=== PATIENT | male | born 1945 | race Two or more races ===

== ENCOUNTER 2020-03-01 16:57 | Emergency (ER) | payer OTHER, SELFPAY ==
[2020-03-01] VITALS (7 sets, daily range): BP systolic 173–204; BP diastolic 81–92; PULSE 62–79; RESP 14–20; TEMP 36.7–36.9; O2SAT 95–98; BMI 27.4
--- NOTE | 2020-03-01 17:25 | ED_ITS ---
HPI - Dizziness General Chief Complaint: Dizziness Stated Complaint: dizzyness Time Seen by Provider: 03/01/20 17:11 Source: patient Mode of arrival: ambulatory Limitations: no limitations History of Present Illness HPI Narrative: This is a pleasant 74-year-old male presents ambulatory via triage with history of hypertension, BPH, hepatitis s/p tx from ivd use 40 + years ago presents ambulatory via triage states he has been cooking for his family all day and ran up a flight of stairs to his room to do something and soon to get the top of the stairs he became slightly dizzy and felt warm like he was going to pass out. States this caused him to get very anxious and concerned. States this has happened to him once before about 40 years ago and not sure will cause at that time. States he did not eat much today as he was focused on his family. He otherwise denies any recent illness. No recent travel or sick contacts. He did not have any headache or chest pain during the episode did feel lightheaded /dizzy but did not pass out. States he sat down and prayed and became scared as he has not been the doctors in a years due to the COVID 19. Related Data Previous Rx's Medication Instructions Recorded cholecalciferol (vitamin D3) 25 25 mcg PO DAILY 90 Days #90 cap 02/06/20 mcg (1,000 unit) capsule Allergies Allergy/AdvReac Type Severity Reaction Status Date / Time No Known Allergies Allergy Verified 03/01/20 17:19 [No Known Allergies*] NKDA Allergy Unknown Unknown Uncoded 03/01/20 17:19 Review of Systems Review of Systems: Constitutional: No Weight loss, No Fever, No Chills, No Night Sweats, No Fatigue, No Malaise ENT/Mouth: No Hearing loss, No Ear Pain, No Nasal Congestion, No Sinus Pain, No Hoarseness, No sore throat, No Rhinorrhea, No Swallowing Difficulty Eyes: No Eye Pain, No Swelling, No Redness, No Foreign Body, No Discharge, No Vision Changes Cardiovascular: No Chest Pain, No SOB, No Dyspnea on Exertion, No Orthopnea, No Edema, No Palpitations Respiratory: No Cough, No Sputum, No Wheezing, No Smoke Exposure, No Dyspnea Gastrointestinal: No Nausea, No Vomiting, No Diarrhea, No Constipation, No abdominal Pain, No Hematochezia, No Melena Genitourinary: no irregular bleeding, No Dysuria, No Urinary Frequency, No Hematuria, No Urinary Incontinence, No Urgency, No Flank Pain, No Urinary Flow Changes, No Hesitancy Musculoskeletal: No joint pain, No Myalgias, No Joint Swelling Skin: No Skin Lesions, No rash Neuro: No Weakness, No Numbness, No Paresthesias, No Loss of Consciousness, No Dizziness, No Headache Psych: No Anxiety/Panic, No Depression, No SI/HI/AH/VH, No Social Issues Heme/Lymph: No Bruising, No Bleeding,No Lymphadenopathy Endocrine: No Polyuria, No Polydipsia, No Temperature Intolerance Yes all other systems are reviewed and are negative [facility] Past Medical History Attestation statement: The following information was validated with the patient. Medical History (Updated 03/01/20 @ 21:44 by Kin Boateng NP) HTN (hypertension) Surgical History (Updated 03/01/20 @ 17:26 by Lucy Oviedo RN) History of prostate surgery Social History Social History Alcohol intake: former Smoking Status: Former smoker Smoked in Last 30 Days: No Use of substances other than those prescribed or required for medical reasons: No Advance Directives: No Advance Directives Information Provided: Yes Physical Exam Vital Signs: Vital Signs: Vital Signs Temp Pulse Resp BP Pulse Ox 03/01/20 21:49 62 18 173/88 H 98 03/01/20 20:00 98.3 F 68 14 180/82 H 97 03/01/20 19:32 79 204/92 H 03/01/20 19:31 73 184/82 H 03/01/20 19:29 69 177/81 H 03/01/20 18:00 98.1 F 67 20 180/85 H 95 03/01/20 17:20 98.4 F 71 15 179/90 H 97 Body Mass Index 27.4 Reviewed Const: General: cooperative and healthy appearing; No acute distress or intoxicated appearing Nutritional Appearance: average body habitus Orientation/consciousness: patient oriented x3 HENMT: Head: Yes normal to inspection Ears: hearing grossly normal bilaterally Eyes: General: appearance normal, both eyes and all related structures Visual Gerard: normal visual gerard by confrontation Neck: Neck: Yes normal visual inspection and No tender Thyroid: Thyroid normal Chest: Chest palpation & inspection: normal inspection of the chest Resp: Effort & Inspection: normal respiratory effort Cardio: Jugular venous distension: no JVD GI: Inspection: Yes normal to inspection Percussion: Yes normal to percussion Auscultation: normal bowel sounds : General: Yes no CVA tenderness Back/Spine/Pelvis: Back: no CVA tenderness Skin: General skin exam: no rashes or lesions noted Neuro: Other: NIH scale 0 No focal neurological findings General: patient oriented x3 Cranial nerves: Yes CN's II-XII intact bilaterally Motor exam (neuro): 5/5 motor strength present throughout Coordination: [id number] test normal Comatose Patient: corneal reflex present Extrem: General: Yes normal to inspection MDM - Dizziness MDM Narrative Medical decision making narrative: Negative orthostatics. Blood pressure on higher side with history of hypertension did take his own little pain does with slight improvements blood pressure. Does report blood pressure tends to be higher when he is in hospital setting or he is nervous. Otherwise workup unremarkable with no delta on repeat troponin. Will follow up with his primary care doctor. Encouraged to increase p.o. intake/ fluids, clear return follow-up instructions. Patient is stable for discharge. Differential Diagnosis Differential diagnosis: Likely benign paroxysmal positional vertigo and orthostatic hypotension; Unlikely adverse reaction to drug, vertebral basilar insufficiency, cerebrovascular accident, acute vestibular neuronitis and transient cerebral ischemia Medical Records Attestation: I reviewed the patient's medical records. Lab Data Attestation: I reviewed the patient's lab results. Result diagrams: 03/01/20 17:57 03/01/20 17:57 Labs: Lab Results 03/01/20 03/01/20 03/01/20 Range/Units 17:57 17:57 17:57 WBC 6.3 (4.8-10.8) X10*3/uL RBC 4.98 (4.60-5.80) X10*6/uL Hgb 15.1 (14.0-18.0) g/dl Hct 44.8 (42-52) % MCV 90.0 (80-98) fL MCH 30.3 (27.0-33.0) pg MCHC 33.7 (31.0-36.0) g/dl RDW 12.8 (11.0-16.0) % Plt Count 167 (160-400) X10*3/uL MPV 12.3 (9.4-12.4) fL Immature Gran % (Auto) 0.3 (0.0-0.4) % Neut % (Auto) 61.8 (45-73) % Lymph % (Auto) 25.8 (20-40) % [place] % (Auto) 10.2 (2-11) % Eos % (Auto) 1.1 (0-4) % Baso % (Auto) 0.8 (0-2) % Lymph # (Auto) 1.6 (1.2-4.9) X10*3/uL [place] # (Auto) 0.6 (0.1-1.2) X10*3/uL Eos # (Auto) 0.1 (0.0-0.4) X10*3/uL Baso # (Auto) 0.1 (0.0-0.2) X10*3/uL Abs Immat Gran (auto) 0.02 (0.00-0.03) X10*3/uL Absolute Neuts (auto) 3.9 (2.0-8.3) X10*3/uL Absolute Nucleated RBC 0.000 (0.0-0.012) X10*3/uL Nucleated RBC % (auto) 0.0 (0.0-0.2) /100WBC PT (10.8-13.0) SEC INR (0.9-1.1) APTT (24.1-38.0) SEC Sodium 138 (135-145) mmol/L Potassium 4.2 (3.3-5.1) mmol/l Chloride 102 (96-108) mmol/L Carbon Dioxide 26 (22-29) mmol/L Anion Gap 14 (12-20) BUN 15 (9-16) mg/dL Creatinine 1.05 (0.5-1.4) mg/dL Estim Creat Clear Calc 60.1 Estimated GFR > 60 Random Glucose 168 H (60-115) mg/dL Calcium 8.4 (8.4-10.2) mg/dL Magnesium 2.0 (1.6-2.6) mg/dL Total Bilirubin 0.8 (0.0-1.0) mg/dL AST 27 (5-37) U/L ALT 18 (0-40) U/L Alkaline Phosphatase 53 (39-117) U/L Troponin I High Sens < 3.5 (<3.5-35.0) ng/L Total Protein 7.6 (6.5-8.0) g/dL Albumin 4.4 (3.5-5.0) g/dL Lipase 92 H (8-78) U/L TSH 2.15 (0.32-4.0) mIU/mL Urine Color Urine Appearance Urine pH (5.0-8.0) Ur Specific [place] (1.005-1.025) Urine Protein (NEG-TRACE) MG/DL Urine Glucose (UA) (NEG) MG/DL Urine Ketones (NEG) MG/DL Urine Blood (NEG) Urine Nitrite (NEG) Ur Leukocyte Esterase (NEG) Urine RBC (0) /HPF Urine WBC (0-4) /HPF Ur Squamous Epith Cells /LPF Urine Bacteria /LPF Urine Opiates Screen (Not Detect) Ur Barbiturates Screen (Not Detect) Ur Phencyclidine Scrn (Not Detect) Ur Amphetamines Screen (Not Detect) U Benzodiazepines Scrn (Not Detect) Urine Cocaine Screen (Not Detect) U Marijuana (THC) Screen (Not Detect) Coronavirus (PCR) (Negative) 03/01/20 03/01/20 03/01/20 Range/Units 17:57 17:57 17:57 WBC (4.8-10.8) X10*3/uL RBC (4.60-5.80) X10*6/uL Hgb (14.0-18.0) g/dl Hct (42-52) % MCV (80-98) fL MCH (27.0-33.0) pg MCHC (31.0-36.0) g/dl RDW (11.0-16.0) % Plt Count (160-400) X10*3/uL MPV (9.4-12.4) fL Immature Gran % (Auto) (0.0-0.4) % Neut % (Auto) (45-73) % Lymph % (Auto) (20-40) % [place] % (Auto) (2-11) % Eos % (Auto) (0-4) % Baso % (Auto) (0-2) % Lymph # (Auto) (1.2-4.9) X10*3/uL [place] # (Auto) (0.1-1.2) X10*3/uL Eos # (Auto) (0.0-0.4) X10*3/uL Baso # (Auto) (0.0-0.2) X10*3/uL Abs Immat Gran (auto) (0.00-0.03) X10*3/uL Absolute Neuts (auto) (2.0-8.3) X10*3/uL Absolute Nucleated RBC (0.0-0.012) X10*3/uL Nucleated RBC % (auto) (0.0-0.2) /100WBC PT 11.9 (10.8-13.0) SEC INR 1.0 (0.9-1.1) APTT 34.1 (24.1-38.0) SEC Sodium (135-145) mmol/L Potassium (3.3-5.1) mmol/l Chloride (96-108) mmol/L Carbon Dioxide (22-29) mmol/L Anion Gap (12-20) BUN (9-16) mg/dL Creatinine (0.5-1.4) mg/dL Estim Creat Clear Calc Estimated GFR Random Glucose (60-115) mg/dL Calcium (8.4-10.2) mg/dL Magnesium (1.6-2.6) mg/dL Total Bilirubin (0.0-1.0) mg/dL AST (5-37) U/L ALT (0-40) U/L Alkaline Phosphatase (39-117) U/L Troponin I High Sens (<3.5-35.0) ng/L Total Protein (6.5-8.0) g/dL Albumin (3.5-5.0) g/dL Lipase (8-78) U/L TSH (0.32-4.0) mIU/mL Urine Color YELLOW Urine Appearance CLEAR Urine pH 5.5 (5.0-8.0) Ur Specific [place] 1.025 (1.005-1.025) Urine Protein TRACE (NEG-TRACE) MG/DL Urine Glucose (UA) NEG (NEG) MG/DL Urine Ketones NEG (NEG) MG/DL Urine Blood 1+ H (NEG) Urine Nitrite NEG (NEG) Ur Leukocyte Esterase NEG (NEG) Urine RBC 0-2 (0) /HPF Urine WBC 0 (0-4) /HPF Ur Squamous Epith Cells NONE /LPF Urine Bacteria NONE /LPF Urine Opiates Screen (Not Detect) Ur Barbiturates Screen (Not Detect) Ur Phencyclidine Scrn (Not Detect) Ur Amphetamines Screen (Not Detect) U Benzodiazepines Scrn (Not Detect) Urine Cocaine Screen (Not Detect) U Marijuana (THC) Screen (Not Detect) Coronavirus (PCR) NEGATIVE (Negative) 03/01/20 03/01/20 Range/Units 17:57 20:27 WBC (4.8-10.8) X10*3/uL RBC (4.60-5.80) X10*6/uL Hgb (14.0-18.0) g/dl Hct (42-52) % MCV (80-98) fL MCH (27.0-33.0) pg MCHC (31.0-36.0) g/dl RDW (11.0-16.0) % Plt Count (160-400) X10*3/uL MPV (9.4-12.4) fL Immature Gran % (Auto) (0.0-0.4) % Neut % (Auto) (45-73) % Lymph % (Auto) (20-40) % [place] % (Auto) (2-11) % Eos % (Auto) (0-4) % Baso % (Auto) (0-2) % Lymph # (Auto) (1.2-4.9) X10*3/uL [place] # (Auto) (0.1-1.2) X10*3/uL Eos # (Auto) (0.0-0.4) X10*3/uL Baso # (Auto) (0.0-0.2) X10*3/uL Abs Immat Gran (auto) (0.00-0.03) X10*3/uL Absolute Neuts (auto) (2.0-8.3) X10*3/uL Absolute Nucleated RBC (0.0-0.012) X10*3/uL Nucleated RBC % (auto) (0.0-0.2) /100WBC PT (10.8-13.0) SEC INR (0.9-1.1) APTT (24.1-38.0) SEC Sodium (135-145) mmol/L Potassium (3.3-5.1) mmol/l Chloride (96-108) mmol/L Carbon Dioxide (22-29) mmol/L Anion Gap (12-20) BUN (9-16) mg/dL Creatinine (0.5-1.4) mg/dL Estim Creat Clear Calc Estimated GFR Random Glucose (60-115) mg/dL Calcium (8.4-10.2) mg/dL Magnesium (1.6-2.6) mg/dL Total Bilirubin (0.0-1.0) mg/dL AST (5-37) U/L ALT (0-40) U/L Alkaline Phosphatase (39-117) U/L Troponin I High Sens 3.9 (<3.5-35.0) ng/L Total Protein (6.5-8.0) g/dL Albumin (3.5-5.0) g/dL Lipase (8-78) U/L TSH (0.32-4.0) mIU/mL Urine Color Urine Appearance Urine pH (5.0-8.0) Ur Specific [place] (1.005-1.025) Urine Protein (NEG-TRACE) MG/DL Urine Glucose (UA) (NEG) MG/DL Urine Ketones (NEG) MG/DL Urine Blood (NEG) Urine Nitrite (NEG) Ur Leukocyte Esterase (NEG) Urine RBC (0) /HPF Urine WBC (0-4) /HPF Ur Squamous Epith Cells /LPF Urine Bacteria /LPF Urine Opiates Screen Not Detected (Not Detect) Ur Barbiturates Screen Not Detected (Not Detect) Ur Phencyclidine Scrn Not Detected (Not Detect) Ur Amphetamines Screen Not Detected (Not Detect) U Benzodiazepines Scrn Not Detected (Not Detect) Urine Cocaine Screen Not Detected (Not Detect) U Marijuana (THC) Screen Not Detected (Not Detect) Coronavirus (PCR) (Negative) Imaging Data Chest x-ray: Radiologist's impression: [address] [address] XRay Report Signed Patient: Chacho Barnard [facility]#: [id number] : 8Acct:[id number] Age/Sex: 74 / MADM Date: 03/01/20 Loc: HO.ED Attending Dr: Ordering Physician: Kin Boateng CHILDREN'S LIBRARIAN Date of Service: 03/01/20 Procedure(s): XR chest 1V Accession Number(s): [id number] cc: Kin Boateng CHILDREN'S LIBRARIAN~ EXAMINATION: XR CHEST CLINICAL INFORMATION: Weakness. COMPARISON: Chest x-ray 06/11/2018 TECHNIQUE: Frontal portable view of the chest was obtained. 5:41 PM FINDINGS: No significant abnormality is noted involving the heart, lungs, mediastinum, bony thorax or soft tissues. XR/XR chest 1V IMPRESSION: Unremarkable examination. Dictated By:ISAI GONZALEZ MD Signed By:<Electronically signed by ISAI GONZALEZ MD in OV>03/01/201756 DD/ 29 TD/TT: Workers Compensation Claims Analyst: PRATIK ECG Data Interpretation: Normal sinus rhythm Rate [address] segment changes No previous to compare to Discharge Plan Discharge Clinical Impression: Postural dizziness with near syncope Patient Disposition: Home, Self-Care Instructions: Near Syncope (ED), Dizziness (ED) Additional Instructions: Drink plenty of fluids Take medication prescribed Prescriptions: No Action cholecalciferol (vitamin D3) 25 mcg (1,000 unit) capsule 25 mcg PO DAILY 90 Days Qty: 90 RF: 0 Referrals: Chris Pearson MD [Primary Care Provider] - 1 week Interventions: ED Discharge Assessment Last Done: 03/01/20 22:24 Discharge Date/Time: 03/01/20 22:00
--- NOTE | 2020-03-01 17:27 | ECG_ITS ---
Test Reason : DIZZINESS Blood Pressure : / mmHG Vent. Rate : 070 BPM Atrial Rate : 070 BPM P-R Int : 178 ms QRS Dur : 100 ms QT Int : 398 ms P-R-T Axes : 020 004 016 degrees QTc Int : 429 ms Normal sinus rhythm Incomplete right bundle branch block Borderline ECG No previous ECGs available Referred By: Kin Boateng Electronically Signed By:JERRY ALVARADO MD
--- NOTE | 2020-03-01 17:30 | XR_ITS ---
EXAMINATION: XR CHEST CLINICAL INFORMATION: Weakness. COMPARISON: Chest x-ray 06/11/2018 TECHNIQUE: Frontal portable view of the chest was obtained. 5:41 PM FINDINGS: No significant abnormality is noted involving the heart, lungs, mediastinum, bony thorax or soft tissues. XR/XR chest 1V IMPRESSION: Unremarkable examination.
[2020-03-01 18:08] LABS: MANUAL DIFF FLAG NO
[2020-03-01 18:12] LABS: Glucose Urine UA NEG (NEG); Leukocyte Esterase Urine NEG (NEG); Nitrite Urine NEG (NEG); PH 5.5 (5.0-8.0); Specific Gravity - Urine 1.025 (1.005-1.025); Urine Blood 1+ (NEG); Urine Ketones NEG (NEG); Urine Protein TRACE MG/DL (NEG-TRACE)
[2020-03-01 18:14] LABS: Color Urine YELLOW
[2020-03-01 18:15] LABS: Appearance Urine CLEAR
[2020-03-01 18:17] LABS: Prothrombin Time 11.9 SEC (10.8-13.0)
[2020-03-01 18:20] LABS: Partial Thromboplastin Time 34.1 SEC (24.1-38.0)
[2020-03-01 18:25] LABS: Basophils Absolute Auto 0.1 X10*3/uL (0.0-0.2); Basophils Percent Auto 0.8 % (0-2); Eosinophils Absolute Auto 0.1 X10*3/uL (0.0-0.4); Eosinophils Percent Auto 1.1 % (0-4); Hematocrit 44.8 % (42-52); Hemoglobin 15.1 g/dl (14.0-18.0); Imm Gran Abs Auto 0.02 X10*3/uL (0.00-0.03); Imm Gran Pct Auto 0.3 % (0.0-0.4); Lymphocytes Absolute Auto 1.6 X10*3/uL (1.2-4.9); Lymphocytes Percent Auto 25.8 % (20-40); Mean Corpuscular HGB Conc 33.7 g/dl (31.0-36.0); Mean Corpuscular Hemoglobin 30.3 pg (27.0-33.0); Mean Platelet Volume 12.3 fL (9.4-12.4); Monocytes Absolute Auto 0.6 X10*3/uL (0.1-1.2); Monocytes Percent Auto 10.2 % (2-11); Neutrophils Absolute Auto 3.9 X10*3/uL (2.0-8.3); Neutrophils Percent Auto 61.8 % (45-73); Platelet Count 167 X10*3/uL (160-400); Red Blood Count 4.98 X10*6/uL (4.60-5.80); Red Cell Distribution Width 12.8 % (11.0-16.0); White Blood Count 6.3 X10*3/uL (4.8-10.8)
[2020-03-01 18:29] LABS: Amphetamine Screen Urine Not Detected (Not Detect); Barbiturates, Urine Not Detected (Not Detect); Benzodiazepines Screen Urine Not Detected (Not Detect); Cannabinoid Screen Urine Not Detected (Not Detect); Cocaine Screen Urine Not Detected (Not Detect); Opiate Screen Urine Not Detected (Not Detect); Phencyclidine Screen Urine Not Detected (Not Detect)
[2020-03-01 18:34] LABS: Troponin-I High Sensitivity < 3.5 ng/L (<3.5-35.0)
[2020-03-01 18:38] LABS: Alanine Aminotransferase 18 U/L (0-40); Albumin Level 4.4 g/dL (3.5-5.0); Alkaline Phosphatase 53 U/L (39-117); Anion Gap 14 (12-20); Aspartate Amino Transferase 27 U/L (5-37); Bilirubin Total 0.8 mg/dL (0.0-1.0); Blood Urea Nitrogen 15 mg/dL (9-16); Calcium 8.4 mg/dL (8.4-10.2); Carbon Dioxide 26 mmol/L (22-29); Chloride 102 mmol/L (96-108); Creatinine Clr Calc Pharmacy 60.1; Estimated Glomerular Filt Rate > 60; Glucose Random 168 mg/dL (60-115); Potassium 4.2 mmol/l (3.3-5.1); Sodium 138 mmol/L (135-145); Total Protein 7.6 g/dL (6.5-8.0)
[2020-03-01 18:45] LABS: RBC Urine 0-2 /HPF (0); WBC Urine 0 /HPF (0-4)
[2020-03-01 18:50] LABS: Thyroid Stimulating Hormone 2.15 mIU/mL (0.32-4.0)
[2020-03-01 18:53] LABS: Lipase 92 U/L (8-78)
[2020-03-01 19:21] LABS: SARS COV2 PCR INHOUSE NEGATIVE (Negative)
--- NOTE | 2020-03-01 20:20 | PC.NURSE ---
BP evelated Increaswes with activity. 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 Pt states that he took his own po Atenolol 50mg at 1920. This was also reported to the SAND SCREENER OPERATOR.
[2020-03-01 21:11] LABS: Troponin-I High Sensitivity 3.9 ng/L (<3.5-35.0)
== END 2020-03-01 22:00 | disposition home or self-care (01) ==
PROVIDERS: Nurse Practitioner Primary Care; Emergency Provider Student in an Organized Health Care Education/Training Program; PCP Internal Medicine
DX: R42 Dizziness and giddiness (principal); R55 Syncope and collapse; Z79.899 Other long term (current) drug therapy; Z20.828 Contact with and (suspected) exposure to other viral communicable diseases
CPT/HCPCS: 36415; 71045; 80053; 80307; 81001; 83690; 83735; 84443; 84484; 85025; 85610; 85730; 93005; 99283; 99284; U0003

== ENCOUNTER 2020-12-07 07:00 | Outpatient (REF) | payer OTHER, SELFPAY ==
[2020-12-07 08:17] LABS: Basophils Absolute Auto 0.1 X10*3/uL (0.0-0.2); Basophils Percent Auto 0.8 % (0-2); Eosinophils Absolute Auto 0.2 X10*3/uL (0.0-0.4); Eosinophils Percent Auto 2.8 % (0-4); Imm Gran Abs Auto 0.01 X10*3/uL (0.00-0.03); Imm Gran Pct Auto 0.2 % (0.0-0.4); Lymphocytes Absolute Auto 2.1 X10*3/uL (1.2-4.9); Neutrophils Percent Auto 47.7 % (45-73)
[2020-12-07 08:19] LABS: Hematocrit 43.7 % (42-52); Hemoglobin 14.7 g/dl (14.0-18.0); Lymphocytes Percent Auto 35.6 % (20-40); Mean Corpuscular HGB Conc 33.6 g/dl (31.0-36.0); Mean Corpuscular Hemoglobin 30.5 pg (27.0-33.0); Mean Corpuscular Volume 90.7 fL (80-98); Monocytes Absolute Auto 0.8 X10*3/uL (0.1-1.2); Monocytes Percent Auto 12.9 % (2-11); Neutrophils Absolute Auto 2.9 X10*3/uL (2.0-8.3); Platelet Count 142 X10*3/uL (160-400); Red Blood Count 4.82 X10*6/uL (4.60-5.80); Red Cell Distribution Width 13.2 % (11.0-16.0)
[2020-12-07 08:20] LABS: MANUAL DIFF FLAG NO
[2020-12-07 08:29] LABS: Estimated Average Glucose 103 mg/dL; Hemoglobin A1c % 5.2 %
[2020-12-07 08:38] LABS: Alanine Aminotransferase 29 U/L (0-40); Albumin Level 4.4 g/dL (3.5-5.0); Alkaline Phosphatase 54 U/L (39-117); Anion Gap 12 (12-20); Aspartate Amino Transferase 29 U/L (5-37); Bilirubin Total 0.6 mg/dL (0.0-1.0); Blood Urea Nitrogen 17 mg/dL (9-16); Calcium 9.4 mg/dL (8.4-10.2); Carbon Dioxide 25 mmol/L (22-29); Chloride 108 mmol/L (96-108); Cholesterol 187 mg/dL; Estimated Glomerular Filt Rate > 60; Glucose Fasting 104 mg/dL (60-99); HDL Cholesterol 40 mg/dL; LDL Cholesterol Calculated 125 mg/dl; Sodium 141 mmol/L (135-145); Total Protein 7.5 g/dL (6.5-8.0); Triglycerides 112 mg/dL
[2020-12-07 08:47] LABS: Glucose Urine UA NEG (NEG); Leukocyte Esterase Urine NEG (NEG); Nitrite Urine NEG (NEG); Specific Gravity - Urine <= 1.005 (1.005-1.025); UACC Culture Trigger NO; Urine Blood TRACE (NEG); Urine Ketones NEG (NEG); Urine Protein NEG (NEG-TRACE)
[2020-12-07 08:52] LABS: Appearance Urine CLEAR; Color Urine YELLOW
[2020-12-07 09:03] LABS: Mucus Urine TRACE /LPF; Squamous Epithelial Cell Urine TRACE /LPF; WBC Urine 0-2 /HPF (0-4)
[2020-12-07 09:05] LABS: TSH reflex Free T4 3.41 uIU/mL (0.32-4.0); Vitamin D 25-OH Total 37.9 ng/mL (>30)
[2020-12-07 09:35] LABS: Prostate Specific Antigen 1.93 ng/mL (<0.05-4.0)
== END 2020-12-07 07:01 | disposition home or self-care (01) ==
LOC: HO.LAB 07:00
PROVIDERS: PCP Internal Medicine; Visit Provider Internal Medicine
DX: Z12.5 Encounter for screening for malignant neoplasm of prostate (principal); I10 Essential (primary) hypertension; E66.3 Overweight; E78.00 Pure hypercholesterolemia, unspecified; R73.01 Impaired fasting glucose; E55.9 Vitamin D deficiency, unspecified; R35.0 Frequency of micturition
CPT/HCPCS: 36415; 80053; 80061; 81001; 82306; 83036; 84153; 84443; 85025

== ENCOUNTER 2021-12-13 06:54 | Outpatient (REF) | payer OTHER, SELFPAY ==
[2021-12-13 07:05] LABS: MANUAL DIFF FLAG NO
[2021-12-13 07:10] LABS: Basophils Absolute Auto 0.1 X10*3/uL (0.0-0.2); Basophils Percent Auto 0.9 % (0-2); Eosinophils Absolute Auto 0.1 X10*3/uL (0.0-0.4); Eosinophils Percent Auto 2.2 % (0-4); Hematocrit 44.5 % (42.0-52.0); Hemoglobin 14.9 g/dl (14.0-18.0); Imm Gran Abs Auto 0.01 X10*3/uL (0.00-0.03); Imm Gran Pct Auto 0.2 % (0.0-0.4); Lymphocytes Percent Auto 34.4 % (20-40); Mean Corpuscular HGB Conc 33.5 g/dl (31.0-36.0); Mean Corpuscular Hemoglobin 30.3 pg (27.0-33.0); Mean Corpuscular Volume 90.4 fL (80.0-98.0); Mean Platelet Volume 12.8 fL (9.4-12.4); Monocytes Absolute Auto 0.8 X10*3/uL (0.1-1.2); Monocytes Percent Auto 13.4 % (2-11); Neutrophils Absolute Auto 2.9 x10*3/uL (2.0-8.3); Neutrophils Percent Auto 48.9 % (45-73); Platelet Count 137 X10*3/uL (160-400); Red Blood Count 4.92 X10*6/uL (4.60-5.80); Red Cell Distribution Width 13.2 % (11.0-16.0); White Blood Count 5.9 X10*3/uL (4.8-10.8)
[2021-12-13 07:35] LABS: Alanine Aminotransferase 25 U/L (0-40); Albumin Level 4.3 g/dL (3.5-5.0); Alkaline Phosphatase 53 U/L (39-117); Anion Gap 14 (12-20); Aspartate Amino Transferase 29 U/L (5-37); Bilirubin Total 0.8 mg/dL (0.0-1.0); Blood Urea Nitrogen 16 mg/dL (9-16); Calcium 8.9 mg/dL (8.4-10.2); Carbon Dioxide 25 mmol/L (22-29); Chloride 106 mmol/L (96-108); Cholesterol 201 mg/dL; Estimated Glomerular Filt Rate > 60; Glucose Fasting 116 mg/dL (60-99); HDL Cholesterol 51 mg/dL; LDL Cholesterol Calculated 132 mg/dl; Potassium 4.1 mmol/L (3.3-5.1); Sodium 141 mmol/L (135-145); Total Protein 7.4 g/dL (6.5-8.0); Triglycerides 92 mg/dL
[2021-12-13 07:59] LABS: Prostate Specific Antigen Scr 2.25 ng/mL (<0.05-4.0); TSH reflex Free T4 2.79 uIU/mL (0.32-4.0); Vitamin D 25-OH Total 36.2 ng/mL (>30)
[2021-12-13 08:23] LABS: Appearance Urine Clear; Color Urine Yellow; Glucose Urine UA Negative (NEG); Leukocyte Esterase Urine Negative (Negative); Nitrite Urine Negative (Negative); Specific Gravity - Urine <= 1.005 (1.005-1.025); Urine Blood Negative (Negative); Urine Ketones Negative (Negative); Urine Protein Negative (Neg-Trace)
== END 2021-12-13 06:55 | disposition home or self-care (01) ==
LOC: HO.LAB 06:54
PROVIDERS: PCP Internal Medicine; Visit Provider Internal Medicine
DX: Z00.00 Encounter for general adult medical examination without abnormal findings (principal); Z12.5 Encounter for screening for malignant neoplasm of prostate; I10 Essential (primary) hypertension; E55.9 Vitamin D deficiency, unspecified
CPT/HCPCS: 36415; 80053; 80061; 81003; 82306; 84153; 84443; 85025

== ENCOUNTER 2022-02-06 09:07 | Emergency (ER) | payer OTHER, SELFPAY ==
[2022-02-06 09:13] VITALS: BP 179/82; PULSE 16; RESP 16; TEMP 36.9; O2SAT 98; BMI 26.6
--- NOTE | 2022-02-06 12:42 | ED_ITS ---
HPI - Anxiety General Chief Complaint: Anxiety Stated Complaint: anxiety Time Seen by Provider: 02/06/22 12:05 Source: patient and family Mode of arrival: ambulatory Limitations: no limitations History of Present Illness HPI narrative: This is a 76-year-old male with a history of hypertension, BPH, anxiety, panic attacks who presents with 2 weeks of feeling anxious. Patient tells me that many years ago he had quite severe anxiety with panic attacks and at that time had been on lorazepam and seeing a therapist. 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 Patient tells me that for the last 2 weeks he has had multiple life stressors including his mom who is currently hospitalized and a daughter who was quite sick as well. He tells me increasing stress, feeling anxious and nervous, poor appetite. Brother tells me patient has been very anxious stating frequently I am going to . Patient denies homicidal ideations, suicidal ideations, depression, hallucinations. He denies current substance use. Patient denies associated chest pain, shortness of breath, palpitations. Patient tells me that his blood pressure is chronically elevated whenever he goes to the doctor's due to white coat syndrome. He is on atenolol. Related Data Previous Rx's Medication Instructions Recorded cholecalciferol (vitamin D3) 25 25 mcg PO DAILY 90 days #90 caps 04/05/21 mcg (1,000 unit) capsule (Vitamin D3) sennosides 8.6 mg tablet (senna) 8.6 mg PO BEDTIME PRN constipation 08/04/21 90 days #90 tabs atenolol 50 mg tablet 50 mg PO DAILY #90 tabs 12/28/21 hydroxyzine HCl 25 mg tablet 25 mg PO QID PRN anxiety #14 tabs 02/06/22 Allergies Allergy/AdvReac Type Severity Reaction Status Date / Time No Known Allergies Allergy Verified 12/23/21 10:44 [No Known Allergies*] Review of Systems Review of Systems: Yes all other systems are reviewed and are negative Constitutional: Constitutional: Reports no additional constitutional complaints, Denies body ache(s), Denies chills, Denies fever(s), Denies headache(s) and Denies weakness Eyes: Eyes: Reports no additional eye complaints and Denies change in vision ENT: Reports system reviewed and no additional complaints, except as docume nted, Denies dizziness, Denies headache(s), Denies nasal congestion, Denies nasal discharge and Denies neck pain Cardiovascular: Cardiovascular: Reports no additional cardiovascular complaints, Denies chest pain, Denies leg edema and Denies dyspnea Respiratory: Respiratory: Reports no additional respiratory complaints, Denies cough and Denies dyspnea Gastrointestinal: Gastrointestinal: Reports no additional gastrointestinal complaints, Denies abdominal pain, Denies diarrhea, Denies nausea and Denies vomiting Genitourinary: Genitourinary: Denies urinary incontinence Musculoskeletal: Musculoskeletal: Reports no additional musculoskeletal complaints, Denies back pain, Denies arthralgias, Denies joint swelling, Denies neck pain, Denies numbness and Denies tingling Integumentary/Breasts: Skin/Breast: Reports system reviewed and no additional complaints, except as docu and Denies rash Neurologic: Reports system reviewed and no additional complaints, except as documented, Denies Abnormal speech present, Denies dizziness, Denies headache( s), Denies numbness, Denies tingling and Denies weakness Psychiatric: Psychiatric: Reports anxiety, Denies depression, Denies homicidal ideation and Denies suicidal ideation ON LICENSE OF [facility] Past Medical History Attestation statement: The following information was validated with the patient. Source: old records reviewed and nursing notes reviewed Medical History Allergic rhinitis Anxiety HTN (hypertension) Impaired fasting glucose Osteoarthritis of left knee Overweight (BMI 25.0-29.9) Pure hypercholesterolemia Urinary frequency Vitamin D deficiency White coat syndrome with hypertension Surgical History History of prostate surgery Family History Family History Father Hypertension Stroke Mother Medical history unknown Social History Social History Housing: House Alcohol intake: former Patient Tobacco Use Status: Former Tobacco user Years Smoked: 25 years Second Hand Smoke Exposure: Yes Advance Directives: No Advance Directives Information Provided: Yes service: No Current occupational status: retired and disabled Cognitive needs: No Hearing needs: No Vision needs: Yes Physical Exam Vital Signs: Vital Signs: Last Vital Signs Temp 98.5 F 02/06/22 09:13 Pulse 16 L 02/06/22 09:13 Resp 16 02/06/22 09:13 BP 179/82 H 02/06/22 09:13 Pulse Ox 98 02/06/22 09:13 O2 Del Method 02/06/22 09:13 BMI result Body Mass Index 26.6 Const: General: cooperative, healthy appearing, comfortable and no acute distress Orientation/consciousness: patient oriented x3 Limitations: no limitations HEENT: Head: Yes normal to inspection Ears: hearing grossly normal bilaterally General nose exam: Normal external nose present Face and sinus: Yes normal facial exam Mouth: Normal oral and palatal mucosa present Throat: Yes posterior oropharynx normal Eyes: General: appearance normal, both eyes and all related structures Pupils: Equal, round and reactive pupils present Neck: Neck: Yes normal visual inspection Chest: Chest palpation & inspection: normal inspection of the chest Resp: Effort & Inspection: normal respiratory effort Auscultation: clear to auscultation bilaterally Cardio: Rate: regular rate Rhythm: regular rhythm Peripheral pulses: Peripheral pulses 2+ throughout GI: Inspection: Yes normal to inspection Palpation (GI): Soft to palpation and nontender Auscultation: normal bowel sounds Back/Spine/Pelvis: Thoracic/Lumbar Spine: thoracic and lumbar spine normal to inspection Skin: General skin exam: no rashes or lesions noted Neuro: General: patient oriented x3, no focal motor deficits and normal sensation to monofilament Cranial nerves: Yes Equal, round and reactive pupils present Cognition (Neuro): normal cognition Speech: No Abnormal speech present Gait exam (Neuro): Normal gait present Motor exam (neuro): 5/5 motor strength present throughout Extrem: General: Yes normal to inspection, Yes no pedal edema and Yes no calf tenderness Course Course Course Narrative: Patient met with care team. Plan for outpatient resources. Will give hydroxyzine p.r.n.. No SI or HI. Patient here with family who agree. Patient my concern over his blood pressure. Blood pressure is mildly elevated here today. He does have white coat hypertension. I reviewed his previous visits as well as visits available deep you had your and is well pressure does seem to run high whenever he comes in to be seen. Patient tells me that he has blood pressure machine and he checks it home. Normally at home is a pressure runs around 150 systolic. He is asking if I would increase his dose of atenolol. However I do not feel this time that is necessary. He did see his primary care doctor in November of this year. Patient tells me he discussed this with his primary care and the decision they made was not to adjust his dose. I recommend patient follow-up outpatient with his primary care to discuss this further. Reviewed worrisome signs and symptoms when to return to the emergency room. Comfortable discharge home. -of note, initial heart rate 16 but this was an error by nursing. Repeat hr normal. MDM - Anxiety MDM Narrative Medical decision making narrative: 76-year-old male here with anxiety increasing over the last few weeks with multiple life stressors and no reports of SI, HI, hallucinations or depression. Patient will speak to care team Medical Records Attestation: I reviewed the patient's medical records. Lab Data Attestation: I reviewed the patient's lab results. Discharge Plan Discharge Clinical Impression: Anxiety, White coat syndrome with hypertension Patient Disposition: Home, Self-Care Instructions: Hypertension (ED), Anxiety (ED) Additional Instructions: You should monitor your blood pressure at home and follow-up with her primary care doctor in regards to this. Continue your blood pressure medications. You did meet with the social work specialist provided with outpatient resources for your anxiety. Please return for any thoughts of hurting herself or thoughts of hurting others. Prescriptions: New hydroxyzine HCl 25 mg tablet 25 mg PO QID PRN (Reason: anxiety) Qty: 14 0RF No Action atenolol 50 mg tablet 50 mg PO DAILY Qty: 90 1RF cholecalciferol (vitamin D3) [Vitamin D3] 25 mcg (1,000 unit) capsule 25 mcg PO DAILY 90 Days Qty: 90 3RF sennosides [senna] 8.6 mg tablet 8.6 mg PO BEDTIME PRN (Reason: constipation) 90 Days Qty: 90 3RF Referrals: Chris Pearson MD [Primary Care Provider] - 1 week
--- NOTE | 2022-02-06 12:59 | MHC.CARE ---
Care Team met with pt and he reported having increased anxiety for the past 2 weeks due to his mother being in a hospital. He reported being worried as his mother lives in [place] with his sister and does not have enough support. Pt's brother Tabatha Barnard stated pt has been struggling with anxiety all his life. This designer writer offered to refer pt to outpatient services, However, pt declined. This designer writer provided pt with outpatient service pamphlet for pt to contact when he is able to. Disposition was discussed with Joana Liz NP and she agreed.
[2022-02-06 13:34] VITALS: PULSE 63
== END 2022-02-06 13:42 | disposition home or self-care (01) ==
PROVIDERS: Emergency Provider Student in an Organized Health Care Education/Training Program; PCP Internal Medicine
DX: F41.9 Anxiety disorder, unspecified (principal); I10 Essential (primary) hypertension; E78.00 Pure hypercholesterolemia, unspecified; Z79.899 Other long term (current) drug therapy; Z87.891 Personal history of nicotine dependence
CPT/HCPCS: 99283; 99284

== ENCOUNTER 2022-05-25 12:48 | Observation (INO) | payer OTHER, SELFPAY ==
[2022-05-25] VITALS (7 sets, daily range): BP systolic 152–210; BP diastolic 71–98; PULSE 57–69; RESP 14–18; TEMP 36.2–36.7; O2SAT 96–98; BMI 26.4
--- NOTE | ~2022-05-25 | CT_ITS ---
EXAMINATION: CT cervical spine wo IV con, CT head/brain wo IV con CLINICAL INFORMATION: Reason for Exam fall head strike neck pain COMPARISON: Age indeterminate right nasal bone fracture. TECHNIQUE: Separate noncontrast CT examinations of the head and cervical spine were performed. Coronal and sagittal images were created for each examination at the technologist workstation. This CT examination was performed using dose optimization techniques as appropriate, variously including the following: *Automated exposure control *Adjustment of mA and/or kV according to patient size (this includes techniques or standardized protocols for targeted exams where dose is matched to indication/reason for exam; i.e. extremities or head) *Use of iterative reconstruction technique DLP: 1225 mGy-cm FINDINGS: Head: Age-indeterminate displaced right nasal bone fracture. No appreciable overlying soft tissue swelling. The mastoid air cells and visualized portions of the paranasal sinuses are well aerated. There is no evidence of acute intracranial hemorrhage or territorial infarction. No abnormal mass effect or midline shift is seen. Ortega to white matter differentiation is well preserved. No extra-axial fluid collections are identified. No hydrocephalus. Cervical spine: There is no evidence of acute cervical spine fracture. Vertebral bodies remain normal in height. Alignment is maintained. Multilevel loss of disc space height. No pre- or paravertebral soft tissue abnormality is identified. Visualized portions of the lung apices are unremarkable. The thyroid gland is unremarkable. CT/CT cervical spine wo IV con IMPRESSION: 1. Age indeterminate displaced right nasal bone fracture. No appreciable overlying soft tissue swelling. 2. No acute intracranial abnormality. 3. No cervical spine fracture or traumatic malalignment.
--- NOTE | ~2022-05-25 | CT_ITS ---
EXAMINATION: CT cervical spine wo IV con, CT head/brain wo IV con CLINICAL INFORMATION: Reason for Exam fall head strike neck pain COMPARISON: Age indeterminate right nasal bone fracture. TECHNIQUE: Separate noncontrast CT examinations of the head and cervical spine were performed. Coronal and sagittal images were created for each examination at the technologist workstation. This CT examination was performed using dose optimization techniques as appropriate, variously including the following: *Automated exposure control *Adjustment of mA and/or kV according to patient size (this includes techniques or standardized protocols for targeted exams where dose is matched to indication/reason for exam; i.e. extremities or head) *Use of iterative reconstruction technique DLP: 1225 mGy-cm FINDINGS: Head: Age-indeterminate displaced right nasal bone fracture. No appreciable overlying soft tissue swelling. The mastoid air cells and visualized portions of the paranasal sinuses are well aerated. There is no evidence of acute intracranial hemorrhage or territorial infarction. No abnormal mass effect or midline shift is seen. Ortega to white matter differentiation is well preserved. No extra-axial fluid collections are identified. No hydrocephalus. Cervical spine: There is no evidence of acute cervical spine fracture. Vertebral bodies remain normal in height. Alignment is maintained. Multilevel loss of disc space height. No pre- or paravertebral soft tissue abnormality is identified. Visualized portions of the lung apices are unremarkable. The thyroid gland is unremarkable. CT/CT head/brain wo IV con IMPRESSION: 1. Age indeterminate displaced right nasal bone fracture. No appreciable overlying soft tissue swelling. 2. No acute intracranial abnormality. 3. No cervical spine fracture or traumatic malalignment.
--- NOTE | ~2022-05-25 | XR_ITS ---
EXAMINATION: XR chest 1V CLINICAL INFORMATION: Reason for Exam fall chest trauma COMPARISON: Chest radiograph 03/01/2020 TECHNIQUE: One view of the chest FINDINGS: Patchy left lateral basilar airspace opacity may reflect a focus of infection, aspiration or atelectasis. No pneumothorax or pleural effusion. Unchanged cardiomediastinal silhouette. No displaced rib fracture, however radiographs have limited sensitivity. XR/XR chest 1V IMPRESSION: Patchy left lateral basilar airspace opacity may reflect a focus of infection, aspiration or atelectasis.
--- NOTE | ~2022-05-25 | US_ITS ---
EXAMINATION: US EXTRACRANIAL CAROTID DUPLEX, BILATERAL CLINICAL INFORMATION: Hypertension, syncope COMPARISON: None TECHNIQUE: Real-time ultrasound and Doppler techniques (integrating B-mode 2-D vascular images, Doppler spectral analysis and color-flow Doppler imaging) were utilized to interrogate the extracranial carotid arteries, the vertebral arteries and proximal subclavian arteries bilaterally. The degree of stenosis is determined by criteria similar to NASCET. FINDINGS: Right Side: 1. There is mild atherosclerotic plaque seen in the bifurcation/proximal ICA region. 2. The common carotid artery PSV proximally is 92 cm/s and distally 75 cm/s. 3. The proximal internal carotid artery velocities are 68 cm/s systolic and 13 cm/s diastolic. 4. The proximal external carotid artery PSV is 102 cm/s. 5. The vertebral artery shows antegrade flow. 6. The subclavian artery waveforms are normal. Left Side: 1. There is mild atherosclerotic plaque seen in the bifurcation/proximal ICA region. 2. The common carotid artery PSV proximally is 97 cm/s and distally 30 cm/s. 3. The proximal internal carotid artery velocities are 70 cm/s systolic and 13 cm/s diastolic. 4. The proximal external carotid artery PSV is 111 cm/s. 5. The vertebral artery shows antegrade flow. 6. The subclavian artery waveforms are normal. US/US carotid duplex BI IMPRESSION: 1. RIGHT: Minimal, non-hemodynamically significant stenosis of the proximal right internal carotid artery corresponding to a 0-49% stenosis by velocity criteria. 2. LEFT: Minimal, non-hemodynamically significant stenosis of the proximal left internal carotid artery corresponding to a 0-49% stenosis by velocity criteria.
--- NOTE | 2022-05-25 12:58 | ECG_ITS ---
Test Reason : dizziness Blood Pressure : / mmHG Vent. Rate : 057 BPM Atrial Rate : 057 BPM P-R Int : 186 ms QRS Dur : 094 ms QT Int : 422 ms P-R-T Axes : 027 -03 036 degrees QTc Int : 410 ms Sinus bradycardia Otherwise normal ECG When compared with ECG of 31-MAR-2020 17:33, No significant change was found Referred By: Joana Garnica Electronically Signed By:JOHN SANTSO
--- NOTE | 2022-05-25 12:59 | ED.SYNCOPE ---
HPI - Syncope General Chief Complaint: Dizziness <Joana Garnica NP - Last Filed: 05/25/22 13:01> Stated Complaint: dizzy high bp <Joana Garnica NP - Last Filed: 05/25/22 13:01> Time Seen by Provider: 05/25/22 16:50 <Joana Garnica NP - Last Filed: 05/25/22 13:01> Source: patient <EUSEBIO Anders - Last Filed: 05/25/22 20:35> Mode of arrival: ambulatory <EUSEBIO Anders - Last Filed: 05/25/22 20:35> Limitations: no limitations <EUSEBIO Anders - Last Filed: 05/25/22 20:35> History of Present Illness HPI narrative: This is a 76-year-old male history of hypertension presenting to the emergency department status post syncopal episode earlier today, according to patient he was home after taking a walk and started feeling dizzy like the room is spinning and passed out, fell to the ground hitting his head. He tells me that this is never happened to him before. Reports he thinks he was on the ground for short period of time. Patient is not on blood thinners. Also concern for high blood pressure, he has a history of this, him and his primary care provider have been making some medication changes to better control his blood pressure. Patient denies chest pain, shortness of breath preceding fall, only reports dizziness/lightheadedness. Patient denies chest pain, shortness of breath, nausea, vomiting, fevers, chills, headache, vision changes, abdominal pain. Denies drugs, alcohol. <EUSEBIO Anders - Last Filed: 05/25/22 20:35> Related Data Home Medications: Home Medications Medication Instructions Recorded Confirmed atenolol 50 mg tablet 50 mg PO BEDTIME 05/25/22 05/25/22 cholecalciferol (vitamin D3) 25 25 mcg PO MOWEFR@0900 05/25/22 05/25/22 mcg (1,000 unit) capsule (Vitamin D3) <ALESSANDRA Schaffer Last Filed: 05/25/22 13:01> Allergies/Adverse Reactions: Allergies Allergy/AdvReac Type Severity Reaction Status Date / Time No Known Allergies Allergy Verified 05/02/22 02:46 [No Known Allergies*] <Joana Garnica NP - Last Filed: 05/25/22 13:01> Review of Systems Review of Systems: Constitutional : No Weight loss, No Fever, No Chills, No Fatigue, No Malaise ENT/Mouth : No sore throat, No Rhinorrhea Eyes: No Eye Pain, No Swelling, No Redness Cardiovascular : No Chest Pain, No SOB, No Dyspnea on Exertion, No Orthopnea, No Edema, No Palpitations Respiratory : No Cough, No Sputum, No Wheezing Gastrointestinal : No Nausea, No Vomiting, No Diarrhea, No Constipation, No abdominal Pain, No Hematochezia, No Melena Genitourinary : No Dysuria, No Urinary Frequency, No Hematuria, Musculoskeletal : No joint pain, No Myalgias, No Joint Swelling Skin : No Skin Lesions, No rash Neuro : No Weakness, No Numbness, No Dizziness, No Headache Psych : No Anxiety/Panic, No Depression All other systems reviewed and are negative <EUSEBIO Anders - Last Filed: 05/25/22 20:35> Yes all other systems are reviewed and are negative <EUSEBIO Anders - Last Filed: 05/25/22 20:35> [facility] Past Medical History Attestation statement: The following information was validated with the patient. <EUSEBIO Anders - Last Filed: 05/25/22 20:35> Source: old records reviewed and nursing notes reviewed <EUSEBIO Anders - Last Filed: 05/25/22 20:35> Medical History: Medical History Allergic rhinitis Anxiety HTN (hypertension) Impaired fasting glucose Osteoarthritis of left knee Overweight (BMI 25.0-29.9) Pure hypercholesterolemia Urinary frequency Vitamin D deficiency White coat syndrome with hypertension <Joana Garnica NP - Last Filed: 05/25/22 13:01> Surgical History: Surgical History History of prostate surgery <Joana Garnica NP - Last Filed: 05/25/22 13:01> Family History Family History: Family History Father Hypertension Stroke Mother Medical history unknown <Joana Garnica NP - Last Filed: 05/25/22 13:01> Social History Social History: Social History Housing: House Alcohol intake: former Patient Tobacco Use Status: Former Tobacco user Years Smoked: 25 years e-Cigarette/Vaping Use: Never Used Second Hand Smoke Exposure: Yes Advance Directives: No service: No Current occupational status: retired and disabled Cognitive needs: No Hearing needs: No Vision needs: Yes <Joana Garnica NP - Last Filed: 05/25/22 13:01> Physical Exam Vital Signs: Vital Signs: Last Vital Signs Temp 97.2 F 05/25/22 12:59 Pulse 69 05/25/22 18:19 Resp 18 05/25/22 18:19 BP 183/95 H 05/25/22 18:19 Pulse Ox 97 05/25/22 18:19 O2 Del Method 05/25/22 18:19 BMI result Body Mass Index 26.4 <Joana Garnica NP - Last Filed: 05/25/22 13:01> Vital Signs: Last Vital Signs Temp 97.2 F 05/25/22 12:59 Pulse 69 05/25/22 18:19 Resp 18 05/25/22 18:19 BP 183/95 H 05/25/22 18:19 Pulse Ox 97 05/25/22 18:19 O2 Del Method 05/25/22 18:19 BMI result Body Mass Index 26.4 VSS <EUSEBIO Anders - Last Filed: 05/25/22 20:35> Appearance: Alert.? Oriented X3.? No acute distress.? Head: Normocephalic, atraumatic, no step-offs or deformities Eyes: Pupils equal, round and reactive to light.? Extraocular movements intact, pain-free and without nystagmus Neck: Normal inspection.? Neck supple.? CVS: Normal heart rate and rhythm.? Pulses normal.? Respiratory: No respiratory distress.? Breath sounds normal.? Abdomen: Soft and nontender.? Skin: Skin warm and dry.? Normal skin color.? Normal skin turgor.? Extremities: No lower extremity edema.? No calf ttp. 5/5 strength to bilateral upper and lower extremities Neuro: Oriented X 3.? No motor deficit.? No sensory deficit. CN 2-12 intact . Ambulating with steady gait normal coordination, normal [id number], [id number], negative Romberg and pronator drift. NIH stroke scale 0 <EUSEBIO Anders - Last Filed: 05/25/22 20:35> Course Course Course Narrative: This is a rapid medical exam. Deferred additional HPI, ROS, PE to primary provider. 76 yo male with history of HTN, HLD here with reports of syncopal episode today at home with preceding symptoms of dizziness. Also elevated blood pressure-working with PCP to control BP at home. On arrival A&Ox4. Hypertensive in triage. Will obtain labs, EKG, orthostatics. <Joana Garnica NP - Last Filed: 05/25/22 13:01> Reevaluation(s) Reevaluation #1: CBC with no acute findings. Chemistry with no acute electrolyte abnormalities requiring intervention. Troponin negative, EKG nonischemic unlikely that this is ACS or dysrhythmia. COVID negative. <EUSEBIO Anders - Last Filed: 05/25/22 20:35> Time: 13:15 <EUSEBIO Anders - Last Filed: 05/25/22 20:35> Reevaluation #2: D-dimer is negative. Urine negative. Urine toxicology negative. Orthostatic vital signs negative. COVID negative. Chest x-ray showing patchy left basilar airspace opacity which could reflect infection versus aspiration or atelectasis. I do not suspect an infection or aspiration, likely atelectasis. His breath sounds are clear on exam and he has no respiratory complaints. Patient's head CT showing an age-indeterminate displaced right nasal bone fracture. No overlying soft tissue swelling, unlikely acute patient without pain with palpation to nose. No acute intracranial abnormality. No acute findings in the cervical spine. Patient's blood pressure remains elevated despite his home dose of atenolol, will give him 10 mg of IV labetalol to control blood pressure. Patient is still complaining of some dizziness. Will hydrate. Plan is to admit patient for hypertension, syncope. <EUSEBIO Anders - Last Filed: 05/25/22 20:35> Time: 19:54 <EUSEBIO Anders - Last Filed: 05/25/22 20:35> Medications Administered Discontinued Medications Generic Name Dose Route Start Last Admin Trade Name Freq PRN Reason Stop Dose Admin Atenolol 50 mg 05/25/22 17:27 05/25/22 17:47 Atenolol 50 Mg Tablet PO 05/25/22 17:28 50 mg ONCE ONE Administration Protocol Sodium Chloride 1,000 mls @ 999 mls/hr 05/25/22 17:30 05/25/22 17:47 Ns IV 05/25/22 18:30 999 mls/hr .Q1H1M SUE Administration <Joana Garnica NP - Last Filed: 05/25/22 13:01> Medications Administered Discontinued Medications Generic Name Dose Route Start Last Admin Trade Name Freq PRN Reason Stop Dose Admin Atenolol 50 mg 05/25/22 17:27 05/25/22 17:47 Atenolol 50 Mg Tablet PO 05/25/22 17:28 50 mg ONCE ONE Administration Protocol Sodium Chloride 1,000 mls @ 999 mls/hr 05/25/22 17:30 05/25/22 17:47 Ns IV 05/25/22 18:30 999 mls/hr .Q1H1M SUE Administration <EUSEBIO Anders - Last Filed: 05/25/22 20:35> Medical Decision Making Medical Decision Making [facility] Narrative: 1700 76-year-old male presenting with syncopal episode with preceding dizziness, tells me feeling a little bit better however still dizzy. Also concern for high blood pressure. Physical examination benign. Neuro nonfocal, cerebellar intact. Vital signs stable however slightly elevated blood pressure. Concerns for possible vasovagal syncope, caroid stenosis, orthostatic hypotension or electrolyte abnormalities. Unlikely dysrhythmia, ACS, PE, intracranial hemorrhage, stroke, posterior stroke, seizure. Plan at this time obtain basic labs, CT of head, cervical spine, orthostatic vital signs, urine <EUSEBIO Anders - Last Filed: 05/25/22 20:35> Differential Diagnosis Differential Diagnoses: The differential diagnosis associated with the presentation includes <EUSEBIO Anders - Last Filed: 05/25/22 20:35> Concerns for possible vasovagal syncope, carotid stenosis, orthostatic hypotension or electrolyte abnormalities. Unlikely dysrhythmia, ACS, PE, intracranial hemorrhage, stroke, posterior stroke, seizure. <EUSEBIO Anders - Last Filed: 05/25/22 20:35> Admission/Observation Consideration of admission/observation: Escalation of care including admission/observation considered <EUSEBIO Anders - Last Filed: 05/25/22 20:35> Patient may require hospital admission <EUSEBIO Anders - Last Filed: 05/25/22 20:35> Lab Data Result Diagrams: 05/25/22 13:11 05/25/22 13:11 <Joana Garnica NP - Last Filed: 05/25/22 13:01> Labs: Lab Results 05/25/22 05/25/22 05/25/22 Range/Units 13:11 13:11 13:11 WBC 5.3 (4.8-10.8) X10*3/uL RBC 4.87 (4.60-5.80) X10*6/uL Hgb 15.1 (14.0-18.0) g/dl Hct 44.0 (42.0-52.0) % MCV 90.3 (80.0-98.0) fL MCH 31.0 (27.0-33.0) pg MCHC 34.3 (31.0-36.0) g/dl RDW 13.1 (11.0-16.0) % Plt Count 135 L (160-400) X10*3/uL MPV 12.1 (9.4-12.4) fL Immature Gran % (Auto) 0.0 (0.0-0.4) % Neut % (Auto) 49.1 (45-73) % Lymph % (Auto) 35.8 (20-40) % Stewart % (Auto) 11.9 H (2-11) % Eos % (Auto) 2.1 (0-4) % Baso % (Auto) 1.1 (0-2) % Lymph # (Auto) 1.9 (1.2-4.9) X10*3/uL Stewart # (Auto) 0.6 (0.1-1.2) X10*3/uL Eos # (Auto) 0.1 (0.0-0.4) X10*3/uL Baso # (Auto) 0.1 (0.0-0.2) X10*3/uL Abs Immat Gran (auto) 0.00 (0.00-0.03) X10*3/uL Absolute Neuts (auto) 2.6 (2.0-8.3) x10*3/uL Absolute Nucleated RBC 0.000 (0.0-0.012) X10*3/uL Nucleated RBC % (auto) 0.0 (0.0-0.2) /100WBC D-Dimer High Sensitivty NG/ML Sodium 140 (135-145) mmol/L Potassium 4.0 (3.3-5.1) mmol/L Chloride 106 (96-108) mmol/L Carbon Dioxide 25 (22-29) mmol/L Anion Gap 13 (12-20) BUN 12 (9-16) mg/dL Creatinine 0.87 (0.5-1.4) mg/dL Estim Creat Clear Calc 64.7 Estimated GFR > 60 Random Glucose 101 (60-115) mg/dL Calcium 9.3 (8.4-10.2) mg/dL Magnesium 2.0 (1.6-2.6) mg/dL Total Bilirubin 0.7 (0.0-1.0) mg/dL Direct Bilirubin 0.2 (0.0-0.5) mg/dL AST 30 (5-37) U/L ALT 28 (0-40) U/L Alkaline Phosphatase 54 (39-117) U/L Total Creatine Kinase 127 (38-174) U/L Troponin I High Sens < 3.5 (<3.5-35.0) ng/L Total Protein 7.1 (6.5-8.0) g/dL Albumin 4.2 (3.5-5.0) g/dL Urine Color Urine Appearance Urine pH (5.0-9.0) Ur Specific [place] (1.005-1.025) Urine Protein (Neg-Trace) mg/dL Urine Glucose (UA) (Negative) mg/dL Urine Ketones (Negative) mg/dL Urine Blood (Negative) Urine Nitrite (Negative) Ur Leukocyte Esterase (Negative) Urine RBC (0-2) /HPF Urine WBC (0-5) /HPF Ur Squamous Epith Cells (0-2) /HPF Urine Bacteria (None Seen) Hyaline Casts (0-2) /LPF Urine Opiates Screen (Not Detect) Urine Fentanyl Screen (Not Detect) Ur Barbiturates Screen (Not Detect) Ur Phencyclidine Scrn (Not Detect) Ur Amphetamines Screen (Not Detect) U Benzodiazepines Scrn (Not Detect) Urine Cocaine Screen (Not Detect) U Marijuana (THC) Screen (Not Detect) COVID-19 (KIESHA) (Negative) COVID-19 Clin Com 05/25/22 05/25/22 05/25/22 Range/Units 13:11 17:30 17:30 WBC (4.8-10.8) X10*3/uL RBC (4.60-5.80) X10*6/uL Hgb (14.0-18.0) g/dl Hct (42.0-52.0) % MCV (80.0-98.0) fL MCH (27.0-33.0) pg MCHC (31.0-36.0) g/dl RDW (11.0-16.0) % Plt Count (160-400) X10*3/uL MPV (9.4-12.4) fL Immature Gran % (Auto) (0.0-0.4) % Neut % (Auto) (45-73) % Lymph % (Auto) (20-40) % Stewart % (Auto) (2-11) % Eos % (Auto) (0-4) % Baso % (Auto) (0-2) % Lymph # (Auto) (1.2-4.9) X10*3/uL Stewart # (Auto) (0.1-1.2) X10*3/uL Eos # (Auto) (0.0-0.4) X10*3/uL Baso # (Auto) (0.0-0.2) X10*3/uL Abs Immat Gran (auto) (0.00-0.03) X10*3/uL Absolute Neuts (auto) (2.0-8.3) x10*3/uL Absolute Nucleated RBC (0.0-0.012) X10*3/uL Nucleated RBC % (auto) (0.0-0.2) /100WBC D-Dimer High Sensitivty NG/ML Sodium (135-145) mmol/L Potassium (3.3-5.1) mmol/L Chloride (96-108) mmol/L Carbon Dioxide (22-29) mmol/L Anion Gap (12-20) BUN (9-16) mg/dL Creatinine (0.5-1.4) mg/dL Estim Creat Clear Calc Estimated GFR Random Glucose (60-115) mg/dL Calcium (8.4-10.2) mg/dL Magnesium (1.6-2.6) mg/dL Total Bilirubin (0.0-1.0) mg/dL Direct Bilirubin (0.0-0.5) mg/dL AST (5-37) U/L ALT (0-40) U/L Alkaline Phosphatase (39-117) U/L Total Creatine Kinase (38-174) U/L Troponin I High Sens (<3.5-35.0) ng/L Total Protein (6.5-8.0) g/dL Albumin (3.5-5.0) g/dL Urine Color Yellow Urine Appearance Clear Urine pH 6.0 (5.0-9.0) Ur Specific [place] 1.010 (1.005-1.025) Urine Protein Trace (Neg-Trace) mg/dL Urine Glucose (UA) Negative (Negative) mg/dL Urine Ketones 15 (Negative) mg/dL Urine Blood Trace H (Negative) Urine Nitrite Negative (Negative) Ur Leukocyte Esterase Negative (Negative) Urine RBC 0-2 (0-2) /HPF Urine WBC 0-5 (0-5) /HPF Ur Squamous Epith Cells 0-2 (0-2) /HPF Urine Bacteria None Seen (None Seen) Hyaline Casts 0-2 (0-2) /LPF Urine Opiates Screen Not Detected (Not Detect) Urine Fentanyl Screen Not Detected (Not Detect) Ur Barbiturates Screen Not Detected (Not Detect) Ur Phencyclidine Scrn Not Detected (Not Detect) Ur Amphetamines Screen Not Detected (Not Detect) U Benzodiazepines Scrn Not Detected (Not Detect) Urine Cocaine Screen Not Detected (Not Detect) U Marijuana (THC) Screen Not Detected (Not Detect) COVID-19 (KIESHA) Negative (Negative) COVID-19 Clin Com See Note 05/25/22 Range/Units 17:41 WBC (4.8-10.8) X10*3/uL RBC (4.60-5.80) X10*6/uL Hgb (14.0-18.0) g/dl Hct (42.0-52.0) % MCV (80.0-98.0) fL MCH (27.0-33.0) pg MCHC (31.0-36.0) g/dl RDW (11.0-16.0) % Plt Count (160-400) X10*3/uL MPV (9.4-12.4) fL Immature Gran % (Auto) (0.0-0.4) % Neut % (Auto) (45-73) % Lymph % (Auto) (20-40) % Stewart % (Auto) (2-11) % Eos % (Auto) (0-4) % Baso % (Auto) (0-2) % Lymph # (Auto) (1.2-4.9) X10*3/uL Stewart # (Auto) (0.1-1.2) X10*3/uL Eos # (Auto) (0.0-0.4) X10*3/uL Baso # (Auto) (0.0-0.2) X10*3/uL Abs Immat Gran (auto) (0.00-0.03) X10*3/uL Absolute Neuts (auto) (2.0-8.3) x10*3/uL Absolute Nucleated RBC (0.0-0.012) X10*3/uL Nucleated RBC % (auto) (0.0-0.2) /100WBC D-Dimer High Sensitivty < 150 NG/ML Sodium (135-145) mmol/L Potassium (3.3-5.1) mmol/L Chloride (96-108) mmol/L Carbon Dioxide (22-29) mmol/L Anion Gap (12-20) BUN (9-16) mg/dL Creatinine (0.5-1.4) mg/dL Estim Creat Clear Calc Estimated GFR Random Glucose (60-115) mg/dL Calcium (8.4-10.2) mg/dL Magnesium (1.6-2.6) mg/dL Total Bilirubin (0.0-1.0) mg/dL Direct Bilirubin (0.0-0.5) mg/dL AST (5-37) U/L ALT (0-40) U/L Alkaline Phosphatase (39-117) U/L Total Creatine Kinase (38-174) U/L Troponin I High Sens (<3.5-35.0) ng/L Total Protein (6.5-8.0) g/dL Albumin (3.5-5.0) g/dL Urine Color Urine Appearance Urine pH (5.0-9.0) Ur Specific [place] (1.005-1.025) Urine Protein (Neg-Trace) mg/dL Urine Glucose (UA) (Negative) mg/dL Urine Ketones (Negative) mg/dL Urine Blood (Negative) Urine Nitrite (Negative) Ur Leukocyte Esterase (Negative) Urine RBC (0-2) /HPF Urine WBC (0-5) /HPF Ur Squamous Epith Cells (0-2) /HPF Urine Bacteria (None Seen) Hyaline Casts (0-2) /LPF Urine Opiates Screen (Not Detect) Urine Fentanyl Screen (Not Detect) Ur Barbiturates Screen (Not Detect) Ur Phencyclidine Scrn (Not Detect) Ur Amphetamines Screen (Not Detect) U Benzodiazepines Scrn (Not Detect) Urine Cocaine Screen (Not Detect) U Marijuana (THC) Screen (Not Detect) COVID-19 (KIESHA) (Negative) COVID-19 Clin Com <Joana Garnica, [facility] SPECIALIST - Last Filed: 05/25/22 13:01> Lab Results 05/25/22 05/25/22 05/25/22 Range/Units 13:11 13:11 13:11 WBC 5.3 (4.8-10.8) X10*3/uL RBC 4.87 (4.60-5.80) X10*6/uL Hgb 15.1 (14.0-18.0) g/dl Hct 44.0 (42.0-52.0) % MCV 90.3 (80.0-98.0) fL MCH 31.0 (27.0-33.0) pg MCHC 34.3 (31.0-36.0) g/dl RDW 13.1 (11.0-16.0) % Plt Count 135 L (160-400) X10*3/uL MPV 12.1 (9.4-12.4) fL Immature Gran % (Auto) 0.0 (0.0-0.4) % Neut % (Auto) 49.1 (45-73) % Lymph % (Auto) 35.8 (20-40) % Stewart % (Auto) 11.9 H (2-11) % Eos % (Auto) 2.1 (0-4) % Baso % (Auto) 1.1 (0-2) % Lymph # (Auto) 1.9 (1.2-4.9) X10*3/uL Stewart # (Auto) 0.6 (0.1-1.2) X10*3/uL Eos # (Auto) 0.1 (0.0-0.4) X10*3/uL Baso # (Auto) 0.1 (0.0-0.2) X10*3/uL Abs Immat Gran (auto) 0.00 (0.00-0.03) X10*3/uL Absolute Neuts (auto) 2.6 (2.0-8.3) x10*3/uL Absolute Nucleated RBC 0.000 (0.0-0.012) X10*3/uL Nucleated RBC % (auto) 0.0 (0.0-0.2) /100WBC D-Dimer High Sensitivty NG/ML Sodium 140 (135-145) mmol/L Potassium 4.0 (3.3-5.1) mmol/L Chloride 106 (96-108) mmol/L Carbon Dioxide 25 (22-29) mmol/L Anion Gap 13 (12-20) BUN 12 (9-16) mg/dL Creatinine 0.87 (0.5-1.4) mg/dL Estim Creat Clear Calc 64.7 Estimated GFR > 60 Random Glucose 101 (60-115) mg/dL Calcium 9.3 (8.4-10.2) mg/dL Magnesium 2.0 (1.6-2.6) mg/dL Total Bilirubin 0.7 (0.0-1.0) mg/dL Direct Bilirubin 0.2 (0.0-0.5) mg/dL AST 30 (5-37) U/L ALT 28 (0-40) U/L Alkaline Phosphatase 54 (39-117) U/L Total Creatine Kinase 127 (38-174) U/L Troponin I High Sens < 3.5 (<3.5-35.0) ng/L Total Protein 7.1 (6.5-8.0) g/dL Albumin 4.2 (3.5-5.0) g/dL Urine Color Urine Appearance Urine pH (5.0-9.0) Ur Specific [place] (1.005-1.025) Urine Protein (Neg-Trace) mg/dL Urine Glucose (UA) (Negative) mg/dL Urine Ketones (Negative) mg/dL Urine Blood (Negative) Urine Nitrite (Negative) Ur Leukocyte Esterase (Negative) Urine RBC (0-2) /HPF Urine WBC (0-5) /HPF Ur Squamous Epith Cells (0-2) /HPF Urine Bacteria (None Seen) Hyaline Casts (0-2) /LPF Urine Opiates Screen (Not Detect) Urine Fentanyl Screen (Not Detect) Ur Barbiturates Screen (Not Detect) Ur Phencyclidine Scrn (Not Detect) Ur Amphetamines Screen (Not Detect) U Benzodiazepines Scrn (Not Detect) Urine Cocaine Screen (Not Detect) U Marijuana (THC) Screen (Not Detect) COVID-19 (KIESHA) (Negative) COVID-19 Clin Com 05/25/22 05/25/22 05/25/22 Range/Units 13:11 17:30 17:30 WBC (4.8-10.8) X10*3/uL RBC (4.60-5.80) X10*6/uL Hgb (14.0-18.0) g/dl Hct (42.0-52.0) % MCV (80.0-98.0) fL MCH (27.0-33.0) pg MCHC (31.0-36.0) g/dl RDW (11.0-16.0) % Plt Count (160-400) X10*3/uL MPV (9.4-12.4) fL Immature Gran % (Auto) (0.0-0.4) % Neut % (Auto) (45-73) % Lymph % (Auto) (20-40) % Stewart % (Auto) (2-11) % Eos % (Auto) (0-4) % Baso % (Auto) (0-2) % Lymph # (Auto) (1.2-4.9) X10*3/uL Stewart # (Auto) (0.1-1.2) X10*3/uL Eos # (Auto) (0.0-0.4) X10*3/uL Baso # (Auto) (0.0-0.2) X10*3/uL Abs Immat Gran (auto) (0.00-0.03) X10*3/uL Absolute Neuts (auto) (2.0-8.3) x10*3/uL Absolute Nucleated RBC (0.0-0.012) X10*3/uL Nucleated RBC % (auto) (0.0-0.2) /100WBC D-Dimer High Sensitivty NG/ML Sodium (135-145) mmol/L Potassium (3.3-5.1) mmol/L Chloride (96-108) mmol/L Carbon Dioxide (22-29) mmol/L Anion Gap (12-20) BUN (9-16) mg/dL Creatinine (0.5-1.4) mg/dL Estim Creat Clear Calc Estimated GFR Random Glucose (60-115) mg/dL Calcium (8.4-10.2) mg/dL Magnesium (1.6-2.6) mg/dL Total Bilirubin (0.0-1.0) mg/dL Direct Bilirubin (0.0-0.5) mg/dL AST (5-37) U/L ALT (0-40) U/L Alkaline Phosphatase (39-117) U/L Total Creatine Kinase (38-174) U/L Troponin I High Sens (<3.5-35.0) ng/L Total Protein (6.5-8.0) g/dL Albumin (3.5-5.0) g/dL Urine Color Yellow Urine Appearance Clear Urine pH 6.0 (5.0-9.0) Ur Specific [place] 1.010 (1.005-1.025) Urine Protein Trace (Neg-Trace) mg/dL Urine Glucose (UA) Negative (Negative) mg/dL Urine Ketones 15 (Negative) mg/dL Urine Blood Trace H (Negative) Urine Nitrite Negative (Negative) Ur Leukocyte Esterase Negative (Negative) Urine RBC 0-2 (0-2) /HPF Urine WBC 0-5 (0-5) /HPF Ur Squamous Epith Cells 0-2 (0-2) /HPF Urine Bacteria None Seen (None Seen) Hyaline Casts 0-2 (0-2) /LPF Urine Opiates Screen Not Detected (Not Detect) Urine Fentanyl Screen Not Detected (Not Detect) Ur Barbiturates Screen Not Detected (Not Detect) Ur Phencyclidine Scrn Not Detected (Not Detect) Ur Amphetamines Screen Not Detected (Not Detect) U Benzodiazepines Scrn Not Detected (Not Detect) Urine Cocaine Screen Not Detected (Not Detect) U Marijuana (THC) Screen Not Detected (Not Detect) COVID-19 (KIESHA) Negative (Negative) COVID-19 Clin Com See Note 05/25/22 Range/Units 17:41 WBC (4.8-10.8) X10*3/uL RBC (4.60-5.80) X10*6/uL Hgb (14.0-18.0) g/dl Hct (42.0-52.0) % MCV (80.0-98.0) fL MCH (27.0-33.0) pg MCHC (31.0-36.0) g/dl RDW (11.0-16.0) % Plt Count (160-400) X10*3/uL MPV (9.4-12.4) fL Immature Gran % (Auto) (0.0-0.4) % Neut % (Auto) (45-73) % Lymph % (Auto) (20-40) % [place] % (Auto) (2-11) % Eos % (Auto) (0-4) % Baso % (Auto) (0-2) % Lymph # (Auto) (1.2-4.9) X10*3/uL [place] # (Auto) (0.1-1.2) X10*3/uL Eos # (Auto) (0.0-0.4) X10*3/uL Baso # (Auto) (0.0-0.2) X10*3/uL Abs Immat Gran (auto) (0.00-0.03) X10*3/uL Absolute Neuts (auto) (2.0-8.3) x10*3/uL Absolute Nucleated RBC (0.0-0.012) X10*3/uL Nucleated RBC % (auto) (0.0-0.2) /100WBC D-Dimer High Sensitivty < 150 NG/ML Sodium (135-145) mmol/L Potassium (3.3-5.1) mmol/L Chloride (96-108) mmol/L Carbon Dioxide (22-29) mmol/L Anion Gap (12-20) BUN (9-16) mg/dL Creatinine (0.5-1.4) mg/dL Estim Creat Clear Calc Estimated GFR Random Glucose (60-115) mg/dL Calcium (8.4-10.2) mg/dL Magnesium (1.6-2.6) mg/dL Total Bilirubin (0.0-1.0) mg/dL Direct Bilirubin (0.0-0.5) mg/dL AST (5-37) U/L ALT (0-40) U/L Alkaline Phosphatase (39-117) U/L Total Creatine Kinase (38-174) U/L Troponin I High Sens (<3.5-35.0) ng/L Total Protein (6.5-8.0) g/dL Albumin (3.5-5.0) g/dL Urine Color Urine Appearance Urine pH (5.0-9.0) Ur Specific [place] (1.005-1.025) Urine Protein (Neg-Trace) mg/dL Urine Glucose (UA) (Negative) mg/dL Urine Ketones (Negative) mg/dL Urine Blood (Negative) Urine Nitrite (Negative) Ur Leukocyte Esterase (Negative) Urine RBC (0-2) /HPF Urine WBC (0-5) /HPF Ur Squamous Epith Cells (0-2) /HPF Urine Bacteria (None Seen) Hyaline Casts (0-2) /LPF Urine Opiates Screen (Not Detect) Urine Fentanyl Screen (Not Detect) Ur Barbiturates Screen (Not Detect) Ur Phencyclidine Scrn (Not Detect) Ur Amphetamines Screen (Not Detect) U Benzodiazepines Scrn (Not Detect) Urine Cocaine Screen (Not Detect) U Marijuana (THC) Screen (Not Detect) COVID-19 ([facility]HA) (Negative) COVID-19 Clin Com <EUSEBIO Anders - Last Filed: 05/25/22 20:35> Radiology Impression Discussion of test interpretation with radiology: I have reviewed the radiologist's reading. <EUSEBIO Anders - Last Filed: 05/25/22 20:35> Core Measures AMI core measures followed: Yes <EUSEBIO Anders - Last Filed: 05/25/22 20:35> Measure exclusions: not indicated <EUSEBIO Anders - Last Filed: 05/25/22 20:35> Critical Care Time Critical Care Time Critical Care Time: No <EUSEBIO Anders - Last Filed: 05/25/22 20:35> Discharge Plan Discharge Clinical Impression: Syncope, Hypertension, Dizziness <Joana Garnica NP - Last Filed: 05/25/22 13:01> Patient Disposition: Still a Patient <Joana Garnica NP - Last Filed: 05/25/22 13:01> Prescriptions: No Action atenolol 50 mg tablet 50 mg PO BEDTIME cholecalciferol (vitamin D3) [Vitamin D3] 25 mcg (1,000 unit) capsule 25 mcg PO MOWEFR@0900 <Joana Garnica NP - Last Filed: 05/25/22 13:01>
[2022-05-25 13:16] LABS: MANUAL DIFF FLAG NO
[2022-05-25 13:18] LABS: Basophils Absolute Auto 0.1 X10*3/uL (0.0-0.2); Basophils Percent Auto 1.1 % (0-2); Eosinophils Absolute Auto 0.1 X10*3/uL (0.0-0.4); Eosinophils Percent Auto 2.1 % (0-4); Hemoglobin 15.1 g/dl (14.0-18.0); Lymphocytes Absolute Auto 1.9 X10*3/uL (1.2-4.9); Lymphocytes Percent Auto 35.8 % (20-40); Mean Corpuscular HGB Conc 34.3 g/dl (31.0-36.0); Mean Corpuscular Volume 90.3 fL (80.0-98.0); Mean Platelet Volume 12.1 fL (9.4-12.4); Monocytes Absolute Auto 0.6 X10*3/uL (0.1-1.2); Monocytes Percent Auto 11.9 % (2-11); Neutrophils Absolute Auto 2.6 x10*3/uL (2.0-8.3); Neutrophils Percent Auto 49.1 % (45-73); Platelet Count 135 X10*3/uL (160-400); Red Blood Count 4.87 X10*6/uL (4.60-5.80); Red Cell Distribution Width 13.1 % (11.0-16.0); White Blood Count 5.3 X10*3/uL (4.8-10.8)
[2022-05-25 13:32] LABS: COVID-19 Test Negative (Negative); IDNOW Serial# 16C4AD1C
[2022-05-25 13:43] LABS: Alanine Aminotransferase 28 U/L (0-40); Albumin Level 4.2 g/dL (3.5-5.0); Alkaline Phosphatase 54 U/L (39-117); Anion Gap 13 (12-20); Aspartate Amino Transferase 30 U/L (5-37); Bilirubin Direct 0.2 mg/dL (0.0-0.5); Bilirubin Total 0.7 mg/dL (0.0-1.0); Blood Urea Nitrogen 12 mg/dL (9-16); Calcium 9.3 mg/dL (8.4-10.2); Carbon Dioxide 25 mmol/L (22-29); Chloride 106 mmol/L (96-108); Creatinine Clr Calc Pharmacy 64.7; Estimated Glomerular Filt Rate > 60; Glucose Random 101 mg/dL (60-115); Sodium 140 mmol/L (135-145); Total Protein 7.1 g/dL (6.5-8.0)
[2022-05-25 13:50] LABS: Troponin-I High Sensitivity < 3.5 ng/L (<3.5-35.0)
[2022-05-25] MEDS: atenoloL 50 MG TABLET PO (17:47)
[2022-05-25] MEDS: 0.9 % Sodium Chloride 1,000 ML 999 ML IV (17:47)
[2022-05-25 17:56] LABS: Appearance Urine Clear; Color Urine Yellow; Glucose Urine UA Negative (Negative); Leukocyte Esterase Urine Negative (Negative); Nitrite Urine Negative (Negative); UMIC TRIGGER UACC YES; Urine Blood Trace (Negative); Urine Ketones 15 mg/dL (Negative); Urine Protein Trace mg/dL (Neg-Trace)
[2022-05-25 18:01] LABS: Amphetamine Screen Urine Not Detected (Not Detect); Barbiturates, Urine Not Detected (Not Detect); Benzodiazepines Screen Urine Not Detected (Not Detect); Cannabinoid Screen Urine Not Detected (Not Detect); Cocaine Screen Urine Not Detected (Not Detect); Fentanyl, urine Not Detected (Not Detect); Opiate Screen Urine Not Detected (Not Detect); Phencyclidine Screen Urine Not Detected (Not Detect)
[2022-05-25 18:02] LABS: Bacteria Urine None Seen (None Seen); Hyaline Casts Urine 0-2 /LPF (0-2); RBC Urine 0-2 /HPF (0-2); Squamous Epithelial Cell Urine 0-2 /HPF (0-2); WBC Urine 0-5 /HPF (0-5)
[2022-05-25 18:09] LABS: D Dimer High Sensitivity < 150 NG/ML
--- NOTE | 2022-05-25 20:29 | PHA.MEDREC ---
Pharmacy Consult ? Medication Reconciliation Pharmacy has completed the medication reconciliation. Spoke to patient.
--- NOTE | 2022-05-25 20:42 | P.HPHOSP_ITS ---
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 Patient states that he went for a 35 minute walk and felt fine, but when he got home?and sat down he began feeling lightheaded and dizzy, his vision suddenly went black, and passed out, falling to the floor. The patient's memory of the events are a little cloudy, but he claims that he was not on the floor for long, only a few seconds. When he woke patient crawled to the living room and phoned his brother. 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 Patient's brother at bedside states that the patient gets worked up and anxious quite easily. Patient also notes that he has had a lot of family stressors in his life recently, which is also caused him anxiety and to get into arguments with his family. Patient notes that he has been occasionally feeling lightheaded and dizzy for the past 2 months with strenuous activity, though denies any other syncopal or presyncopal episodes. The patient has long history of hypertension that dates back over 20 years and has been on and off of various different meds during that time. Patient also states that he does not like hospitals or being on medication, and is trying to manage any chronic conditions without medication patient apparently had a prior PCP who had him on multiple medications for his HTN which the patient did not like. He switched PCPs, stopped his medications, and was restarted on only atenolol for HTN. Patient has also been on medications for anxiety, but has since stopped taking them and does not wish to resume any anti-anxiety medication. Patient denies fever, chills, nausea, vomited. No headache. Patient denies abdominal pain. No chest pain/pressure, palpitations. Denies shortness of breath. Of note patient presents to the ED on 03/01/2020 for similar complaints of dizziness and near syncope. In the ED patient was found to be hypertensive initially at 189/95 and with a high reading of 210/98. Labs were largely unremarkable: Stable H&H of 15.1/44, WBC WNL, electrolytes WNL, D-dimer negative. UA negative. Tox screen negative. Orthostatics negative. CXR showed patchy left lateral basilar airspace opacities possibly suggestive of infection, aspiration, or atelectasis. CT?of head and cer vical spine phone no acute intracranial abnormality, no cervical spine fracture or traumatic malalignment, but did show an age-indeterminate displaced right nasal bone fracture without appreciable overlying soft tissue swelling. Carotid Doppler study found minimal non hemodynamically significant stenosis of the proximal right and left internal carotid arteries corresponding to 0-49% stenosis. EKG demonstrates normal sinus rhythm without evidence of acute ischemia. Pt was treated with his home dose of atenolol and IVF. Pt will be admitted to telemetry for observation and treatment of HTN and syncopal episode. Review of Systems Review of Systems: Lightheadedness/dizziness Syncopal episode No chest pain/pressure, palpitations Denies fever, chills, nausea, vomiting Or shortness of breath Denies headache Yes all other systems are reviewed and are negative ON LICENSE OF [facility] Medical History Allergic rhinitis Anxiety HTN (hypertension) Impaired fasting glucose Osteoarthritis of left knee Overweight (BMI 25.0-29.9) Pure hypercholesterolemia Urinary frequency Vitamin D deficiency White coat syndrome with hypertension Family History Father Hypertension Stroke Mother Medical history unknown Surgical History History of prostate surgery Social History Housing: House Alcohol intake: never Patient Tobacco Use Status: Former Tobacco user Years Smoked: 25 years Smoked in Last 30 Days: No e-Cigarette/Vaping Use: Never Used Second Hand Smoke Exposure: Yes Use of substances other than those prescribed or required for medical reasons: No Advance Directives: No service: No Current occupational status: retired and disabled Cognitive needs: No Hearing needs: No Vision needs: Yes Meds Allergies Allergy/AdvReac Type Severity Reaction Status Date / Time No Known Allergies Allergy Verified 05/02/22 02:46 [No Known Allergies*] Active Medications: Current Medications Pharmacy Consult (Consult Rx Perform Med Rec) 1 each MISCELLANE ONCE PRN PRN Reason: Consult order Home Medications Medication Instructions Recorded Confirmed Last Taken Type atenolol 50 mg tablet 50 mg PO BEDTIME 05/25/22 05/25/22 05/24/22 History cholecalciferol (vitamin D3) 25 25 mcg PO MOWEFR@0900 05/25/22 05/25/22 05/24/22 History mcg (1,000 unit) capsule (Vitamin D3) Physical Exam Vital Signs and Narrative: Vital Signs: Last Vital Signs Temp 98.0 F 05/25/22 20:00 Pulse 61 05/25/22 20:00 Resp 14 05/25/22 20:00 BP 155/78 H 05/25/22 20:00 Pulse Ox 96 05/25/22 20:00 O2 Del Method 05/25/22 20:00 BMI result Body Mass Index 26.4 Constitutional: Alert, in no acute distress. Mental Status: Oriented to person, place and time. Eyes: Pupils are equal, round, and reactive to light. Ear, Nose, and Throat: Oropharynx clear, mucous membranes moist. Ears and nose without deformities. Trachea midline. Respiratory: Clear to auscultation bilaterally. No wheezing, rales, or rhonchi. Cardiovascular: S1, S2 regular. No murmurs, rubs, or gallops. Gastrointestinal: Abdomen soft, non-tender, non-distended. Normal bowel sounds. Neurologic: Cranial nerves II-XII are grossly intact. No focal neurological deficits. Moves all extremities spontaneously. Skin: No rashes or lesions noted. Musculoskeletal: No cyanosis or clubbing. Extremities: No edema. Psychiatric: Normal mood and affect. Results Labs 05/25/22 13:11 05/25/22 13:11 Labs: Laboratory Results - last 24 hr 05/25/22 05/25/22 05/25/22 13:11 13:11 13:11 MCV 90.3 MCH 31.0 MCHC 34.3 RDW 13.1 Plt Count 135 L MPV 12.1 Immature Gran % (Auto) 0.0 Neut % (Auto) 49.1 Lymph % (Auto) 35.8 Rogers % (Auto) 11.9 H Eos % (Auto) 2.1 Baso % (Auto) 1.1 Lymph # (Auto) 1.9 Rogers # (Auto) 0.6 Eos # (Auto) 0.1 Baso # (Auto) 0.1 Abs Immat Gran (auto) 0.00 Absolute Neuts (auto) 2.6 Absolute Nucleated RBC 0.000 Nucleated RBC % (auto) 0.0 D-Dimer High Sensitivty Anion Gap 13 Estim Creat Clear Calc 64.7 Estimated GFR > 60 Random Glucose 101 Calcium 9.3 Magnesium 2.0 Total Bilirubin 0.7 Direct Bilirubin 0.2 AST 30 ALT 28 Alkaline Phosphatase 54 Total Creatine Kinase 127 Troponin I High Sens < 3.5 Total Protein 7.1 Albumin 4.2 Urine Color Urine Appearance Urine pH Ur Specific [place] Urine Protein Urine Glucose (UA) Urine Ketones Urine Blood Urine Nitrite Ur Leukocyte Esterase Urine RBC Urine WBC Ur Squamous Epith Cells Urine Bacteria Hyaline Casts Urine Opiates Screen Urine Fentanyl Screen Ur Barbiturates Screen Ur Phencyclidine Scrn Ur Amphetamines Screen U Benzodiazepines Scrn Urine Cocaine Screen U Marijuana (THC) Screen COVID-19 (KIESHA) COVID-[employer] 05/25/22 05/25/22 05/25/22 13:11 17:30 17:30 MCV MCH MCHC RDW Plt Count MPV Immature Gran % (Auto) Neut % (Auto) Lymph % (Auto) [place] % (Auto) Eos % (Auto) Baso % (Auto) Lymph # (Auto) Rogers # (Auto) Eos # (Auto) Baso # (Auto) Abs Immat Gran (auto) Absolute Neuts (auto) Absolute Nucleated RBC Nucleated RBC % (auto) D-Dimer High Sensitivty Anion Gap Estim Creat Clear Calc Estimated GFR Random Glucose Calcium Magnesium Total Bilirubin Direct Bilirubin AST ALT Alkaline Phosphatase Total Creatine Kinase Troponin I High Sens Total Protein Albumin Urine Color Yellow Urine Appearance Clear Urine pH 6.0 Ur Specific [place] 1.010 Urine Protein Trace Urine Glucose (UA) Negative Urine Ketones 15 Urine Blood Trace H Urine Nitrite Negative Ur Leukocyte Esterase Negative Urine RBC 0-2 Urine WBC 0-5 Ur Squamous Epith Cells 0-2 Urine Bacteria None Seen Hyaline Casts 0-2 Urine Opiates Screen Not Detected Urine Fentanyl Screen Not Detected Ur Barbiturates Screen Not Detected Ur Phencyclidine Scrn Not Detected Ur Amphetamines Screen Not Detected U Benzodiazepines Scrn Not Detected Urine Cocaine Screen Not Detected U Marijuana (THC) Screen Not Detected COVID-19 (KIESHA) Negative COVID-19 Clin Com See Note 05/25/22 17:41 MCV MCH MCHC RDW Plt Count MPV Immature Gran % (Auto) Neut % (Auto) Lymph % (Auto) [place] % (Auto) Eos % (Auto) Baso % (Auto) Lymph # (Auto) [place] # (Auto) Eos # (Auto) Baso # (Auto) Abs Immat Gran (auto) Absolute Neuts (auto) Absolute Nucleated RBC Nucleated RBC % (auto) D-Dimer High Sensitivty < 150 Anion Gap Estim Creat Clear Calc Estimated GFR Random Glucose Calcium Magnesium Total Bilirubin Direct Bilirubin AST ALT Alkaline Phosphatase Total Creatine Kinase Troponin I High Sens Total Protein Albumin Urine Color Urine Appearance Urine pH Ur Specific [place] Urine Protein Urine Glucose (UA) Urine Ketones Urine Blood Urine Nitrite Ur Leukocyte Esterase Urine RBC Urine WBC Ur Squamous Epith Cells Urine Bacteria Hyaline Casts Urine Opiates Screen Urine Fentanyl Screen Ur Barbiturates Screen Ur Phencyclidine Scrn Ur Amphetamines Screen U Benzodiazepines Scrn Urine Cocaine Screen U Marijuana (THC) Screen COVID-19 (KIESHA) COVID-19 Clin Com Imaging Radiologist's Impressions: Impressions Cervical Spine CT 05/25/22 17:30 IMPRESSION: 1. Age indeterminate displaced right nasal bone fracture. No appreciable overlying soft tissue swelling. 2. No acute intracranial abnormality. 3. No cervical spine fracture or traumatic malalignment. Head CT 05/25/22 17:30 IMPRESSION: 1. Age indeterminate displaced right nasal bone fracture. No appreciable overlying soft tissue swelling. 2. No acute intracranial abnormality. 3. No cervical spine fracture or traumatic malalignment. Chest X-Ray 05/25/22 18:11 IMPRESSION: Patchy left lateral basilar airspace opacity may reflect a focus of infection, aspiration or atelectasis. 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 In ED pt was found to be hypertensive up to 210/98. Pt will be admitted to telemetry for observation and treatment of hypertensive urgency. Hypertensive urgency Pt with BP as high as 210/98 Stop atenolol Start amlopidine 5mg po daily, change to 10mg po daily on discharge Consider adding a second agent if BP remains elevated Encourage po fluid intake, hold off on additional IVF Monitor on verifying specialist BP closely F/U with PCP outpatient to monitor BP Syncopal episode Likely secondary to hypertensive urgency: Orthostatics negative, carotid doppler negative, EKG negative, electrolytes WNL Treat as above Question of pneumonia Chest x-ray showed patchy left lateral basilar airspace opacities possibly sugge stive of infection, aspiration, or atelectasis Clinical presentation, labs, and physical exam do not corroborate diagnosis of pneumonia: Patient afebrile, no leukocytosis, patient not complaining of respiratory symptoms, lungs CTA Hold off on ABX for now Anxiety Pt does not want to take anti-anxiety medications F/U with PCP on managing anxiety without medication Full Code Attending:?Dr. Oconnor DVT Prophylaxis: Pt ambulatory Pt will be admitted to telemetry for observation and treatment of hypertensive urgency. Time Spent With Patient Time: Total time managing care of this patient today ____ minutes. Quality Stroke Does the patient have a stroke diagnosis?: No VTE Prior VTE?: No VTE Risk Level:: Medical - moderate - high VTE Device Contraindication: Treatment Not Indicated VTE Drug Contraindication: Treatment Not Indicated
--- NOTE | 2022-05-25 20:45 | PC.NURSE ---
BP checked prior to administering labetalol. BP was decreased. Informed Provider who then held the medication. BP will be checked q15m.
[2022-05-25] MEDS: amLODIPine Besylate 5 MG TABLET PO (22:45)
[2022-05-25] MEDS: 0.9 % Sodium Chloride Flush 3 ML SYRINGE IVFLUSH (23:44)
[2022-05-26] VITALS: BP 163/79; PULSE 64; RESP 18; TEMP 36.6; O2SAT 97
[2022-05-26 03:21] VITALS: BP 149/73; PULSE 56; RESP 14; TEMP 36.4; O2SAT 96
[2022-05-26 07:21] VITALS: BP 145/78; PULSE 71; RESP 20; TEMP 36.9; O2SAT 98
[2022-05-26] MEDS: 0.9 % Sodium Chloride Flush 3 ML SYRINGE IVFLUSH (08:21)
[2022-05-26] MEDS: Cholecalciferol (Vitamin D3) 25 MCG TABLET PO (08:21)
[2022-05-26] MEDS: amLODIPine Besylate 10 MG TABLET PO (08:21)
--- NOTE | 2022-05-26 10:22 | MHC.CM.PN ---
met with pt who lives alone is jeanie vax x 5 has own ride home dc plan home no servceis
[2022-05-26 10:54] VITALS: BP 157/72; PULSE 72; RESP 16; TEMP 37.2; O2SAT 98
--- NOTE | 2022-05-26 11:15 | PM.DS ---
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 Patient states that he went for a 35 minute walk and felt fine, but when he got home?and sat down he began feeling lightheaded and dizzy, his vision suddenly went black, and passed out, falling to the floor. The patient's memory of the events are a little cloudy, but he claims that he was not on the floor for long, only a few seconds.? When he woke patient crawled to the living room and phoned his brother.? 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 Patient's brother at bedside states that the patient gets worked up and anxious quite easily.? Patient also notes that he has had a lot of family stressors in his life recently, which is also caused him anxiety and to get into arguments with his family.? Patient notes that he has been occasionally feeling lightheaded and dizzy for the past 2 months with strenuous activity, though denies any other syncopal or presyncopal episodes.? The patient has long history of hypertension that dates back over 20 years and has been on and off of various different meds during that time.? Patient also states that he does not like hospitals or being on medication, and is trying to manage any chronic conditions without medication patient apparently had a prior PCP who had him on multiple medications for his HTN which the patient did not like.? He switched PCPs, stopped his medications, and was restarted on only atenolol for HTN.? Patient has also been on medications for anxiety, but has since stopped taking them and does not wish to resume any anti-anxiety medication. Patient denies fever, chills, nausea, vomited.? No headache.? Patient denies abdominal pain.? No chest pain/pressure, palpitations.? Denies shortness of breath. Of note patient presents to the ED on 03/01/2020 for similar complaints of dizziness and near syncope. In the ED patient was found to be hypertensive initially at 189/95 and with a high reading of 210/98. Labs were largely unremarkable:? Stable H&H of 15.1/44, WBC WNL, electrolytes WNL, D-dimer negative. UA negative.? Tox screen negative.? Orthostatics negative. CXR showed patchy left lateral basilar airspace opacities possibly suggestive of infection, aspiration, or atelectasis. CT?of head and cervical spine phone no acute intracranial abnormality, no cervical spine fracture or traumatic malalignment, but did show an age-indeterminate displaced right nasal bone fracture without appreciable overlying soft tissue swelling.? Carotid Doppler study found minimal non hemodynamically significant stenosis of the proximal right and left internal carotid arteries corresponding to 0-49% stenosis. EKG demonstrates normal sinus rhythm without evidence of acute ischemia. Pt was treated with his home dose of atenolol and IVF. Pt will be admitted to telemetry for observation and treatment of HTN and syncopal episode. Hospital course The patient was admitted to the hospital for evaluation of syncope. Head CT scan was negative for any acute findings. EKG did not show any abnormal her rhythm with digestion of his CS. Monitored on telemetry with no abnormal rhythm noted. Was able to ambulate with no reported dizziness. Blood pressure was noted to be significantly elevated at time of presentation at the to be the reason behind his complaints. Improved after dose of labetalol and starting amlodipine. Patient reports he has white coat hypertension and did not need more than 1 medication to keep blood pressure under control. Agreed to start taking amlodipine 10 mg daily and to follow-up with PCP as outpatient for further adjustments. Start amlodipine 10 mg daily Monitor your blood pressure and record your readings for 1 week, to review with PCP for further adjustments of medications Time Spent with Patient Time attestation: Total time managing care of this patient today ____ minutes. Discharge coordination time: Less than 30 minutes Quality: Safe Use of Opioids Does Pt have an Active Cancer Diagnosis on the Problem List?: No Quality: Stroke Does the patient have a stroke diagnosis?: No Physical Exam Vital Signs: Vital Signs: Last Vital Signs Temp 99.0 F 05/26/22 10:54 Pulse 72 05/26/22 10:54 Resp 16 05/26/22 10:54 BP 157/72 H 05/26/22 10:54 Pulse Ox 98 05/26/22 10:54 O2 Del Method 05/26/22 10:54 BMI result Body Mass Index 26.4 Const: Other: Constitutional : Awake, interactive, not in distress Neck : Normal inspection, Supple Cardiovascular : RRR, no JVP, no lower extremity edema Respiratory : good bilateral air entry, no crackles, wheezes or rhonchi Gastrointestinal: soft, lax, Normal bowel sounds, Non tender Skin : Warm, Dry Neurological : Alert & oriented x3, No focal deficit , CN 2-12 within normal DS: Data Data Completed and Pending Labs on day of discharge: Laboratory Results - last 24 hr 05/25/22 05/25/22 05/25/22 13:11 13:11 13:11 WBC 5.3 RBC 4.87 Hgb 15.1 Hct 44.0 MCV 90.3 MCH 31.0 MCHC 34.3 RDW 13.1 Plt Count 135 L MPV 12.1 Immature Gran % (Auto) 0.0 Neut % (Auto) 49.1 Lymph % (Auto) 35.8 [place] % (Auto) 11.9 H Eos % (Auto) 2.1 Baso % (Auto) 1.1 Lymph # (Auto) 1.9 [place] # (Auto) 0.6 Eos # (Auto) 0.1 Baso # (Auto) 0.1 Abs Immat Gran (auto) 0.00 Absolute Neuts (auto) 2.6 Absolute Nucleated RBC 0.000 Nucleated RBC % (auto) 0.0 D-Dimer High Sensitivty Sodium 140 Potassium 4.0 Chloride 106 Carbon Dioxide 25 Anion Gap 13 BUN 12 Creatinine 0.87 Estim Creat Clear Calc 64.7 Estimated GFR > 60 Random Glucose 101 Calcium 9.3 Magnesium 2.0 Total Bilirubin 0.7 Direct Bilirubin 0.2 AST 30 ALT 28 Alkaline Phosphatase 54 Total Creatine Kinase 127 Troponin I High Sens < 3.5 Total Protein 7.1 Albumin 4.2 Urine Color Urine Appearance Urine pH Ur Specific [place] Urine Protein Urine Glucose (UA) Urine Ketones Urine Blood Urine Nitrite Ur Leukocyte Esterase Urine RBC Urine WBC Ur Squamous Epith Cells Urine Bacteria Hyaline Casts Urine Opiates Screen Urine Fentanyl Screen Ur Barbiturates Screen Ur Phencyclidine Scrn Ur Amphetamines Screen U Benzodiazepines Scrn Urine Cocaine Screen U Marijuana (THC) Screen COVID-19 (KIESHA) COVID-19 [employer] 05/25/22 05/25/22 05/25/22 13:11 17:30 17:30 WBC RBC Hgb Hct MCV MCH MCHC RDW Plt Count MPV Immature Gran % (Auto) Neut % (Auto) Lymph % (Auto) [place] % (Auto) Eos % (Auto) Baso % (Auto) Lymph # (Auto) [place] # (Auto) Eos # (Auto) Baso # (Auto) Abs Immat Gran (auto) Absolute Neuts (auto) Absolute Nucleated RBC Nucleated RBC % (auto) D-Dimer High Sensitivty Sodium Potassium Chloride Carbon Dioxide Anion Gap BUN Creatinine Estim Creat Clear Calc Estimated GFR Random Glucose Calcium Magnesium Total Bilirubin Direct Bilirubin AST ALT Alkaline Phosphatase Total Creatine Kinase Troponin I High Sens Total Protein Albumin Urine Color Yellow Urine Appearance Clear Urine pH 6.0 Ur Specific [place] 1.010 Urine Protein Trace Urine Glucose (UA) Negative Urine Ketones 15 Urine Blood Trace H Urine Nitrite Negative Ur Leukocyte Esterase Negative Urine RBC 0-2 Urine WBC 0-5 Ur Squamous Epith Cells 0-2 Urine Bacteria None Seen Hyaline Casts 0-2 Urine Opiates Screen Not Detected Urine Fentanyl Screen Not Detected Ur Barbiturates Screen Not Detected Ur Phencyclidine Scrn Not Detected Ur Amphetamines Screen Not Detected U Benzodiazepines Scrn Not Detected Urine Cocaine Screen Not Detected U Marijuana (THC) Screen Not Detected COVID-19 (KIESHA) Negative COVID-19 [employer] See Note 05/25/22 17:41 WBC RBC Hgb Hct MCV MCH MCHC RDW Plt Count MPV Immature Gran % (Auto) Neut % (Auto) Lymph % (Auto) [place] % (Auto) Eos % (Auto) Baso % (Auto) Lymph # (Auto) [place] # (Auto) Eos # (Auto) Baso # (Auto) Abs Immat Gran (auto) Absolute Neuts (auto) Absolute Nucleated RBC Nucleated RBC % (auto) D-Dimer High Sensitivty < 150 Sodium Potassium Chloride Carbon Dioxide Anion Gap BUN Creatinine Estim Creat Clear Calc Estimated GFR Random Glucose Calcium Magnesium Total Bilirubin Direct Bilirubin AST ALT Alkaline Phosphatase Total Creatine Kinase Troponin I High Sens Total Protein Albumin Urine Color Urine Appearance Urine pH Ur Specific [place] Urine Protein Urine Glucose (UA) Urine Ketones Urine Blood Urine Nitrite Ur Leukocyte Esterase Urine RBC Urine WBC Ur Squamous Epith Cells Urine Bacteria Hyaline Casts Urine Opiates Screen Urine Fentanyl Screen Ur Barbiturates Screen Ur Phencyclidine Scrn Ur Amphetamines Screen U Benzodiazepines Scrn Urine Cocaine Screen U Marijuana (THC) Screen COVID-19 ([facility]IESHA) COVID-[address] scan - head: Radiologist's impression: ITS Impressions Cervical Spine CT 05/25/22 17:30 IMPRESSION: 1. Age indeterminate displaced right nasal bone fracture. No appreciable overlying soft tissue swelling. 2. No acute intracranial abnormality. 3. No cervical spine fracture or traumatic malalignment. Head CT 05/25/22 17:30 IMPRESSION: 1. Age indeterminate displaced right nasal bone fracture. No appreciable overlying soft tissue swelling. 2. No acute intracranial abnormality. 3. No cervical spine fracture or traumatic malalignment. Chest X-Ray 05/25/22 18:11 IMPRESSION: Patchy left lateral basilar airspace opacity may reflect a focus of infection, aspiration or atelectasis. Carotid Doppler Study 05/25/22 20:17 IMPRESSION: 1. RIGHT: Minimal, non-hemodynamically significant stenosis of the proximal right internal carotid artery corresponding to a 0-49% stenosis by velocity criteria. 2. LEFT: Minimal, non-hemodynamically significant stenosis of the proximal left internal carotid artery corresponding to a 0-49% stenosis by velocity criteria. Discharge Plan Discharge Patient Disposition: Home, Self-Care Discharge Diagnosis: Hypertensive urgency Syncope Referrals: Chris Pearson MD [Primary Care Provider] - 1 Week Discharge Medications: New amlodipine 10 mg Tablet 10 mg PO DAILY Qty: 30 0RF Protocol: Hold for SBP< HOLD for SBP < : 90 Continued cholecalciferol (vitamin D3) [Vitamin D3] 25 mcg (1,000 unit) capsule 25 mcg PO MOWEFR@0900 Discontinued atenolol 50 mg tablet 50 mg PO BEDTIME Discharge Orders: Discharge Order (Routine); Ordered 05/26/22 Ordered By: Lourdes Mcbride Diet: Advance to usual diet Activity on Discharge: As tolerated Stand Alone Forms: Patient Portal Discharge page Care Plan Goals: Read below Health Concerns: Read below Plan of Treatment: Read below Assessment: You were admitted to the hospital for evaluation of syncopal episode. Found to have significantly elevated blood pressure readings. Brain CT, EKG and heart monitoring were negative for any acute findings. We believe your symptoms are from hypertensive urgency. You will need better control of blood pressure at home. Start amlodipine 10 mg daily Monitor your blood pressure and record your readings for 1 week, to review with PCP for further adjustments of medications
--- NOTE | 2022-05-26 11:34 | MHC.CM.PN ---
jerman alvarez no skilled servceis ordered by
== END 2022-05-26 12:55 | disposition home or self-care (01) ==
LOC: HO.ED 19:56 → HO.EDOVER 22:18 → HO.IMC 22:40
PROVIDERS: Nurse Practitioner Family; Physician Assistant; Admitting Provider Student in an Organized Health Care Education/Training Program; Emergency Provider Emergency Medicine; PCP Internal Medicine; Visit Provider Student in an Organized Health Care Education/Training Program
DX: R55 Syncope and collapse (principal); I16.0 Hypertensive urgency; S06.9X9A Unspecified intracranial injury with loss of consciousness of unspecified duration, initial encounter; Y92.009 Unspecified place in unspecified non-institutional (private) residence as the place of occurrence of the external cause; W18.39XA Other fall on same level, initial encounter; Z91.14 Patient's other noncompliance with medication regimen; N40.0 Benign prostatic hyperplasia without lower urinary tract symptoms; M54.2 Cervicalgia; Y93.89 Activity, other specified
CPT/HCPCS: 36415; 70450; 71045; 72125; 80048; 80076; 80307; 81001; 82550; 83735; 84484; 85025; 85379; 87635; 93005; 93880; 99222; 99285

== ENCOUNTER 2022-07-15 07:21 | Outpatient (REF) | payer OTHER, SELFPAY ==
[2022-07-15 07:52] LABS: MANUAL DIFF FLAG NO
[2022-07-15 08:03] LABS: Basophils Absolute Auto 0.1 X10*3/uL (0.0-0.2); Basophils Percent Auto 1.2 % (0-2); Eosinophils Absolute Auto 0.1 X10*3/uL (0.0-0.4); Eosinophils Percent Auto 2.6 % (0-4); Hemoglobin 15.4 g/dl (14.0-18.0); Imm Gran Abs Auto 0.02 X10*3/uL (0.00-0.03); Imm Gran Pct Auto 0.4 % (0.0-0.4); Lymphocytes Absolute Auto 1.8 X10*3/uL (1.2-4.9); Lymphocytes Percent Auto 35.2 % (20-40); Mean Corpuscular HGB Conc 34.2 g/dl (31.0-36.0); Mean Corpuscular Hemoglobin 30.6 pg (27.0-33.0); Mean Corpuscular Volume 89.3 fL (80.0-98.0); Mean Platelet Volume 11.6 fL (9.4-12.4); Monocytes Absolute Auto 0.6 X10*3/uL (0.1-1.2); Monocytes Percent Auto 12.6 % (2-11); Neutrophils Absolute Auto 2.4 x10*3/uL (2.0-8.3); Platelet Count 181 X10*3/uL (160-400); Red Blood Count 5.04 X10*6/uL (4.60-5.80); Red Cell Distribution Width 13.2 % (11.0-16.0); White Blood Count 5.1 X10*3/uL (4.8-10.8)
[2022-07-15 08:20] LABS: Estimated Average Glucose 105 mg/dL; Hemoglobin A1c % 5.3 %
[2022-07-15 08:26] LABS: Appearance Urine Clear; Color Urine Yellow; Glucose Urine UA Negative (Negative); Leukocyte Esterase Urine Negative (Negative); Nitrite Urine Negative (Negative); UMIC TRIGGER UACC YES; Urine Blood Negative (Negative); Urine Ketones Negative (Negative); Urine Protein 30 (1+) mg/dL (Neg-Trace)
[2022-07-15 08:28] LABS: Bacteria Urine None Seen (None Seen); Hyaline Casts Urine 0-2 /LPF (0-2); RBC Urine 0-2 /HPF (0-2); Squamous Epithelial Cell Urine 0-2 /HPF (0-2); WBC Urine 0-5 /HPF (0-5)
[2022-07-15 09:04] LABS: Alanine Aminotransferase 26 U/L (0-40); Albumin Level 4.5 g/dL (3.5-5.0); Alkaline Phosphatase 59 U/L (39-117); Anion Gap 13 (12-20); Aspartate Amino Transferase 30 U/L (5-37); Blood Urea Nitrogen 12 mg/dL (9-16); Calcium 9.4 mg/dL (8.4-10.2); Carbon Dioxide 26 mmol/L (22-29); Chloride 106 mmol/L (96-108); Cholesterol 217 mg/dL; Estimated Glomerular Filt Rate > 60; Glucose Fasting 104 mg/dL (60-99); HDL Cholesterol 58 mg/dL; LDL Cholesterol Calculated 142 mg/dl; Potassium 4.3 mmol/L (3.3-5.1); Sodium 141 mmol/L (135-145); Total Protein 7.5 g/dL (6.5-8.0); Triglycerides 89 mg/dL
[2022-07-15 09:18] LABS: TSH reflex Free T4 2.82 uIU/mL (0.32-4.0); Vitamin D 25-OH Total 32.8 ng/mL (>30)
== END 2022-07-15 07:22 | disposition home or self-care (01) ==
LOC: HO.LAB 07:21
PROVIDERS: PCP Internal Medicine; Visit Provider Internal Medicine
DX: E55.9 Vitamin D deficiency, unspecified (principal); R73.01 Impaired fasting glucose; I10 Essential (primary) hypertension; E78.00 Pure hypercholesterolemia, unspecified
CPT/HCPCS: 36415; 80053; 80061; 81001; 82306; 83036; 84443; 85025

== ENCOUNTER → 2022-07-26 09:09 | Outpatient (REF) | payer OTHER, SELFPAY ==
--- NOTE | ~2022-07-26 | XR_ITS ---
EXAMINATION: XR KNEE LEFT XR KNEE RIGHT CLINICAL INFORMATION: Knee pain COMPARISON: Radiographs of left knee from 07/25/2014 TECHNIQUE: Left knee, 4 views Right knee, 4 views FINDINGS: Left knee: Tricompartmental osteophyte formation of the degenerated knee. There is moderate loss of the medial tibiofemoral joint space with subarticular sclerosis and genu varus deformity. No joint effusion. The joint degeneration has worsened compared to 07/25/2014. Right knee: Tricompartmental osteophyte formation. Chondrocalcinosis of menisci. No joint effusion. Moderate loss of medial tibiofemoral joint space and associated genu varus deformity. 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
--- NOTE | ~2022-07-26 | XR_ITS ---
EXAMINATION: XR KNEE LEFT XR KNEE RIGHT CLINICAL INFORMATION: Knee pain COMPARISON: Radiographs of left knee from 07/25/2014 TECHNIQUE: Left knee, 4 views Right knee, 4 views FINDINGS: Left knee: Tricompartmental osteophyte formation of the degenerated knee. There is moderate loss of the medial tibiofemoral joint space with subarticular sclerosis and genu varus deformity. No joint effusion. The joint degeneration has worsened compared to 07/25/2014. Right knee: Tricompartmental osteophyte formation. Chondrocalcinosis of menisci. No joint effusion. Moderate loss of medial tibiofemoral joint space and associated genu varus deformity. 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
--- NOTE | 2022-07-26 09:11 | CA_ITS ---
Transthoracic Echocardiogram Patient (Last, First, Middle): Chacho Barnard M Gender: Male Date of : 1945 Age: 76 Procedure Date: 07/26/2022 Procedure Type: Transthoracic Echocardiogram Location: OP Height: 165.1 cm Weight: 68.95 kg BSA: 1.76 m2 Heart Rate: 88 bpm BP: 188 / 80 mmHg Resource Management Planner: SB Referring MD: Chris Pearson MD Symptoms: I10 - Essential (primary) hypertension Study Quality: Adequate ECG Rhythm: Sinus Conclusions: - The left ventricular systolic function is normal. The calculated ejection fraction is 62% by biplane method. - There is mild calcification of the aortic valve. - There is mild posterior mitral leaflet thickening. There is mild posterior mitral leaflet prolapse. There is trace mitral valve regurgitation. Findings Left Ventricle Normal left ventricular cavity size. There is normal left ventricular wall thickness. The left ventricular systolic function is normal. The calculated ejection fraction is 62% by biplane method. There is no evidence of regional wall motion abnormalities. Diastolic function is normal for age. LV peak GLS -20.1%. Right Ventricle Normal right ventricular cavity size and systolic function. Atria The left atrium is mildly dilated. The right atrium is normal in size. Aortic Valve There is a normal trileaflet aortic valve. There is mild calcification of the aortic valve. There is no aortic valve stenosis. There is trace (trivial) aortic valve regurgitation. Mitral Valve There is mild posterior mitral leaflet thickening. There is mild posterior mitral leaflet prolapse. There is trace mitral valve regurgitation. There is no mitral valve stenosis. Pulmonic Valve The pulmonic valve is likely normal. Tricuspid Valve There is mild tricuspid valve regurgitation. There is no evidence of pulmonary hypertension. Great Vessels The asc aorta is normal in size. Venous The inferior vena cava is normal in size and collapses greater than 50% with inspiration. Pericardium/Pleural There is no evidence of pericardial effusion. Prior Study Comparison No prior study available for comparison. Measurements 2D Linear Measurements IVSd: 0.73 0.6-0.9/0.6-1.0 cm LVIDd: 5.48 3.9-5.3/4.2-5.9 cm LVIDd Index: 3.11 2.4-3.2/2.2-3.1 cm/m2 LVIDs: 2.85 2.0-3.6 cm LVPWd: 0.75 0.7-1.1 cm LA Diam: 3.90 2.7-3.8/3.0-4.0 cm LAIDs Index: 2.22 1.5-2.3 cm/m2 LV Mass: 178.58 67-162/88-224 g LV Mass Index: 101.47 43-95/49-115 g/m2 LVOT Diam: 2.40 3.0+(-)1.3 cm 2D Systolic Function EF 4C: 65.60 >55% EF 2C: 61.10 >55% EF BiP: 62.30 >55% Mitral Valve MV Pk E: 0.86 MV PK A: 0.77 MV Decel Time: 124.00 E/A: 1.10 E'Lateral: 10.90 E'Medial: 7.62 E/E' Med: 11.30 E/E' Lat: 7.90 PHT: 36.00 MVA PHT: 6.11 Decel Finney: 6.92 MR VTI: 1.60 Aortic Valve AoV Pk Vernon: 1.69 AoV Mn Vernon: 1.09 AoV VTI: 0.30 AoV Pk Grad: 11.00 Aov Mn Grad: 6.00 HERRERA Cont.VTI: 3.42 LVOT LVOT Pk Vernon: 1.46 LVOT Mn [place]: 0.91 LVOT VTI: 0.23 LVOT Pk Grad: 9.00 LVOT Mn Grad: 4.00 LVOT Diam: 2.40 LVOT Area: 4.52 Diastolic Function MV Pk E: 0.86 MV Pk A: 0.77 E/A: 1.10 E'Medial: 7.62 E/E' Med: 11.30 E' Laterial: 10.90 E/E' Lat: 7.90 Right Ventricle TAPSE (mm): 31.10 TVS' Vernon: 17.00 Tricuspid Valve TR Pk Vernon: 2.65 TR Pk Grad: 28.00 RA Press: 3.00 RVSP: 31.00 Great Vessels Aorta Sinus of Valsalva: 3.50 2.0-3.5 cm Ao Asc: 3.60 2.1-3.4 cm Pulmonary Valve PV Pk Vernon: 1.37 Peak PV Grad: 8.00 Updated in Other Vendor System with Status of Final Javier Cummings MD electronically signed on 07/27/2022 10:53:30 AM with status of Final
== END ==
LOC: HO.CARD 09:09
PROVIDERS: PCP Internal Medicine; Visit Provider Internal Medicine
DX: M25.561 Pain in right knee (principal); M25.562 Pain in left knee; I10 Essential (primary) hypertension
CPT/HCPCS: 73564; 93306; 93356

== ENCOUNTER 2022-09-06 07:06 | Outpatient (REF) | payer OTHER, SELFPAY ==
[2022-09-06 08:18] LABS: Anion Gap 11 (12-20); Blood Urea Nitrogen 19 mg/dL (9-16); Calcium 9.5 mg/dL (8.4-10.2); Carbon Dioxide 26 mmol/L (22-29); Chloride 108 mmol/L (96-108); Estimated Glomerular Filt Rate > 60; Glucose Random 112 mg/dL (60-115); Potassium 4.2 mmol/L (3.3-5.1); Sodium 141 mmol/L (135-145)
[2022-09-15 14:53] LABS: Renin 0.53 ng/mL/h (0.25-5.82)
[2022-09-15 16:48] LABS: Metanephrine, Free 68 pg/mL (<=57); Normetanephrines, Free 74 pg/mL (<=148); Total Metanephrine, Free 142 pg/mL (<=205)
== END 2022-09-06 07:07 | disposition home or self-care (01) ==
LOC: HO.LAB 07:06
PROVIDERS: PCP Internal Medicine; Visit Provider Internal Medicine Hypertension Specialist
DX: I10 Essential (primary) hypertension (principal)
CPT/HCPCS: 36415; 80048; 82088; 83835; 84244

== ENCOUNTER 2022-11-24 07:02 | Outpatient (REF) | payer OTHER, SELFPAY ==
[2022-11-24 07:21] LABS: MANUAL DIFF FLAG NO
[2022-11-24 07:33] LABS: Basophils Absolute Auto 0.1 X10*3/uL (0.0-0.2); Basophils Percent Auto 0.9 % (0-2); Eosinophils Absolute Auto 0.2 X10*3/uL (0.0-0.4); Hematocrit 42.5 % (42.0-52.0); Hemoglobin 14.3 g/dl (14.0-18.0); Imm Gran Abs Auto 0.02 X10*3/uL (0.00-0.03); Imm Gran Pct Auto 0.4 % (0.0-0.4); Lymphocytes Absolute Auto 2.2 X10*3/uL (1.2-4.9); Mean Corpuscular HGB Conc 33.6 g/dl (31.0-36.0); Mean Corpuscular Hemoglobin 30.8 pg (27.0-33.0); Mean Corpuscular Volume 91.6 fL (80.0-98.0); Mean Platelet Volume 11.5 fL (9.4-12.4); Monocytes Absolute Auto 0.7 X10*3/uL (0.1-1.2); Monocytes Percent Auto 12.7 % (2-11); Neutrophils Absolute Auto 2.3 x10*3/uL (2.0-8.3); Platelet Count 166 X10*3/uL (160-400); Red Blood Count 4.64 X10*6/uL (4.60-5.80); Red Cell Distribution Width 13.2 % (11.0-16.0); White Blood Count 5.4 X10*3/uL (4.8-10.8)
[2022-11-24 08:24] LABS: Alanine Aminotransferase 30 U/L (0-40); Albumin Level 4.4 g/dL (3.5-5.0); Alkaline Phosphatase 58 U/L (39-117); Anion Gap 15 (12-20); Aspartate Amino Transferase 32 U/L (5-37); Bilirubin Total 0.7 mg/dL (0.0-1.0); Blood Urea Nitrogen 13 mg/dL (9-16); Calcium 9.3 mg/dL (8.4-10.2); Carbon Dioxide 22 mmol/L (22-29); Chloride 107 mmol/L (96-108); Cholesterol 200 mg/dL; Estimated Glomerular Filt Rate > 60; Glucose Fasting 109 mg/dL (60-99); HDL Cholesterol 61 mg/dL; LDL Cholesterol Calculated 127 mg/dl; Potassium 3.7 mmol/L (3.3-5.1); Sodium 140 mmol/L (135-145); Total Protein 7.7 g/dL (6.5-8.0); Triglycerides 61 mg/dL
[2022-11-24 08:25] LABS: Appearance Urine Clear; Color Urine Yellow; Glucose Urine UA Negative (Negative); Leukocyte Esterase Urine Negative (Negative); Nitrite Urine Negative (Negative); PH 6.5 (5.0-9.0); Urine Blood Negative (Negative); Urine Ketones Negative (Negative); Urine Protein Trace mg/dL (Neg-Trace)
[2022-11-24 08:41] LABS: TSH reflex Free T4 2.97 uIU/mL (0.32-4.0)
== END 2022-11-24 07:03 | disposition home or self-care (01) ==
LOC: HO.LAB 07:02
PROVIDERS: PCP Internal Medicine; Visit Provider Internal Medicine
DX: I10 Essential (primary) hypertension (principal); R80.9 Proteinuria, unspecified; E78.00 Pure hypercholesterolemia, unspecified
CPT/HCPCS: 36415; 80053; 80061; 81003; 84443; 85025

== ENCOUNTER 2022-11-27 09:16 | Outpatient (AMB) | payer OTHER, SELFPAY ==
[2022-11-27 09:18] VITALS: BP 140/88; PULSE 80; O2SAT 96; BMI 23.2
--- NOTE | 2022-11-27 09:18 | MHC.PC.OV ---
Vital Signs 11/27/22 09:18 Height 5 ft 6 in Weight 144 lb BMI 23.2 BP 140/88 H Blood Pressure Location Lt brachial Position Sitting Pulse 80 Pulse Source Pulse Oximeter Pulse Oximetry (%) 96 Oxygen Delivery Method Room Air Intake Visit Reasons: HTN, hyperlipidemia, anxiety Register In Chancery Required: No Accompanied by: Self / Same As Patient Allergies No Known Allergies [No Known Allergies*] Allergy (Verified 11/27/22 10:06) Medication List - Last Reconciled 11/27/22 by Chris Pearson MD amlodipine 10 mg See Protocol PO DAILY cholecalciferol (vitamin D3) (Vitamin D3) 25 mcg PO MOWEFR@0900 Tobacco use date assessed: 11/27/22 Fall risk assessment: No Falls in past year Last assessed Fall Risk: 11/27/22 Dental Screening Dental Screen Date: 11/27/22 Did you have a dental visit in the last 12 months?: No Did you have a dental problem in the last 6 months where you did not have access to dental care?: No Was dental information given to patient?: No HPI HTN, hyperlipidemia, anxiety HPI Details Patient comes in today for his follow up visit States that he feels okay He denies any headaches or dizziness Denies any chest pains, no SOB No nausea/vomiting, no abdominal pain No change in bowel habits noted Still has on and off knee pains but states that they have been mostly manageable Has also noticed some on and off numbness in his feet at times lately, mostly at night but states that they are mild and tolerable and do not keep him up at night Has been taking some Vitamin B12 tablets lately and is wondering if these will help with his symptoms Needs his Amlodipine Rx refilled Had his follow up labs done a few days ago - to discuss his results [facility] Medical History Allergic rhinitis Anxiety Benign essential hypertension Hypertension Impaired fasting glucose Osteoarthritis of left knee Overweight (BMI 25.0-29.9) Pure hypercholesterolemia Urinary frequency Vitamin D deficiency White coat syndrome with hypertension Surgical History History of prostate surgery Family History Father Hypertension Stroke Mother Medical history unknown Social History Housing: House Alcohol intake: never Patient Tobacco Use Status: Former Tobacco user Years Smoked: 25 years e-Cigarette/Vaping Use: Never Used Second Hand Smoke Exposure: Yes service: No Current occupational status: retired and disabled Cognitive needs: No Hearing needs: No Vision needs: Yes Questionnaire PHQ-9 Over the last 2 weeks, how often have you been bothered by any of the following problems? 1. Little interest or pleasure in doing things: not at all 2. Feeling down, depressed, or hopeless: not at all 3. Trouble falling or staying asleep, or sleeping too much: not at all 4. Feeling tired or having little energy: not at all 5. Poor appetite or overeating: not at all 6. Feeling bad about yourself - or that you are a failure or have let yourself or your family down: not at all 7. Trouble concentrating on things, such as reading the newspaper or watching television: not at all 8. Moving or speaking so slowly that other people could have noticed. Or the opposite - being so fidgety or restless that you have been moving around a lot more than usual: not at all 9. Thoughts that you would be better off or of hurting yourself in some way: not at all Total score: 0 Depression Screening Interpretation: Negative [id number] - PHQ-9 Billing: Yes Source: Developed by Drs. Joshua Wren, Marga Juarez, Wilbert Diaz and colleagues, with an educational nathalie from [employer]. Thrive Questionnaire Date Thrive assessed: 11/27/22 I am a: Patient What is your living situation today?: I have a steady place to live Within the past 12 months, did the food you bought not last and you didn't have the money to get more?: Never true Within the past 12 months, did you worry whether your food would run out before you got money to buy more?: Never true Do you have trouble paying for medicines?: No Do you have trouble getting transportation to medical appointments?: No Do you have trouble paying your heating and electricity bill?: No Do you have trouble taking care of your child, family member or friend?: No Do you have trouble with day-to-day activities such as bathing, preparing meals, shopping, managing finances, etc.?: No Are you currently unemployed and looking for a job?: No Are you interested in more education?: No Please select the resources that you would like help with: None Currently or been in a relationship where the following occur: no concerns reported AUDIT C Alcohol Use Questionnaire (AUDIT-C) 1. How often do you have a drink containing alcohol?: Never 3. How often do you have six or more drinks on one occasion?: Never Total Score: 0 Score Reviewed/Action Taken: Yes OBEY-7 AMB Questionnaire OBEY-7 Date OBEY - 7 assessed: 11/27/22 Feeling nervous, anxious, or on edge: 2 = More than half the days Not being able to stop or control worryin = Not at all Worrying too much about different things: 1 = Several days Trouble relaxin = Several days Being so restless that it is hard to sit still: 0 = Not at all Becoming easily annoyed or irritable: 2 = More than half the days Feeling afraid as if something awful might happen: 0 = Not at all Total OBEY-7 score (0-4 normal; 5-9 mild; 10-14 moderate; 15-21 severe): 6 Source: Developed by Drs. Joshua Wren, Marga Juarez, Wilbert Diaz and colleagues, with an educational nathalie from [employer]. Review of Systems Const Denies fatigue, Denies fever(s) and Denies headache(s) ENT Denies dysphagia, Denies dizziness, Denies otalgia, Denies headache(s), Denies odynophagia and Denies sore throat Card Denies chest pain, Denies palpitations and Denies dyspnea Resp Denies cough, Denies dyspnea and Denies wheezing GI Denies abdominal pain, Denies constipation, Denies dysphagia, Denies heartburn, Denies diarrhea, Denies nausea, Denies odynophagia and Denies vomiting Denies dysuria, Denies nocturia and Denies urinary frequency Musc Reports arthralgias (both knees, worse in the left knee), Denies joint swelling and Reports numbness (on and off in his feet, mostly at night) Neuro Denies dizziness, Denies headache(s) and Reports numbness (on and off in his feet, mostly at night) Psych Reports anxiety Endo Denies fatigue and Denies palpitations Aller/Immun Denies wheezing Physical exam (Primary Care) Vital Signs: Last Vital Signs Pulse 80 11/27/22 09:18 BP 140/88 H 11/27/22 09:18 Pulse Ox 96 11/27/22 09:18 Oxygen Delivery Method Room Air 11/27/22 09:18 BMI result Body Mass Index 23.2 Tobacco/Smoking Status: Tobacco use Status Tobacco use date assessed 11/27/22 11/27/22 09:22 Patient Tobacco Use Status Former Tobacco user 11/27/22 09:22 e-Cigarette/Vaping Use Never Used 11/27/22 09:22 PHQ-9: PHQ-9 Score PHQ-9: Total score 0 11/27/22 09:22 Depression Screening Interpretation: Negative Thrive Assessment: Date of Thrive Assessment Date Thrive assessed 11/27/22 11/27/22 09:22 Currently or been in a relationship where the following occur: no concerns reported Const General: no acute distress and alert HENMT Ears: TM's normal bilaterally and EAC's normal Throat: Yes posterior oropharynx normal and Yes tonsils normal (no TP congestion) Neck Neck: Yes no lymphadenopathy and Yes supple Resp Auscultation: clear to auscultation bilaterally, no rales and no wheezes Cardio Rate: regular rate Rhythm: regular rhythm Heart sounds: no murmurs GI Palpation (GI): Soft to palpation, nontender and No hepatosplenomegaly present Skin Rashes: no rashes Extrem General: Yes no clubbing, cyanosis or edema Right lower extremity: knee Details: tenderness and normal ROM; no swelling Left lower extremity: knee Details: tenderness and normal ROM; no swelling Results Reviewed Results Reviewed: Laboratory Tests 11/24/22 11/24/22 11/24/22 07:20 07:21 07:21 WBC 5.4 Hgb 14.3 Hct 42.5 Plt Count 166 Sodium 140 Potassium 3.7 Creatinine 0.83 Estimated GFR > 60 Fasting Glucose 109 H Calcium 9.3 AST 32 ALT 30 Triglycerides 61 Cholesterol 200 LDL Cholesterol, Calc 127 HDL Cholesterol 61 TSH 2.97 Ur Specific [place] 1.010 Urine Protein Trace Urine Glucose (UA) Negative Urine Blood Negative Assessment and Plan Assessment & Plan (1) White coat syndrome with hypertension: Code(s): I10 - Essential (primary) hypertension Plan: Reinforced low sodium diet Continue Amlodipine 10 mg QD - appears to be tolerating Rx so far with no problems at this time (Rx refilled) BP have been reasonably controlled in the past except for when he comes in to the office for his appointments; has noticed that his BP would start running higher on the days leading up to his appointments, consistent with white coat syndrome He is now also seeing nephrology for BP follow up and management; 24-hr ambulatory BP monitoring done a few months ago reportedly showed well-controlled HTN with white-coat effect He has no cardiomegaly seen on his chest x-rays done a few months ago and his recent EKG has been normal Echocardiogram done in June 2022 revealed normal LV cavity size and normal LV systolic function, with calculated EF at 62% and diastolic function is normal for his age. There is mild calcification of the aortic valve and mild posterior mitral valve leaflet thickening and mild posterior mitral valve leaflet prolapse and trace mitral valve regurgitation - will just need periodic follow up unless symptoms occur (2) Proteinuria: Code(s): R80.9 - Proteinuria, unspecified Qualifiers: Proteinuria type: unspecified Qualified Code(s): R80.9 - Proteinuria, unspecified Plan: Stable - is mostly related to his hypertension and emphasized BP control to slow down progression Will continue to monitor this closely (3) Pure hypercholesterolemia: Code(s): E78.00 - Pure hypercholesterolemia, unspecified Plan: Results of his labs done a few days ago reviewed and discussed with patient - his cholesterol levels have improved slightly from previous Reinforced low cholesterol diet Will recheck his labs and fasting lipids in 4 months for follow up (4) Impaired fasting glucose: Code(s): R73.01 - Impaired fasting glucose Plan: HgbA1c was normal at 5.4% when checked back in 2019 and remains normal at 5.3% on his previous labs even though his FBS remains borderline elevated at 109 mg/dl Reinforced low calorie diet/exercise as tolerated Will recheck labs and HgbA1c in 4 months for follow up/further evaluation (5) Vitamin D deficiency: Code(s): E55.9 - Vitamin D deficiency, unspecified Plan: Corrected - continue Vitamin D3 1000 units daily (6) Bilateral knee pain: Code(s): M25.561 - Pain in right knee; M25.562 - Pain in left knee Qualifiers: Chronicity: unspecified Qualified Code(s): M25.561 - Pain in right knee; M25.562 - Pain in left knee Plan: Mostly due to OA of the knees - patient does have mild OA of the left knee based on previous imaging studies Repeat x-rays of the knees done a few months ago revealed (+) moderate tricompartmental OA and genu varus deformity of both knees Advised again that he can continue taking OTC Tylenol PRN for his knee pain and will consider referring to orthopedics for further management if his symptoms progress (7) Constipation: Code(s): K59.00 - Constipation, unspecified Qualifiers: Constipation type: unspecified constipation type Qualified Code(s): K59.00 - Constipation, unspecified Plan: Improved Reinforced increased oral fluids and dietary fiber intake Continue Senna 8.6 mg 1 tablet QD PRN (8) Urinary frequency: Code(s): R35.0 - Frequency of micturition Plan: Most likely due to BPH - serum PSA was normal when checked last year; will recheck in 4 months for follow up Will consider prostate US if symptoms progress or get worse (9) Anxiety: Code(s): F41.9 - Anxiety disorder, unspecified Plan: Used to take Lorazepam for anxiety but states that he has not needed to take any Rx in a while now and prefers not to take anything if possible Plan To return in 4 months for his next annual physical examination Orders: Orders Comprehensive [place]. Panel Fast 4 Months E78.00 - Pure hypercholesterolemia, unspecified Hemoglobin A1c 4 Months R73.01 - Impaired fasting glucose Lipid Panel 4 Months E78.00 - Pure hypercholesterolemia, unspecified Complete Blood Count Auto Diff 4 Months I10 - Essential (primary) hypertension Prostate Specific Antigen 4 Months R35.0 - Frequency of micturition TSH reflex Free T4 4 Months E78.00 - Pure hypercholesterolemia, unspecified Vitamin D 25-OH Total 3 Months E55.9 - Vitamin D deficiency, unspecified UA CC w/rflx Micro + Cult 4 Months R30.0 - Dysuria Medications: Changed From amlodipine 10 mg See Protocol PO DAILY 90 tabs 2RF To amlodipine 10 mg See Protocol PO DAILY 90 days 90 tabs 3RF Coding Level of Care Code Est Pt Level 4 (91694) Diagnoses White coat syndrome with hypertension I10 Proteinuria R80.9 Proteinuria type: unspecified Pure hypercholesterolemia E78.00 Impaired fasting glucose R73.01 Vitamin D deficiency E55.9 Bilateral knee pain M25.561; M25.562 Chronicity: unspecified Constipation K59.00 Constipation type: unspecified constipation type Urinary frequency R35.0 Anxiety F41.9
== END 2022-11-27 10:19 | disposition home or self-care (01) ==
PROVIDERS: Visit Provider Internal Medicine
DX: I10 Essential (primary) hypertension (principal); E55.9 Vitamin D deficiency, unspecified; F41.9 Anxiety disorder, unspecified; E78.00 Pure hypercholesterolemia, unspecified; R80.9 Proteinuria, unspecified; R73.01 Impaired fasting glucose; M25.561 Pain in right knee; M25.562 Pain in left knee; K59.00 Constipation, unspecified; R35.0 Frequency of micturition
CPT/HCPCS: 99214

== ENCOUNTER 2023-03-16 07:13 | Outpatient (REF) | payer OTHER, SELFPAY ==
[2023-03-16 07:30] LABS: MANUAL DIFF FLAG NO
[2023-03-16 07:55] LABS: Basophils Absolute Auto 0.1 X10*3/uL (0.0-0.2); Eosinophils Absolute Auto 0.1 X10*3/uL (0.0-0.4); Eosinophils Percent Auto 1.9 % (0-4); Hematocrit 41.6 % (42.0-52.0); Hemoglobin 14.1 g/dl (14.0-18.0); Imm Gran Abs Auto 0.01 X10*3/uL (0.00-0.03); Imm Gran Pct Auto 0.2 % (0.0-0.4); Lymphocytes Absolute Auto 1.7 X10*3/uL (1.2-4.9); Lymphocytes Percent Auto 36.1 % (20-40); Mean Corpuscular HGB Conc 33.9 g/dl (31.0-36.0); Mean Corpuscular Hemoglobin 30.7 pg (27.0-33.0); Mean Corpuscular Volume 90.4 fL (80.0-98.0); Mean Platelet Volume 12.9 fL (9.4-12.4); Monocytes Absolute Auto 0.6 X10*3/uL (0.1-1.2); Monocytes Percent Auto 12.9 % (2-11); Neutrophils Absolute Auto 2.3 x10*3/uL (2.0-8.3); Neutrophils Percent Auto 47.9 % (45-73); Platelet Count 134 X10*3/uL (160-400); Red Cell Distribution Width 13.2 % (11.0-16.0); White Blood Count 4.8 X10*3/uL (4.8-10.8)
[2023-03-16 08:15] LABS: Alanine Aminotransferase 21 U/L (0-40); Albumin Level 4.5 g/dL (3.5-5.0); Alkaline Phosphatase 57 U/L (39-117); Anion Gap 12 (12-20); Aspartate Amino Transferase 27 U/L (5-37); Blood Urea Nitrogen 16 mg/dL (9-16); Calcium 9.5 mg/dL (8.4-10.2); Carbon Dioxide 26 mmol/L (22-29); Chloride 107 mmol/L (96-108); Cholesterol 195 mg/dL (<200); Estimated Glomerular Filt Rate > 60; Glucose Fasting 106 mg/dL (60-99); HDL Cholesterol 61 mg/dL (>40); LDL Cholesterol Calculated 121 mg/dL (<100); Potassium 3.9 mmol/L (3.3-5.1); Sodium 141 mmol/L (135-145); Total Protein 7.9 g/dL (6.5-8.0); Triglycerides 67 mg/dL (<150)
[2023-03-16 08:23] LABS: Estimated Average Glucose 97 mg/dL
[2023-03-16 08:30] LABS: Prostate Specific Antigen 2.69 ng/mL (<0.05-4.0); TSH reflex Free T4 2.51 uIU/mL (0.32-4.0); Vitamin D 25-OH Total 38.7 ng/mL (>30)
[2023-03-16 08:41] LABS: Appearance Urine Clear; Color Urine Yellow; Glucose Urine UA Negative (Negative); Leukocyte Esterase Urine Negative (Negative); Nitrite Urine Negative (Negative); PH 5.5 (5.0-9.0); Urine Blood Negative (Negative); Urine Ketones Negative (Negative); Urine Protein Trace mg/dL (Neg-Trace)
== END 2023-03-16 07:14 | disposition home or self-care (01) ==
LOC: HO.LAB 07:13
PROVIDERS: PCP Internal Medicine; Visit Provider Internal Medicine
DX: Z12.5 Encounter for screening for malignant neoplasm of prostate (principal); I10 Essential (primary) hypertension; R30.0 Dysuria; E55.9 Vitamin D deficiency, unspecified; R73.01 Impaired fasting glucose; E78.00 Pure hypercholesterolemia, unspecified; R35.0 Frequency of micturition
CPT/HCPCS: 36415; 80053; 80061; 81003; 82306; 83036; 84153; 84443; 85025

== ENCOUNTER 2023-03-29 10:36 | Outpatient (AMB) | payer OTHER, SELFPAY ==
--- NOTE | 2023-03-29 10:51 | A.OFFPC_ITS ---
Vital Signs 03/29/23 10:52 03/29/23 11:44 Height 5 ft 6 in Weight 146 lb BMI 23.6 BP 170/80 H 140/60 H Blood Pressure Location Lt brachial Lt brachial Position Sitting Sitting Pulse 88 Pulse Source Auscultation Pulse Oximetry (%) 99 Oxygen Delivery Method Room Air Comment BP when checked at home yetserday Intake Visit Reasons: pe Psychology Physician Required: No Registered Public Surveyor: Not Required per policy Accompanied by: Self / Same As Patient Allergies No Known Allergies [No Known Allergies*] Allergy (Verified 03/29/23 11:46) Medication List - Last Reconciled 03/29/23 by Chris Pearson MD amlodipine 10 mg See Protocol PO DAILY 90 days cholecalciferol (vitamin D3) (Vitamin D3) 25 mcg PO MOWEFR@0900 Tobacco use date assessed: 11/27/22 Fall risk assessment: No Falls in past year Last assessed Fall Risk: 03/29/23 Dental Screening Dental Screen Date: 03/29/23 Did you have a dental visit in the last 12 months?: No Did you have a dental problem in the last 6 months where you did not have access to dental care?: No Was dental information given to patient?: Patient has dentist HPI pe HPI Details Patient comes in today for his annual physical examination States that he presently feels okay He denies any headaches or dizziness Denies any chest pains, no SOB No nausea/vomiting, no abdominal pain No change in bowel habits noted He denies any acute urinary symptoms Needs his Amlodipine Rx refilled today Had his follow up labs done a couple of weeks ago - to discuss his results His screening colonoscopy was last done on 02/24/2019 - per Dr. Shearer, no further screening colonoscopies are needed for him [facility] Medical History (Updated 03/29/23 @ 11:57 by Chris Pearson MD) History of hepatitis C Benign essential hypertension Hypertension Overweight (BMI 25.0-29.9) Anxiety Urinary frequency Allergic rhinitis Osteoarthritis of left knee Vitamin D deficiency Pure hypercholesterolemia Impaired fasting glucose White coat syndrome with hypertension Surgical History History of prostate surgery Family History Father Hypertension Stroke Mother Medical history unknown Social History (Reviewed 03/29/23 @ 10:53 by Cherise Sanchez [facility]) Housing: House Alcohol intake: never Patient Tobacco Use Status: Former Tobacco user Years Smoked: 25 years e-Cigarette/Vaping Use: Never Used Second Hand Smoke Exposure: Yes service: No Current occupational status: retired and disabled Cognitive needs: No Hearing needs: No Vision needs: Yes Questionnaire Thrive Questionnaire Date Thrive assessed: 11/27/22 OBEY-7 AMB Questionnaire OBEY-7 Date OBEY - 7 assessed: 11/27/22 Source: Developed by Drs. Joshua Wren, Marga Juarez, Wilbert Diaz and colleagues, with an educational nathalie from [employer]. Review of Systems Const Denies chills, Denies fatigue, Denies fever(s), Denies headache(s), Denies malaise and Denies weakness Eyes Denies blurry vision, Denies change in vision, Denies irritation and Denies itchy eyes ENT Denies dysphagia, Denies dizziness, Denies otalgia, Denies headache(s), Denies nasal congestion, Denies neck pain, Denies odynophagia and Denies sore throat Card Denies chest pain, Denies rapid heart rate, Denies irregular heart rhythm, Denies palpitations and Denies dyspnea Resp Denies chest congestion, Denies cough, Denies dyspnea and Denies wheezing GI Denies abdominal pain, Denies bloating, Denies constipation, Denies dysphagia, Denies heartburn, Denies diarrhea, Denies nausea, Denies odynophagia and Denies vomiting Denies hematuria, Denies difficulty urinating, Denies dysuria, Denies urinary frequency and Denies urinary urgency Musc Denies back pain, Denies arthralgias, Denies joint swelling, Denies muscle weakness and Denies neck pain Skin/Breast Denies change in pigmentation, Denies lesions, Denies rash and Denies unusual bruising Neuro Denies dizziness, Denies headache(s), Denies paresthesias and Denies weakness Psych Reports anxiety Endo Denies fatigue and Denies palpitations Aller/Immun Denies itchy eyes and Denies wheezing Physical exam (Primary Care) Vital Signs: Last Vital Signs Pulse 88 03/29/23 10:52 BP 140/60 H 03/29/23 11:44 Pulse Ox 99 03/29/23 10:52 Oxygen Delivery Method Room Air 03/29/23 10:52 BMI result Body Mass Index 23.6 Tobacco/Smoking Status: Tobacco use Status Tobacco use date assessed 11/27/22 03/29/23 10:53 Patient Tobacco Use Status Former Tobacco user 03/29/23 10:53 e-Cigarette/Vaping Use Never Used 03/29/23 10:53 Thrive Assessment: Date of Thrive Assessment Date Thrive assessed 11/27/22 03/29/23 10:53 Const General: no acute distress and alert Orientation/consciousness: patient oriented x3 HENMT Head: Yes normocephalic and Yes atraumatic Ears: TM's normal bilaterally and EAC's normal General nose exam: No nasal discharge present Face and sinus: Yes normal facial exam and Yes sinuses nontender Teeth and gingiva: dentition normal Throat: Yes posterior oropharynx normal and Yes tonsils normal (no TP congestion noted) Eyes Eyelids: Yes eyelids normal Conjunctivae: conjunctivae normal Pupils: Equal, round and reactive pupils present EOM: EOMs intact bilaterally Neck Neck: Yes no lymphadenopathy and Yes supple Thyroid: Thyroid normal Resp Auscultation: clear to auscultation bilaterally, no rales and no wheezes Cardio Rate: regular rate Rhythm: regular rhythm Heart sounds: Clicking heart sound present (mid-systolic) and Murmur heart sound present systolic late, III/ and at the apex GI Palpation (GI): Soft to palpation, nontender and No hepatosplenomegaly present Auscultation: normal bowel sounds General: Yes no CVA tenderness Back/Spine/Pelvis Back: no CVA tenderness Thoracic/Lumbar Spine: thoracic and lumbar spine normal to inspection Skin Lesions: no lesions Rashes: no rashes Neuro General: patient oriented x3, moves all extremities, no focal motor deficits and CN's II-XI intact bilaterally Cranial nerves: Yes CN's II-XII intact bilaterally and Yes Equal, round and reactive pupils present Cognition (Neuro): normal cognition Gait exam (Neuro): Normal gait present Extrem General: Yes no clubbing, cyanosis or edema Right lower extremity: knee Details: tenderness (mild) and normal ROM; no swelling and no crepitus Left lower extremity: knee Details: tenderness (mild) and normal ROM; no swelling Results Reviewed Results Reviewed: Laboratory Tests 03/16/23 03/16/23 07:15 07:29 WBC 4.8 Hgb 14.1 Hct 41.6 L Plt Count 134 L Sodium 141 Potassium 3.9 Creatinine 0.83 Estimated GFR > 60 Fasting Glucose 106 H Hemoglobin A1c % 5.0 Calcium 9.5 AST 27 ALT 21 Total Protein 7.9 Triglycerides 67 Cholesterol 195 LDL Cholesterol, Calc 121 H HDL Cholesterol 61 Prostate Specific Ag 2.69 25-OH Vitamin D Total 38.7 TSH 2.51 Ur Specific [place] 1.010 Urine Protein Trace Urine Glucose (UA) Negative Urine Blood Negative Assessment and Plan Assessment & Plan (1) Annual physical exam: Code(s): Z00.00 - Encounter for general adult medical examination without abnormal findings Plan: Results of his labs done a couple of weeks ago reviewed and discussed with patient He is up-to-date with his screening colonoscopy and per GI, he no longer needs any repeat screening colonoscopy in the future (2) White coat syndrome with hypertension: Code(s): I10 - Essential (primary) hypertension Plan: Reinforced low sodium diet Continue Amlodipine 10 mg QD - appears to be tolerating Rx so far with no problems BP have been reasonably controlled in the past except for when he comes in to the office for his appointments; has noticed that his BP would start running higher on the days leading up to his appointments, consistent with white coat syndrome He is now also seeing nephrology for BP follow up and management; 24-hr ambulatory BP monitoring done a few months ago reportedly showed well-controlled HTN with white-coat effect He has no cardiomegaly seen on his chest x-rays done a few months ago and his recent EKG has been normal Echocardiogram done in June 2022 revealed normal LV cavity size and normal LV systolic function, with calculated EF at 62% and diastolic function is normal for his age. There is mild calcification of the aortic valve and mild posterior mitral valve leaflet thickening and mild posterior mitral valve leaflet prolapse and trace mitral valve regurgitation - will just need periodic follow up unless symptoms occur (3) Proteinuria: Code(s): R80.9 - Proteinuria, unspecified Qualifiers: Proteinuria type: unspecified Qualified Code(s): R80.9 - Proteinuria, unspecified Plan: Stable - is mostly related to his hypertension and have again emphasized BP control to slow down progression Will continue to monitor this closely (4) Pure hypercholesterolemia: Code(s): E78.00 - Pure hypercholesterolemia, unspecified Plan: He is advised that his cholesterol levels have again improved slightly from previous and are now within normal range Reinforced low cholesterol diet Will recheck his labs and fasting lipids in 4 months for follow up (5) Impaired fasting glucose: Code(s): R73.01 - Impaired fasting glucose Plan: HgbA1c was normal at 5.4% and 5.3% when previously checked and remains normal at 5.0% on his recent labs Reinforced low calorie diet/exercise as tolerated Will recheck his labs and HgbA1c in 4 months for follow up (6) Mitral valve prolapse: Code(s): I34.1 - Nonrheumatic mitral (valve) prolapse Plan: Echocardiogram done in June 2022 revealed normal LV cavity size and normal LV systolic function, with calculated EF at 62% and diastolic function is normal for his age. There is mild calcification of the aortic valve and mild posterior mitral valve leaflet thickening and mild posterior mitral valve leaflet prolapse and trace mitral valve regurgitation, which help explain his cardiac murmur Only periodic follow up is needed unless symptoms occur Will refer him to cardiology for further evaluation and management of his cardiac murmur as well as his blood pressure (7) Vitamin D deficiency: Code(s): E55.9 - Vitamin D deficiency, unspecified Plan: Continue Vitamin D3 1000 units daily (8) Bilateral knee pain: Code(s): M25.561 - Pain in right knee; M25.562 - Pain in left knee Qualifiers: Chronicity: unspecified Qualified Code(s): M25.561 - Pain in right knee; M25.562 - Pain in left knee Plan: Mostly due to OA of the knees - patient does have mild OA of the left knee based on previous imaging studies Repeat x-rays of the knees done a few months ago revealed (+) moderate tricompartmental OA and genu varus deformity of both knees Advised again that he can continue taking OTC Tylenol PRN for his knee pain and will consider referring to orthopedics for further management if his symptoms progress (9) Constipation: Code(s): K59.00 - Constipation, unspecified Qualifiers: Constipation type: unspecified constipation type Qualified Code(s): K59.00 - Constipation, unspecified Plan: Improved Reinforced increased oral fluids and dietary fiber intake Continue Senna 8.6 mg 1 tablet QD PRN (10) Urinary frequency: Code(s): R35.0 - Frequency of micturition Plan: Most likely due to BPH - serum PSA was normal when checked last year and was at 2.69 on his labs done a couple of weeks ago Will consider prostate US and also referral to urology if his symptoms progress or get worse (11) Anxiety: Code(s): F41.9 - Anxiety disorder, unspecified Plan: Used to take Lorazepam for anxiety but states that he has not needed to take any Rx in a while now and prefers not to take anything if possible Plan Follow up in 4 months Orders: Orders Complete Blood Count Auto Diff 4 Months I10 - Essential (primary) hypertension Comprehensive [place]. Panel Fast 4 Months E78.00 - Pure hypercholesterolemia, unspecified Lipid Panel 4 Months E78.00 - Pure hypercholesterolemia, unspecified TSH reflex Free T4 4 Months E78.00 - Pure hypercholesterolemia, unspecified Vitamin D 25-OH Total 4 Months E55.9 - Vitamin D deficiency, unspecified Hepatitis C Viral Load 4 Months Z86.19 - Personal history of other infectious and parasitic diseases UA CC w/rflx Micro + Cult 4 Months R30.0 - Dysuria Referrals Cardiology Referral I10 - Essential (primary) hypertension, I34.1 - Nonrheumatic mitral (valve) prolapse Medications: Refilled amlodipine 10 mg See Protocol PO DAILY 90 days 90 tabs 3RF Coding Level of Care Code Est Pt Prev Care >65y(79059) Diagnoses Annual physical exam Z00.00 White coat syndrome with hypertension I10 Proteinuria, unspecified type R80.9 Proteinuria type: unspecified Pure hypercholesterolemia E78.00 Impaired fasting glucose R73.01 Mitral valve prolapse I34.1 Vitamin D deficiency E55.9 Pain in both knees, unspecified chronicity M25.561; M25.562 Chronicity: unspecified Constipation, unspecified constipation type K59.00 Constipation type: unspecified constipation type Urinary frequency R35.0 Anxiety F41.9
[2023-03-29 10:52] VITALS: BP 170/80; PULSE 88; O2SAT 99; BMI 23.6
[2023-03-29 11:44] VITALS: BP 140/60
== END 2023-03-29 11:59 | disposition home or self-care (01) ==
PROVIDERS: PCP Internal Medicine; Visit Provider Internal Medicine
DX: Z00.00 Encounter for general adult medical examination without abnormal findings (principal); I10 Essential (primary) hypertension; R80.9 Proteinuria, unspecified; E78.00 Pure hypercholesterolemia, unspecified; R73.01 Impaired fasting glucose; I34.1 Nonrheumatic mitral (valve) prolapse; E55.9 Vitamin D deficiency, unspecified; M25.561 Pain in right knee; M25.562 Pain in left knee; K59.00 Constipation, unspecified; R35.0 Frequency of micturition; F41.9 Anxiety disorder, unspecified
CPT/HCPCS: 99397

== ENCOUNTER 2023-07-03 09:14 | Outpatient (AMB) | payer OTHER, SELFPAY ==
--- NOTE | 2023-07-03 09:19 | A.OFFVIS_ITS ---
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 He denies any history of coronary disease myocardial infarction or cardiomyopathy or in fact any other cardiac issues. He has history of hypertension as well as superimposed white coat hypertension and has seen Nephrology before and also had 24 hour monitors. He states that whenever he comes to the doctors, his blood pressure goes up high. Home blood pressures are somewhat lower in the 130s and 140 systolic. Otherwise, he denies any history of coronary disease myocardial infarction or cardiomyopathy. No cardiac symptoms like chest pains or shortness of breath. He states he feels fine. [facility] Medical History (Updated 07/03/23 @ 09:33 by Javier Cummings MD) History of hepatitis C Benign essential hypertension Hypertension Overweight (BMI 25.0-29.9) Anxiety Urinary frequency Allergic rhinitis Osteoarthritis of left knee Vitamin D deficiency Pure hypercholesterolemia Impaired fasting glucose White coat syndrome with hypertension Surgical History History of prostate surgery Family History Father Hypertension Stroke Mother Medical history unknown Social History Housing: House Alcohol intake: never Patient Tobacco Use Status: Former Tobacco user Years Smoked: 25 years e-Cigarette/Vaping Use: Never Used Second Hand Smoke Exposure: Yes service: No Current occupational status: retired and disabled Cognitive needs: No Hearing needs: No Vision needs: Yes Review of Systems Const Denies chills, Denies daytime sleepiness, Denies fatigue, Denies fever(s), Denies frequent falls, Denies night sweats, Denies snoring, Denies weakness, Denies weight gain and Denies weight loss Eyes Denies loss of vision ENT Denies dizziness and Denies hearing loss Card Denies chest pain, Denies chest pain with activity, Denies syncope, Denies rapid heart rate, Denies edema, Denies claudication, Denies leg edema, Denies lightheadedness, Denies palpitations, Denies dyspnea, Denies dyspnea on exertion and Denies orthopnea Resp Denies cough, Denies excessive phlegm production, Denies dyspnea, Denies dyspnea on exertion, Denies snoring and Denies wheezing GI Denies abdominal pain, Denies hematochezia, Denies change in bowel habits, Denies change in stool character, Denies heartburn, Denies nausea and Denies vomiting Denies hematuria, Denies dysuria and Denies urinary frequency Musc Denies arthralgias, Denies muscle weakness, Denies numbness and Denies tingling Skin/Breast Denies nail changes and Denies rash Neuro Denies Abnormal speech present, Denies dizziness, Denies syncope, Denies frequent falls, Denies loss of vision, Denies memory loss, Denies numbness, Denies tingling and Denies weakness Psych Denies depression and Denies memory loss Endo Denies fatigue and Denies palpitations Aller/Immun Denies wheezing Physical Exam Vital Signs: Last Vital Signs Pulse 84 07/03/23 09:20 BP 180/74 H 07/03/23 09:20 BMI result Body Mass Index 24.2 Const General: comfortable and no acute distress Orientation/consciousness: patient oriented x3 HEENT Other: Unremarkable Head: Yes normal to inspection Neck Neck: Yes normal visual inspection Chest Chest palpation & inspection: normal inspection of the chest Resp Auscultation: clear to auscultation bilaterally Cardio Palpation: normal PMI Heart sounds: S1 normal heart sound present, S2 normal heart sound present, no gallops, Murmur heart sound present systolic III/ and at the apex and no rubs GI Palpation (GI): Soft to palpation Back/Spine/Pelvis Other: unremarkable Skin General skin exam: no rashes or lesions noted Neuro General: patient oriented x3 Speech: No Abnormal speech present Extrem General: Yes normal to inspection Psych Mental Status: mental status grossly normal Office Procedures EKG Details: EKG with sinus rhythm at 84/Min; no significant ST-T changes and otherwise [place]remarkable[place] [id number], Complete Assessment & Plan Assessment & Plan (1) Non-rheumatic mitral regurgitation: Code(s): I34.0 - Nonrheumatic mitral (valve) insufficiency Plan: In the echocardiogram 1 year ago, there is only trace mitral regurgitation. Mild posterior mitral leaflet prolapse. Preserved LVEF at 60%. On auscultation, however, the murmur sounds much more prominent and likely more pronounced mitral regurgitation. Hence we will repeat echocardiogram. Patient is very reluctant and not clear if would proceed. (2) Benign essential hypertension: Code(s): I10 - Essential (primary) hypertension Plan: Some combination of baseline hypertension as well as white coat effect per prior documentation. Home readings reflect the same. He absolutely does not want any changes. He states he just does not 'trust' doctors and hence he does not want anything done. Coding Level of Care Code New Pt Level 3 (86424) Diagnoses Non-rheumatic mitral regurgitation I34.0 Benign essential hypertension I10 CPT Codes EKG - CPT: [id number], Complete ([id number])
[2023-07-03 09:20] VITALS: BP 180/74; PULSE 84; BMI 24.2
== END 2023-07-03 09:43 | disposition home or self-care (01) ==
PROVIDERS: PCP Internal Medicine; Visit Provider Internal Medicine
DX: I34.0 Nonrheumatic mitral (valve) insufficiency (principal); I10 Essential (primary) hypertension
CPT/HCPCS: 93010; 99213

== ENCOUNTER → 2023-07-03 09:14 | Outpatient (BNVA) | payer OTHER, SELFPAY | PROVIDERS: PCP Internal Medicine; Visit Provider Internal Medicine | DX: I34.0 Nonrheumatic mitral (valve) insufficiency (principal); I10 Essential (primary) hypertension | CPT/HCPCS: 93005; 99212 ==

== ENCOUNTER 2023-07-23 07:17 | Outpatient (REF) | payer OTHER, SELFPAY ==
[2023-07-23 07:54] LABS: Basophils Percent Auto 0.8 % (0-2); Eosinophils Absolute Auto 0.1 X10*3/uL (0.0-0.4); Eosinophils Percent Auto 1.7 % (0-4); Hematocrit 42.9 % (42.0-52.0); Hemoglobin 14.5 g/dl (14.0-18.0); Imm Gran Abs Auto 0.01 X10*3/uL (0.00-0.03); Imm Gran Pct Auto 0.2 % (0.0-0.4); Lymphocytes Absolute Auto 1.9 X10*3/uL (1.2-4.9); Lymphocytes Percent Auto 35.3 % (20-40); MANUAL DIFF FLAG SCAN; Mean Corpuscular HGB Conc 33.8 g/dl (31.0-36.0); Mean Corpuscular Hemoglobin 30.9 pg (27.0-33.0); Mean Corpuscular Volume 91.5 fL (80.0-98.0); Monocytes Absolute Auto 0.6 X10*3/uL (0.1-1.2); Monocytes Percent Auto 11.8 % (2-11); Neutrophils Absolute Auto 2.6 x10*3/uL (2.0-8.3); Neutrophils Percent Auto 50.2 % (45-73); PLT CLUMP 1; Red Blood Count 4.69 X10*6/uL (4.60-5.80); Red Cell Distribution Width 13.5 % (11.0-16.0); SCAN SMEAR FLAG 1
[2023-07-23 08:19] LABS: White Blood Count 5.2 X10*3/uL (4.8-10.8)
[2023-07-23 08:20] LABS: Platelet Count 133 X10*3/uL (160-400); SLIDE REVIEW VERIFIED
[2023-07-23 08:24] LABS: Appearance Urine Clear; Color Urine Yellow; Glucose Urine UA Negative (Negative); Leukocyte Esterase Urine Negative (Negative); Nitrite Urine Negative (Negative); PH 5.5 (5.0-9.0); Specific Gravity - Urine 1.015 (1.005-1.025); UMIC TRIGGER UACC YES; Urine Blood Trace (Negative); Urine Ketones Negative (Negative); Urine Protein 30 (1+) mg/dL (Neg-Trace)
[2023-07-23 08:26] LABS: Bacteria Urine None Seen (None Seen); Hyaline Casts Urine 0-2 /LPF (0-2); RBC Urine 0-2 /HPF (0-2); Squamous Epithelial Cell Urine 0-2 /HPF (0-2); WBC Urine 0-5 /HPF (0-5)
[2023-07-23 08:43] LABS: Alanine Aminotransferase 14 U/L (0-40); Albumin Level 4.3 g/dL (3.5-5.0); Alkaline Phosphatase 56 U/L (39-117); Anion Gap 13 (12-20); Aspartate Amino Transferase 22 U/L (5-37); Bilirubin Total 0.7 mg/dL (0.0-1.0); Blood Urea Nitrogen 14 mg/dL (9-16); Calcium 9.2 mg/dL (8.4-10.2); Carbon Dioxide 24 mmol/L (22-29); Chloride 107 mmol/L (96-108); Cholesterol 202 mg/dL (<200); Estimated Glomerular Filt Rate > 60; Glucose Fasting 110 mg/dL (60-99); HDL Cholesterol 63 mg/dL (>40); LDL Cholesterol Calculated 120 mg/dL (<100); Potassium 3.6 mmol/L (3.3-5.1); Sodium 140 mmol/L (135-145); Total Protein 7.8 g/dL (6.5-8.0); Triglycerides 96 mg/dL (<150)
[2023-07-23 08:53] LABS: TSH reflex Free T4 3.26 uIU/mL (0.32-4.0); Vitamin D 25-OH Total 31.7 ng/mL (>30)
[2023-07-25 06:58] LABS: HCV Log PCR <1.18 NOT DETECTED Log IU/mL (NOT DETECTED); HepC Viral Load <15 NOT DETECTED IU/mL (NOT DETECTED)
== END 2023-07-23 07:18 | disposition home or self-care (01) ==
LOC: HO.LAB 07:17
PROVIDERS: PCP Internal Medicine; Visit Provider Internal Medicine
DX: E78.00 Pure hypercholesterolemia, unspecified (principal); I10 Essential (primary) hypertension; E55.9 Vitamin D deficiency, unspecified; Z86.19 Personal history of other infectious and parasitic diseases; R30.0 Dysuria
CPT/HCPCS: 36415; 80053; 80061; 81001; 82306; 84443; 85025; 87522

== ENCOUNTER 2023-07-27 10:25 | Outpatient (AMB) | payer OTHER, SELFPAY ==
--- NOTE | 2023-07-27 10:34 | A.OFFPC_ITS ---
Vital Signs 07/27/23 10:36 07/27/23 10:43 Height 5 ft 6 in Weight 145 lb 8 oz BMI 23.5 BP 170/64 H 150/66 H Blood Pressure Location Lt brachial Lt brachial Position Sitting Sitting Pulse 103 H Pulse Source Pulse Oximeter Pulse Oximetry (%) 98 Oxygen Delivery Method Room Air Intake Visit Reasons: HTN, dyslipidemia, anxiety Intake Note: Patient is here to follow up on HTN, IFG, Anxiety, Dyslipidemia.. Sales Office Administrator Required: No Car Designer: Not Required per policy Accompanied by: Self / Same As Patient Allergies No Known Allergies [No Known Allergies*] Allergy (Verified 12/07/23 06:07) Medication List - Last Reconciled 07/27/23 by Chris Pearson MD amlodipine 10 mg See Protocol PO DAILY 90 days cholecalciferol (vitamin D3) (Vitamin D3) 25 mcg PO MOWEFR@0900 Tobacco use date assessed: 07/27/23 Fall risk assessment: No Falls in past year Last assessed Fall Risk: 07/27/23 Dental Screening Dental Screen Date: 07/27/23 Did you have a dental visit in the last 12 months?: No Did you have a dental problem in the last 6 months where you did not have access to dental care?: No Was dental information given to patient?: No HPI HTN, dyslipidemia, anxiety HPI Details Patient comes in today for his follow up visit States that he feels okay He denies any headaches or dizziness Denies any chest pains, no shortness of breath No nausea/ vomiting, no abdominal pain No change in bowel habits noted States that his BP was around 129/59 this morning - much better than his reading here in the office now His BP log from home showed BP readings of 134/61, 133/65, 140/62, 128/62, 130/65 He had his follow-up labs done a few days ago - to discuss his results [facility] Medical History History of hepatitis C Benign essential hypertension Hypertension Overweight (BMI 25.0-29.9) Anxiety Urinary frequency Allergic rhinitis Osteoarthritis of left knee Vitamin D deficiency Pure hypercholesterolemia Impaired fasting glucose White coat syndrome with hypertension Surgical History History of prostate surgery Family History Father Hypertension Stroke Mother Medical history unknown Social History Housing: House Alcohol intake: never Patient Tobacco Use Status: Former Tobacco user (2013) Tobacco use type: Cigarette Years Smoked: 25 years e-Cigarette/Vaping Use: Never Used Second Hand Smoke Exposure: Yes service: No Current occupational status: retired and disabled Cognitive needs: No Hearing needs: No Vision needs: Yes (Reading Glasses) Questionnaire PHQ-9 Over the last 2 weeks, how often have you been bothered by any of the following problems? 1. Little interest or pleasure in doing things: not at all 2. Feeling down, depressed, or hopeless: not at all 3. Trouble falling or staying asleep, or sleeping too much: not at all 4. Feeling tired or having little energy: not at all 5. Poor appetite or overeating: not at all 6. Feeling bad about yourself - or that you are a failure or have let yourself or your family down: not at all 7. Trouble concentrating on things, such as reading the newspaper or watching television: not at all 8. Moving or speaking so slowly that other people could have noticed. Or the opposite - being so fidgety or restless that you have been moving around a lot more than usual: not at all 9. Thoughts that you would be better off or of hurting yourself in some way: not at all Total score: 0 Depression Screening Interpretation: Negative Depression Screening Done: Yes 93063 - PHQ-9 Billing: Yes Source: Developed by Drs. Joshua Wren, Marga Juarez, Wilbert Diaz and colleagues, with an educational nathalie from [employer]. Thrive Questionnaire Date Thrive assessed: 07/27/23 I am a: Patient What is your living situation today?: I have a steady place to live Within the past 12 months, did the food you bought not last and you didn't have the money to get more?: Never true Within the past 12 months, did you worry whether your food would run out before you got money to buy more?: Never true Do you have trouble paying for medicines?: No Do you have trouble getting transportation to medical appointments?: No Do you have trouble paying your heating and electricity bill?: No Do you have trouble taking care of your child, family member or friend?: No Do you have trouble with day-to-day activities such as bathing, preparing meals, shopping, managing finances, etc.?: No Are you currently unemployed and looking for a job?: No Are you interested in more education?: No Currently or been in a relationship where the following occur: no concerns reported THRIVE Score: 0 AUDIT C Alcohol Use Questionnaire (AUDIT-C) 1. How often do you have a drink containing alcohol?: Never 3. How often do you have six or more drinks on one occasion?: Never Total Score: 0 Score Reviewed/Action Taken: Yes OBEY-7 AMB Questionnaire OBYE-7 Date OBEY - 7 assessed: 07/27/23 Feeling nervous, anxious, or on edge: 0 = Not at all Not being able to stop or control worryin = Not at all Worrying too much about different things: 0 = Not at all Trouble relaxin = Not at all Being so restless that it is hard to sit still: 0 = Not at all Becoming easily annoyed or irritable: 0 = Not at all Feeling afraid as if something awful might happen: 0 = Not at all Total OBEY-7 score (0-4 normal; 5-9 mild; 10-14 moderate; 15-21 severe): 0 Source: Developed by Drs. Joshua Wren, Marga Juarez, Wilbert Diaz and colleagues, with an educational nathalie from [employer]. Review of Systems Const Denies chills, Denies fatigue, Denies fever(s) and Denies headache(s) ENT Denies dysphagia, Denies dizziness, Denies otalgia, Denies headache(s), Denies neck pain, Denies odynophagia and Denies sore throat Card Denies chest pain, Denies irregular heart rhythm, Denies palpitations and Denies dyspnea Resp Denies chest congestion, Denies cough, Denies dyspnea and Denies wheezing GI Denies abdominal pain, Denies constipation, Denies dysphagia, Denies heartburn, Denies diarrhea, Denies nausea, Denies odynophagia and Denies vomiting Denies difficulty urinating, Denies dysuria, Denies urinary frequency and Denies urinary urgency Musc Denies back pain, Denies arthralgias and Denies neck pain Skin/Breast Denies rash Neuro Denies dizziness, Denies headache(s) and Denies paresthesias Psych Reports anxiety Endo Denies fatigue and Denies palpitations Aller/Immun Denies wheezing Physical exam (Primary Care) Vital Signs: Last Vital Signs Pulse 103 H 07/27/23 10:36 BP 150/66 H 07/27/23 10:43 Pulse Ox 98 07/27/23 10:36 Oxygen Delivery Method Room Air 07/27/23 10:36 BMI result Body Mass Index 23.5 Tobacco/Smoking Status: Tobacco use Status Tobacco use date assessed 07/27/23 07/27/23 10:45 Patient Tobacco Use Status Former Tobacco user (2012) 07/27/23 10:45 e-Cigarette/Vaping Use Never Used 07/27/23 10:45 PHQ-9: PHQ-9 Score PHQ-9: Total score 0 07/27/23 11:28 Depression Screening Interpretation: Negative Thrive Assessment: Date of Thrive Assessment Date Thrive assessed 07/27/23 07/27/23 10:45 Currently or been in a relationship where the following occur: no concerns reported Const General: no acute distress and alert HENMT Ears: TM's normal bilaterally and EAC's normal Throat: Yes posterior oropharynx normal and Yes tonsils normal (no TP congestion noted) Neck Neck: Yes no lymphadenopathy and Yes supple Thyroid: Thyroid normal Resp Auscultation: clear to auscultation bilaterally, no rales and no wheezes Cardio Rate: regular rate Rhythm: regular rhythm Heart sounds: Clicking heart sound present (mid-systolic) and Murmur heart sound present systolic late, III/ and at the apex GI Palpation (GI): Soft to palpation and nontender Auscultation: normal bowel sounds General: Yes no CVA tenderness Back/Spine/Pelvis Back: no CVA tenderness Skin Rashes: no rashes Extrem General: Yes no clubbing, cyanosis or edema Right lower extremity: knee Details: tenderness (mild) and normal ROM; no swelling and no crepitus Left lower extremity: knee Details: tenderness (mild) and normal ROM; no swelling Results AMB Hemoglobin A1c AMB Hemoglobin A1c 4.9 % Last Edit by BERNICE Jordan on 07/27/23 10:50 Results Reviewed Results Reviewed: Laboratory Last Values Hgb A1c (Clinic) 4.9 % (4.0-6.0) 07/27/23 10:34 Laboratory Tests 07/23/23 07/23/23 07/27/23 07:23 07:25 10:34 WBC 5.2 Hgb 14.5 Hct 42.9 Plt Count 133 L Sodium 140 Potassium 3.6 Creatinine 0.80 Estimated GFR > 60 Fasting Glucose 110 H Hgb A1c (Clinic) 4.9 Calcium 9.2 AST 22 ALT 14 Triglycerides 96 Cholesterol 202 H LDL Cholesterol, Calc 120 H HDL Cholesterol 63 25-OH Vitamin D Total 31.7 TSH 3.26 Ur Specific Blanchard 1.015 Urine Protein 30 (1+) H Urine Glucose (UA) Negative Urine Blood Trace H Urine Nitrite Negative Ur Leukocyte Esterase Negative Assessment and Plan Assessment & Plan (1) White coat syndrome with hypertension: Code(s): I10 - Essential (primary) hypertension Plan: Reinforced low sodium diet Continue Amlodipine 10 mg QD - he happears to be tolerating Rx so far with no problems His BP has been reasonably controlled in the past except for when he comes in to the office for his appointments; has noticed that his BP would start running higher on the days leading up to his appointments, consistent with white coat syndrome He is now also seeing nephrology for BP follow up and management; 24-hr ambulatory BP monitoring done a few months ago reportedly showed well-controlled HTN with white-coat effect He has no cardiomegaly seen on his chest x-rays done last year and his recent EKG has been normal (2) Proteinuria: Code(s): R80.9 - Proteinuria, unspecified Qualifiers: Proteinuria type: unspecified Qualified Code(s): R80.9 - Proteinuria, unspecified Plan: Stable - is mostly related to his hypertension and have again emphasized BP control to slow down progression Will continue to monitor this closely (3) Pure hypercholesterolemia: Code(s): E78.00 - Pure hypercholesterolemia, unspecified Plan: Results of his labs done a few days ago reviewed and discussed with patient - advised that his cholesterol levels are mostly unchanged from previous and are still within the normal range Reinforced low cholesterol diet (4) Impaired fasting glucose: Code(s): R73.01 - Impaired fasting glucose Plan: HgbA1c was normal at 5.4%, 5.3% and 5.0% when previously checked; in-office HgbA1c done today is at 4.9% Reinforced low calorie diet/exercise as tolerated (5) Mitral valve prolapse: Code(s): I34.1 - Nonrheumatic mitral (valve) prolapse Plan: Echocardiogram done in June 2022 revealed normal LV cavity size and normal LV systolic function, with calculated EF at 62% and diastolic function is normal for his age. There is mild calcification of the aortic valve and mild posterior mitral valve leaflet thickening and mild posterior mitral valve leaflet prolapse and trace mitral valve regurgitation, which help explain his cardiac murmur Only periodic follow up is needed unless symptoms occur - will send him now for a repeat echocardiogram for follow up He was referred to and seen by cardiology a few weeks ago Follow up with cardiology as scheduled (6) Vitamin D deficiency: Code(s): E55.9 - Vitamin D deficiency, unspecified Plan: Continue Vitamin D3 1000 units daily (7) Bilateral knee pain: Code(s): M25.561 - Pain in right knee; M25.562 - Pain in left knee Qualifiers: Chronicity: unspecified Qualified Code(s): M25.561 - Pain in right knee; M25.562 - Pain in left knee Plan: Mostly due to OA of the knees - patient does have mild OA of the left knee based on previous imaging studies Repeat x-rays of the knees done last year revealed (+) moderate tricompartmental OA and genu varus deformity of both knees Have advised him again that he can continue taking OTC Tylenol PRN for his knee pain and will consider referring to orthopedics for further management if his s ymptoms progress (8) Constipation: Code(s): K59.00 - Constipation, unspecified Qualifiers: Constipation type: unspecified constipation type Qualified Code(s): K59.00 - Constipation, unspecified Plan: Improved Reinforced increased oral fluids and dietary fiber intake Continue Senna 8.6 mg 1 tablet QD PRN (9) Urinary frequency: Code(s): R35.0 - Frequency of micturition Plan: Most likely due to BPH - serum PSA was normal when checked last year and was at 2.69 on his labs done a couple of weeks ago Will consider prostate US and also referral to urology if his symptoms progress or get worse (10) Anxiety: Code(s): F41.9 - Anxiety disorder, unspecified Plan: He used to take Lorazepam for anxiety but states that he has not needed to take any Rx in a while now and prefers not to take anything if possible Plan Follow up in 4 months Orders: Orders CA echo transthoracic complete 07/27/23 I34.0 - Nonrheumatic mitral (valve) insufficiency, I34.1 - Nonrheumatic mitral (valve) prolapse AMB Hemoglobin A1c 07/27/23 R73.01 - Impaired fasting glucose Coding Level of Care Code Est Pt Level 4 (98841) Diagnoses White coat syndrome with hypertension I10 Proteinuria, unspecified type R80.9 Proteinuria type: unspecified Pure hypercholesterolemia E78.00 Impaired fasting glucose R73.01 Mitral valve prolapse I34.1 Vitamin D deficiency E55.9 Pain in both knees, unspecified chronicity M25.561; M25.562 Chronicity: unspecified Constipation, unspecified constipation type K59.00 Constipation type: unspecified constipation type Urinary frequency R35.0 Anxiety F41.9
[2023-07-27 10:36] VITALS: BP 170/64; PULSE 103; O2SAT 98; BMI 23.5
[2023-07-27 10:43] VITALS: BP 150/66
== END 2023-07-27 11:36 | disposition home or self-care (01) ==
PROVIDERS: PCP Internal Medicine; Visit Provider Internal Medicine
DX: I10 Essential (primary) hypertension (principal); R80.9 Proteinuria, unspecified; E78.00 Pure hypercholesterolemia, unspecified; R73.01 Impaired fasting glucose; I34.1 Nonrheumatic mitral (valve) prolapse; E55.9 Vitamin D deficiency, unspecified; M25.561 Pain in right knee; M25.562 Pain in left knee; K59.00 Constipation, unspecified; R35.0 Frequency of micturition; F41.9 Anxiety disorder, unspecified
CPT/HCPCS: 83036; 99499

== ENCOUNTER → 2023-08-24 09:31 | Outpatient (REF) | payer OTHER, SELFPAY ==
--- NOTE | 2023-08-24 09:35 | CA_ITS ---
Transthoracic Echocardiogram Patient (Last, First, Middle): Chacho Barnard M Gender: Male Date of : 1945 Age: 77 Procedure Date: 08/24/2023 Procedure Type: Transthoracic Echocardiogram Location: OP Height: 165.1 cm Weight: 66.23 kg BSA: 1.73 m2 Heart Rate: 75 bpm BP: 162 / 68 mmHg Farm Helper: PHOENIX Referring MD: Chris Pearson MD Painting Supervisor: Guy Dobson MD Symptoms: I34.0 - Nonrheumatic mitral (valve) insufficiency Study Quality: Adequate ECG Rhythm: Sinus Conclusions: - 1. Normal LV systolic function with LVEF of 65-70% 2. Severe left atrial enlargement 3. Severe prolapse of the posterior leaflet with at least moderately severe eccentric mitral regurgitation which could be underestimated 4. Mild aortic regurgitation 5. Upper limits of normal RV systolic pressure 6. No gross pericardial effusion Findings Left Ventricle Normal left ventricular size, thickness, and systolic function. The visually estimated ejection fraction is between 65-70%. Spectral Doppler is indicative of a normal filling pattern. Right Ventricle Normal right ventricular cavity size and systolic function. Atria The left atrium is severely dilated. There is no evidence of interatrial shunt. The right atrium is likely dilated. Aortic Valve There is mild calcification of the aortic valve. There is no aortic valve stenosis. There is mild aortic valve regurgitation. Mitral Valve The mitral valve appears myxomatous. There is mild anterior and moderate posterior mitral leaflet thickening. There is severe posterior mitral leaflet prolapse. There is moderate to severe mitral valve regurgitation. The mitral regurgitation jet is directed anteriorly. There is no mitral valve stenosis. Pulmonic Valve The pulmonic valve is likely normal. Tricuspid Valve Normal tricuspid valve structure. There is mild tricuspid valve regurgitation. Normal right atrial pressure. There is no evidence of pulmonary hypertension. Great Vessels All visible segments of the aorta are normal in size. The pulmonary artery was not well visualized. There is no dilatation of the ascending aorta measuring 3.40 cm. Venous The inferior vena cava is normal in size and collapses greater than 50% with inspiration. Pericardium/Pleural There is no evidence of pericardial effusion. Prior Study Comparison Significant changes compared to prior study dated: 07/26/2022. significant mitral regurgitation is now present Recommendations, Care & Conclusions Consider a JEROD if clinically appropriate. Measurements 2D Linear Measurements IVSd: 0.87 0.6-0.9/0.6-1.0 cm LVIDd: 5.58 3.9-5.3/4.2-5.9 cm LVIDd Index: 3.23 2.4-3.2/2.2-3.1 cm/m2 LVIDs: 3.01 2.0-3.6 cm LVPWd: 0.79 0.7-1.1 cm LA Diam: 4.40 2.7-3.8/3.0-4.0 cm LAIDs Index: 2.54 1.5-2.3 cm/m2 LV Mass: 213.50 67-162/88-224 g LV Mass Index: 123.41 43-95/49-115 g/m2 LVOT Diam: 2.20 3.0+(-)1.3 cm 2D Systolic Function EF 4C: 71.30 >55% EF 2C: 73.90 >55% EF BiP: 71.60 >55% Mitral Valve MV Pk E: 1.44 MV PK A: 0.59 MV Decel Time: 146.00 E/A: 2.40 E'Lateral: 3.59 E'Medial: 8.27 E/E' Med: 17.40 E/E' Lat: 40.10 PHT: 43.00 MVA PHT: 5.12 Decel Hockley: 9.92 MR Alias Vernon: 0.38 MR RAD: 1.70 Aortic Valve AoV Pk Vernon: 1.69 AoV Mn Vernon: 1.15 AoV VTI: 0.27 AoV Pk Grad: 11.00 Aov Mn Grad: 6.00 HERRERA Cont.VTI: 2.95 AI Pk Vernon: 3.91 AI Hockley: 2.55 LVOT LVOT Pk Vernon: 1.39 LVOT Mn Vernon: 0.93 LVOT VTI: 0.21 LVOT Pk Grad: 8.00 LVOT Mn Grad: 4.00 LVOT Diam: 2.20 LVOT Area: 3.80 Diastolic Function MV Pk E: 1.44 MV Pk A: 0.59 E/A: 2.40 E'Medial: 8.27 E/E' Med: 17.40 E' Laterial: 3.59 E/E' Lat: 40.10 Right Ventricle TAPSE (mm): 31.10 TVS' Vernon: 17.30 Tricuspid Valve TR Pk Vernon: 2.97 TR Pk Grad: 35.00 RA Press: 3.00 RVSP: 38.00 Great Vessels Aorta Sinus of Valsalva: 3.40 2.0-3.5 cm Ao Asc: 3.40 2.1-3.4 cm Pulmonary Veins Pulm Vein S/D 1.60 Pulmonary Valve PV Pk Vernon: 1.03 Peak PV Grad: 4.00 Updated in Other Vendor System with Status of Final Guy Dobson MD electronically signed on 08/24/2023 4:51:29 PM with status of Final
== END ==
LOC: HO.CARD 09:31
PROVIDERS: PCP Internal Medicine; Visit Provider Internal Medicine
DX: I34.0 Nonrheumatic mitral (valve) insufficiency (principal); I34.1 Nonrheumatic mitral (valve) prolapse
CPT/HCPCS: 93306

== ENCOUNTER → 2023-08-24 09:35 | Outpatient (BNV) | payer OTHER, SELFPAY | PROVIDERS: PCP Internal Medicine; Visit Provider Internal Medicine Cardiovascular Disease | DX: I34.0 Nonrheumatic mitral (valve) insufficiency (principal) | CPT/HCPCS: 93306 ==

== ENCOUNTER 2023-12-06 10:04 | Outpatient (AMB) | payer OTHER, SELFPAY ==
[2023-12-06 10:06] VITALS: BP 158/68; PULSE 93; O2SAT 96; BMI 25.3
--- NOTE | 2023-12-06 10:06 | MHC.PC.OV ---
Vital Signs 12/06/23 10:06 Height 5 ft 3 in Weight 143 lb BMI 25.3 BP 158/68 H Blood Pressure Location Lt brachial Position Sitting Pulse 93 Pulse Source Pulse Oximeter Pulse Oximetry (%) 96 Oxygen Delivery Method Room Air Intake Visit Reasons: HTN, anxiety, MVP Allergies No Known Allergies [No Known Allergies*] Allergy (Verified 12/07/23 06:07) Medication List - Last Reconciled 12/07/23 by Chris Pearson MD amlodipine 10 mg See Protocol PO DAILY 90 days cholecalciferol (vitamin D3) (Vitamin D3) 25 mcg PO MOWEFR@0900 Tobacco use date assessed: 07/27/23 Fall risk assessment: No Falls in past year Last assessed Fall Risk: 12/06/23 Dental Screening Dental Screen Date: 07/27/23 HPI HTN, anxiety, MVP HPI Details Patient comes in today for his follow-up visit States that he feels okay He denies any headaches or dizziness Denies any chest pains, no increased shortness of breath No nausea/ vomiting, no abdominal pain No change in bowel habits noted He again brought in a copy of his recent BP log, which showed his systolic BP ranging from 126-145 mm No follow-up labs were ordered for this appointment [facility] Medical History History of hepatitis C Benign essential hypertension Hypertension Overweight (BMI 25.0-29.9) Anxiety Urinary frequency Allergic rhinitis Osteoarthritis of left knee Vitamin D deficiency Pure hypercholesterolemia Impaired fasting glucose White coat syndrome with hypertension Surgical History History of prostate surgery Family History Father Hypertension Stroke Mother Medical history unknown Social History Housing: House Alcohol intake: never Patient Tobacco Use Status: Former Tobacco user (2012) Tobacco use type: Cigarette Years Smoked: 25 years e-Cigarette/Vaping Use: Never Used Second Hand Smoke Exposure: Yes service: No Current occupational status: retired and disabled Cognitive needs: No Hearing needs: No Vision needs: Yes (Reading Glasses) Questionnaire PHQ-9 Over the last 2 weeks, how often have you been bothered by any of the following problems? 1. Little interest or pleasure in doing things: not at all 2. Feeling down, depressed, or hopeless: not at all 3. Trouble falling or staying asleep, or sleeping too much: not at all 4. Feeling tired or having little energy: not at all 5. Poor appetite or overeating: not at all 6. Feeling bad about yourself - or that you are a failure or have let yourself or your family down: not at all 7. Trouble concentrating on things, such as reading the newspaper or watching television: not at all 8. Moving or speaking so slowly that other people could have noticed. Or the opposite - being so fidgety or restless that you have been moving around a lot more than usual: not at all 9. Thoughts that you would be better off or of hurting yourself in some way: not at all Total score: 0 Depression Screening Interpretation: Negative Depression Screening Done: Yes Source: Developed by Drs. Joshua Wren, Marga Juarez, Wilbert Diaz and colleagues, with an educational nathalie from [email or web address]. Thrive Questionnaire Date Thrive assessed: 07/27/23 AUDIT C Alcohol Use Questionnaire (AUDIT-C) 1. How often do you have a drink containing alcohol?: Never Total Score: 0 OBEY-7 AMB Questionnaire OBEY-7 Date OBEY - 7 assessed: 12/06/23 Feeling nervous, anxious, or on edge: 0 = Not at all Not being able to stop or control worryin = Not at all Worrying too much about different things: 0 = Not at all Trouble relaxin = Not at all Being so restless that it is hard to sit still: 0 = Not at all Becoming easily annoyed or irritable: 0 = Not at all Feeling afraid as if something awful might happen: 0 = Not at all Total OBEY-7 score (0-4 normal; 5-9 mild; 10-14 moderate; 15-21 severe): 0 Source: Developed by Drs. Joshua Wren, Marga Juarez, Wilbert Diaz and colleagues, with an educational nathalie from [email or web address]. Review of Systems Const Denies chills, Denies fatigue, Denies fever(s) and Denies headache(s) ENT Denies dysphagia, Denies dizziness, Denies otalgia, Denies headache(s), Denies neck pain, Denies odynophagia and Denies sore throat Card Denies chest pain, Denies irregular heart rhythm, Denies palpitations and Denies dyspnea Resp Denies chest congestion, Denies cough, Denies dyspnea and Denies wheezing GI Denies abdominal pain, Denies constipation, Denies dysphagia, Denies heartburn, Denies diarrhea, Denies nausea, Denies odynophagia and Denies vomiting Denies difficulty urinating, Denies dysuria, Denies urinary frequency and Denies urinary urgency Musc Denies back pain, Denies arthralgias and Denies neck pain Skin/Breast Denies rash Neuro Denies dizziness, Denies headache(s) and Denies paresthesias Psych Reports anxiety Endo Denies fatigue and Denies palpitations Aller/Immun Denies wheezing Physical exam (Primary Care) Vital Signs: Last Vital Signs Pulse 93 12/06/23 10:06 BP 158/68 H 12/06/23 10:06 Pulse Ox 96 12/06/23 10:06 Oxygen Delivery Method Room Air 12/06/23 10:06 BMI result Body Mass Index 25.3 Tobacco/Smoking Status: Tobacco use Status Tobacco use date assessed 07/27/23 12/06/23 10:11 Patient Tobacco Use Status Former Tobacco user (2012) 12/06/23 10:11 Tobacco use type Cigarette 12/06/23 10:11 e-Cigarette/Vaping Use Never Used 12/06/23 10:11 PHQ-9: PHQ-9 Score PHQ-9: Total score 0 12/06/23 10:59 Depression Screening Interpretation: Negative Thrive Assessment: Date of Thrive Assessment Date Thrive assessed 07/27/23 12/06/23 10:11 Const General: no acute distress and alert HENMT Ears: TM's normal bilaterally and EAC's normal Throat: Yes posterior oropharynx normal and Yes tonsils normal (no TP congestion noted) Neck Neck: Yes no lymphadenopathy and Yes supple Thyroid: Thyroid normal Resp Auscultation: clear to auscultation bilaterally, no rales and no wheezes Cardio Rate: regular rate Rhythm: regular rhythm Heart sounds: Clicking heart sound present (mid-systolic) and Murmur heart sound present systolic late, III/ and at the apex GI Palpation (GI): Soft to palpation and nontender Auscultation: normal bowel sounds General: Yes no CVA tenderness Back/Spine/Pelvis Back: no CVA tenderness Skin Rashes: no rashes Extrem General: Yes no clubbing, cyanosis or edema Right lower extremity: knee Details: tenderness (mild) and normal ROM; no swelling and no crepitus Left lower extremity: knee Details: tenderness (mild) and normal ROM; no swelling Assessment and Plan Assessment & Plan (1) White coat syndrome with hypertension: Code(s): I10 - Essential (primary) hypertension Plan: Reinforced low sodium diet Continue Amlodipine 10 mg QD - he happears to be tolerating Rx so far with no problems His BP has been reasonably controlled in the past except for when he comes in to the office for his appointments; has noticed that his BP would start running higher on the days leading up to his appointments, consistent with white coat syndrome He is now also seeing nephrology for BP follow up and management; 24-hr ambulatory BP monitoring done a few months ago reportedly showed well-controlled HTN with white-coat effect He has no cardiomegaly seen on his chest x-rays done last year and his recent EKG has been normal (2) Proteinuria: Code(s): R80.9 - Proteinuria, unspecified Qualifiers: Proteinuria type: unspecified Qualified Code(s): R80.9 - Proteinuria, unspecified Plan: Stable - is mostly related to his hypertension and have again emphasized BP control to slow down progression Will continue to monitor this closely (3) Pure hypercholesterolemia: Code(s): E78.00 - Pure hypercholesterolemia, unspecified Plan: His cholesterol levels have again improved slightly from previous on his labs done earlier this year and are within normal range Reinforced low cholesterol diet Will recheck his labs and fasting lipids in 4 months for follow up (4) Impaired fasting glucose: Code(s): R73.01 - Impaired fasting glucose Plan: HgbA1c was normal at 5.4% and 5.3% when previously checked and remained normal at 5.0% on his recent labs Reinforced low calorie diet/exercise as tolerated Will recheck his labs and HgbA1c in 4 months for follow up (5) Mitral valve prolapse: Code(s): I34.1 - Nonrheumatic mitral (valve) prolapse Plan: Echocardiogram done in June 2022 revealed normal LV cavity size and normal LV systolic function, with calculated EF at 62% and diastolic function is normal for his age. There is mild calcification of the aortic valve and mild posterior mitral valve leaflet thickening and mild posterior mitral valve leaflet prolapse and trace mitral valve regurgitation, which help explain his cardiac murmur Only periodic follow up is needed unless symptoms occur He was seen by cardiology a few months ago and was sent for a repeat echocardiogram, which he had done in July 2023 Repeat echocardiogram on 08/24/2023 revealed again normal LV systolic function with LVEF of 65-70%, with severe left atrial enlargement and severe prolapse of the posterior leaflet with at least moderately severe eccentric mitral regurgitation, mild aortic regurgitation and upper limits of normal RV systolic pressure Have advised patient of this - that his mitral valve prolapse appears to have gotten a lot worse over the past year - and that he will likely require replacement or repair of his mitral valve soon although as before, he continues to be very wary about this and is not know if he wants to proceed or not Have advised him that if he does not get this addressed when it is time, it will eventually lead him to develop issues with congestive heart failure continue future He is advised to discuss this further with Cardiology at his upcoming follow-up appointment next month (6) Vitamin D deficiency: Code(s): E55.9 - Vitamin D deficiency, unspecified Plan: Continue Vitamin D3 1000 units daily (7) Bilateral knee pain: Code(s): M25.561 - Pain in right knee; M25.562 - Pain in left knee Qualifiers: Chronicity: unspecified Qualified Code(s): M25.561 - Pain in right knee; M25.562 - Pain in left knee Plan: Mostly due to OA of the knees - patient does have mild OA of the left knee based on previous imaging studies Repeat x-rays of the knees done last year revealed (+) moderate tricompartmental OA and genu varus deformity of both knees Have advised him again that he can continue taking OTC Tylenol PRN for his knee pain and will consider referring to orthopedics for further management if his symptoms progress (8) Constipation: Code(s): K59.00 - Constipation, unspecified Qualifiers: Constipation type: unspecified constipation type Qualified Code(s): K59.00 - Constipation, unspecified Plan: Improved Reinforced increased oral fluids and dietary fiber intake Continue Senna 8.6 mg 1 tablet QD PRN (9) Urinary frequency: Code(s): R35.0 - Frequency of micturition Plan: Most likely due to BPH - serum PSA was normal when checked last year and was at 2.69 on his labs done a couple of weeks ago Will consider prostate US and also referral to urology if his symptoms progress or get worse (10) Anxiety: Code(s): F41.9 - Anxiety disorder, unspecified Plan: He used to take Lorazepam for anxiety but states that he has not needed to take any Rx in a while now and prefers not to take anything if possible Plan To return in 4 months for his next annual physical examination Orders: Orders Comprehensive [place]. Panel Fast 4 Months E78.00 - Pure hypercholesterolemia, unspecified, Z00.00 - Encounter for general adult medical examination without abnormal findings Lipid Panel 4 Months E78.00 - Pure hypercholesterolemia, unspecified, Z00.00 - Encounter for general adult medical examination without abnormal findings Prostate Specific Antigen 4 Months N40.0 - Benign prostatic hyperplasia without lower urinary tract symptoms, Z00.00 - Encounter for general adult medical examination without abnormal findings Complete Blood Count Auto Diff 4 Months D64.9 - Anemia, unspecified, Z00.00 - Encounter for general adult medical examination without abnormal findings TSH reflex Free T4 4 Months E78.00 - Pure hypercholesterolemia, unspecified, Z00.00 - Encounter for general adult medical examination without abnormal findings UA CC w/rflx Micro + Cult 4 Months R30.0 - Dysuria, Z00.00 - Encounter for general adult medical examination without abnormal findings Vitamin D 25-OH Total 4 Months E55.9 - Vitamin D deficiency, unspecified, Z00.00 - Encounter for general adult medical examination without abnormal findings Medications: Refilled amlodipine 10 mg See Protocol PO DAILY 90 days 90 tabs 3RF Coding Level of Care Code Est Pt Level 4 (03559) Diagnoses White coat syndrome with hypertension I10 Proteinuria, unspecified type R80.9 Proteinuria type: unspecified Pure hypercholesterolemia E78.00 Impaired fasting glucose R73.01 Mitral valve prolapse I34.1 Vitamin D deficiency E55.9 Pain in both knees, unspecified chronicity M25.561; M25.562 Chronicity: unspecified Constipation, unspecified constipation type K59.00 Constipation type: unspecified constipation type Urinary frequency R35.0 Anxiety F41.9
== END 2023-12-06 11:03 | disposition home or self-care (01) ==
PROVIDERS: PCP Internal Medicine; Visit Provider Internal Medicine
DX: I10 Essential (primary) hypertension (principal); R80.9 Proteinuria, unspecified; E78.00 Pure hypercholesterolemia, unspecified; R73.01 Impaired fasting glucose; I34.1 Nonrheumatic mitral (valve) prolapse; E55.9 Vitamin D deficiency, unspecified; M25.561 Pain in right knee; M25.562 Pain in left knee; K59.00 Constipation, unspecified; R35.0 Frequency of micturition; F41.9 Anxiety disorder, unspecified
CPT/HCPCS: 99214

== ENCOUNTER 2024-01-08 09:36 | Outpatient (AMB) | payer OTHER, SELFPAY ==
[2024-01-08 09:38] VITALS: BP 160/80; PULSE 83; BMI 25.1
--- NOTE | 2024-01-08 09:38 | A.OFFVIS_ITS ---
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 In the past, he was seen regarding mitral regurgitation. In 2022, he only had trace mitral regurgitation. In follow-up echocardiogram from 2023, he had severe posterior mitral leaflet prolapse and moderately severe mitral regurgitation. He also has hypertension. Office blood pressures seem to be generally high but he states home blood pressures are generally lower but still a probably borderline high. Otherwise, he has got no cardiac symptoms. Last time, he was not very comfortable during the appointment and essentially said he does not trust doctors. Today, he states that he is apologetic for that. Otherwise, he states he feels fine. [facility] Medical History History of hepatitis C Benign essential hypertension Hypertension Overweight (BMI 25.0-29.9) Anxiety Urinary frequency Allergic rhinitis Osteoarthritis of left knee Vitamin D deficiency Pure hypercholesterolemia Impaired fasting glucose White coat syndrome with hypertension Surgical History History of prostate surgery Family History Father Hypertension Stroke Mother Medical history unknown Social History Housing: House Alcohol intake: never Patient Tobacco Use Status: Former Tobacco user (2012) Tobacco use type: Cigarette Years Smoked: 25 years e-Cigarette/Vaping Use: Never Used Second Hand Smoke Exposure: Yes service: No Current occupational status: retired and disabled Cognitive needs: No Hearing needs: No Vision needs: Yes (Reading Glasses) Review of Systems Const Denies chills, Denies fatigue, Denies fever(s), Denies frequent falls, Denies weakness, Denies weight gain and Denies weight loss ENT Denies dizziness Card Denies chest pain, Denies leg edema, Denies lightheadedness, Denies palpitations, Denies dyspnea and Denies dyspnea on exertion Resp Denies cough, Denies dyspnea and Denies dyspnea on exertion GI Denies hematochezia Musc Denies abnormal gait, Denies muscle weakness, Denies numbness, Denies radiating pain into limb and Denies tingling Neuro Denies Abnormal speech present, Denies abnormal gait, Denies dizziness, Denies frequent falls, Denies numbness, Denies tingling and Denies weakness Endo Denies fatigue and Denies palpitations Physical Exam Vital Signs: Last Vital Signs Pulse 83 01/08/24 09:38 BP 160/80 H 01/08/24 09:38 BMI result Body Mass Index 25.1 Const General: comfortable and no acute distress Orientation/consciousness: patient oriented x3 HEENT Other: Unremarkable Head: Yes normal to inspection Neck Neck: Yes normal visual inspection Chest Chest palpation & inspection: normal inspection of the chest Resp Auscultation: clear to auscultation bilaterally Cardio Other: Soft 2nd heart sound Palpation: normal PMI Heart sounds: S1 normal heart sound present, no gallops, Murmur heart sound present systolic III/ and at the apex and no rubs GI Palpation (GI): Soft to palpation Back/Spine/Pelvis Other: unremarkable Skin General skin exam: no rashes or lesions noted Neuro General: patient oriented x3 Speech: No Abnormal speech present Extrem General: Yes normal to inspection Psych Mental Status: mental status grossly normal Assessment & Plan Assessment & Plan (1) Non-rheumatic mitral regurgitation: Code(s): I34.0 - Nonrheumatic mitral (valve) insufficiency Category: Medical Plan: In the last echocardiogram from July, preserved LVEF, 65-70%; severe posterior mitral leaflet prolapse and at least moderately severe eccentric mitral regurgitation. We will repeat the study. Following this, likely needs a transesophageal echocardiogram. We discussed about that as well. He is a bit less anxious today than in the last time, but not entirely clear if he is still understands it or not. Keeps repeating that he was told that it was fine. Hopefully he will be able to proceed with workup. (2) Benign essential hypertension: Code(s): I10 - Essential (primary) hypertension Category: Medical Plan: Underlying hypertension but also has some white coat component. Home blood pressures are slightly lower than here but even at home, it seems he gets 130s and 140s and sometimes higher than that. Hence we can try losartan 50 mg daily. Check labs 1-2 weeks after that. He is willing to try. He states he has had some dizziness in the past with blood pressure medications. He is taking the amlodipine during the known time. He can take the losartan at nighttime to space it out. Orders: Orders CA echo transthoracic complete Today I34.0 - Nonrheumatic mitral (valve) insufficiency Basic Metabolic Panel 2 Weeks I10 - Essential (primary) hypertension Medications: New losartan 50 mg PO DAILY 30 tabs 3RF Coding Level of Care Code Est Pt Level 4 (05769) Diagnoses Non-rheumatic mitral regurgitation I34.0 Benign essential hypertension I10
== END 2024-01-08 09:55 | disposition home or self-care (01) ==
PROVIDERS: PCP Internal Medicine; Visit Provider Internal Medicine
DX: I34.0 Nonrheumatic mitral (valve) insufficiency (principal); I10 Essential (primary) hypertension
CPT/HCPCS: 99214

== ENCOUNTER → 2024-01-08 09:36 | Outpatient (BNVA) | payer OTHER, SELFPAY | PROVIDERS: PCP Internal Medicine; Visit Provider Internal Medicine | DX: I34.0 Nonrheumatic mitral (valve) insufficiency (principal); I10 Essential (primary) hypertension | CPT/HCPCS: 99212 ==

== ENCOUNTER 2024-01-11 13:39 | Outpatient (REF) | payer OTHER, SELFPAY ==
[2024-01-11 14:47] LABS: Influenza A PCR NEGATIVE (Negative); Influenza B PCR NEGATIVE (Negative); Resp Syncy Virus RNA Qual PCR NEGATIVE (Negative); SARS COV2 PCR INHOUSE POSITIVE (Negative)
== END 2024-01-11 13:40 | disposition home or self-care (01) ==
LOC: HO.LAB 13:39
PROVIDERS: PCP Internal Medicine; Visit Provider Internal Medicine
DX: J98.8 Other specified respiratory disorders (principal)
CPT/HCPCS: 0241U

== ENCOUNTER → 2024-02-14 09:40 | Outpatient (REF) | payer OTHER, SELFPAY ==
--- NOTE | 2024-02-14 09:43 | CA_ITS ---
Transthoracic Echocardiogram Patient (Last, First, Middle): Chacho Barnard M Gender: Male Date of : 1945 Age: 78 Procedure Date: 02/14/2024 Procedure Type: Transthoracic Echocardiogram Location: OP Height: 167.64 cm Weight: 64.41 kg BSA: 1.73 m2 Heart Rate: bpm BP: 160 / 78 mmHg Verification Engineer: TO Referring MD: Javier Cummings MD Symptoms: I34.0 - Nonrheumatic mitral (valve) insufficiency Study Quality: Adequate ECG Rhythm: Sinus Conclusions: - The left ventricular systolic function is normal. The visually estimated ejection fraction is between 65-70%. - The left atrium is severely dilated. - The mitral valve appears myxomatous. There is a flail posterior mitral leaflet. There is severe mitral valve regurgitation. The mitral regurgitation jet is directed anteriorly. - There is mild dilatation of the aortic arch measuring 4.20 cm. Findings Left Ventricle Normal left ventricular cavity size. The left ventricular systolic function is normal. The visually estimated ejection fraction is between 65-70%. There is no evidence of regional wall motion abnormalities. Diastolic function is indeterminate on the basis of available data. There is mild septal asymmetric hypertrophy. LV peak GLS -27.6%. Right Ventricle Normal right ventricular cavity size and systolic function. Atria The left atrium is severely dilated. The right atrium is normal in size. Aortic Valve There is a normal trileaflet aortic valve. There is no aortic valve stenosis. There is trace (trivial) aortic valve regurgitation. Mitral Valve The mitral valve appears myxomatous. There is a flail posterior mitral leaflet. There is severe mitral valve regurgitation. The mitral regurgitation jet is directed anteriorly. There is no mitral valve stenosis. Pulmonic Valve There is trace pulmonic valve regurgitation. Tricuspid Valve There is mild tricuspid valve regurgitation. There is no evidence of pulmonary hypertension. Great Vessels The asc aorta is normal in size. There is mild dilatation of the aortic arch measuring 4.20 cm. Venous The inferior vena cava is normal in size and collapses greater than 50% with inspiration. Pericardium/Pleural There is no evidence of pericardial effusion. Prior Study Comparison No significant change compared to prior study dated: 08/24/2023. Measurements 2D Linear Measurements IVSd: 1.03 0.6-0.9/0.6-1.0 cm LVIDd: 5.27 3.9-5.3/4.2-5.9 cm LVIDd Index: 3.05 2.4-3.2/2.2-3.1 cm/m2 LVIDs: 3.57 2.0-3.6 cm LVPWd: 0.89 0.7-1.1 cm LA Diam: 4.80 2.7-3.8/3.0-4.0 cm LAIDs Index: 2.77 1.5-2.3 cm/m2 LV Mass: 234.18 67-162/88-224 g LV Mass Index: 135.37 43-95/49-115 g/m2 LVOT Diam: 2.10 3.0+(-)1.3 cm 2D Systolic Function EF 4C: 73.20 >55% EF 2C: 68.00 >55% EF BiP: 71.10 >55% Mitral Valve MV VTI: 0.41 MV Pk Vernon: 1.55 MV Mn Vernon: 0.80 MV Pk Grad: 10.00 MV Mn Grad: 3.00 MV Pk E: 1.26 MV PK A: 0.49 MV Decel Time: 213.00 E/A: 2.60 E'Lateral: 10.00 E'Medial: 7.94 E/E' Med: 15.90 E/E' Lat: 12.60 PHT: 62.00 MVA PHT: 3.55 MVA Continuity: 1.62 Decel Calloway: 5.92 MR Vol - PW Dopp: 209.44 MR VTI: 1.19 MR ERO: 176.00 MR Alias Vernon: 0.39 MR RAD: 1.90 Aortic Valve AoV Pk Vernon: 1.48 AoV Mn Vernon: 1.07 AoV VTI: 0.29 AoV Pk Grad: 9.00 Aov Mn Grad: 5.00 HERRERA Cont.VTI: 2.29 LVOT LVOT Pk Vernon: 1.24 LVOT Mn Vernon: 0.68 LVOT VTI: 0.19 LVOT Pk Grad: 6.00 LVOT Mn Grad: 2.00 LVOT Diam: 2.10 LVOT Area: 3.46 Diastolic Function MV Pk E: 1.26 MV Pk A: 0.49 E/A: 2.60 E'Medial: 7.94 E/E' Med: 15.90 E' Laterial: 10.00 E/E' Lat: 12.60 Right Ventricle TAPSE (mm): 32.10 TVS' Vernon: 16.40 Tricuspid Valve TR Pk Vernon: 2.61 TR Pk Grad: 27.00 RA Press: 3.00 RVSP: 30.00 Great Vessels Aorta Sinus of Valsalva: 3.40 2.0-3.5 cm Ao Asc: 3.70 2.1-3.4 cm Ao Arch: 4.20 Updated in Other Vendor System with Status of Final Javier Cummings MD electronically signed on 02/16/2024 10:12:43 AM with status of Final
== END ==
LOC: HO.CARD 09:40
PROVIDERS: PCP Internal Medicine; Visit Provider Internal Medicine
DX: I34.0 Nonrheumatic mitral (valve) insufficiency (principal)
CPT/HCPCS: 93306; 93356

== ENCOUNTER → 2024-02-14 09:43 | Outpatient (BNV) | payer OTHER, SELFPAY | PROVIDERS: PCP Internal Medicine; Visit Provider Internal Medicine | DX: I34.1 Nonrheumatic mitral (valve) prolapse (principal); I34.0 Nonrheumatic mitral (valve) insufficiency; I36.1 Nonrheumatic tricuspid (valve) insufficiency; I42.2 Other hypertrophic cardiomyopathy | CPT/HCPCS: 93306; 93356 ==

== ENCOUNTER 2024-02-29 11:03 | Day surgery (SDC) | payer OTHER, SELFPAY ==
[2024-02-29 11:42] VITALS: BMI 23.3
[2024-02-29 11:53] VITALS: BP 163/77; PULSE 80; RESP 16; TEMP 36.9; O2SAT 97
[2024-02-29] MEDS: Lactated Ringers 1,000 ML 50 ML IVCONT (12:07)
--- NOTE | 2024-02-29 12:08 | CA_ITS ---
Transesophageal Echocardiogram Patient (Last, First, Middle): Chacho Barnard M Gender: Male Date of : 1945 Age: 78 Procedure Date: 02/29/2024 Procedure Type: Transesophageal Echocardiogram Location: OP Height: 170.18 cm Weight: kg Branch Operations Manager: Referring MD: Javier Cummings MD Symptoms: NONRHUMATIC MITRAL VALVE INSUFFICIENCY Conclusion: ??? The left ventricular systolic function is normal. The visually estimated ejection fraction is between 65-70%. ??? There is a flail posterior mitral leaflet. P2 scallop primarily involved. Etiology likely a ruptured chord. There is severe mitral valve regurgitation. The mitral regurgitation jet is directed anteriorly. Findings Left Ventricle Normal left ventricular cavity size. The left ventricular systolic function is normal. The visually estimated ejection fraction is between 65-70%. There is no evidence of regional wall motion abnormalities. Right Ventricle Normal right ventricular cavity size and systolic function. Atria There is no evidence of a thrombus in the left atrial appendage. The right atrium is normal in size. Aortic Valve There is a normal trileaflet aortic valve. There is no aortic valve stenosis. Trace to mild aortic regurgitation. Mitral Valve There is a flail posterior mitral leaflet. There is severe mitral valve regurgitation. The mitral regurgitation jet is directed anteriorly. Quantitative assessment supportive of severe mitral regurgitation. Possible systolic flow reversal in right sided pulmonic veins. Etiology likely ruptured chord. 3D images obtained. Pulmonic Valve There is trace pulmonic valve regurgitation. Tricuspid Valve Normal tricuspid valve structure. There is mild tricuspid valve regurgitation. Great Vessels The asc aorta is normal in size. Venous The inferior vena cava was not well visualized. Pericardium/Pleural There is no evidence of pericardial effusion. Prior Study Comparison No significant change compared to prior study dated: 02/14/2024. Measurements Mitral Valve MR Vol - PW Dopp: 100.58 MR VTI: 1.07 MR ERO: 94.00 MR Alias Vernon: 0.34 MR RAD: 1.30 Updated by Javier Cummings on 11:44 AM with Status of Final Javier Cummings MD electronically signed on 03/02/2024 11:44:41 AM with status of Final
--- NOTE | 2024-02-29 12:22 | P.CONAN_ITS ---
HPI - Anesthesia Eval Consult details Narrative: for Josh [facility] Active Problems Active Problems: All Active Problems Non-rheumatic mitral regurgitation (Acute) Mitral valve prolapse (Acute) Proteinuria (Acute) Left otitis externa (Acute) Vertigo (Acute) Constipation (Acute) Bilateral knee pain (Acute) Annual physical exam (Acute) Benign essential hypertension (Acute) Overweight (BMI 25.0-29.9) (Acute) Anxiety (Acute) Urinary frequency (Acute) Allergic rhinitis (Acute) Osteoarthritis of left knee (Acute) Vitamin D deficiency (Acute) Pure hypercholesterolemia (Acute) Impaired fasting glucose (Acute) White coat syndrome with hypertension (Acute) Past Medical History Medical History Mitral valve prolapse Non-rheumatic mitral regurgitation History of hepatitis C Benign essential hypertension Hypertension Overweight (BMI 25.0-29.9) Anxiety Urinary frequency Allergic rhinitis Osteoarthritis of left knee Vitamin D deficiency Pure hypercholesterolemia Impaired fasting glucose White coat syndrome with hypertension Family History Family History Father Hypertension Stroke Mother Medical history unknown Family history of problems with anesthesia: No Surgical History Surgical History History of prostate surgery History of Problems with Anesthesia: No Social History Social History Housing: House Alcohol intake: never Patient Tobacco Use Status: Former Tobacco user Tobacco use type: Cigarette Years Smoked: 25 years e-Cigarette/Vaping Use: Never Used Second Hand Smoke Exposure: Yes Use of substances other than those prescribed or required for medical reasons: No Are you DNR?: No Advance Directives: No Advance Directives Information Provided: Yes Advance Directives on File: No Recently lost weight without trying: Yes How much weight loss: 14-23 pounds Nutrition Risks: No Nutritional Risk Poor oral hygiene: No service: No Current occupational status: retired and disabled Cognitive needs: No Hearing needs: No Vision needs: Yes (Reading Glasses) Meds Allergies Allergy/AdvReac Type Severity Reaction Status Date / Time No Known Allergies Allergy Verified 12/07/23 06:07 [No Known Allergies*] Active Medications: Current Medications Lactated Ringer's (Lr) 1,000 mls @ 50 mls/hr IVCONT .Q20H SUE Last Admin: 02/29/24 12:07 Dose: 50 mls/hr Exam Height,Weight and Vital Signs: Height 5 ft 5 in Weight 63.56 kg Last Vital Signs Temp 98.4 F 02/29/24 11:53 Pulse 80 02/29/24 11:53 Resp 16 02/29/24 11:53 BP 163/77 H 02/29/24 11:53 Pulse Ox 97 02/29/24 11:53 O2 Del Method Room Air 02/29/24 11:53 Airway Mallampati Class: II TM Dist: >3cm Neck ROM: Full Heart: rrr Lungs: cta Assessment and Plan Assessment Anesthesia Assessment: Anesthesia Plan Discussed Final Anesthetic Review Family History of Problems with Anesthesia: No History of Problems with Anesthesia: No NPO: Yes ASA Class: III Final Preanesthetic Review: No Changes in Pt Med Stat, Meds/Allgs Chart Reviewed, Consent Obtained/Reviewed and Anes Risks/Benef Reviewed Patient Risk: Intermediate Procedure Risk: Low Anesthetic Plan Anesthetic Plan: MAC: Disposition: Standard PACU
--- NOTE | 2024-02-29 12:36 | MHC.SHP ---
Pre-Procedural Eval Section A - 24 Hr Update-Section A only Date of Service: 02/29/24 The patient is an INPATIENT: No Section B - Complete if H&P > 30 days Chief Complaint: Nonrheumatic mitral (valve) insufficiency Details of Present Illness: suspected severe mitral regurgitation, for JEROD Relevant Social History: None Present Medications: see Short Stay Collaborative assessment Medical History: Significant History (HTN) Allergies: Allergies Allergy/AdvReac Type Severity Reaction Status Date / Time No Known Allergies Allergy Verified 12/07/23 06:07 [No Known Allergies*] Review of Systems Review of Systems Comment: 10 system review -ve. 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 No changes have occurred unless specified. Time Spent With Patient Time: Total time managing care of this patient today ____ minutes.
[2024-02-29 13:28] VITALS: BP 92/49; PULSE 59; RESP 16; TEMP 36.2; O2SAT 99
[2024-02-29 13:33] VITALS: BP 111/61; PULSE 74; RESP 17; O2SAT 96
[2024-02-29 13:38] VITALS: BP 118/67; PULSE 64; RESP 17; O2SAT 95
[2024-02-29 13:43] VITALS: BP 117/67; PULSE 61; RESP 17; O2SAT 97
[2024-02-29 13:59] VITALS: BP 129/68; PULSE 71; RESP 18; TEMP 36.2; O2SAT 95
== END 2024-02-29 14:44 | disposition home or self-care (01) ==
PROVIDERS: PCP Internal Medicine; Visit Provider Internal Medicine
PROC: (CPT 93312; principal; 2024-02-29 12:00)
DX: I34.0 Nonrheumatic mitral (valve) insufficiency (principal); I10 Essential (primary) hypertension; E78.00 Pure hypercholesterolemia, unspecified; R73.01 Impaired fasting glucose; Z79.899 Other long term (current) drug therapy; Z87.891 Personal history of nicotine dependence
CPT/HCPCS: 93312; J2003; J2371; J2704

== ENCOUNTER → 2024-02-29 12:08 | Outpatient (BNV) | payer OTHER, SELFPAY | PROVIDERS: PCP Internal Medicine; Visit Provider Internal Medicine | DX: I34.0 Nonrheumatic mitral (valve) insufficiency (principal); I35.1 Nonrheumatic aortic (valve) insufficiency; I36.1 Nonrheumatic tricuspid (valve) insufficiency | CPT/HCPCS: 76376; 93312; 93320; 93325 ==

== ENCOUNTER 2024-03-08 07:22 | Outpatient (REF) | payer OTHER, SELFPAY ==
[2024-03-08 08:12] LABS: MANUAL DIFF FLAG NO
[2024-03-08 09:53] LABS: Basophils Absolute Auto 0.1 X10*3/uL (0.0-0.2); Basophils Percent Auto 1.1 % (0-2); Eosinophils Absolute Auto 0.1 X10*3/uL (0.0-0.4); Eosinophils Percent Auto 2.2 % (0-4); Hematocrit 42.5 % (42.0-52.0); Hemoglobin 14.2 g/dl (14.0-18.0); Imm Gran Abs Auto 0.01 X10*3/uL (0.00-0.03); Imm Gran Pct Auto 0.2 % (0.0-0.4); Lymphocytes Absolute Auto 1.6 X10*3/uL (1.2-4.9); Lymphocytes Percent Auto 34.4 % (20-40); Mean Corpuscular HGB Conc 33.4 g/dl (31.0-36.0); Mean Corpuscular Hemoglobin 30.8 pg (27.0-33.0); Mean Corpuscular Volume 92.2 fL (80.0-98.0); Monocytes Absolute Auto 0.6 X10*3/uL (0.1-1.2); Monocytes Percent Auto 13.2 % (2-11); Neutrophils Absolute Auto 2.3 x10*3/uL (2.0-8.3); Neutrophils Percent Auto 48.9 % (45-73); Platelet Count 142 X10*3/uL (160-400); Red Blood Count 4.61 X10*6/uL (4.60-5.80); Red Cell Distribution Width 13.7 % (11.0-16.0); White Blood Count 4.6 X10*3/uL (4.8-10.8)
[2024-03-08 09:55] LABS: INTERNATIONAL NORM RATIO 0.9 (0.9-1.1)
[2024-03-08 10:09] LABS: Appearance Urine Clear; Color Urine Yellow; Glucose Urine UA Negative (Negative); Leukocyte Esterase Urine Negative (Negative); Nitrite Urine Negative (Negative); Specific Gravity - Urine 1.015 (1.005-1.025); Urine Blood Negative (Negative); Urine Ketones Negative (Negative); Urine Protein Trace mg/dL (Neg-Trace)
[2024-03-08 10:21] LABS: Alanine Aminotransferase 27 U/L (0-40); Albumin Level 4.4 g/dL (3.5-5.0); Alkaline Phosphatase 54 U/L (39-117); Anion Gap 14 (12-20); Aspartate Amino Transferase 35 U/L (5-37); Bilirubin Total 0.7 mg/dL (0.0-1.0); Blood Urea Nitrogen 17 mg/dL (9-16); Calcium 9.6 mg/dL (8.4-10.2); Carbon Dioxide 25 mmol/L (22-29); Chloride 107 mmol/L (96-108); Cholesterol 193 mg/dL (<200); Estimated Glomerular Filt Rate > 60; Glucose Fasting 103 mg/dL (60-99); Glucose Random 102 mg/dL (60-115); HDL Cholesterol 66 mg/dL (>40); LDL Cholesterol Calculated 117 mg/dL (<100); Potassium 4.1 mmol/L (3.3-5.1); Sodium 142 mmol/L (135-145); Total Protein 7.7 g/dL (6.5-8.0); Triglycerides 52 mg/dL (<150)
[2024-03-08 10:31] LABS: Prostate Specific Antigen 2.78 ng/mL (<0.05-4.0)
[2024-03-08 10:41] LABS: TSH reflex Free T4 2.92 uIU/mL (0.32-4.0)
== END 2024-03-08 07:23 | disposition home or self-care (01) ==
LOC: HO.LAB 07:22
PROVIDERS: PCP Internal Medicine; Visit Provider Internal Medicine
DX: Z00.00 Encounter for general adult medical examination without abnormal findings (principal); I50.9 Heart failure, unspecified; D64.9 Anemia, unspecified; E78.00 Pure hypercholesterolemia, unspecified; N40.0 Benign prostatic hyperplasia without lower urinary tract symptoms; R30.0 Dysuria; E55.9 Vitamin D deficiency, unspecified; I34.0 Nonrheumatic mitral (valve) insufficiency; I25.10 Atherosclerotic heart disease of native coronary artery without angina pectoris; Z12.5 Encounter for screening for malignant neoplasm of prostate
CPT/HCPCS: 36415; 80048; 80053; 80061; 81003; 82306; 84153; 84443; 85025; 85027; 85610

== ENCOUNTER → 2024-03-18 23:59 | Outpatient (BNV) | payer OTHER, SELFPAY | PROVIDERS: PCP Internal Medicine; Visit Provider Internal Medicine Cardiovascular Disease | DX: I34.0 Nonrheumatic mitral (valve) insufficiency (principal) | CPT/HCPCS: 93460; 99152 ==

== ENCOUNTER 2024-04-11 10:01 | Outpatient (AMB) | payer OTHER, SELFPAY ==
--- OUTSIDE RECORDS SUMMARY | 2024-04-11 10:04 | XMS_ITS | Continuity of Care Document ---
Author Organization [facility] ter Address [address] [place] [id number]- Care Team Providers Care Pressure Tester Operator Name Role Phone Chris Pearson MD Primary Care Physician Encounter [facility] Date(s): 03/18/24 - 03/18/[address] [address] Discharge Disposition: A-D/C Home Attending Physician: Justyn Will MD Admitting Physician: Justyn Will MD Referring Physician: Javier Cummings MD Encounter Type: Disch Daystay Allergies, Adverse Reactions, Alerts No Known Medication Allergies Medications Amlodipine = 10 mg, By Mouth, Daily, 0 Refills, Maintenance, 03/18/24 9:28:00 AM EST, Partial fill upon patient request if the prescription is for a schedule II opioid drug. Start Date: 03/18/24 Status: Ordered Repeat number: 1 losartan 50 mg oral tablet 50 mg, 1, tablet, By Mouth, Daily, Refills 0, Maintenance, 03/18/24 9:28:00 AM EST, Partial fill upon patient request if the prescription is for a schedule II opioid drug. Start Date: 03/18/24 Status: Ordered Repeat number: 1 Vital Signs Most recent to oldest [Reference Range]: 1 2 3 Height 165 cm (03/18/24 9:29 AM) Weight 64.3 kg (03/18/24 9:29 AM) Oxygen Saturation [94-100 %] 97 % (03/18/24 4:02 PM) 97 % (03/18/24 3:29 PM) 98 % (03/18/24 2:19 PM) Body Mass Index [18.5-24.99 kg/m2] 23.62 kg/m2 (03/18/24 9:29 AM) Blood Pressure [90-138/55-84 mm Hg] 126/61mm Hg (03/18/24 4:00 PM) 121/56mm Hg (03/18/24 3:15 PM) 126/56mm Hg (03/18/24 2:15 PM) Respiratory Rate [16-30 br/min] 20 br/min (03/18/24 4:01 PM) 19 br/min (03/18/24 3:29 PM) 17 br/min (03/18/24 2:19 PM) Temperature [96.8-100.4 DegF] 98.1 DegF (03/18/24 9:29 AM) 98.1 DegF (03/18/24 8:56 AM) Mode of Delivery (Oxygen) Room air (03/18/24 4:00 PM) Room air (03/18/24 3:15 PM) Room air (03/18/24 2:19 PM) Blood pressure sites Arm, left (03/18/24 4:00 PM) Arm, left (03/18/24 3:15 PM) Arm, left (03/18/24 2:15 PM) Temperature Route Temporal (03/18/24 9:29 AM) Temporal (03/18/24 8:00 AM) Dry Weight 64.3 kg (03/18/24 9:29 AM) Weight Obtained Via Standing scale (03/18/24 9:29 AM) Dry Weight Obtained Via Standing scale (03/18/24 9:29 AM) Note * Event Display: Hemodynamic Procedure Report Authored Date: * Jacqueline Murillo RN: PERFORM Event Display: Discharge/Transfer Note Hospital Authored Date: [id number] Nursing Discharge Note Entered On: 03/18/2024 17:02 EST Performed On: 03/18/2024 16:35 EST by Jacqueline Murillo RN Nursing Discharge Note 2 Discharge Time : 03/18/2024 16:35 EST Discharge Level of Care at Discharge : Home/Care Home/Foster Care Patient Left Unit Via : Wheelchair Patient Accompanied Off Unit with : Responsible adult DC Instructions Provided & Signed by Pt : Yes Patient Understands D/C Instructions : Yes Patient Instructions Discharge Signed : Yes Discharge Comments : R radial and brachial cath sites stable Did Pt have Specialty Bed or Wound Vac : No Jacqueline Murillo RN - 03/18/2024 17:02 EST * Jacqueline Murillo RN: PERFORM Event Display: Patient Education/Instruction Authored Date: [id number] Inpatient Adult Discharge Instructions. [address] [address] Name: EMILIE BOOTH : 1945?? Visit: 03/18/2024 08:23?? Current Date: 03/18/2024 13:43 ?? Account: [id number]?? Inpatient Adult Discharge Instructions We would like to thank you for allowing us to assist you with your healthcare needs. The following includes patient education materials and information regarding your injury/illness. Our entire staffstrives to provide an excellent experience for our patients and their families. PLEASE ENSURE YOU FOLLOW-UP PER THE INSTRUCTIONS BELOW! ?? YOUR OPINION IS IMPORTANT TO US! Please complete the survey you may receive by mail or email. Your feedback will be used to make improvements to the healthcare experiences of our patients and their families. Surveys are administered by [employer] ?? If further treatment with your primary care physician or another doctor is recommended, it is important for you to keep the appointment. Call your primary care physician or return to the Emergency Department immediately if your condition worsens, fails to improve, or new symptoms develop. If you need to find a doctor, you can call [facility] Link for a referral at [phone] or toll free at [phone]) or log in to [email or web address].. ?? [facility], in keeping with [facility] guidance, no longer requires face masks for staff, patientsor visitors in most situations. Similiar to time spent indoors at other locations, there is the chance that you were exposed to repiratory viruses during your time with us (such as flu or COVID-19). If you develop symptoms concerning for a viral respiratory infection, please seek testing (and treatment if indicated) from your medical provider or home test kit. ?? You can view and manage your care through the patient portal or by using a health care narendra of your choosing. [employer] is a website that allows you to securely view your medical information including your hospital discharge summary, office visit summaries, medications and follow-up visits. You can also request appointments, renew medications, and request access to your medical information using a health care narendra of your choosing, or just ask a question. You can enroll at [email or web address] or register during your next office visit. You have been discharged from [facility], Patient Care Unit: CARE??. If you have any questions regarding these instructions, including results of studies pending, afteryou leave, please call us and we will be happy to assist you 20/11. [facility] Nursing Unit Direct Phone Number, for 20/11 contact and results of studies pending CARE [address] [place] [address] Your Care Team Attending Physician Justyn Will MD?? Consulting Providers Justyn Will MD?? Discharging Providers Isha WATSON, Lalitha Jackson Tests Performed Below is a partial list of the tests performed during your hospitalization. You may have had other tests and procedures not included in this list. Please discuss all test results with your provider. Basic Metabolic Panel CBC Basic Metabolic Panel?? CBC?? Primary Care Provider Chris Pearson MD? Advance Directive Health Care Proxy on File No Discharge Vitals Temperature: 98.1 DegF Height: 165 cm Respiratory Rate:??15 br/min??Low Weight: 64.3 kg Systolic Blood Pressure: 112 mm Hg Body Mass Index: 23.62 kg/m2 Diastolic Blood Pressure: 78 mm Hg Body surface area: 1.72 Oxygen Saturation: 98 % ?? Studies Pending All studies ordered during this hospital stay have been completed unless listed below. Please discuss all pending results with your provider listed above in these instructions. ?? No incomplete studies found?? What to do next Instructions From Your Doctor ?? Orders?? Daystay Protocol, ??03/18/24 12:30:00 EST?? You Need to Schedule the Following Appointments Follow Up with??As Needed Discharge Medications EMILIE BOOTH :1945 Visit Date:03/18/2024 Medications: Please continue your medications until treatment is completed or stopped by your provider. Medications not listed below should be discontinued. Discuss any questions related to medications with your provider. What How Much When Instructions Next Dose Unchanged Amlodipine 10 Milligram Oral Daily PRESCRIBED Unchanged Losartan (losartan 50 mg oral tablet) 1 tab(s) Oral Daily PRESCRIBED Prescription Given During Visit No new medications prescribed at time of discharge.?? Laboratory Results Below is a partial list of the most recent Laboratory test results done prior to this discharge. You may have had other tests and procedures not included in this list. Please discuss all test resultswith your provider. Est Creatinine Clearance - 69.98 mL/min (03/18/2024) Basic Metabolic Panel (03/18/2024) ???Sodium - 141 mmol/L???Potassium - 3.9 mmol/L???Chloride - 106 mmol/L???Bicarbonate Level - 23 mmol/L???Anion Gap - 12???Glucose Level - 113 mg/dL???BUN - 13 mg/dL???Creatinine-Blood - 0.78 mg/dL???Estimated GFR Creatinine - 92 ML/MIN/1.73 M2???Calcium - 9.1 mg/dL CBC (03/18/2024) ???WBC - 4.8 k/mm3???RBC - 4.46 m/mm3???Hgb - 13.7 Gm/dL???Hct - 40.6 %???MCV - 91.0 femtoliters???MCH - 30.7 pg???MCHC - 33.7 Gm/dL???Platelet Count - 143 k/mm3???RDW-SD - 45.5 femtoliters???MPV - 12.3 femtoliters???Nucleated RBC (Automated) - 0.0 #/100 WBC'S???Abs. NRBC - 0.0 k/mm3 You will be contacted within 72 hours with your results. Allergies (NKA means No Known Allergies) No Known Medication Allergies Problems No qualifying data available Education Materials Below is the list of Educational Leaflet Providered with your Discharge Instructions. [employer] Patient Education - Surgery Radial Cath Approach Discharge Instructions?? Valuables and Belongings I fully understand and agree that [facility] accepts no responsibility for all my personal property including clothing, toilet articles, radios, jewelry, dentures, hearing aids, rings, money, or any other property that is in my possession or is brought to me after admission. I understand certain valuables may be placed in a hospital safe for a short period of time. I understand that the hospital is not liable for loss or damage due to accident, fire, or other natural occurrence while said property is in the safe. I accept full responsibility for any personal property that I keep with me, and will not hold the hospital responsible in case of loss or disappearance. I acknowledge that i have been encouraged to send valuables and belongings home. ? Other Discharge Information ? Pulmonary Rehab Status?? Pulmonary Rehab Discharge Status?? Respiratory Rate:??15 br/min??Low ? Common Emergency Awareness Tips IS IT A STROKE? Act FAST and Check for these signs: FACE Does the face look uneven? ARM Does one arm drift down? SPEECH Does their speech sound strange? TIME Call at any sign of stroke ?? Heart Attack Signs Chest discomfort: Most heart attacks involve discomfort in the center of the chest and lasts more than a few minutes, or goes away and comes back. It can feel like uncomfortable pressure, squeezing, fullness or pain. Discomfort in upper body: Symptoms can include pain or discomfort in one or both arms, back, neck, jaw or stomach. Shortness of breath: With or without discomfort. Other signs: Breaking out in a cold sweat, nausea, or lightheaded. Remember, MINUTES DO MATTER. If you experience any of these heart attack warning signs, call to get immediate medical attention! ?? Smoking can increase your chances of developing chronic health problems and can cause harmful effects to other family members in your house. If you smoke, you are strongly encouraged to quit. Please call [facility] [employer] Link at [phone] or [phone]) or log in to [email or web address] for referrals to smoking cessation programs. ?? 222 Suicide & Crisis Lifeline is available 20/11 if you or someone you know needs to find a reason to keep living. By calling 112 you'll be connected to a skilled, trained counselor at a crisis center in your area. INPATIENT DISCHARGE INSTRUCTIONS SIGNATURE RONNIE EMILIE BOOTH Location:[facility] Registration Date and Time:03/18/2024 08:23 EST Primary Care Physician: Chris Pearson MD, Attending Physician: Suman WATSON, Justyn, EMILIE BUI, have received the above patient education materials/instructions and have verbalized understanding. If ambulance or transport services are being used I further acknowledge being given a choice of service. ?? If you need to contact me, please call me at this number: . Patient/Monorail Operator Name: Patient/Monorail Operator Signature: Relationship to Patient: Witness Name/Signature: Date: * Jacqueline Murillo RN: PERFORM Event Display: Patient Education Leaflets Authored Date: [id number] Surgery Radial Cath Approach Discharge Instructions ?? 278 Radial Cath Approach Discharge Instructions ?? Activity Take it easy the rest of the day. Limit your activity on the affected side.?? Act as if your arm is broken for 24 hours. No lifting with affected arm for 24 hours. No pushing or pulling with the affected arm. Do not reach or lift with the affected arm. Do not place excessive pressure on the wrist. ?? Precautions Due to intravenous sedation: It is recommended that someone stay with you for the first night after your procedure. Do not drive or operate hazardous machinery for 24 hours. Do not make legal decisions for 24 hours. Avoid alcohol for 24 hours. Unless directed otherwise, keep yourself hydrated. ?? Dressing/Incision Care You may remove the dressing 24 hours after your procedure. Replace with band aid for an additional 24 hours. You may shower and cleanse the site with soap & water then pat dry. Avoid submersion of site in water x 5 days. Cover the with a clean band aid daily until site is healed. If the band aid becomes soiled, replacewith a clean new one. Do not apply any ointments, lotions, gels or powders to the puncture site. ?? When to contact your doctor If any of the following signs of infection occur: Fever greater than 100 degrees F Increased pain Drainage, redness or warmth at puncture site Tingling of the fingers and hand that last longer than 3 days Slight bubble of blood or bleeding from site: apply manual pressure and notify your doctor ?? Emergency situations: Bleeding from the site that will not stop: apply manual pressure and notify your doctor Profuse bleeding streaming from the puncture site: Apply manual pressure and notify your doctor immediately If your hand becomes bluish, cold to the touch, or painful, notify your doctor immediately or go toEmergency Department. For these emergent situations: If unable to contact your physician, call 911. ?? EKG study * Event Display: ECG 12-Lead Authored Date: Please click on pdf link to open report * Event Display: ECG 12-Lead Authored Date: Ventricular Rate: 73 BPM Atrial Rate: 73 BPM P-R Interval: 172 ms QRS Duration: 108 ms Q-T Interval: 410 ms QTC Calculation(Bazett): 451 ms P [place]: 53 degrees R [place]: 7 degrees T [place]: 44 degrees Normal sinus rhythm Normal ECG No previous ECGs available Confirmed by Oscar Pulido ([id number]) on 03/18/2024 12:13:53 PM Allen: Oscar Pulido Patient Care team information Care Team Personnel Name: Chris Pearson MD Position: Reference Physician Member Role: PCP [address]: [address] [place] [address] Telecom: Insurance Providers Guarantor name: HEBER Health Plan Information #: 1 Payer: [employer] Member Number: [id number] Policy Number: NA Group Number: Health Plan Information #: 2 Payer: [id number] [facility] Member Number: [id number] Policy Number: NA Group Number: NA
--- NOTE | 2024-04-11 10:09 | MHC.PC.OV ---
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 Accompanied by: Self / Same As Patient Allergies No Known Allergies [No Known Allergies*] Allergy (Verified 04/11/24 10:35) Medication List - Last Reconciled 04/11/24 by Chris Pearson MD amlodipine 10 mg See Protocol PO DAILY 90 days cholecalciferol (vitamin D3) (Vitamin D3) 25 mcg PO MOWEFR@0900 losartan 50 mg PO DAILY Tobacco use date assessed: 04/11/24 Fall risk assessment: No Falls in past year Last assessed Fall Risk: 04/11/24 Dental Screening Dental Screen Date: 04/11/24 Did you have a dental visit in the last 12 months?: No Did you have a dental problem in the last 6 months where you did not have access to dental care?: No Was dental information given to patient?: Patient has dentist HPI ANNUAL HPI Details Patient comes in today for his annual physical examination States that he feels okay He tested positive for COVID back in December 2023 but states that his symptoms were mostly mild States that he still took and finished the Paxlovid Rx that we called in for him as he did not want to take a chance with COVID He denies any headaches or dizziness Denies any chest pains, no increased SOB No nausea/vomiting, no abdominal pain No change in bowel habits noted He denies any acute urinary symptoms He had his follow up labs done a couple of months ago - to discuss his results He was also referred to and seen by cardiac surgery (Dr. Day) for his severe mitral valve regurgitation and even though he has no significant symptoms related to his severe MR, given the severity of his MR, he was recommended to undergo valve repair He was advised to see his dentist and get all of his dental issues addressed properly first and he is currently still in the process of doing that He did bring in a form for me to complete for his dentist to clear him for his upcoming dental procedure States that he had cardiac cath done last month and was told that his coronaries were clear He is presently requesting to have his Mometasone cream Rx refilled His screening colonoscopy was last done on 02/24/2019 - per Dr. Shearer, no further screening colonoscopies are needed for him [facility] Medical History (Updated 04/11/24 @ 11:52 by Chris Pearson MD) Dermatitis Primary osteoarthritis of knees, bilateral Severe mitral valve regurgitation Mitral valve prolapse Non-rheumatic mitral regurgitation History of hepatitis C Benign essential hypertension Hypertension Overweight (BMI 25.0-29.9) Anxiety Urinary frequency Allergic rhinitis Osteoarthritis of left knee Vitamin D deficiency Pure hypercholesterolemia Impaired fasting glucose White coat syndrome with hypertension Surgical History (Updated 04/11/24 @ 11:29 by Chris Pearson MD) History of colonoscopy History of prostate surgery Family History Father Hypertension Stroke Mother Medical history unknown Social History Housing: House Alcohol intake: never Patient Tobacco Use Status: Former Tobacco user Tobacco use type: Cigarette Years Smoked: 25 years e-Cigarette/Vaping Use: Never Used Second Hand Smoke Exposure: Yes service: No Current occupational status: retired and disabled Cognitive needs: No Hearing needs: No Vision needs: Yes (Reading Glasses) Questionnaire PHQ-9 Over the last 2 weeks, how often have you been bothered by any of the following problems? 1. Little interest or pleasure in doing things: not at all 2. Feeling down, depressed, or hopeless: not at all 3. Trouble falling or staying asleep, or sleeping too much: not at all 4. Feeling tired or having little energy: not at all 5. Poor appetite or overeating: not at all 6. Feeling bad about yourself - or that you are a failure or have let yourself or your family down: not at all 7. Trouble concentrating on things, such as reading the newspaper or watching television: not at all 8. Moving or speaking so slowly that other people could have noticed. Or the opposite - being so fidgety or restless that you have been moving around a lot more than usual: not at all 9. Thoughts that you would be better off or of hurting yourself in some way: not at all Total score: 0 Depression Screening Interpretation: Negative Depression Screening Done: Yes 99005 - PHQ-9 Billing: Yes Source: Developed by Drs. Joshua Wren, Wilbert Schroeder and colleagues, with an educational nathalie from [employer]. Thrive Questionnaire Date Thrive assessed: 04/11/24 I am a: Patient What is your living situation today?: I have a steady place to live Within the past 12 months, did the food you bought not last and you didn't have the money to get more?: Never true Within the past 12 months, did you worry whether your food would run out before you got money to buy more?: Never true Do you have trouble paying for medicines?: No Do you have trouble getting transportation to medical appointments?: No Do you have trouble paying your heating and electricity bill?: No Do you have trouble taking care of your child, family member or friend?: No Do you have trouble with day-to-day activities such as bathing, preparing meals, shopping, managing finances, etc.?: No Are you currently unemployed and looking for a job?: No Are you interested in more education?: No Please select the resources that you would like help with: None Currently or been in a relationship where the following occur: No concerns reported THRIVE Score: 0 AUDIT C Alcohol Use Questionnaire (AUDIT-C) 1. How often do you have a drink containing alcohol?: Never 3. How often do you have six or more drinks on one occasion?: Never Total Score: 0 Score Reviewed/Action Taken: Yes OBEY-7 AMB Questionnaire OBEY-7 Date OBEY - 7 assessed: 04/11/24 Feeling nervous, anxious, or on edge: 0 = Not at all Not being able to stop or control worryin = Not at all Worrying too much about different things: 0 = Not at all Trouble relaxin = Not at all Being so restless that it is hard to sit still: 0 = Not at all Becoming easily annoyed or irritable: 0 = Not at all Feeling afraid as if something awful might happen: 0 = Not at all Total OBEY-7 score (0-4 normal; 5-9 mild; 10-14 moderate; 15-21 severe): 0 Source: Developed by Marga Clayton Kurt Kroenke and colleagues, with an educational nathalie from [employer]. Review of Systems Const Denies chills, Denies fatigue, Denies fever(s), Denies headache(s), Denies malaise and Denies weakness Eyes Denies blurry vision, Denies change in vision, Denies irritation and Denies itchy eyes ENT Denies dysphagia, Denies dizziness, Denies otalgia, Denies headache(s), Denies nasal congestion, Denies neck pain, Denies odynophagia and Denies sore throat Card Denies chest pain, Denies rapid heart rate, Denies irregular heart rhythm, Denies palpitations and Denies dyspnea Resp Denies chest congestion, Denies cough, Denies dyspnea and Denies wheezing GI Denies abdominal pain, Denies bloating, Denies constipation, Denies dysphagia, Denies heartburn, Denies diarrhea, Denies nausea, Denies odynophagia and Denies vomiting Denies hematuria, Denies difficulty urinating, Denies dysuria, Denies urinary frequency and Denies urinary urgency Musc Denies back pain, Denies arthralgias, Denies joint swelling, Denies muscle weakness and Denies neck pain Skin/Breast Denies change in pigmentation, Denies lesions, Reports rash (recurrent, itchy) and Denies unusual bruising Neuro Denies dizziness, Denies headache(s), Denies paresthesias and Denies weakness Psych Reports anxiety Endo Denies fatigue and Denies palpitations Aller/Immun Denies itchy eyes and Denies wheezing Physical exam (Primary Care) Vital Signs: Last Vital Signs Pulse 87 04/11/24 10:10 BP 142/80 H 04/11/24 10:10 Pulse Ox 98 04/11/24 10:10 Oxygen Delivery Method Room Air 04/11/24 10:10 BMI result Body Mass Index 24.0 Tobacco/Smoking Status: Tobacco use Status Tobacco use date assessed 04/11/24 04/11/24 10:14 Patient Tobacco Use Status Former Tobacco user 04/11/24 10:14 Tobacco use type Cigarette 04/11/24 10:14 e-Cigarette/Vaping Use Never Used 04/11/24 10:14 PHQ-9: PHQ-9 Score PHQ-9: Total score 0 04/11/24 10:14 Depression Screening Interpretation: Negative Thrive Assessment: Date of Thrive Assessment Date Thrive assessed 04/11/24 04/11/24 10:14 Currently or been in a relationship where the following occur: No concerns reported Const General: no acute distress and alert Orientation/consciousness: patient oriented x3 [facility] Head: Yes normocephalic and Yes atraumatic Ears: TM's normal bilaterally and EAC's normal General nose exam: No nasal discharge present Face and sinus: Yes normal facial exam and Yes sinuses nontender Teeth and gingiva: dentition normal Throat: Yes posterior oropharynx normal and Yes tonsils normal (no TP congestion noted) Eyes Eyelids: Yes eyelids normal Conjunctivae: conjunctivae normal Pupils: Equal, round and reactive pupils present EOM: EOMs intact bilaterally Neck Neck: Yes supple and No lymphadenopathy Thyroid: Thyroid normal Resp Auscultation: clear to auscultation bilaterally, no rales and no wheezes Cardio Rate: regular rate Rhythm: regular rhythm Heart sounds: Clicking heart sound present (mid-systolic) and Murmur heart sound present systolic late, III/ and at the apex GI Palpation (GI): Soft to palpation, nontender and No hepatosplenomegaly present Auscultation: normal bowel sounds General: Yes no CVA tenderness Back/Spine/Pelvis Back: no CVA tenderness Thoracic/Lumbar Spine: thoracic and lumbar spine normal to inspection Skin Lesions: no lesions Rashes: rashes noted (few scattered scaling rash on his fingers) Neuro General: patient oriented x3, moves all extremities, no focal motor deficits and CN's II-XI intact bilaterally Cranial nerves: Yes CN's II-XII intact bilaterally and Yes Equal, round and reactive pupils present Cognition (Neuro): normal cognition Gait exam (Neuro): Normal gait present Extrem General: Yes no clubbing, cyanosis or edema Right lower extremity: knee Details: tenderness (mild) and normal ROM; no swelling and no crepitus Left lower extremity: knee Details: tenderness (mild) and normal ROM; no swelling Results Reviewed Results Reviewed: Laboratory Tests 03/08/24 03/08/24 08:05 08:09 WBC 4.6 L Hgb 14.2 Hct 42.5 Plt Count 142 L Sodium 142 Potassium 4.1 Creatinine 0.89 Estimated GFR > 60 Fasting Glucose 103 H Calcium 9.6 AST 35 ALT 27 Triglycerides 52 Cholesterol 193 LDL Cholesterol, Calc 117 H HDL Cholesterol 66 Prostate Specific Ag 2.78 25-OH Vitamin D Total 36.0 TSH 2.92 Ur Specific [place] 1.015 Urine Protein Trace Urine Glucose (UA) Negative Urine Blood Negative Urine Nitrite Negative Ur Leukocyte Esterase Negative Coding Level of Care Code Est Pt Prev Care >65y(28732) Diagnoses Annual physical exam Z00.00 White coat syndrome with hypertension I10 Pure hypercholesterolemia E78.00 Impaired fasting glucose R73.01 Proteinuria, unspecified type R80.9 Proteinuria type: unspecified Severe mitral valve regurgitation I34.0 Vitamin D deficiency E55.9 Primary osteoarthritis of knees, bilateral M17.0 Constipation, unspecified constipation type K59.00 Constipation type: unspecified constipation type Urinary frequency R35.0 Dermatitis L30.9 Anxiety F41.9 Additional Codes PHQ-9 - 38536 - PHQ-9 Billing: Yes ([id number]) Assessment & Plan Assessment & Plan (1) Annual physical exam: Code(s): Z00.00 - Encounter for general adult medical examination without abnormal findings Category: Medical Plan: Results of his labs done a couple of months ago reviewed and discussed with patient His screening colonoscopy was last done on 02/24/2019 - per Dr. Shearer, no further screening colonoscopies are needed for him (2) White coat syndrome with hypertension: Code(s): I10 - Essential (primary) hypertension Category: Medical Plan: Reinforced low sodium diet Continue Amlodipine 10 mg QD - he has been tolerating his Rx so far without any problems His BP has always been reasonably controlled in the past except for when he comes in to the office for his appointments - he would notice that his BP would start running higher on the days leading up to his appointments, consistent with white coat syndrome He is also now seeing nephrology for BP follow up and management; 24-hr ambulatory BP monitoring done a few months ago reportedly showed well-controlled HTN with white-coat effect He has no cardiomegaly seen on his chest x-rays done last year and his recent EKG has been normal (3) Pure hypercholesterolemia: Code(s): E78.00 - Pure hypercholesterolemia, unspecified Category: Medical Plan: He is advised that his cholesterol levels on his recent labs are currently controlled and are within the normal range Reinforced low cholesterol diet (4) Impaired fasting glucose: Code(s): R73.01 - Impaired fasting glucose Category: Medical Plan: His HgbA1c was normal at 5.4%, 5.3% and 5.0% when previously checked; his FBS was just slightly elevated on his recent labs at 103 mg/dl Reinforced low calorie diet/exercise as tolerated (5) Proteinuria: Code(s): R80.9 - Proteinuria, unspecified Category: Medical Qualifiers: Proteinuria type: unspecified Qualified Code(s): R80.9 - Proteinuria, unspecified Plan: Stable - is mostly related to his hypertension and have again emphasized BP control to slow down progression of this Will continue to monitor this closely (6) Severe mitral valve regurgitation: Code(s): I34.0 - Nonrheumatic mitral (valve) insufficiency Category: Medical Plan: Echocardiogram done in June 2022 revealed normal LV cavity size and normal LV systolic function, with calculated EF at 62% and diastolic function is normal for his age. There is mild calcification of the aortic valve and mild posterior mitral valve leaflet thickening and mild posterior mitral valve leaflet prolapse and trace mitral valve regurgitation, which help explain his cardiac murmur Was recommended only periodic follow up unless symptoms occur He was seen by cardiology subsequently and was sent for a repeat echocardiogram, which he had done in July 2023 Repeat echocardiogram on 08/24/2023 revealed again normal LV systolic function with LVEF of 65-70%, with severe left atrial enlargement and severe prolapse of the posterior leaflet with at least moderately severe eccentric mitral regurgitation, mild aortic regurgitation and upper limits of normal RV systolic pressure He was then referred to cardiology, who in turn referred him to cardiac surgery for further recommendations He was seen by Dr. Day last month for his severe mitral valve regurgitation and even though he has no significant symptoms related to his severe MR, given the severity of his MR, he was recommended to undergo valve repair States that he had cardiac cath done last month and was told that his coronaries were clear He was also advised to see his dentist and get all of his dental issues addressed properly first and he is currently still in the process of doing that He has also been advised that given the severity of his mitral valve regurgitation / prolapse, he is at risk for endocarditis and should be covered with antibiotics for any dental work or procedures - Rx for preexposure prophylactic Abx (Amoxicillin) sent to his local pharmacy (7) Vitamin D deficiency: Code(s): E55.9 - Vitamin D deficiency, unspecified Category: Medical Plan: Continue Vitamin D3 1000 units daily (8) Primary osteoarthritis of knees, bilateral: Code(s): M17.0 - Bilateral primary osteoarthritis of knee Category: Medical Plan: Repeat x-rays of the knees done last year revealed (+) moderate tricompartmental OA and genu varus deformity of both knees Have advised him again that he can continue taking OTC Tylenol PRN for his knee pain and will consider referring to orthopedics for further management if his symptoms progress (9) Constipation: Code(s): K59.00 - Constipation, unspecified Category: Medical Qualifiers: Constipation type: unspecified constipation type Qualified Code(s): K59.00 - Constipation, unspecified Plan: Improved Reinforced increased oral fluids and dietary fiber intake Continue Senna 8.6 mg 1 tablet QD PRN (10) Urinary frequency: Code(s): R35.0 - Frequency of micturition Category: Medical Plan: Most likely due to BPH - serum PSA was normal when checked last year and was at 2.78 on his labs done a couple of months ago Will consider prostate US and also referral to urology if his symptoms progress or get worse (11) Dermatitis: Code(s): L30.9 - Dermatitis, unspecified Category: Medical Plan: Continue Mometasone 0.1% cream QD PRN - Rx refilled (12) Anxiety: Code(s): F41.9 - Anxiety disorder, unspecified Category: Medical Plan: He used to take Lorazepam for anxiety but states that he has not needed to take any Rx in a while now and prefers not to take anything if possible Plan Follow up in 4 months Medications: New mometasone 0.1% 1 appl topical DAILY PRN 45 grams 1RF rash amoxicillin Take 4 tablets 30 minutes to 1 hour before procedure 2,000 mg (4 x 500 mg) PO ONCE 5 days PRN 4 tabs 3RF dental prophylaxis
[2024-04-11 10:10] VITALS: BP 142/80; PULSE 87; O2SAT 98; BMI 24.0
== END 2024-04-11 10:45 | disposition home or self-care (01) ==
PROVIDERS: PCP Internal Medicine; Visit Provider Internal Medicine
DX: Z00.00 Encounter for general adult medical examination without abnormal findings (principal); I10 Essential (primary) hypertension; E78.00 Pure hypercholesterolemia, unspecified; R73.01 Impaired fasting glucose; R80.9 Proteinuria, unspecified; I34.0 Nonrheumatic mitral (valve) insufficiency; E55.9 Vitamin D deficiency, unspecified; M17.0 Bilateral primary osteoarthritis of knee; K59.00 Constipation, unspecified; R35.0 Frequency of micturition; L30.9 Dermatitis, unspecified; F41.9 Anxiety disorder, unspecified

== ENCOUNTER → 2024-04-11 10:01 | Outpatient (BNVA) | payer OTHER, SELFPAY | PROVIDERS: PCP Internal Medicine; Visit Provider Internal Medicine | DX: Z00.00 Encounter for general adult medical examination without abnormal findings (principal); I10 Essential (primary) hypertension; E78.00 Pure hypercholesterolemia, unspecified; R73.01 Impaired fasting glucose; R80.9 Proteinuria, unspecified; I34.0 Nonrheumatic mitral (valve) insufficiency; E55.9 Vitamin D deficiency, unspecified; M17.0 Bilateral primary osteoarthritis of knee; K59.00 Constipation, unspecified; R35.0 Frequency of micturition; L30.9 Dermatitis, unspecified; F41.9 Anxiety disorder, unspecified | CPT/HCPCS: 96127; 99397 ==

== ENCOUNTER 2024-07-01 09:00 | Outpatient (AMB) | payer OTHER, SELFPAY ==
--- NOTE | 2024-07-01 09:05 | A.OFFVIS_ITS ---
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 He underwent transesophageal echocardiogram that showed flail posterior mitral leaflet and severe regurgitation. Subsequently, seen by cardiac surgeon, but surgery still pending. He states that he is still contemplating if he wants to go for surgery or not. Extremely anxious at baseline and still appears to be the same. Within limits of activity, no clear-cut cardiac symptoms. Blood pressure runs high but he has white coat effect. [facility] Medical History (Updated 04/11/24 @ 11:52 by Chris Pearson MD) Dermatitis Primary osteoarthritis of knees, bilateral Severe mitral valve regurgitation Mitral valve prolapse Non-rheumatic mitral regurgitation History of hepatitis C Benign essential hypertension Hypertension Overweight (BMI 25.0-29.9) Anxiety Urinary frequency Allergic rhinitis Osteoarthritis of left knee Vitamin D deficiency Pure hypercholesterolemia Impaired fasting glucose White coat syndrome with hypertension Surgical History History of colonoscopy History of prostate surgery Family History Father Hypertension Stroke Mother Medical history unknown Social History Housing: House Alcohol intake: never Patient Tobacco Use Status: Former Tobacco user Tobacco use type: Cigarette Years Smoked: 25 years e-Cigarette/Vaping Use: Never Used Second Hand Smoke Exposure: Yes service: No Current occupational status: retired and disabled Cognitive needs: No Hearing needs: No Vision needs: Yes (Reading Glasses) Review of Systems Const Denies chills, Denies fatigue, Denies fever(s), Denies weight gain and Denies weight loss ENT Denies dizziness Card Denies chest pain, Denies leg edema, Denies lightheadedness, Denies palpitations, Denies dyspnea on exertion, Denies orthopnea and Denies other Resp Denies cough and Denies dyspnea on exertion GI Denies hematochezia and Denies change in stool character Musc Denies abnormal gait, Denies muscle weakness, Denies numbness, Denies radiating pain into limb and Denies tingling Neuro Denies abnormal gait, Denies dizziness, Denies numbness and Denies tingling Endo Denies fatigue and Denies palpitations Physical Exam Vital Signs: Last Vital Signs Pulse 77 07/01/24 09:07 BP 168/70 H 07/01/24 09:07 BMI result Body Mass Index 25.0 Const General: comfortable and no acute distress Orientation/consciousness: patient oriented x3 HEENT Other: Unremarkable Head: Yes normal to inspection Neck Neck: Yes normal visual inspection Chest Chest palpation & inspection: normal inspection of the chest Resp Auscultation: clear to auscultation bilaterally Cardio Palpation: normal PMI Heart sounds: S1 normal heart sound present, S2 normal heart sound present, no gallops, Murmur heart sound present systolic III/ and no rubs GI Palpation (GI): Soft to palpation Back/Spine/Pelvis Other: unremarkable Skin General skin exam: no rashes or lesions noted Neuro General: patient oriented x3 Extrem General: Yes normal to inspection Psych Mental Status: mental status grossly normal Office Procedures EKG Details: EKG with underlying sinus rhythm at 77/Min; no significant ST-T changes and otherwise unremarkable. [place] [id number], Complete Assessment & Plan Assessment & Plan (1) Non-rheumatic mitral regurgitation: Code(s): I34.0 - Nonrheumatic mitral (valve) insufficiency Category: Medical Plan: Transesophageal echocardiogram showed flail posterior mitral leaflet, suspected ruptured cord and severe mitral regurgitation. Cardiac catheterization shows normal coronaries. He has been referred to cardiac surgery and advised to follow up with them. (2) Benign essential hypertension: Code(s): I10 - Essential (primary) hypertension Category: Medical Plan: Per PCP note, he underwent 24 hour ambulatory blood pressure monitoring and that showed well-controlled hypertension/white coat effect. On Losartan. No changes made. Coding Level of Care Code Est Pt Level 4 (76294) Complex EM visit Add On G2211 Diagnoses Non-rheumatic mitral regurgitation I34.0 Benign essential hypertension I10 CPT Codes EKG - CPT: 39925-[id number], Complete ([id number])
[2024-07-01 09:07] VITALS: BP 168/70; PULSE 77; BMI 25.0
--- OUTSIDE RECORDS SUMMARY | 2024-07-01 09:56 | XMS_ITS | Clinical Summary ---
Author Organization Formerly [facility] Facility Address [address] [place] [id number] Care Team Providers Care Ct Scan Technologist Name Role Phone Unavailable Primary Care Provider Unavailabl e Allergies No known active allergies Medications D3-1000 25 MCG (1000 UT) capsule Take 1,000 Units by mouth 1 (one) time each day 06/25/2022 Active amLODIPine (NORVASC) 10 MG tablet Take 10 mg by mouth 1 (one) time each day 07/16/2022 Active multivitamin-iro k-mbqjqlvl-pqsox acid (CENTRUM) chewable tablet Chew 1 tablet 1 (one) time each day Active Active Problems No known active problems Family History Medical History Relation Comments Diabetes Brother Hypertension Father Relation Status Comments Brother Father Social History Tobacco Use Types Packs/Day Years Used Date Smoking Tobacco: Former Cigarettes Smokeless Tobacco: Never Tobacco Cessation:Counseling Given: Not Answered Alcohol Use Standard Drinks/Week Comments Not Currently 0 (1 standard drink = 0.6 oz pur e alcohol) Sex and Gender Information Value Date Recorded Sex Assigned at Not on file Legal Sex Male 5:13 PM EST Gender Identity Not on file Sexual Orientation Not on file Last Filed Vital Signs Vital Sign Reading Time Taken Comments Blood Pressure 172/80 09/14/2022 12:51 PM EDT Pulse 96 09/14/2022 12:51 PM EDT Temperature - - Respiratory Rate - - Oxygen Saturation 98% 09/14/2022 12:51 PM EDT Inhaled Oxygen Concentration - - Weight 65.8 kg (145 lb) 09/14/2022 12:51 PM EDT Height 165.1 cm (5' 5 ) 09/14/2022 12:51 PM EDT Body Mass Index 24.13 09/14/2022 12:51 PM EDT Plan of Treatment Health Maintenance Due Date Last Done Comments Pneumococcal Vaccine: 65+ Ye ars (1 of 2 - PCV) 12/02/1951 Influenza Vaccine (#1) 2023 Hepatitis B Vaccine Aged Out No longe r eligible based on patient's age to complete this topic Insurance PETTIGREW PETTIGREW
--- OUTSIDE RECORDS SUMMARY | 2024-07-01 09:56 | XMS_ITS | Encounter Summary ---
Author Organization [facility] Address [address] [place] [address] Phone Care Team Providers Care Towel Stretcher Name Role Phone Unavailable Primary Care Provider Unavailabl e Encounter Details Date Type Department Care Team (Late st Contact Info) Description 09/14/2022 Documentation Only [facility] [address] [facility] [address] [place] [address] Deepti Vela MA Social History Tobacco Use Types Packs/Day Years Used Date Smoking Tobacco: Former Cigarettes Smokeless Tobacco: Never Alcohol Use Standard Drinks/Week Comments Not Currently 0 (1 standard drink = 0.6 oz pur e alcohol) Sex and Gender Information Value Date Recorded Sex Assigned at Not on file Legal Sex Male 5:13 PM EST Gender Identity Not on file Sexual Orientation Not on file documented as of this encounter Plan of Treatment Not on file documented as of this encounter Visit Diagnoses Not on filedocumented in this encounter
== END 2024-07-01 09:23 | disposition home or self-care (01) ==
PROVIDERS: PCP Internal Medicine; Visit Provider Internal Medicine
DX: I34.0 Nonrheumatic mitral (valve) insufficiency (principal); I10 Essential (primary) hypertension
CPT/HCPCS: 93010; 99214; G2211

== ENCOUNTER → 2024-07-01 09:00 | Outpatient (BNVA) | payer OTHER, SELFPAY | PROVIDERS: PCP Internal Medicine; Visit Provider Internal Medicine | DX: I34.0 Nonrheumatic mitral (valve) insufficiency (principal); I10 Essential (primary) hypertension | CPT/HCPCS: 93005; 99212 ==

== ENCOUNTER 2024-09-16 08:48 | Outpatient (AMB) | payer OTHER, SELFPAY ==
[2024-09-16 08:52] VITALS: BP 120/82; BMI 23.5
--- NOTE | 2024-09-16 08:52 | MHC.OFFVIS ---
Vital Signs 09/16/24 08:52 Height 5 ft 5 in Weight 141 lb 1.533 oz BMI 23.5 BP 120/82 Blood Pressure Location Lt brachial Position Sitting Intake Visit Reasons: [facility] post op Intake Note: Follow-up Post [facility] surgery feeling good Transition Mgr Rn Required: No Allergies No Known Allergies [No Known Allergies*] Allergy (Verified 04/11/24 10:35) Medication List - Last Reconciled 09/16/24 by Javier Cummings MD amlodipine 10 mg PO DAILY amoxicillin 2,000 mg (4 x 500 mg) PO ONCE PRN 5 days aspirin 81 mg PO DAILY metoprolol tartrate mg PO BID mometasone 0.1% 1 appl topical DAILY PRN HPI Comments Details: Chacho returns for follow-up regarding mitral regurgitation. In the past, he underwent transesophageal echocardiogram that showed flail posterior leaflet and severe regurgitation. Subsequently, seen by cardiac surgery and he underwent valve repair last month. He states that he is generally doing okay post surgery. No clear-cut symptoms like chest pains or shortness of breath or other limitations. He is going to cardiac rehab at [facility]. [facility] Medical History (Updated 04/11/24 @ 11:52 by Chris Pearson MD) Dermatitis Primary osteoarthritis of knees, bilateral Severe mitral valve regurgitation Mitral valve prolapse Non-rheumatic mitral regurgitation History of hepatitis C Benign essential hypertension Hypertension Overweight (BMI 25.0-29.9) Anxiety Urinary frequency Allergic rhinitis Osteoarthritis of left knee Vitamin D deficiency Pure hypercholesterolemia Impaired fasting glucose White coat syndrome with hypertension Surgical History (Updated 09/05/24 @ 12:24 by Chris Pearson MD) History of mitral valve repair History of colonoscopy History of prostate surgery Family History Father Hypertension Stroke Mother Medical history unknown Social History Housing: House Alcohol intake: never Patient Tobacco Use Status: Former Tobacco user Tobacco use type: Cigarette Years Smoked: 25 years e-Cigarette/Vaping Use: Never Used Second Hand Smoke Exposure: Yes service: No Current occupational status: retired and disabled Cognitive needs: No Hearing needs: No Vision needs: Yes (Reading Glasses) Review of Systems Const Denies chills, Denies fatigue, Denies fever(s), Denies frequent falls, Denies weakness, Denies weight gain and Denies weight loss ENT Denies dizziness Card Denies chest pain, Denies leg edema, Denies lightheadedness, Denies palpitations, Denies dyspnea, Denies dyspnea on exertion, Denies orthopnea and Denies other (loss of consciousness) Resp Denies cough, Denies dyspnea and Denies dyspnea on exertion GI Denies hematochezia and Denies change in stool character Musc Denies abnormal gait, Denies muscle weakness, Denies numbness, Denies radiating pain into limb and Denies tingling Neuro Denies abnormal gait, Denies dizziness, Denies frequent falls, Denies numbness, Denies tingling and Denies weakness Endo Denies fatigue and Denies palpitations Physical Exam Vital Signs: Last Vital Signs BP 120/82 09/16/24 08:52 BMI result Body Mass Index 23.5 Const General: comfortable and no acute distress Orientation/consciousness: patient oriented x3 HEENT Other: Unremarkable Head: Yes normal to inspection Neck Neck: Yes normal visual inspection Chest Chest palpation & inspection: normal inspection of the chest Resp Auscultation: clear to auscultation bilaterally Cardio Palpation: normal PMI Heart sounds: S1 normal heart sound present, S2 normal heart sound present, no gallops, Murmur heart sound present systolic II/ and at the apex and no rubs GI Palpation (GI): Soft to palpation Back/Spine/Pelvis Other: unremarkable Skin General skin exam: no rashes or lesions noted Neuro General: patient oriented x3 Extrem General: Yes normal to inspection Psych Mental Status: mental status grossly normal Assessment & Plan Assessment & Plan (1) Non-rheumatic mitral regurgitation: Code(s): I34.0 - Nonrheumatic mitral (valve) insufficiency Category: Medical Plan: Status post mitral valve repair-07/2024. Cardiac catheterization shows normal coronaries. We will check an echocardiogram for any residual regurgitation/LVEF. In fact endocarditis prophylaxis per protocol. Aspirin 81 mg daily. Cardiac rehabilitation. (2) Benign essential hypertension: Code(s): I10 - Essential (primary) hypertension Category: Medical Plan: He is on amlodipine. He used to be on losartan as well. May resume as necessary. Also on beta-blockers. Orders: Orders CA echo transthoracic complete Today I34.0 - Nonrheumatic mitral (valve) insufficiency Coding Level of Care Code Est Pt Level 4 (88680) Complex EM visit Add On G2211 Diagnoses Non-rheumatic mitral regurgitation I34.0 Benign essential hypertension I10
--- OUTSIDE RECORDS SUMMARY | 2024-09-16 09:04 | XMS_ITS | Clinical Summary ---
Author Organization [facility] Address [address] [place] [id number] Care Team Providers Care Welfare Officer Name Role Phone Unavailable Primary Care Provider Unavailabl e Allergies No known active allergies Medications D3-1000 25 MCG (1000 UT) capsule Take 1,000 Units by mouth 1 (one) time each day 06/25/2022 Active amLODIPine (NORVASC) 10 MG tablet Take 10 mg by mouth 1 (one) time each day 07/16/2022 Active multivitamin-iro g-vhcaerfp-ayxco acid (CENTRUM) chewable tablet Chew 1 tablet [...] Due Date Last Done Comments Pneumococcal Vaccine: 50+ Ye ars (1 of 2 - PCV) 12/02/1966 Influenza Vaccine (Season Ended) 2024 Hepatitis B Vaccine Aged Out No longe r eligible based on patient's age to complete this topic Insurance Boyd Boyd
--- OUTSIDE RECORDS SUMMARY | 2024-09-16 09:04 | XMS_ITS | Encounter Summary ---
Author Organization [facility] Address [address] [place] [address] Phone Care Team Providers Care Retail Furniture Sales Name Role Phone Unavailable Primary Care Provider Unavailabl e Encounter Details Date Type Department Care Team (Late st Contact Info) Description 09/14/2022 Documentation Only [facility] [address] [facility] [address] [place] [address] Deepti Vela MA Social History [...]
== END 2024-09-16 09:12 | disposition home or self-care (01) ==
LOC: HO.HCS 08:49
PROVIDERS: PCP Internal Medicine; Visit Provider Internal Medicine
DX: I34.0 Nonrheumatic mitral (valve) insufficiency (principal); I10 Essential (primary) hypertension
CPT/HCPCS: 99214; G2211

== ENCOUNTER → 2024-09-16 08:48 | Outpatient (BNVA) | payer OTHER, SELFPAY | PROVIDERS: PCP Internal Medicine; Visit Provider Internal Medicine | DX: I34.0 Nonrheumatic mitral (valve) insufficiency (principal); I10 Essential (primary) hypertension | CPT/HCPCS: 99212 ==

== ENCOUNTER → 2024-10-21 09:53 | Outpatient (REF) | payer OTHER, SELFPAY ==
--- NOTE | 2024-10-21 09:57 | CA_ITS ---
Transthoracic Echocardiogram Patient (Last, First, Middle): Chacho Barnard M Gender: Male Date of : 1945 Age: 78 Procedure Date: 10/21/2024 Procedure Type: Transthoracic Echocardiogram Location: OP Height: 167.64 cm Weight: 66.23 kg BSA: 1.75 m2 Heart Rate: bpm BP: 130 / 65 mmHg Parachutist/Combatant Diver Qualified: CP/RC Referring MD: Javier Cummings MD Symptoms: I34.0 - Nonrheumatic mitral (valve) insufficiency Study Quality: Adequate ECG Rhythm: Sinus Conclusions: - The left ventricular systolic function is normal. The calculated ejection fraction is 62% by biplane method. - There is mild to moderate mitral valve regurgitation. s/p mitral valve repair. Findings Left Ventricle Normal left ventricular cavity size. There is normal left ventricular wall thickness. The left ventricular systolic function is normal. The calculated ejection fraction is 62% by biplane method. There is no evidence of regional wall motion abnormalities. Diastolic function is indeterminate on the basis of available data. LV peak GLS -21.8%. Right Ventricle Normal right ventricular cavity size and systolic function. Atria The left atrium is moderately dilated. The right atrium is normal in size. Aortic Valve There is a normal trileaflet aortic valve. There is no aortic valve stenosis. There is mild aortic valve regurgitation. Mitral Valve There is mild to moderate mitral valve regurgitation. The mitral regurgitation jet is directed anteriorly. There is no mitral valve stenosis. s/p mitral valve repair. Pulmonic Valve The pulmonic valve is likely normal. Tricuspid Valve There is mild tricuspid valve regurgitation. There is no evidence of pulmonary hypertension. Great Vessels The asc aorta is normal in size. Venous The inferior vena cava is normal in size and collapses greater than 50% with inspiration. Pericardium/Pleural There is no evidence of pericardial effusion. Prior Study Comparison Changes noted compared to prior study dated: 02/14/2024. s/p mitral valve repair. Measurements 2D Linear Measurements IVSd: 0.91 0.6-0.9/0.6-1.0 cm LVIDd: 5.26 3.9-5.3/4.2-5.9 cm LVIDd Index: 3.01 2.4-3.2/2.2-3.1 cm/m2 LVIDs: 3.41 2.0-3.6 cm LVPWd: 0.87 0.7-1.1 cm LA Diam: 4.30 2.7-3.8/3.0-4.0 cm LAIDs Index: 2.46 1.5-2.3 cm/m2 LV Mass: 211.21 67-162/88-224 g LV Mass Index: 120.69 43-95/49-115 g/m2 LVOT Diam: 2.20 3.0+(-)1.3 cm 2D Systolic Function EF 4C: 61.50 >55% EF 2C: 64.20 >55% EF BiP: 62.10 >55% Mitral Valve MV VTI: 0.40 MV Pk Vernon: 1.23 MV Mn Vernon: 0.70 MV Pk Grad: 6.00 MV Mn Grad: 2.00 MV Pk E: 1.47 MV PK A: 1.19 MV Decel Time: 236.00 E/A: 1.20 E'Lateral: 9.14 E'Medial: 4.90 E/E' Med: 30.00 E/E' Lat: 16.10 PHT: 69.00 MVA PHT: 3.19 MVA Continuity: 2.16 Decel Treutlen: 6.23 MR Vol - PW Dopp: 48.44 MR VTI: 1.73 MR ERO: 28.00 MR Alias Vernon: 0.32 MR RAD: 0.80 Aortic Valve AoV Pk Vernon: 1.57 AoV Mn Vernon: 0.99 AoV VTI: 0.36 AoV Pk Grad: 10.00 Aov Mn Grad: 5.00 HERRERA Cont.VTI: 2.43 AI Pk Vernon: 3.97 AI Treutlen: 2.03 LVOT LVOT Pk Vernon: 1.17 LVOT Mn Vernon: 0.72 LVOT VTI: 0.23 LVOT Pk Grad: 5.00 LVOT Mn Grad: 2.00 LVOT Diam: 2.20 LVOT Area: 3.80 Diastolic Function MV Pk E: 1.47 MV Pk A: 1.19 E/A: 1.20 E'Medial: 4.90 E/E' Med: 30.00 E' Laterial: 9.14 E/E' Lat: 16.10 Right Ventricle TAPSE (mm): 18.20 TVS' Vernon: 10.20 Tricuspid Valve TR Pk Vernon: 2.65 TR Pk Grad: 28.00 RA Press: 3.00 RVSP: 31.00 Great Vessels Aorta Sinus of Valsalva: 3.50 2.0-3.5 cm Ao Asc: 3.60 2.1-3.4 cm Updated in Other Vendor System with Status of Final Javier Cummings MD electronically signed on 10/22/2024 11:48:47 AM with status of Final
--- OUTSIDE RECORDS SUMMARY | 2024-10-21 10:52 | XMS_ITS | Clinical Summary ---
Author Organization [facility] Address [address] [place] [address] Care Team Providers Care Contact Center Manager Name Role Phone Unavailable Primary Care Provider Unavailabl e Allergies No known active allergies Medications D3-1000 25 MCG (1000 UT) capsule Take 1,000 Units by mouth 1 (one) time each day 06/25/2022 Active amLODIPine (NORVASC) 10 MG tablet Take 10 mg by mouth 1 (one) time each day 07/16/2022 Active multivitamin-iro y-ogaeddvn-wennr acid (CENTRUM) chewable tablet Chew 1 tablet [...] patient's age to complete this topic Insurance Roosevelt Roosevelt
== END ==
LOC: HO.CARD 09:53
PROVIDERS: PCP Internal Medicine; Visit Provider Internal Medicine
DX: I34.0 Nonrheumatic mitral (valve) insufficiency (principal); Z98.890 Other specified postprocedural states
CPT/HCPCS: 93306

== ENCOUNTER → 2024-10-21 09:57 | Outpatient (BNV) | payer OTHER, SELFPAY | PROVIDERS: PCP Internal Medicine; Visit Provider Internal Medicine | DX: I34.0 Nonrheumatic mitral (valve) insufficiency (principal) | CPT/HCPCS: 93306; 93356 ==

== ENCOUNTER 2024-10-30 09:01 | Outpatient (AMB) | payer OTHER, SELFPAY ==
--- NOTE | 2024-10-30 09:03 | A.OFFVIS_ITS ---
Vital Signs 10/30/24 09:04 Height 5 ft 5 in Weight 148 lb BMI 24.6 BP 116/68 Blood Pressure Location Lt brachial Position Sitting Pulse 77 Pulse Source Pulse Oximeter Intake Visit Reasons: 6 wk s/p echo Allergies No Known Allergies (No Known Allergies*) Allergy (Verified 04/11/24 10:35) Medication List - Last Reconciled 10/30/24 by Javier Cummings MD amlodipine 10 mg PO DAILY aspirin 81 mg PO DAILY blood pressure monitor As directed metoprolol tartrate 25 mg PO BID mometasone 0.1% 1 appl topical DAILY PRN HPI Comments Details: Chacho returns for follow-up regarding mitral regurgitation. To recall, he had severe mitral regurgitation from a flail posterior leaflet. Subsequently, he was seen by cardiac surgery and underwent mitral valve repair. He is doing cardiac rehabilitation. He states he feels fine. He has got no complaints whatsoever including chest pains or shortness of breath or anything cardiac related. He states that he does not want to take the metoprolol and wants to minimize his medications. [facility] Medical History (Updated 04/11/24 @ 11:52 by Chris Pearson MD) Dermatitis Primary osteoarthritis of knees, bilateral Severe mitral valve regurgitation Mitral valve prolapse Non-rheumatic mitral regurgitation History of hepatitis C Benign essential hypertension Hypertension Overweight (BMI 25.0-29.9) Anxiety Urinary frequency Allergic rhinitis Osteoarthritis of left knee Vitamin D deficiency Pure hypercholesterolemia Impaired fasting glucose White coat syndrome with hypertension Surgical History (Updated 09/05/24 @ 12:24 by Chris Pearson MD) History of mitral valve repair History of colonoscopy History of prostate surgery Family History Father Hypertension Stroke Mother Medical history unknown Social History Housing: House Alcohol intake: never Patient Tobacco Use Status: Former Tobacco user Tobacco use type: Cigarette Years Smoked: 25 years e-Cigarette/Vaping Use: Never Used Second Hand Smoke Exposure: Yes service: No Current occupational status: retired and disabled Cognitive needs: No Hearing needs: No Vision needs: Yes (Reading Glasses) Review of Systems Const Denies weakness ENT Denies dizziness Card Denies chest pain, Denies chest pain with activity, Denies syncope, Denies rapid heart rate, Denies pedal edema, Denies edema, Denies leg edema, Denies lightheadedness, Denies palpitations, Denies dyspnea, Denies dyspnea on exertion and Denies orthopnea Resp Denies cough, Denies dyspnea and Denies dyspnea on exertion GI Denies hematochezia and Denies change in stool character Musc Denies abnormal gait, Denies muscle cramps, Denies muscle weakness, Denies numbness, Denies radiating pain into limb and Denies tingling Neuro Denies abnormal gait, Denies dizziness, Denies syncope, Denies numbness, Denies tingling and Denies weakness Endo Denies palpitations Physical Exam Vital Signs: Last Vital Signs Pulse 77 10/30/24 09:04 BP 116/68 10/30/24 09:04 BMI result Body Mass Index 24.6 Const General: comfortable and no acute distress Orientation/consciousness: patient oriented x3 HEENT Other: Unremarkable Head: Yes normal to inspection Neck Neck: Yes normal visual inspection Chest Chest palpation & inspection: normal inspection of the chest Resp Auscultation: clear to auscultation bilaterally Cardio Palpation: normal PMI Heart sounds: S1 normal heart sound present, S2 normal heart sound present, no gallops, Murmur heart sound present systolic II/ and at the apex and no rubs GI Palpation (GI): Soft to palpation Back/Spine/Pelvis Other: unremarkable Skin General skin exam: no rashes or lesions noted Neuro General: patient oriented x3 Extrem Other: 1+ swelling Psych Mental Status: mental status grossly normal Assessment & Plan Assessment & Plan (1) Non-rheumatic mitral regurgitation: Code(s): I34.0 - Nonrheumatic mitral (valve) insufficiency Category: Medical Plan: Status post mitral valve repair-07/2024. Cardiac catheterization shows normal coronaries. In the postoperative echocardiogram, there is agxb-eh-[id number] mitral regurgitation status post repair. Preserved LVEF at 62%. Continue in fact endocarditis prophylaxis per protocol. Aspirin 81 mg daily. Continue cardiac rehabilitation. (2) Benign essential hypertension: Code(s): I10 - Essential (primary) hypertension Category: Medical Plan: He used to be on amlodipine/losartan. He wants to go back on that regimen stop the metoprolol. We can make that change. Check labs one-2 weeks after resuming the losartan. He understands that. He has some leg swelling which could be amlodipine related. Can try compression stockings. Plan Discussion Notes I discussed with the patient the importance of medication adherence and the plan to monitor blood pressure during cardiac rehabilitation. We agreed to discontinue metoprolol and resume Losartan if blood pressure control is not adequate. The patient was informed about the use of compression stockings for ankle swelling and the need for follow-up blood work. Patient was informed and verbally consented to the use of an ambient scribe for clinic note documentation during this visit. Orders: Orders Basic Metabolic Panel 2 Weeks I10 - Essential (primary) hypertension Medications: New losartan 50 mg PO DAILY 90 tabs 3RF Refilled amlodipine 10 mg PO DAILY 90 tabs 3RF Patient Instructions: - Continue using compression stockings for ankle swelling. - Maintain your exercise routine as tolerated. - Monitor your blood pressure regularly during cardiac rehabilitation. - Follow up with blood work after starting Losartan. Coding Level of Care Code Est Pt Level 4 (33752) Complex EM visit Add On G2211 Diagnoses Non-rheumatic mitral regurgitation I34.0 Benign essential hypertension I10
[2024-10-30 09:04] VITALS: BP 116/68; PULSE 77; BMI 24.6
--- OUTSIDE RECORDS SUMMARY | 2024-10-30 09:14 | XMS_ITS | Clinical Summary ---
Author Organization [facility] Address [address] [place] [address] Care Team Providers Care Retail Support Specialist Name Role Phone Unavailable Primary Care Provider Unavailabl e Allergies No known active allergies Medications D3-1000 25 MCG (1000 UT) capsule Take 1,000 Units by mouth 1 (one) time each day 06/25/2022 Active amLODIPine (NORVASC) 10 MG tablet Take 10 mg by mouth 1 (one) time each day 07/16/2022 Active multivitamin-iro z-eatlcvly-dkioy acid (CENTRUM) chewable tablet Chew 1 tablet [...] patient's age to complete this topic Insurance [employer]
--- OUTSIDE RECORDS SUMMARY | 2024-10-30 09:15 | XMS_ITS | Patient Health Record ---
Author Organization [facility] Address [address] [place] [address] Care Team Providers Care Apple Peeler Operator Name Role Phone Jaquelin Pearson MDh Primary Care Provider Joshua Catalan Unavailable [phone] Reason For Referral No Information Medications Medication SIG (Take, Route, Frequency, Duration) Notes Start Date End Date Status Multivitamin Adults - as directed Orally Active Atenolol 50 MG 1 tablet Orally Once a day Active Vitamin D-[address] 1000 UNIT TAKE 1 TABLET BY MOUTH EVERY DAY Oral for 90 Active Tamsulosin HCl 0.4 MG TAKE ONE CAPSULE B Y MOUTH AT BEDTIME Oral for 90 Active Immunizations Vaccine Route Administration Date Status Comme nts Influenza Unknown 12/29/2017 Administered Problems Problem Type SNOMED Code ICD Code Onset Dates Problem Status W/U Status Risk Notes Problem 708212394 Encounter for screening for malignant neoplasm of colon (Z12.11) Active confirmed Problem 459653801 Chronic hepatitis C without hepatic coma (B18.2) Active confirmed Problem 493019786 Elevated liver enzymes (R74.8) Active confirmed Problem 95229535594439 History of hepatitis C (Z86.19) Active confirmed Problem 75117901 Liver fibrosis (K74.0) Active confirmed Plan Of Treatment Pending Test Test Name Order Date LIVER PROFILE 06/13/2015 LIVER PROFILE 05/06/2015 LIVER PROFILE 09/29/2015 CBC w DIFF 06/13/2015 CBC w DIFF 05/06/2015 ALPHA-FETOPROTEIN,TUMOR MARKER 6 ALPHA-FETOPROTEIN,TUMOR MARKER 9 HEPATITIS C VIRAL LOAD 09/29/2015 HEPATITIS C VIRAL LOAD 05/06/2015 HEPATITIS C VIRAL LOAD 06/13/2015 Future Test Test Name Order Date COLONOSCOPY 07/30/2018 Insurance Providers Payer Name Payer Address Payer Phone Subscriber Number Group Number Insured Name Patient Relationship to Insured Coverage Start Date Coverage End Date [employer] [address] [place] [phone] [id number] EMILIE BOOTH Self - patient is the insured Medical (General) History Medical History History ICD Code Hepatitis C---Genotype 1B--- liver biopsy in 2004-Gr 2/4 and Stage II/IV--he was treated with 12 weeks of Viekira Porter from April of 2015 through July of 2015--he had a normal liver profile and nondetectable hepatitis C viral load on September 16, 2015 and 01/2016; nondetectable Hep C viral load and normal LFT's in 01/2018 Screening colonoscopy 2007--negtaive except for sigmoid diverticulosis and internal hemorrhoids Anxiety Hypertension Previous alcohol abuse--abstinent > 10 y ears Denies [place],DM,CVA,Lung disease,renal dise ase Previous substance abuse with abstinence for over 20 years BPH Surgical History Surgery Date(Month/Year) hand surgery
== END 2024-10-30 09:24 | disposition home or self-care (01) ==
LOC: HO.HCS 09:01
PROVIDERS: PCP Internal Medicine; Visit Provider Internal Medicine
DX: I34.0 Nonrheumatic mitral (valve) insufficiency (principal); I10 Essential (primary) hypertension
CPT/HCPCS: 99214; G2211

== ENCOUNTER → 2024-10-30 09:01 | Outpatient (BNVA) | payer OTHER, SELFPAY | PROVIDERS: PCP Internal Medicine; Visit Provider Internal Medicine | DX: I10 Essential (primary) hypertension (principal); I34.0 Nonrheumatic mitral (valve) insufficiency | CPT/HCPCS: 99212 ==

== ENCOUNTER 2024-11-10 15:08 | Emergency (ER) | payer OTHER, SELFPAY ==
--- NOTE | ~2024-11-10 | CT_ITS ---
CLINICAL HISTORY: ned, hematuria, nausea CT abdomen and pelvis without IV contrast. COMPARISON: None provided. FINDINGS: Minimal atelectasis along the lung bases. Normal gallbladder. Noncontrast appearance of the liver, spleen, pancreas and adrenal glands are unremarkable. Small splenule present. No right-sided hydronephrosis. No right renal or ureteral calculus. No left-sided hydronephrosis. No left renal or ureteral calculus. Visualized portions of the appendix are normal in caliber. No periappendiceal or pericecal inflammatory changes. Moderate colonic stool burden within the ascending colon. Mild distal colonic diverticulosis without evidence of diverticulitis. No mesenteric or retroperitoneal lymphadenopathy. Normal abdominal aorta. Normal appearance of the urinary bladder. Prostate calcifications present. Prostate is mildly enlarged measuring up to 4.9 cm. No inguinal lymphadenopathy. Moderate spondylosis. No acute fracture or suspicious bone lesion. IMPRESSION: 1. No evidence of renal obstruction. No renal or ureteral calculus bilaterally. 2. Mild prostatomegaly. 3. Colonic diverticulosis without evidence of diverticulitis. 4. Moderate colonic stool burden most pronounced within the ascending colon. This document has been electronically signed by: Barney Manning MD on 11/10/2024 20:03:02
[2024-11-10 15:57] VITALS: BP 174/85; PULSE 95; RESP 16; TEMP 36.6; O2SAT 97; BMI 22.9
--- NOTE | 2024-11-10 15:58 | ED.GENADULT ---
HPI - General Adult General Chief complaint: Urogenital-Male Stated complaint: blood in urine Time Seen by Provider: 11/10/24 18:05 Source: patient Mode of arrival: ambulatory Limitations: no limitations History of Present Illness ED Provider: Ginny Boswell NP HPI narrative: Patient is a 78-year-old male with past medical history of severe mitral regurgitation s/p mitral valve repair with annual ring in July of 2024 at [facility] currently undergoing cardiac rehab, postoperative echocardiogram revealing mild to moderate mitral regurgitation with LVEF of 62%, hypertension, anxiety, hypercholesterolemia, impaired fasting glucose, hepatitis C who presents emergency department for evaluation. He reports that in July 2024 he underwent heart surgery for mitral valve repair. He reports initially having some urinary retention that required Box catheterization. And burning with urination for about a week, then following has had pink urine persistently. He has been seen by his doctors, has been told that there was no blood in his urine nor did he have any infection. He recently thought that perhaps this was due to his prune juice that he has been drinking to help lower his blood pressure. However he stopped the prune juice 1 week ago in the pink urine persisted. Yesterday and today urine has been dark red in color. Any does admit to having urinary frequency only today. He also has had nausea for the past 5 days. He denies any vomiting, abdominal pain, back pain, fevers, chills, rashes, lesions. He denies any additional bleeding such as in the stool; hematochezia or melena, bleeding from the gums. Reports no alcohol or recreational drug usage in the past 30 years. History of a prostate surgery around 2019. Related Data Home Medications ?Medication ?Instructions ?Recorded ?Confirmed aspirin 81 mg tablet,delayed 81 mg PO DAILY 09/16/24 10/30/24 release Previous Rx's ?Medication ?Instructions ?Recorded mometasone 0.1 % topical cream 1 appl topical DAILY PRN rash #45 04/11/24 grams blood pressure monitor #1 ea 10/21/24 amlodipine 10 mg tablet 10 mg PO DAILY #90 tabs 10/30/24 losartan 50 mg tablet 50 mg PO DAILY #90 tabs 10/30/24 cefuroxime axetil 500 mg tablet 500 mg PO BID #14 tabs 11/10/24 Allergies Allergy/AdvReac Type Severity Reaction Status Date / Time No Known Allergies (No Known Allergy Verified 11/10/24 16:01 Allergies*) Review of Systems Review of Systems: Yes all other systems are reviewed and are negative [facility] Past Medical History Attestation statement: The following information was validated with the patient. Source: old records reviewed Medical History Dermatitis Primary osteoarthritis of knees, bilateral Severe mitral valve regurgitation Mitral valve prolapse Non-rheumatic mitral regurgitation History of hepatitis C Benign essential hypertension Hypertension Overweight (BMI 25.0-29.9) Anxiety Urinary frequency Allergic rhinitis Osteoarthritis of left knee Vitamin D deficiency Pure hypercholesterolemia Impaired fasting glucose White coat syndrome with hypertension Surgical History History of mitral valve repair History of colonoscopy History of prostate surgery Family History Family History Father Hypertension Stroke Mother Medical history unknown Social History Social History Housing: House Alcohol intake: never Patient Tobacco Use Status: Former Tobacco user Tobacco use type: Cigarette Years Smoked: 25 years e-Cigarette/Vaping Use: Never Used Second Hand Smoke Exposure: Yes service: No Current occupational status: retired and disabled Cognitive needs: No Hearing needs: No Vision needs: Yes (Reading Glasses) Physical Exam ED Vital Signs: Vital Signs - 24 hr 11/10/24 15:57 11/10/24 17:38 11/10/24 19:34 Temperature 98 F 97.8 F 97.8 F Pulse Rate 95 90 84 Respiratory Rate 16 16 18 Blood Pressure 174/85 H 167/89 H 155/81 H Pulse Oximetry 97 100 99 Oxygen Delivery Method Room Air Room Air Room Air 11/10/24 20:18 11/10/24 22:29 11/10/24 23:06 Temperature 98.1 F 97.9 F 97.9 F Pulse Rate 81 78 78 Respiratory Rate 16 16 16 Blood Pressure 144/78 H 146/81 H 146/81 H Pulse Oximetry 98 97 97 Oxygen Delivery Method Room Air Room Air Room Air BMI result Body Mass Index 22.9 Appearance: Alert.?Oriented to person, place and time. No acute distress.?Normal affect. Eyes: Pupils equal, round and reactive to light.? ENT: Pharynx normal.?? Neck: Normal inspection.? Neck supple.?? CVS: Heart sounds normal. Normal heart rate and rhythm.? Pulses normal.?? Respiratory: No respiratory distress.? Lung sounds clear to auscultation bilaterally?? Abdomen: Soft and non-tender. Normoactive bowel sounds. No pulsatile mass.?? Skin: Skin warm and dry.? Normal skin color.? No rashes or lesions. ? Extremities: No lower extremity edema.? No calf ttp? Neuro: Moves all extremities spontaneously. Sensation intact bilaterally. Ambulates with normal steady gait. Course Course Course Narrative: RME performed by Idalia Modi PA-C. Patient is a 78 year old assigned male at presenting to the emergency department with blood in his urine and concerns of an elevated blood pressure. Patient states 2 months ago he had blood in his urine and it went away and now it is back about a week ago. Detailed physical exam and review of systems are deferred to the gauge checker. Labs ordered. Patient placed back in the waiting room pending room availability and results. Reevaluation(s) Reevaluation #1: 11/13/2024 0913 -hepatitis panel returns, nonreactive for HepA. Reactive for Anti-HBS, Anti-HBc, Anti-HCV, negative for HBsAG. Based on this patient had previous hep b infection, but no active hep b infection. He does have a hx of hep C, unclear if it is active based on results. Discussed w/ Dr. Ann. Called and spoke to patient, discussed these findings. He will follow-up with his primary care physician. Medications Administered Discontinued Medications Generic Name Dose Route Start Last Admin Trade Name Freq PRN Reason Stop Dose Admin Ceftriaxone Sodium 1 gm 11/10/24 19:00 11/10/24 19:13 Ceftriaxone Sodium 1 Gm Vial IVPUSH 11/10/24 19:01 1 gm ONCE ONE Administration Medical Decision Making Medical Decision Making MDM Narrative: Patient is a 78-year-old male with past medical history of severe mitral regurgitation s/p mitral valve repair with annual ring in July of 2024 at [facility] currently undergoing cardiac rehab, postoperative echocardiogram revealing mild to moderate mitral regurgitation with LVEF of 62%, hypertension, anxiety, hypercholesterolemia, impaired fasting glucose, hepatitis C who presents emergency department for evaluation of hematuria, initially pink tinged over the past couple of months but the past 2 days has been dark red in color, 5 days of nausea, and urinary frequency today. He appears well, nontoxic, afebrile. He has a benign abdominal examination. Has no CVA tenderness. He is not hypotensive nor is he notably tachycardic. He had serum labs obtained prior to my assumption of care CBC is without leukocytosis, has a new normocytic anemia not meeting transfusion criteria, with H and H 8.2/24.4 which has decreased since prior available in our system (February' - 14.2/22.5), in addition to an ÁNGELA with BUN/creatinine 42/1.45 GFR 47 (prior February - 17/0.8 and >60) additionally has transaminitis with T bili 2.5, direct bili 0.6, AST 229, ALT 56, lipase of 271. Negative Ordaz sign on examination. Ethanol level nondetectable. Urinalysis with presence of blood, 3+ leukocyte esterase, >50 WBC. He is only taking low-dose aspirin no anticoagulants. See of the abdomen and pelvis for further evaluation, will obtain tick-borne including Lyme, as well as hepatitis panel although these will not results today, patient will receive 1 L normal saline fluid in the department. CT of the abdomen and pelvis without acute pathology, no obstructive uropathy, bladder wall thickening, liver enlargement or cholelithiasis. Reviewed this is my attending Dr. Lenny Zamora, who agrees with plan of care thus far.. I will discharge patient home with course of antibiotics for urinary tract infection, strict outpatient follow-up in his primary care doctor for repeat labs. Tick panel and hepatitis panel is pending. Given strict return precautions Differential Diagnosis Differential Diagnoses: The differential diagnosis associated with the presentation includes (ÁNGELA, nephrolithiasis hemorrhagic cystitis, UTI, pyelonephritis, hepatitis, NAFLD, liver disease, lower suspicion for Gilbert disease given lack of chronicity, tick-borne illness given transaminitis and new onset anemia.) Admission/Observation Consideration of admission/observation: Escalation of care including admission/observation considered Lab Data MDM Lab Attestation statement: I reviewed the patient's lab results. (See narrative above) 11/10/24 16:19 11/10/24 16:19 Labs: Lab Results 11/10/24 11/10/24 11/10/24 Range/Units 16:14 16:19 19:06 WBC 8.0 (4.8-10.8) X10*3/uL RBC 2.60 L D (4.60-5.80) X10*6/uL Hgb 8.2 L D (14.0-18.0) g/dl Hct 24.4 L D (42.0-52.0) % MCV 93.8 (80.0-98.0) fL MCH 31.5 (27.0-33.0) pg MCHC 33.6 (31.0-36.0) g/dl RDW 19.1 H (11.0-16.0) % Plt Count 178 D (160-400) X10*3/uL MPV Not Reportable Immature Gran % (Auto) 0.5 H (0.0-0.4) % Neut % (Auto) 75.5 H (45-73) % Lymph % (Auto) 10.6 L (20-40) % Cache % (Auto) 11.6 H (2-11) % Eos % (Auto) 1.0 (0-4) % Baso % (Auto) 0.8 (0-2) % Lymph # (Auto) 0.9 L (1.2-4.9) X10*3/uL Cache # (Auto) 0.9 (0.1-1.2) X10*3/uL Eos # (Auto) 0.1 (0.0-0.4) X10*3/uL Baso # (Auto) 0.1 (0.0-0.2) X10*3/uL Abs Immat Gran (auto) 0.04 H (0.00-0.03) X10*3/uL Absolute Neuts (auto) 6.0 (2.0-8.3) x10*3/uL Absolute Nucleated RBC 0.000 (0.0-0.012) X10*3/uL Nucleated RBC % (auto) 0.0 (0.0-0.2) /100WBC PT 11.2 (10.9-12.4) SEC INR 1.0 (0.9-1.1) Sodium 137 (135-145) mmol/L Potassium 4.4 (3.3-5.1) mmol/L Chloride 108 (96-108) mmol/L Carbon Dioxide 21 L (22-29) mmol/L Anion Gap 12 (12-20) BUN 42 H (9-16) mg/dL Creatinine 1.45 H (0.5-1.4) mg/dL Estim Creat Clear Calc 39.1 Estimated GFR 47 Random Glucose 102 (60-115) mg/dL Calcium 9.4 (8.4-10.2) mg/dL Total Bilirubin 2.5 H (0.0-1.0) mg/dL Direct Bilirubin 0.6 H (0.0-0.5) mg/dL AST 229 H (5-37) U/L ALT 56 H (0-40) U/L Alkaline Phosphatase 56 (39-117) U/L Total Creatine Kinase 459 H (38-174) U/L Total Protein 8.3 H (6.5-8.0) g/dL Albumin 4.6 (3.5-5.0) g/dL Lipase 271 H (8-78) U/L Urine Color Red A Urine Appearance Cloudy Urine pH 5.5 (5.0-9.0) Ur Specific [place] <= 1.005 (1.005-1.025) Urine Protein 300 (3+) H (Neg-Trace) mg/dL Urine Glucose (UA) Negative (Negative) mg/dL Urine Ketones Negative (Negative) mg/dL Urine Blood Large (3+) H (Negative) Urine Nitrite Negative (Negative) Ur Leukocyte Esterase Large (3+) H (Negative) Urine RBC >20 H (0-2) /HPF Urine WBC >50 H (0-5) /HPF Ur Squamous Epith Cells 0-2 (0-2) /HPF Urine Bacteria None Seen (None Seen) Hyaline Casts 0-2 (0-2) /LPF Ethyl Alcohol < 10 mg/dL A.phagocytophil DNA PCR NOT DETECTED (NOT DETECTED) Babesia microti DNA PCR NOT DETECTED (NOT DETECTED) Borrelia sp DNA (PCR) NOT DETECTED (NOT DETECTED) Lyme Screen IgG & IgM Lyme Progressive Test Borrelia miyamotoi (PCR) NOT DETECTED (NOT DETECTED) E.chaffeensis DNA (PCR) NOT DETECTED (NOT DETECTED) Hepatitis A IgM Ab (Nonreactive) Hep Bs Antigen (Negative) Hep Bs Antibody (Nonreactive) Hep B Core Total Ab (Nonreactive) Hep B Core IgM Ab Hepatitis C Ab (EIA) (Nonreactive) Tick-borne Disease PCR SEE NOTE 11/10/24 Range/Units 19:39 WBC (4.8-10.8) X10*3/uL RBC (4.60-5.80) X10*6/uL Hgb (14.0-18.0) g/dl Hct (42.0-52.0) % MCV (80.0-98.0) fL MCH (27.0-33.0) pg MCHC (31.0-36.0) g/dl RDW (11.0-16.0) % Plt Count (160-400) X10*3/uL MPV Immature Gran % (Auto) (0.0-0.4) % Neut % (Auto) (45-73) % Lymph % (Auto) (20-40) % Cache % (Auto) (2-11) % Eos % (Auto) (0-4) % Baso % (Auto) (0-2) % Lymph # (Auto) (1.2-4.9) X10*3/uL Cache # (Auto) (0.1-1.2) X10*3/uL Eos # (Auto) (0.0-0.4) X10*3/uL Baso # (Auto) (0.0-0.2) X10*3/uL Abs Immat Gran (auto) (0.00-0.03) X10*3/uL Absolute Neuts (auto) (2.0-8.3) x10*3/uL Absolute Nucleated RBC (0.0-0.012) X10*3/uL Nucleated RBC % (auto) (0.0-0.2) /100WBC PT (10.9-12.4) SEC INR (0.9-1.1) Sodium (135-145) mmol/L Potassium (3.3-5.1) mmol/L Chloride (96-108) mmol/L Carbon Dioxide (22-29) mmol/L Anion Gap (12-20) BUN (9-16) mg/dL Creatinine (0.5-1.4) mg/dL Estim Creat Clear Calc Estimated GFR Random Glucose (60-115) mg/dL Calcium (8.4-10.2) mg/dL Total Bilirubin (0.0-1.0) mg/dL Direct Bilirubin (0.0-0.5) mg/dL AST (5-37) U/L ALT (0-40) U/L Alkaline Phosphatase (39-117) U/L Total Creatine Kinase (38-174) U/L Total Protein (6.5-8.0) g/dL Albumin (3.5-5.0) g/dL Lipase (8-78) U/L Urine Color Urine Appearance Urine pH (5.0-9.0) Ur Specific [place] (1.005-1.025) Urine Protein (Neg-Trace) mg/dL Urine Glucose (UA) (Negative) mg/dL Urine Ketones (Negative) mg/dL Urine Blood (Negative) Urine Nitrite (Negative) Ur Leukocyte Esterase (Negative) Urine RBC (0-2) /HPF Urine WBC (0-5) /HPF Ur Squamous Epith Cells (0-2) /HPF Urine Bacteria (None Seen) Hyaline Casts (0-2) /LPF Ethyl Alcohol mg/dL A.phagocytophil DNA PCR (NOT DETECTED) Babesia microti DNA PCR (NOT DETECTED) Borrelia sp DNA (PCR) (NOT DETECTED) Lyme Screen IgG & IgM Cancelled Lyme Progressive Test Cancelled Borrelia miyamotoi (PCR) (NOT DETECTED) E.chaffeensis DNA (PCR) (NOT DETECTED) Hepatitis A IgM Ab Nonreactive (Nonreactive) Hep Bs Antigen Negative (Negative) Hep Bs Antibody REACTIVE (Nonreactive) Hep B Core Total Ab Reactive (Nonreactive) Hep B Core IgM Ab Cancelled Hepatitis C Ab (EIA) Reactive H (Nonreactive) Tick-borne Disease PCR Radiology Impression Discussion of test interpretation with radiology: I have reviewed the radiologist's reading. Radiologist Impression: CT abdomen and pelvis without IV contrast. COMPARISON: None provided. FINDINGS: Minimal atelectasis along the lung bases. Normal gallbladder. Noncontrast appearance of the liver, spleen, pancreas and adrenal glands are unremarkable. Small splenule present. No right-sided hydronephrosis. No right renal or ureteral calculus. No left-sided hydronephrosis. No left renal or ureteral calculus. Visualized portions of the appendix are normal in caliber. No periappendiceal or pericecal inflammatory changes. Moderate colonic stool burden within the ascending colon. Mild distal colonic diverticulosis without evidence of diverticulitis. No mesenteric or retroperitoneal lymphadenopathy. Normal abdominal aorta. Normal appearance of the urinary bladder. Prostate calcifications present. Prostate is mildly enlarged measuring up to 4.9 cm. No inguinal lymphadenopathy. Moderate spondylosis. No acute fracture or suspicious bone lesion. IMPRESSION: 1. No evidence of renal obstruction. No renal or ureteral calculus bilaterally. 2. Mild prostatomegaly. 3. Colonic diverticulosis without evidence of diverticulitis. 4. Moderate colonic stool burden most pronounced within the ascending colon. External Record Review External record reviewed: Outpatient record Chronic Conditions Patient?s care impacted by: Other (See narrative above) Critical Care Time Critical Care Time Critical Care Time: Yes Total Critical Care Time: 35 Attestation: Time is exclusive of separately billable procedures. Time includes: direct patient care, patient reassessment, coordination of patient care, interpretation of data (laboratory data, pulse oximetry, CT imaging), review of patient's medical records, medical consultation and documentation of patient care. Procedures excluded from critical care time: central intravenous line placement and electrocardiography. Discharge Plan Discharge Clinical Impression: Urinary tract infection, ÁNGELA (acute kidney injury), Transaminitis, Anemia Patient Disposition: Home, Self-Care Instructions: Acute Kidney Injury (DC), Urinary Tract Infection in Men (ED), Anemia (ED) Additional Instructions: You were seen in the emergency department today for evaluation of blood in the urine. It seems as though this has been ongoing for many months but has worsened today. You were found to have urinary tract infection for which I am sending a prescription for antibiotics to your pharmacy. Please complete the entire course not skip any doses or stop taking early even if you begin to feel better. There was a slight increase in your kidney function based on blood work today this is known as acute kidney injury, you received IV fluids while in the emergency department. Incidentally you were also found to be newly anemic, with slight elevation in your liver function tests as well. This is concerning for a potential tick-borne illness, we have sent blood test to the lab for tick-borne illnesses including Lyme disease, these will not result today, if there is a positive result you will receive a call from the hospital within the next few days, we have also sent blood work for hepatitis AB and C. Please contact your primary care doctor's office tomorrow to arrange for close outpatient follow-up ideally within the next few days, the may consider repeat labs at that time. Return back to emergency department any new or worsening symptoms or concerns which includes but is not limited to, fevers, chills, nausea, vomiting, dizziness, lightheadedness, near passing out, chest pain, shortness of breath, numbness or tingling of the extremities, worsening of the blood in your urine, inability to urinate. Prescriptions: New cefuroxime axetil 500 mg tablet 500 mg PO BID Qty: 14 0RF No Action (DME) blood pressure monitor Kit See Rx Instructions .Route Qty: 1 0RF Rx Instructions: As directed aspirin 81 mg tablet,delayed release (DR/EC) 81 mg PO DAILY mometasone 0.1 % cream 1 appl topical DAILY PRN (Reason: rash) Qty: 45 1RF losartan 50 mg tablet 50 mg PO DAILY Qty: 90 3RF amlodipine 10 mg tablet 10 mg PO DAILY Qty: 90 3RF Referrals: Chris Pearson MD [Primary Care Provider, Internal Medicine] Interventions: ED Discharge Assessment Last Done: 11/10/24 23:06 Discharge Date/Time: 11/10/24 23:08 Print Language: Malawian
[2024-11-10 16:25] LABS: NRBC Abs Auto 0.000 X10*3/uL (0.0-0.012); NRBC Pct Auto 0.0 /100WBC (0.0-0.2); SCAN SMEAR FLAG 1
[2024-11-10 16:27] LABS: Hematocrit 24.4 % (42.0-52.0); Hemoglobin 8.2 g/dl (14.0-18.0); Imm Gran Abs Auto 0.04 X10*3/uL (0.00-0.03); Imm Gran Pct Auto 0.5 % (0.0-0.4); Lymphocytes Absolute Auto 0.9 X10*3/uL (1.2-4.9); Mean Corpuscular HGB Conc 33.6 g/dl (31.0-36.0); Mean Corpuscular Hemoglobin 31.5 pg (27.0-33.0); Mean Corpuscular Volume 93.8 fL (80.0-98.0); Platelet Count 178 X10*3/uL (160-400); Red Blood Count 2.60 X10*6/uL (4.60-5.80); White Blood Count 8.0 X10*3/uL (4.8-10.8)
[2024-11-10 16:32] LABS: Appearance Urine Cloudy; Glucose Urine UA Negative (Negative); PH 5.5 (5.0-9.0); Specific Gravity - Urine <= 1.005 (1.005-1.025); UMIC TRIGGER UACC YES
[2024-11-10 16:35] LABS: INTERNATIONAL NORM RATIO 1.0 (0.9-1.1); Prothrombin Time 11.2 SEC (10.9-12.4)
[2024-11-10 16:36] LABS: MANUAL DIFF FLAG NO; PLT ABN DIST 1
[2024-11-10 16:39] LABS: UACC Culture Trigger YES
[2024-11-10 16:40] LABS: Alanine Aminotransferase 56 U/L (0-40); Albumin Level 4.6 g/dL (3.5-5.0); Alkaline Phosphatase 56 U/L (39-117); Anion Gap 12 (12-20); Aspartate Amino Transferase 229 U/L (5-37); Blood Urea Nitrogen 42 mg/dL (9-16); Calcium 9.4 mg/dL (8.4-10.2); Carbon Dioxide 21 mmol/L (22-29); Chloride 108 mmol/L (96-108); Creatinine Clr Calc Pharmacy 39.1; Estimated Glomerular Filt Rate 47; Potassium 4.4 mmol/L (3.3-5.1); Sodium 137 mmol/L (135-145); Total Protein 8.3 g/dL (6.5-8.0)
--- NOTE | 2024-11-10 16:46 | PC.NURSE ---
patient stating he had open heart surgery 3 months ago
[2024-11-10 17:38] VITALS: BP 167/89; PULSE 90; RESP 16; TEMP 36.6; O2SAT 100
--- NOTE | 2024-11-10 17:42 | PC.NURSE ---
Patient presents to ED c/o urinary symptoms. Patient has been drinking beet juice for his blood pressure. Patient urine began turning red and was experiencing urinary frequency and dysuria. Patient stopped drinking the beet juice and no changes after a week. Patient hypertensive 167/89 but all other VSS and up to date. Provider in to see patient. Plan of care on going
--- OUTSIDE RECORDS SUMMARY | 2024-11-10 17:55 | XMS_ITS | Patient Health Record ---
Author Organization [facility] Address [address] [place] [id number] Care Team Providers Care Conference Center Manager Name Role Phone Jaquelin Pearson MDh Primary Care Provider Joshua Catalan Unavailable [phone] Reason For Referral No Information Medications Medication [...] Problem Status W/U Status Risk Notes Problem 199655201 Encounter for screening for malignant neoplasm of colon (Z12.11) Active confirmed Problem 809382011 Chronic hepatitis C without hepatic coma (B18.2) Active confirmed Problem 007765568 Elevated liver enzymes (R74.8) Active confirmed Problem [id number] History of hepatitis C (Z86.19) Active confirmed Problem 66383165 Liver fibrosis (K74.0) Active confirmed Plan Of Treatment Pending Test Test Name Order Date LIVER PROFILE 05/06/2015 LIVER PROFILE 09/29/2015 LIVER PROFILE 06/13/2015 CBC w DIFF 05/06/2015 CBC w DIFF 06/13/2015 ALPHA-FETOPROTEIN,TUMOR MARKER 6 ALPHA-FETOPROTEIN,TUMOR MARKER 9 HEPATITIS C VIRAL LOAD 06/13/2015 HEPATITIS C VIRAL LOAD 09/29/2015 HEPATITIS C VIRAL LOAD 05/06/2015 Future Test Test Name Order Date COLONOSCOPY 07/30/2018 Insurance Providers Payer Name Payer Address Payer Phone Subscriber Number Group Number Insured Name Patient Relationship to Insured Coverage Start Date Coverage End Date [employer] [address] [place] [phone] [id number] EMILIE BOOTH Self - patient is the [...] alcohol abuse--abstinent > 10 y ears Denies OR,DM,CVA,Lung disease,renal dise ase Previous substance abuse with abstinence for over 20 years BPH Surgical History Surgery Date(Month/Year) hand surgery
--- OUTSIDE RECORDS SUMMARY | 2024-11-10 17:55 | XMS_ITS | Clinical Summary ---
Author Organization [facility] Address [address] [place] [address] Care Team Providers Care Quality Control Associate Name Role Phone Unavailable Primary Care Provider Unavailabl e Allergies No known active allergies Medications D3-1000 25 MCG (1000 UT) capsule Take 1,000 Units by mouth 1 (one) time each day 06/25/2022 Active amLODIPine (NORVASC) 10 MG tablet Take 10 mg by mouth 1 (one) time each day 07/16/2022 Active multivitamin-iro k-bvanfvnr-gcxhv acid (CENTRUM) chewable tablet Chew 1 tablet [...] of 2 - PCV) 12[birth year]02[birth year]1966 Influenza Vaccine (#1) 2024 Hepatitis B Vaccine Aged Out No longe r eligible based on patient's age to complete this topic Insurance [place]
[2024-11-10 18:28] LABS: Lipase 271 U/L (8-78)
--- NOTE | 2024-11-10 19:08 | PC.NURSE ---
This RN assumed pt care @ 1900. Pt a&ox4, no signs of distress. Pt denies pain at this time Pt requested and urinal emptied Plan of care ongoing.
--- NOTE | 2024-11-10 19:18 | PC.NURSE ---
Pt medicated per jun Pt with CT. Plan of care ongoing.
[2024-11-10 19:34] VITALS: BP 155/81; PULSE 84; RESP 18; TEMP 36.6; O2SAT 99
[2024-11-10 20:18] VITALS: BP 144/78; PULSE 81; RESP 16; TEMP 36.7; O2SAT 98
[2024-11-10 22:29] VITALS: BP 146/81; PULSE 78; RESP 16; TEMP 36.6; O2SAT 97
[2024-11-10 23:06] VITALS: BP 146/81; PULSE 78; RESP 16; TEMP 36.6; O2SAT 97
[2024-11-11 08:29] LABS: HBS Num1 180.80 mIU/mL (0-7.99); HBc Num1 8.78 S/CO (0.00-0.79); HBsAGNum1 0.32 S/CO (0.00-0.99); Hepatitis A Antibody IgM 0.28 Index (0-0.79); Hepatitis B Surface Antigen Negative (Negative); ~HepC Num1 13.10 S/CO (0.00-0.79); ~Hepatitis A Antibody IgM Nonreactive (Nonreactive); ~Hepatitis B Surface Antibody REACTIVE (Nonreactive); ~Hepatitis C Antibody Reactive (Nonreactive)
[2024-11-11 10:10] LABS: HBc Num2 8.98 S/CO; HBc Num3 8.95 S/CO
[2024-11-12 21:23] LABS: A. Phagocytphilium DNA,RT-PCR NOT DETECTED (NOT DETECTED); Babesia Microti DNA, RT-PCR NOT DETECTED (NOT DETECTED); Borrelia Miyamotoi,DNA RT-PCR NOT DETECTED (NOT DETECTED); E.Chaffeensis DNA RT-PCR NOT DETECTED (NOT DETECTED); Lyme(Borrelia ssp)DNA RT-PCR NOT DETECTED (NOT DETECTED)
== END 2024-11-10 23:08 | disposition home or self-care (01) ==
PROVIDERS: Nurse Practitioner Family; Physician Assistant Medical; Emergency Provider Emergency Medicine; PCP Internal Medicine
DX: N39.0 Urinary tract infection, site not specified (principal); N17.9 Acute kidney failure, unspecified; R74.01 Elevation of levels of liver transaminase levels; D50.8 Other iron deficiency anemias; R11.0 Nausea; R31.9 Hematuria, unspecified; I10 Essential (primary) hypertension; E78.00 Pure hypercholesterolemia, unspecified; Z79.899 Other long term (current) drug therapy
CPT/HCPCS: 36415; 74176; 80053; 80307; 81001; 82248; 82550; 83690; 85025; 85610; 86617; 86618; 86704; 86706; 86709; 86803; 87086; 87340; 87468; 87469; 87478; 87484; 87798; 96374; 99284; 99291; J0696

== ENCOUNTER → 2024-11-10 18:45 | Outpatient (BNV) | payer OTHER, SELFPAY | PROVIDERS: Emergency Provider Emergency Medicine; PCP Internal Medicine; Visit Provider Radiology Diagnostic Radiology | DX: K57.30 Diverticulosis of large intestine without perforation or abscess without bleeding (principal); R19.5 Other fecal abnormalities | CPT/HCPCS: 74176 ==

== ENCOUNTER 2024-11-14 09:44 | Outpatient (AMB) | payer OTHER, SELFPAY ==
--- NOTE | 2024-11-14 09:51 | MHC.PC.OV ---
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 Accompanied by: Self / Same As Patient Allergies No Known Allergies (No Known Allergies*) Allergy (Verified 11/14/24 10:45) Medication List - Last Reconciled 11/14/24 by Chris Pearson MD amlodipine 10 mg PO DAILY aspirin 81 mg PO DAILY blood pressure monitor As directed cefuroxime axetil 500 mg PO BID losartan 50 mg PO DAILY mometasone 0.1% 1 appl topical DAILY PRN Tobacco use date assessed: 11/14/24 Fall risk assessment: No Falls in past year Last assessed Fall Risk: 11/14/24 Dental Screening Dental Screen Date: 11/14/24 Did you have a dental visit in the last 12 months?: Yes Did you have a dental problem in the last 6 months where you did not have access to dental care?: No Was dental information given to patient?: Patient has dentist H[place] [facility] [place] blood in urine HPI Details Patient comes in today for his HDF follow up visit He went to the ER a few days ago for the presence of blood in his urine Workups done in the ER revealed (+) hematuria and pyuria and findings of ÁNGELA Abdominal and pelvic CT done revealed no findings to help explain his current symptoms but it did show findings of constipation Patient was started empirically on oral Cefuroxime 500 mg BID, which he is currently still on Patient states that he will be seeing Urology in a few days for further evaluation He adds that he is still continuing to lose weight and would like to get a prescription for some ensure to help with this He denies any fever, headaches or dizziness Denies any chest pains, no increased shortness of breath No nausea/vomiting, no abdominal pain No change in bowel habits noted [facility] Medical History Dermatitis Primary osteoarthritis of knees, bilateral Severe mitral valve regurgitation Mitral valve prolapse Non-rheumatic mitral regurgitation History of hepatitis C Benign essential hypertension Hypertension Overweight (BMI 25.0-29.9) Anxiety Urinary frequency Allergic rhinitis Osteoarthritis of left knee Vitamin D deficiency Pure hypercholesterolemia Impaired fasting glucose White coat syndrome with hypertension Surgical History History of mitral valve repair History of colonoscopy History of prostate surgery Family History Father Hypertension Stroke Mother Medical history unknown Social History Housing: House Alcohol intake: never Patient Tobacco Use Status: Former Tobacco user Tobacco use type: Cigarette Years Smoked: 25 years e-Cigarette/Vaping Use: Never Used Second Hand Smoke Exposure: Yes service: No Current occupational status: retired and disabled Cognitive needs: No Hearing needs: No Vision needs: Yes (Reading Glasses) Questionnaire PHQ-9 Over the last 2 weeks, how often have you been bothered by any of the following problems? 1. Little interest or pleasure in doing things: not at all 2. Feeling down, depressed, or hopeless: not at all 3. Trouble falling or staying asleep, or sleeping too much: not at all 4. Feeling tired or having little energy: not at all 5. Poor appetite or overeating: not at all 6. Feeling bad about yourself - or that you are a failure or have let yourself or your family down: not at all 7. Trouble concentrating on things, such as reading the newspaper or watching television: not at all 8. Moving or speaking so slowly that other people could have noticed. Or the opposite - being so fidgety or restless that you have been moving around a lot more than usual: not at all 9. Thoughts that you would be better off or of hurting yourself in some way: not at all Total score: 0 Depression Screening Interpretation: Negative Depression Screening Done: Yes 70180 - PHQ-9 Billing: Yes Source: Developed by Drs. Joshua Wren, Marga Juarez, Wilbert Diaz and colleagues, with an educational nathalie from [employer]. Thrive Questionnaire Date Thrive assessed: 11/14/24 I am a: Patient What is your living situation today?: I have a steady place to live Within the past 12 months, did the food you bought not last and you didn't have the money to get more?: Never true Within the past 12 months, did you worry whether your food would run out before you got money to buy more?: Never true Do you have trouble paying for medicines?: No Do you have trouble getting transportation to medical appointments?: No Do you have trouble paying your heating and electricity bill?: No Do you have trouble taking care of your child, family member or friend?: No Do you have trouble with day-to-day activities such as bathing, preparing meals, shopping, managing finances, etc.?: No Are you currently unemployed and looking for a job?: No Are you interested in more education?: No Please select the resources that you would like help with: None Currently or been in a relationship where the following occur: No concerns reported THRIVE Score: 0 AUDIT C Alcohol Use Questionnaire (AUDIT-C) 1. How often do you have a drink containing alcohol?: Never 3. How often do you have six or more drinks on one occasion?: Never Total Score: 0 Score Reviewed/Action Taken: Yes OBEY-7 AMB Questionnaire OBEY-7 Date OBEY - 7 assessed: 11/14/24 Feeling nervous, anxious, or on edge: 0 = Not at all Not being able to stop or control worryin = Not at all Worrying too much about different things: 0 = Not at all Trouble relaxin = Not at all Being so restless that it is hard to sit still: 0 = Not at all Becoming easily annoyed or irritable: 0 = Not at all Feeling afraid as if something awful might happen: 0 = Not at all Total OBEY-7 score (0-4 normal; 5-9 mild; 10-14 moderate; 15-21 severe): 0 Source: Developed by Drs. Joshua Wren, Marga Juarez, Wilbert Diaz and colleagues, with an educational nathalie from [employer]. Review of Systems Const Denies chills, Denies fatigue, Denies fever(s) and Denies headache(s) ENT Denies dysphagia, Denies dizziness, Denies otalgia, Denies headache(s), Denies neck pain, Denies odynophagia and Denies sore throat Card Denies chest pain, Denies rapid heart rate, Denies irregular heart rhythm, Denies palpitations and Denies dyspnea Resp Denies chest congestion, Denies cough and Denies dyspnea GI Denies abdominal pain, Denies constipation, Denies dysphagia, Denies heartburn, Denies diarrhea, Denies nausea, Denies odynophagia and Denies vomiting Reports hematuria, Denies difficulty urinating, Denies dysuria and Denies urinary frequency Musc Denies back pain, Denies arthralgias and Denies neck pain Skin/Breast Reports rash (recurrent, itchy) Neuro Denies dizziness, Denies headache(s) and Denies paresthesias Psych Reports anxiety Endo Denies fatigue and Denies palpitations Physical exam (Primary Care) Vital Signs: Last Vital Signs Pulse 92 11/14/24 09:52 BP 142/70 H 11/14/24 09:52 Pulse Ox 98 11/14/24 09:52 Oxygen Delivery Method Room Air 11/14/24 09:52 BMI result Body Mass Index 22.3 Tobacco/Smoking Status: Tobacco use Status Tobacco use date assessed 11/14/24 11/14/24 09:58 Patient Tobacco Use Status Former Tobacco user 11/14/24 09:58 Tobacco use type Cigarette 11/14/24 09:58 e-Cigarette/Vaping Use Never Used 11/14/24 09:58 PHQ-9: PHQ-9 Score PHQ-9: Total score 0 11/14/24 10:56 Depression Screening Interpretation: Negative Thrive Assessment: Date of Thrive Assessment Date Thrive assessed 11/14/24 11/14/24 09:58 Currently or been in a relationship where the following occur: No concerns reported Const General: no acute distress and alert HENMT Ears: TM's normal bilaterally and EAC's normal Throat: Yes posterior oropharynx normal and Yes tonsils normal (no TP congestion noted) Neck Neck: Yes supple and No lymphadenopathy Thyroid: Thyroid normal Resp Auscultation: clear to auscultation bilaterally, no rales and no wheezes Cardio Rate: regular rate Rhythm: regular rhythm Heart sounds: Clicking heart sound present (mid-systolic) and Murmur heart sound present systolic late, III/ and at the apex GI Palpation (GI): Soft to palpation and nontender Auscultation: normal bowel sounds General: Yes no CVA tenderness Back/Spine/Pelvis Back: no CVA tenderness Thoracic/Lumbar Spine: No lumbar spinal tenderness Skin Rashes: no rashes Extrem General: Yes no clubbing, cyanosis or edema Right lower extremity: knee Details: tenderness (mild) and normal ROM; no swelling and no crepitus Left lower extremity: knee Details: tenderness (mild) and normal ROM; no swelling Coding Level of Care Code Est Pt Level 4 (68260) Diagnoses ÁNGELA (acute kidney injury) N17.9 Anemia D64.9 Anemia type: unspecified type Abnormal weight loss R63.4 Elevated LFTs R79.89 Constipation, unspecified constipation type K59.00 Constipation type: unspecified constipation type Additional Codes PHQ-9 - 82872 - PHQ-9 Billing: Yes ([id number]) Assessment & Plan Assessment & Plan (1) ÁNGELA (acute kidney injury): Code(s): N17.9 - Acute kidney failure, unspecified Category: Medical Plan: Will send patient for repeat labs ASHER to recheck his serum creatinine and renal function, which significantly declined on his labs done a few days ago (2) Anemia: Code(s): D64.9 - Anemia, unspecified Category: Medical Qualifiers: Anemia type: unspecified type Qualified Code(s): D64.9 - Anemia, unspecified Plan: Will recheck his CBC ASHER for follow up; will also send him for anemia work ups Will start him in the meantime on Feosol 65 mg QD (3) Abnormal weight loss: Code(s): R63.4 - Abnormal weight loss Category: Medical Plan: Per request, will start him for now on Ensure supplements (4) Elevated LFTs: Code(s): R79.89 - Other specified abnormal findings of blood chemistry Category: Medical Plan: His LFTs were significantly elevated on his recent labs Will recheck his LFTs ASHER for follow up (5) Constipation: Code(s): K59.00 - Constipation, unspecified Category: Medical Qualifiers: Constipation type: unspecified constipation type Qualified Code(s): K59.00 - Constipation, unspecified Plan: His abdominal and pelvic CT done in the ER a few days ago revealed findings of moderate colonic stool burden most pronounced within the ascending colon Will start patient on Colace 100 mg QD He is also advised to increase his oral fluids and dietary fiber intake Plan Follow up as scheduled next month Orders: Orders Complete Blood Count Auto Diff 11/14/24 D64.9 - Anemia, unspecified, N17.9 - Acute kidney failure, unspecified Comprehensive Met. Panel 11/14/24 N17.9 - Acute kidney failure, unspecified TSH reflex Free T4 11/14/24 E78.00 - Pure hypercholesterolemia, unspecified, N17.9 - Acute kidney failure, unspecified UA CC w/rflx Micro + Cult 11/14/24 N17.9 - Acute kidney failure, unspecified, R30.0 - Dysuria Vitamin B12 and Folate 11/14/24 E53.8 - Deficiency of other specified B group vitamins, N17.9 - Acute kidney failure, unspecified Reticulocyte Count 11/14/24 D64.9 - Anemia, unspecified, N17.9 - Acute kidney failure, unspecified Erythropoietin (EPO) 11/14/24 D64.9 - Anemia, unspecified, N17.9 - Acute kidney failure, unspecified Gamma Glutamyl Transpeptidase 11/14/24 N17.9 - Acute kidney failure, unspecified, R79.89 - Other specified abnormal findings of blood chemistry IRON PROFILE 11/14/24 D50.9 - Iron deficiency anemia, unspecified, N17.9 - Acute kidney failure, unspecified Lipase 11/14/24 N17.9 - Acute kidney failure, unspecified, R10.9 - Unspecified abdominal pain Medications: New ferrous sulfate (Feosol) 325 mg PO DAILY 90 tabs 0RF 90 days docusate sodium (Colace) 100 mg PO DAILY 90 caps 0RF constipation 90 days food supplemt, lactose-reduced (Ensure oral liquid) 1 ea PO TIDWMEAL 90 multiple units 3RF 30 days N17.9 - Acute kidney failure, unspecified, R63.4 - Abnormal weight loss
[2024-11-14 09:52] VITALS: BP 142/70; PULSE 92; O2SAT 98; BMI 22.3
--- OUTSIDE RECORDS SUMMARY | 2024-11-14 09:53 | XMS_ITS | Clinical Summary ---
Author Organization [facility] Facility Address [address] [place] [id number] Care Team Providers Care Portal Developer Name Role Phone Unavailable Primary Care Provider Unavailabl e Allergies No known active allergies Medications D3-1000 25 MCG (1000 UT) capsule Take 1,000 Units by mouth 1 (one) time each day 06/25/2022 Active amLODIPine (NORVASC) 10 MG tablet Take 10 mg by mouth 1 (one) time each day 07/16/2022 Active multivitamin-iro v-itfzthlu-smdvh acid (CENTRUM) chewable tablet Chew 1 tablet [...] patient's age to complete this topic Insurance [place]
--- OUTSIDE RECORDS SUMMARY | 2024-11-14 09:54 | XMS_ITS | Patient Health Record ---
Author Organization [facility] Address [address] [place] [id number] Care Team Providers Care Gold Frame Assembler Name Role Phone Jaquelin Pearson MDh Primary Care Provider Joshua Catalan Unavailable [phone] Reason For Referral No Information Medications Medication [...] Problem Status W/U Status Risk Notes Problem [id number] Encounter for screening for malignant neoplasm of colon (Z12.11) Active confirmed Problem [id number] Chronic hepatitis C without hepatic coma (B18.2) Active confirmed Problem [id number] Elevated liver enzymes (R74.8) Active confirmed Problem [id number] History of hepatitis C (Z86.19) Active confirmed Problem [id number] Liver fibrosis (K74.0) Active confirmed Plan Of [...] Date [employer] [id number] [place] [phone] EMILIE BOOTH Self - patient is the [...] alcohol abuse--abstinent > 10 y ears Denies NM,DM,CVA,Lung disease,renal dise ase Previous substance abuse with abstinence for over 20 years BPH Surgical History Surgery Date(Month/Year) hand surgery
== END 2024-11-14 10:52 | disposition home or self-care (01) ==
LOC: HO.HMCH 09:44
PROVIDERS: PCP Internal Medicine; Visit Provider Internal Medicine
DX: N17.9 Acute kidney failure, unspecified (principal); D64.9 Anemia, unspecified; R63.4 Abnormal weight loss; R79.89 Other specified abnormal findings of blood chemistry; K59.00 Constipation, unspecified

== ENCOUNTER 2024-11-14 09:44 | Outpatient (REF) | payer OTHER, SELFPAY ==
[2024-11-14 11:42] LABS: Hematocrit 24.7 % (42.0-52.0); Hemoglobin 8.1 g/dl (14.0-18.0); Imm Gran Abs Auto 0.05 X10*3/uL (0.00-0.03); Imm Gran Pct Auto 0.7 % (0.0-0.4); Lymphocytes Absolute Auto 0.9 X10*3/uL (1.2-4.9); MANUAL DIFF FLAG SCAN; Mean Corpuscular HGB Conc 32.8 g/dl (31.0-36.0); Mean Corpuscular Hemoglobin 31.5 pg (27.0-33.0); Mean Corpuscular Volume 96.1 fL (80.0-98.0); NRBC Abs Auto 0.000 X10*3/uL (0.0-0.012); NRBC Pct Auto 0.0 /100WBC (0.0-0.2); Red Blood Count 2.57 X10*6/uL (4.60-5.80); Reticulocytes Absolute 0.253 X10*6/uL (0.026-0.095); SCAN SMEAR FLAG 1; White Blood Count 7.5 X10*3/uL (4.8-10.8)
[2024-11-14 12:06] LABS: Platelet Count 194 X10*3/uL (160-400)
[2024-11-14 12:18] LABS: Appearance Urine Cloudy; Glucose Urine UA 100 mg/dL (Negative); PH 5.5 (5.0-9.0); UMIC TRIGGER UACC YES
[2024-11-14 12:21] LABS: Specific Gravity - Urine 1.015 (1.005-1.025)
[2024-11-14 12:42] LABS: Other Crystals Urine Present; UACC Culture Trigger YES
[2024-11-14 12:48] LABS: Alanine Aminotransferase 58 U/L (0-40); Albumin Level 4.7 g/dL (3.5-5.0); Alkaline Phosphatase 56 U/L (39-117); Anion Gap 14 (12-20); Aspartate Amino Transferase 239 U/L (5-37); Blood Urea Nitrogen 50 mg/dL (9-16); Calcium 9.4 mg/dL (8.4-10.2); Carbon Dioxide 19 mmol/L (22-29); Chloride 111 mmol/L (96-108); Estimated Glomerular Filt Rate 32; Gamma Glutamyl Transpeptidase 23 U/L (11-51); Iron 96 mcg/dL (45-160); Lipase 242 U/L (8-78); Percent Iron Saturation 32 % (15-50); Potassium 4.5 mmol/L (3.3-5.1); Sodium 139 mmol/L (135-145); Total Iron Binding Capacity 303 mcg/dL (228-428); Total Protein 8.5 g/dL (6.5-8.0); Unsaturated Iron Binding 207 ug/dL
[2024-11-14 12:49] LABS: Folate 14.0 ng/mL (> or = 4.0); Vitamin B12 1273 pg/mL (200-900)
== END 2024-11-14 09:45 | disposition home or self-care (01) ==
LOC: HO.LAB 09:44
PROVIDERS: PCP Internal Medicine; Visit Provider Internal Medicine
DX: D64.9 Anemia, unspecified (principal); N17.9 Acute kidney failure, unspecified; E78.00 Pure hypercholesterolemia, unspecified; E53.8 Deficiency of other specified B group vitamins; R10.9 Unspecified abdominal pain; R79.89 Other specified abnormal findings of blood chemistry; D50.9 Iron deficiency anemia, unspecified
CPT/HCPCS: 36415; 80053; 81001; 81003; 82607; 82668; 82746; 82977; 83540; 83690; 84443; 85025; 85045; 87086; 96127; 99212

== ENCOUNTER 2024-12-12 11:13 | Outpatient (REF) | payer OTHER, SELFPAY ==
[2024-12-12 12:39] LABS: MANUAL DIFF FLAG NO
[2024-12-12 13:47] LABS: Imm Gran Abs Auto 0.06 X10*3/uL (0.00-0.03); Imm Gran Pct Auto 0.8 % (0.0-0.4); Lymphocytes Absolute Auto 0.6 X10*3/uL (1.2-4.9); Mean Corpuscular HGB Conc 31.8 g/dl (31.0-36.0); Mean Corpuscular Hemoglobin 32.3 pg (27.0-33.0); Mean Corpuscular Volume 101.6 fL (80.0-98.0); NRBC Abs Auto 0.000 X10*3/uL (0.0-0.012); NRBC Pct Auto 0.0 /100WBC (0.0-0.2); Platelet Count 198 X10*3/uL (160-400); Red Blood Count 1.89 X10*6/uL (4.60-5.80); White Blood Count 7.3 X10*3/uL (4.8-10.8)
[2024-12-12 13:51] LABS: Hemoglobin 6.1 g/dl (14.0-18.0)
[2024-12-12 13:52] LABS: Hematocrit 19.2 % (42.0-52.0)
[2024-12-12 13:54] LABS: Appearance Urine Turbid; Glucose Urine UA Negative (Negative); PH 5.5 (5.0-9.0); Specific Gravity - Urine 1.010 (1.005-1.025); UMIC TRIGGER UACC YES
[2024-12-12 14:07] LABS: Other Crystals Urine Present; UACC Culture Trigger YES
[2024-12-12 14:29] LABS: Alanine Aminotransferase 56 U/L (0-40); Albumin Level 4.4 g/dL (3.5-5.0); Alkaline Phosphatase 45 U/L (39-117); Anion Gap 15 (12-20); Aspartate Amino Transferase 278 U/L (5-37); Blood Urea Nitrogen 43 mg/dL (9-16); Calcium 9.3 mg/dL (8.4-10.2); Carbon Dioxide 18 mmol/L (22-29); Chloride 104 mmol/L (96-108); Estimated Glomerular Filt Rate 34; Iron 119 mcg/dL (45-160); Percent Iron Saturation 46 % (15-50); Potassium 4.4 mmol/L (3.3-5.1); Sodium 133 mmol/L (135-145); Total Iron Binding Capacity 260 mcg/dL (228-428); Total Protein 7.9 g/dL (6.5-8.0); Unsaturated Iron Binding 141 ug/dL
[2024-12-12 14:46] LABS: Prostate Specific Antigen 4.89 ng/mL (<0.05-4.0)
== END 2024-12-12 11:14 | disposition home or self-care (01) ==
LOC: HO.LAB 11:13
PROVIDERS: PCP Internal Medicine; Visit Provider Internal Medicine
DX: Z12.5 Encounter for screening for malignant neoplasm of prostate (principal); N17.9 Acute kidney failure, unspecified; D50.9 Iron deficiency anemia, unspecified; N40.0 Benign prostatic hyperplasia without lower urinary tract symptoms; D64.9 Anemia, unspecified; N30.01 Acute cystitis with hematuria; R35.0 Frequency of micturition; I10 Essential (primary) hypertension; R79.89 Other specified abnormal findings of blood chemistry; K59.00 Constipation, unspecified
CPT/HCPCS: 36415; 80053; 81001; 83540; 84153; 85025; 87086; 96127; 99212

== ENCOUNTER 2024-12-12 11:13 | Outpatient (AMB) | payer OTHER, SELFPAY ==
[2024-12-12 11:16] VITALS: BP 142/68; PULSE 91; O2SAT 98; BMI 21.8
--- NOTE | 2024-12-12 11:16 | A.OFFPC_ITS ---
Vital Signs 12/12/24 11:16 Height 5 ft 6 in Weight 135 lb 4 oz BMI 21.8 BP 142/68 H Blood Pressure Location Lt brachial Position Sitting Pulse 91 Pulse Source Pulse Oximeter Pulse Oximetry (%) 98 Oxygen Delivery Method Room Air Intake Visit Reasons: uti follow up Insurance Service Representative Required: No Accompanied by: Self / Same As Patient Allergies No Known Allergies (No Known Allergies*) Allergy (Verified 12/12/24 23:21) Medication List - Last Reconciled 12/12/24 by Chris Pearson MD amlodipine 10 mg PO DAILY aspirin 81 mg PO DAILY blood pressure monitor As directed docusate sodium (Colace) 100 mg PO DAILY 90 days ferrous sulfate (Feosol) 325 mg PO DAILY 90 days food supplemt, lactose-reduced (Ensure oral liquid) 1 ea PO TIDWMEAL 30 days losartan 50 mg PO DAILY mometasone 0.1% 1 appl topical DAILY PRN ondansetron 4 mg PO Q8H PRN 10 days Tobacco use date assessed: 12/12/24 Fall risk assessment: No Falls in past year Last assessed Fall Risk: 12/12/24 Dental Screening Dental Screen Date: 12/12/24 Did you have a dental visit in the last 12 months?: Yes Did you have a dental problem in the last 6 months where you did not have access to dental care?: No Was dental information given to patient?: Patient has dentist HPI uti follow up HPI Details Patient comes in today for his follow up visit States that he just finished his antibiotics for UTI a couple of days ago Feels that his urinary symptoms have improved only partially with Abx Tx as he still reports (+) mild dysuria at times and increased urinary frequency at night but not as often during the day - relates that he has to wake up at least 5 to 6 times a night to use the bathroom Relates (+) fatigue and notes that he feels dizzy occasionally, especially when he gets up too quickly; denies any headaches He denies any chest pains but reports (+) mild BAZAN lately No nausea/vomiting, no abdominal pain No change in bowel habits noted He has no follow up labs done recently [facility] Medical History (Updated 12/13/24 @ 01:31 by Chris Pearson MD) Essential hypertension Dermatitis Primary osteoarthritis of knees, bilateral Severe mitral valve regurgitation Mitral valve prolapse Non-rheumatic mitral regurgitation History of hepatitis C Benign essential hypertension Hypertension Overweight (BMI 25.0-29.9) Anxiety Urinary frequency Allergic rhinitis Osteoarthritis of left knee Vitamin D deficiency Pure hypercholesterolemia Impaired fasting glucose White coat syndrome with hypertension Surgical History History of mitral valve repair History of colonoscopy History of prostate surgery Family History Father Hypertension Stroke Mother Medical history unknown Social History Housing: House Alcohol intake: never Patient Tobacco Use Status: Former Tobacco user Tobacco use type: Cigarette Years Smoked: 25 years Smoked in Last 30 Days: No e-Cigarette/Vaping Use: Never Used Second Hand Smoke Exposure: Yes Use of substances other than those prescribed or required for medical reasons: No Advance Directives: No Advance Directives Information Provided: No Do you have a plan to hurt others: No Plan Nutrition Risks: Poor intake 0-25% >4 days service: No Current occupational status: retired and disabled Cognitive needs: No Hearing needs: No Vision needs: Yes (Reading Glasses) Questionnaire PHQ-9 Over the last 2 weeks, how often have you been bothered by any of the following problems? 1. Little interest or pleasure in doing things: several days 2. Feeling down, depressed, or hopeless: not at all 3. Trouble falling or staying asleep, or sleeping too much: not at all 4. Feeling tired or having little energy: several days 5. Poor appetite or overeating: more than half the days 6. Feeling bad about yourself - or that you are a failure or have let yourself or your family down: more than half the days 7. Trouble concentrating on things, such as reading the newspaper or watching television: not at all 8. Moving or speaking so slowly that other people could have noticed. Or the opposite - being so fidgety or restless that you have been moving around a lot more than usual: not at all 9. Thoughts that you would be better off or of hurting yourself in some way: not at all Total score: 6 Depression Screening Interpretation: Positive Depression Screening Follow-up: Follow-up Visit Requested Depression Screening Done: Yes 85367 - PHQ-9 Billing: Yes Source: Developed by Marga Clayton Kurt Kroenke and colleagues, with an educational nathalie from [employer]. Thrive Questionnaire Date Thrive assessed: 12/12/24 I am a: Patient What is your living situation today?: I have a steady place to live Within the past 12 months, did the food you bought not last and you didn't have the money to get more?: Never true Within the past 12 months, did you worry whether your food would run out before you got money to buy more?: Never true Do you have trouble paying for medicines?: No Do you have trouble getting transportation to medical appointments?: No Do you have trouble paying your heating and electricity bill?: No Do you have trouble taking care of your child, family member or friend?: No Do you have trouble with day-to-day activities such as bathing, preparing meals, shopping, managing finances, etc.?: No Are you currently unemployed and looking for a job?: No Are you interested in more education?: No Please select the resources that you would like help with: None Currently or been in a relationship where the following occur: No concerns reported THRIVE Score: 0 AUDIT C Alcohol Use Questionnaire (AUDIT-C) 1. How often do you have a drink containing alcohol?: Never 3. How often do you have six or more drinks on one occasion?: Never Total Score: 0 Score Reviewed/Action Taken: Yes OBEY-7 AMB Questionnaire OBEY-7 Date OBEY - 7 assessed: 12/12/24 Feeling nervous, anxious, or on edge: 0 = Not at all Not being able to stop or control worryin = Not at all Worrying too much about different things: 0 = Not at all Trouble relaxin = Not at all Being so restless that it is hard to sit still: 0 = Not at all Becoming easily annoyed or irritable: 0 = Not at all Feeling afraid as if something awful might happen: 0 = Not at all Total OBEY-7 score (0-4 normal; 5-9 mild; 10-14 moderate; 15-21 severe): 0 Source: Developed by Marga Clayton Kurt Kroenke and colleagues, with an educational nathalie from [employer]. Review of Systems Const Denies chills, Reports fatigue, Denies fever(s) and Denies headache(s) ENT Denies dysphagia, Reports dizziness (at times), Denies otalgia, Denies headache(s), Denies neck pain, Denies odynophagia and Denies sore throat Card Denies chest pain, Denies rapid heart rate, Denies irregular heart rhythm, Denies palpitations and Reports dyspnea on exertion (mild) Resp Denies chest congestion, Denies cough and Reports dyspnea on exertion (mild) GI Denies abdominal pain, Denies hematochezia, Denies constipation, Denies dysphagia, Denies heartburn, Denies diarrhea, Denies nausea, Denies odynophagia and Denies vomiting Reports hematuria (at times), Denies difficulty urinating, Reports dysuria (mild, at times), Reports nocturia and Reports urinary frequency (mostly at night) Musc Denies back pain, Denies arthralgias and Denies neck pain Skin/Breast Reports rash (recurrent, itchy) Neuro Reports dizziness (at times), Denies headache(s) and Denies paresthesias Psych Reports anxiety Endo Reports fatigue and Denies palpitations Physical exam (Primary Care) Vital Signs: Last Vital Signs Pulse 91 12/12/24 11:16 BP 142/68 H 12/12/24 11:16 Pulse Ox 98 12/12/24 11:16 Oxygen Delivery Method Room Air 12/12/24 11:16 BMI result Body Mass Index 21.8 Tobacco/Smoking Status: Tobacco use Status Tobacco use date assessed 12/12/24 12/12/24 11:22 Patient Tobacco Use Status Former Tobacco user 12/12/24 11:22 Tobacco use type Cigarette 12/12/24 11:22 e-Cigarette/Vaping Use Never Used 12/12/24 11:22 PHQ-9: PHQ-9 Score PHQ-9: Total score 6 12/12/24 12:13 Depression Screening Interpretation: Positive Depression Screening Follow-up: Follow-up Visit Requested Thrive Assessment: Date of Thrive Assessment Date Thrive assessed 12/12/24 12/12/24 11:22 Currently or been in a relationship where the following occur: No concerns reported Const General: no acute distress and alert HENMT Ears: TM's normal bilaterally and EAC's normal Throat: Yes posterior oropharynx normal and Yes tonsils normal (no TP congestion noted) Neck Neck: Yes supple and No lymphadenopathy Thyroid: Thyroid normal Resp Auscultation: clear to auscultation bilaterally, no rales and no wheezes Cardio Rate: regular rate Rhythm: regular rhythm Heart sounds: Clicking heart sound present (mid-systolic) and Murmur heart sound present systolic late, III/ and at the apex GI Palpation (GI): Soft to palpation and nontender Auscultation: normal bowel sounds General: Yes no CVA tenderness Back/Spine/Pelvis Back: no CVA tenderness Thoracic/Lumbar Spine: No lumbar spinal tenderness Skin Rashes: no rashes Extrem General: Yes no clubbing, cyanosis or edema Right lower extremity: knee Details: tenderness (mild) and normal ROM; no swelling and no crepitus Left lower extremity: knee Details: tenderness (mild) and normal ROM; no swelling Coding Level of Care Code Est Pt Level 4 (61659) Diagnoses Anemia D64.9 Anemia type: unspecified type Urinary tract infection N30.01 Hematuria presence: with hematuria Urinary tract infection type: acute cystitis Urinary frequency R35.0 ÁNGELA (acute kidney injury) N17.9 Essential hypertension I10 Elevated LFTs R79.89 Constipation, unspecified constipation type K59.00 Constipation type: unspecified constipation type Additional Codes PHQ-9 - 43238 - PHQ-9 Billing: Yes ([id number]) Assessment & Plan Assessment & Plan (1) Anemia: Code(s): D64.9 - Anemia, unspecified Category: Medical Qualifiers: Anemia type: unspecified type Qualified Code(s): D64.9 - Anemia, unspecified Plan: Will send patient for labs to recheck his H/H, which was at 8.1/24.7 when last checked a few weeks ago Continue Ferrous sulfate 325 mg QD (2) Urinary tract infection: Code(s): N39.0 - Urinary tract infection, site not specified Category: Medical Qualifiers: Hematuria presence: with hematuria Urinary tract infection type: acute cystitis Qualified Code(s): N30.01 - Acute cystitis with hematuria Plan: S/P Abx Tx with Augmentin a couple of days ago although patient reports that he is still experiencing some mild dysuria and nocturia Will recheck his urinalysis for further evaluation (3) Urinary frequency: Code(s): R35.0 - Frequency of micturition Category: Medical Plan: Discussed with patient that his nocturia is most likely due to BPH as he does not really have any urinary frequency during the daytime A urinary infection would have already resolved with his recent Abx Tx unless resistance is an issue and if his symptoms were due to a urinary tract infection, he would also have significant urinary frequency in the daytime Will have him recheck his serum PSA for further evaluation -- this was up slightly at 2.78 when it was last checked in February 2024 Will start him on a trial of Tamsulosin 0.4 mg Q HS to help alleviate his nocturia to allow him to be able to get some sleep Will refer him to urology for further evaluation and management (4) ÁNGELA (acute kidney injury): Code(s): N17.9 - Acute kidney failure, unspecified Category: Medical Plan: His renal function has significantly declined over the past few months as his serum creatinine and GFR have significantly decreased based on his labs done last month compared to his previous numbers back in February 2024 He used to see nephrology for poorly controlled HTN but has not been to see them since 2022 Will send him for repeat labs ASHER to recheck his renal function (5) Essential hypertension: Code(s): I10 - Essential (primary) hypertension Category: Medical Plan: Reinforced low sodium diet - goal is systolic BP of at least 120 to 130 mm or less Continue Amlodipine 10 mg QD and Losartan 50 mg QD Patient is reminded to continue monitoring his blood pressure regularly (6) Elevated LFTs: Code(s): R79.89 - Other specified abnormal findings of blood chemistry Category: Medical Plan: His LFTs were significantly elevated on his labs done last month Abdominal and pelvic CT done last month came out normal - no abnormalities were noted in the liver and spleen Will recheck his LFTs ASHER for follow up (7) Constipation: Code(s): K59.00 - Constipation, unspecified Category: Medical Qualifiers: Constipation type: unspecified constipation type Qualified Code(s): K59.00 - Constipation, unspecified Plan: His abdominal and pelvic CT done in the ER last month revealed findings of moderate colonic stool burden most pronounced within the ascending colon Reinforced increased oral fluids and dietary fiber intake Continue Colace 100 mg QD Plan Follow up as scheduled in 2 weeks Orders: Orders Prostate Specific Antigen 12/12/24 N17.9 - Acute kidney failure, unspecified, N40.0 - Benign prostatic hyperplasia without lower urinary tract symptoms Complete Blood Count Auto Diff 12/12/24 D64.9 - Anemia, unspecified, N17.9 - Acute kidney failure, unspecified Comprehensive Met. Panel 12/12/24 N17.9 - Acute kidney failure, unspecified IRON PROFILE 12/12/24 D50.9 - Iron deficiency anemia, unspecified, N17.9 - Acute kidney failure, unspecified Referrals Urology Referral R35.0 - Frequency of micturition Medications: New tamsulosin 0.4 mg PO BEDTIME 30 days 30 caps 1RF N40.1 - Benign prostatic hyperplasia with lower urinary tract symptoms, R35.1 - Nocturia
--- OUTSIDE RECORDS SUMMARY | 2024-12-12 11:21 | XMS_ITS | Patient Health Record ---
Author Organization [facility] Address [address] [place] [id number] Care Team Providers Care Operater Name Role Phone Jaquelin Pearson MDh Primary Care Provider Joshua Catalan Unavailable [phone] Reason For Referral No Information Medications Medication [...] Problem Status W/U Status Risk Notes Problem [id number] Encounter for screening for malignant neoplasm of colon (Z12.11) Active confirmed Problem [id number] Chronic hepatitis C without hepatic coma (B18.2) Active confirmed Problem [id number] Elevated liver enzymes (R74.8) Active confirmed Problem [id number] History of hepatitis C (Z86.19) Active confirmed Problem [id number] Liver fibrosis (K74.0) Active confirmed Plan Of [...] Date [employer] [address] [place] [phone] EMILIE BOOTH Self - patient is the [...] alcohol abuse--abstinent > 10 y ears Denies NV,DM,CVA,Lung disease,renal dise ase Previous substance abuse with abstinence for over 20 years BPH Surgical History Surgery Date(Month/Year) hand surgery
--- OUTSIDE RECORDS SUMMARY | 2024-12-12 11:21 | XMS_ITS | Clinical Summary ---
Author Organization [facility] Address [address] [place] [id number] Care Team Providers Care Pricing Consultant Name Role Phone Unavailable Primary Care Provider Unavailabl e Allergies No known active allergies Medications D3-1000 25 MCG (1000 UT) capsule Take 1,000 Units by mouth 1 (one) time each day 06/25/2022 Active amLODIPine (NORVASC) 10 MG tablet Take 10 mg by mouth 1 (one) time each day 07/16/2022 Active multivitamin-iro o-dhugsdib-wvpyl acid (CENTRUM) chewable tablet Chew 1 tablet [...] patient's age to complete this topic Insurance [place]
== END 2024-12-12 12:14 | disposition home or self-care (01) ==
LOC: HO.HMCH 11:14
PROVIDERS: PCP Internal Medicine; Visit Provider Internal Medicine
DX: D64.9 Anemia, unspecified (principal); N30.01 Acute cystitis with hematuria; R35.0 Frequency of micturition; N17.9 Acute kidney failure, unspecified; I10 Essential (primary) hypertension; R79.89 Other specified abnormal findings of blood chemistry; K59.00 Constipation, unspecified

== ENCOUNTER 2024-12-12 14:58 | Inpatient (IN) | payer OTHER, SELFPAY ==
[2024-12-12] VITALS (10 sets, daily range): BP systolic 118–139; BP diastolic 61–74; PULSE 75–86; RESP 15–19; TEMP 36.6–36.8; O2SAT 98–99; BMI 22.6
--- NOTE | 2024-12-12 15:09 | ED_ITS ---
HPI - Weakness General Chief complaint: Recheck/Abnormal Lab/Rx Stated complaint: states low blood count told by his doctor, dizzine Time Seen by Provider: 12/12/24 15:52 Source: patient and old records reviewed Mode of arrival: ambulatory Limitations: other (poor historian) History of Present Illness ED Provider: ANTHONY HPI Narrative: 79 yo male with PMH of anemia, CKD, HTN, HLD, anxiety, prior hep C states it was treated, s/p MV repair with annular ring in July of 2024 at [facility] with Dr. Day he states he only takes aspirin he comes in with c/o intermittent non clotting pink urine since August he did have a prolonged spicer post surgery. He just had a CT scan in October that showed no renal stones/cysts. He states he started the past few days with dyspnea and some fatigue. He feels weak. He did note dark stools x 1 week but he reports no blood in stool. He has no abdominal pain. He denies hematemesis. He states Dr. Shearer was his GI doctor and he states he always had normal colonoscopy. He had routine labs today via PCP and his hemoglobin went from 8.2 to 6.1 . He denies chest pain MD Complaint: generalized weakness Onset (ago): day(s) (3) Duration: constant Location: generalized Migration: none Severity: moderate Relieving factors: none Exacerbating factors: exertion Related Data Home Medications ?Medication ?Instructions ?Recorded ?Confirmed aspirin 81 mg tablet,delayed 81 mg PO DAILY 09/16/24 0 12/12/24 release Previous Rx's ?Medication ?Instructions ?Recorded mometasone 0.1 % topical cream 1 appl topical DAILY ID N rash #45 04/11/24 grams blood pressure monitor #1 ea 10/21/24 amlodipine 10 mg tablet 10 mg PO DAILY #90 tabs 07/22 losartan 50 mg tablet 50 mg PO DAILY #90 tabs 07/22 docusate sodium 100 mg capsule 100 mg PO DAILY constip ation 90 11/14/24 (Colace) days #90 caps ferrous sulfate 325 mg (65 mg 325 mg PO DAILY 90 days #90 tabs 11/14/24 iron) tablet (Feosol) food supplemt, lactose-reduced 1 ea PO TIDWMEAL 30 day s #90 11/14/24 (Ensure oral liquid) multiple units ondansetron 4 mg disintegrating 4 mg PO Q8H PRN nausea and 12/03/24 tablet vomiting 10 days #30 tabs tamsulosin 0.4 mg capsule 0.4 mg PO BEDTIME 30 days #3 0 caps 12/12/24 Allergies Allergy/AdvReac Type Severity Reaction Status Date / Time No Known Allergies (No Known Allergy Verified 12/12/24 15:13 Allergies*) Review of Systems Review of Systems: Constitutional : No Fever, No Chills, pos Fatigue ENT/Mouth : No sore throat, No Rhinorrhea Eyes: No Eye Pain, No Swelling, No Redness Cardiovascular : No Chest Pain, No SOB, No Dyspnea on Exertion Respiratory : No Cough, No Sputum Gastrointestinal : No Nausea, No Vomiting, No Diarrhea, No abdominal Pain, pos melena Genitourinary : No Dysuria, pos Urinary Frequency, pos Hematuria, Musculoskeletal : No joint pain, No Myalgias, No Joint Swelling Skin : No Skin Lesions, No rash Neuro : No Weakness, No Numbness, No Dizziness, no Headache All other systems reviewed and are negative [facility] Past Medical History Medical History Dermatitis Primary osteoarthritis of knees, bilateral Severe mitral valve regurgitation Mitral valve prolapse Non-rheumatic mitral regurgitation History of hepatitis C Benign essential hypertension Hypertension Overweight (BMI 25.0-29.9) Anxiety Urinary frequency Allergic rhinitis Osteoarthritis of left knee Vitamin D deficiency Pure hypercholesterolemia Impaired fasting glucose White coat syndrome with hypertension Surgical History History of mitral valve repair History of colonoscopy History of prostate surgery Family History Family History Father Hypertension Stroke Mother Medical history unknown Social History Social History Housing: House Alcohol intake: never Patient Tobacco Use Status: Former Tobacco user Tobacco use type: Cigarette Years Smoked: 25 years Smoked in Last 30 Days: No e-Cigarette/Vaping Use: Never Used Second Hand Smoke Exposure: Yes Use of substances other than those prescribed or required for medical reasons: No Advance Directives: No Advance Directives Information Provided: No Do you have a plan to hurt others: No Plan service: No Current occupational status: retired and disabled Cognitive needs: No Hearing needs: No Vision needs: Yes (Reading Glasses) Physical Exam Vital Signs: Vital Signs: Last Vital Signs Temp 98 F 12/12/24 15:10 Pulse 86 12/12/24 15:10 Resp 18 12/12/24 15:10 BP 139/74 12/12/24 15:10 Pulse Ox 98 12/12/24 15:10 O2 Del Method Room Air 12/12/24 15:10 BMI result Body Mass Index 22.6 Appearance: Alert. Oriented X3. No acute distress. Eyes: Pupils equal, round and reactive to light. ENT: Pharynx normal. Neck: Normal inspection. Neck supple. CVS: Normal heart rate and rhythm. Pulses normal. Respiratory: No respiratory distress. Breath sounds normal. Abdomen: Soft and nontender. Rectal: light brown stool Skin: Skin warm and dry. pale skin color. Extremities: No lower extremity edema. Neuro: Oriented X 3. No motor deficit. No sensory deficit. CN2-12 intact Course Course Course Narrative: Joana Garnica BOARD WRITER 12/12/24 1509 This is a rapid medical exam, deferred additional HPI, ROS and PE to primary provider. 78-year-old male with past medical history of severe mitral regurgitation s/p mitral valve repair with annual ring in July of 2024 at [facility] currently undergoing cardiac rehab, postoperative echocardiogram revealing mild to moderate mitral regurgitation with LVEF of 62%, hypertension, anxiety, hypercholesterolemia, impaired fasting glucose, hepatitis C here with abnormal labs. Been feeling dizzy, having hematuria. Will obtain T&S, EKG, UA, occult VSS Medications Administered Discontinued Medications Generic Name Dose Route Start Last Admin Trade Name Freq PRN Reason Stop Dose Admin Pantoprazole Sodium 40 mg 12/12/24 16:05 12/12/24 16:21 Pantoprazole Sodium 40 Mg/10 Ml Vial IVPUSH 12/12/24 16:06 40 mg ONCE ONE Administration Medical Decision Making Medical Decision Making [facility] Narrative: 79 yo male with PMH of anemia, CKD, HTN, HLD, anxiety, prior hep C states it was treated, s/p MV repair with annular ring in July of 2024 at [facility] now found to have hematuria has had this for a few months but had normal CT scan in October iven lack of pain I am going to hold off another CT scan he does have black stools so I will obtain labs, type and screen, IV protonix, 2 units PRBC. Will admit for further work up Differential Diagnosis Differential Diagnoses: The differential diagnosis associated with the presentation includes anemia, UGIB, FTT, Fe deficiency Admission/Observation Consideration of admission/observation: Escalation of care including admission/observation considered admit for further work up Consult Healthcare Provider Management of the patient was discussed with: Hospitalist Lab Data MDM Lab Attestation statement: I reviewed the patient's lab results. Labs: Lab Results 12/12/24 12/12/24 12/12/24 Range/Units 15:29 16:05 16:37 Urine Color Red A Urine Appearance Cloudy Urine pH 7.0 (5.0-9.0) Ur Specific [place] <= 1.005 (1.005-1.025) Urine Protein 100 (2+) H (Neg-Trace) mg/dL Urine Glucose (UA) Negative (Negative) mg/dL Urine Ketones Negative (Negative) mg/dL Urine Blood Large (3+) H (Negative) Urine Nitrite Negative (Negative) Ur Leukocyte Esterase Trace H (Negative) Stool Occult Blood NEGATIVE (NEGATIVE) Blood Type B Positive Antibody Screen NEGATIVE Crossmatch See Detail Independent Interpretation I performed an independent interpretation of an: EKG Interpretation: Rate: 84 Rhythm: NSR [place]: normal Normal P waves. Normal JEAN CLAUDE. Normal QRS complex. ST T wave : T wave inversion V1 and V2, no MELO qTC: 449 prior studies: no sig change from prior The study has been interpreted contemporaneously by me. . External Record Review External record reviewed: Inpatient record, Outpatient record and Prior outpat ient radiology Critical Care Time Critical Care Time Critical Care Time: Yes Total Critical Care Time: 35 Attestation: Time is exclusive of separately billable procedures. Time includes: direct patient care, patient reassessment, coordination of patient care, interpretation of data (laboratory data, pulse oximetry, review of patient's medical records, medical consultation and documentation of patient care. transfusion of 2 uPRBCs for ABLA. Procedures excluded from critical care time: N/A I attest to this time spent taking care of the patient Discharge Plan Discharge Clinical Impression: Anemia, Hematuria, Weakness Patient Disposition: Admitted As Inpatient Print Language: Malawian
--- NOTE | 2024-12-12 15:12 | ECG_ITS ---
Test Reason : weakness Blood Pressure : */* mmHG Vent. Rate : 84 BPM Atrial Rate : 84 BPM P-R Int : 158 ms QRS Dur : 94 ms QT Int : 380 ms P-R-T Axes : 12 12 49 degrees QTcB Int : 449 ms Normal sinus rhythm Normal ECG When compared with ECG of 25-May-2022 13:23, No significant change was found Referred By: Joana Garnica Electronically Signed By: Justyn Will
[2024-12-12 16:13] LABS: OBS Int Ctl Valid YES; OBS1 NEGATIVE (NEGATIVE)
[2024-12-12 16:47] LABS: Appearance Urine Cloudy; Glucose Urine UA Negative (Negative); PH 7.0 (5.0-9.0); Specific Gravity - Urine <= 1.005 (1.005-1.025); UMIC TRIGGER UACC YES
--- NOTE | 2024-12-12 17:51 | PHA.MEDREC ---
Addendum entered by Shila Joseph RPh 12/12/24 17:55: MED REC REVIEWED BY CRYSTAL Original Note: Pharmacy Consult ? Medication Reconciliation Pharmacy has completed the medication reconciliation. Patient was able to confirm all his medications.
--- NOTE | 2024-12-12 21:11 | PC.NURSE ---
Spoke to admitting provider Lucy Abreu regarding blood work - 2nd unit still running can draw be postponed until after second unit? Provider to change lab work to midnight.
--- NOTE | 2024-12-12 21:18 | P.HPHOSP_ITS ---
History of Present Illness Date of Service: 12/12/24 Attending physician on admission: Blaze Ellis Chief Complaint: hematuria Patient is a 79-year-old male with a past medical history significant for mitral valve repair in 07/2024 on aspirin, iron-deficiency anemia, CAD, HTN, HLD, anxiety, CKD3, and history hepatitis-C, who presented to the ED due gross hematuria, melena and dizziness. The patient reports that since having his mitral valve repair in July he has had intermittent gross hematuria, usually only pink tinged however for the past 2 days has been dark, cranberry colored without any clots. He did go home from his surgery with a Box catheter and reports that he had traumatic placement with multiple failed attempts. He denies any dysuria, frequency or urgency. He reports that he has been treated multiple times for urinary tract infection but has also been told that he did not actually have an infection. He denies any abdominal pain. He also reports melena which started after taking iron. He has been having dyspnea and fatigue for the past few days. On arrival the patient's hemoglobin was 6.1, hematocrit 19.2, fecal occult blood test negative. UA with large blood. PSA elevated at 4.89, was 2.78 in February. EKG with normal sinus rhythm. BMP with hyponatremia at 01:33 and bicarb of 18. Creatinine slightly elevated at 1.93, consistent with ÁNGELA on CKD. LFTs also elevated, patient denies any abdominal pain. Hepatitis-C was treated about [address] 1 month ago was negative for nephrolithiasis and liver appeared normal. Prostate mildly enlarged measuring up to 4.9 cm. No inguinal lymphadenopathy. Review of Systems 2 Constitutional: Constitutional: Denies body ache(s), Denies chills, Reports fatigue, Denies fever(s) and Denies headache(s) Eyes: Eyes: Denies change in vision ENT: Denies headache(s), Denies nasal discharge and Denies sore throat Cardiovascular: Cardiovascular: Denies chest pain, Denies rapid heart rate, Denies lightheadedness and Denies dyspnea Respiratory: Respiratory: Denies chest congestion, Denies cough, Denies dyspnea and Denies wheezing Gastrointestinal: Gastrointestinal: Denies abdominal pain, Denies diarrhea, Denies nausea and Denies vomiting Genitourinary: Genitourinary: Reports hematuria, Denies dysuria, Denies urinary frequency and Denies urinary urgency Musculoskeletal: Musculoskeletal: Denies back pain Integumentary/Breasts: Skin/Breast: Denies rash Neurologic: Denies confusion and Denies headache(s) Psychiatric: Psychiatric: Denies confusion Endocrine: Endocrine: Reports fatigue Hematologic/Lymphatic: Hematologic/Lymphatic: Reports easy bleeding and Denies easy bruising Allergic/Immunologic: Allergic/Immunologic: Denies wheezing [facility] Medical History Dermatitis Primary osteoarthritis of knees, bilateral Severe mitral valve regurgitation Mitral valve prolapse Non-rheumatic mitral regurgitation History of hepatitis C Benign essential hypertension Hypertension Overweight (BMI 25.0-29.9) Anxiety Urinary frequency Allergic rhinitis Osteoarthritis of left knee Vitamin D deficiency Pure hypercholesterolemia Impaired fasting glucose White coat syndrome with hypertension Functional capacity: independent ambulation Family History Father Hypertension Stroke Mother Medical history unknown Surgical History History of mitral valve repair History of colonoscopy History of prostate surgery Social History Housing: House Alcohol intake: never Patient Tobacco Use Status: Former Tobacco user Tobacco use type: Cigarette Years Smoked: 25 years Smoked in Last 30 Days: No e-Cigarette/Vaping Use: Never Used Second Hand Smoke Exposure: Yes Use of substances other than those prescribed or required for medical reasons: No Advance Directives: No Advance Directives Information Provided: No Do you have a plan to hurt others: No Plan Nutrition Risks: Poor intake 0-25% >4 days service: No Current occupational status: retired and disabled Cognitive needs: No Hearing needs: No Vision needs: Yes (Reading Glasses) Narrative: No smoking, alcohol or drug use Meds Allergies Allergy/AdvReac Type Severity Reaction Status Date / Time No Known Allergies (No Known Allergy Verified 12/12/24 23:21 Allergies*) Active Medications: Current Medications Acetaminophen (Acetaminophen 325 Mg Tablet) 650 mg PO Q6H PRN PRN Reason: Pain, Mild 1-3,fever,headache Amlodipine Besylate (Amlodipine Besylate 10 Mg Tablet) 10 mg PO DAILY SUE; Protocol Calcium Carbonate (Calcium Carbonate 750 Mg Tab.Chew) 750 mg PO Q4H PRN PRN Reason: Heartburn Docusate Sodium (Docusate Sodium 100 Mg Capsule) 100 mg PO DAILY SUE Ferrous Sulfate (Ferrous Sulfate 324 Mg Tablet.Dr) 324 mg PO DAILY SUE Losartan Potassium (Losartan Potassium 50 Mg Tablet) 50 mg PO DAILY SUE; Protocol Magnesium Hydroxide (Milk Of Magnesia 30 Ml Oral.Susp) 30 ml PO DAILY PRN PRN Reason: Constipation Melatonin (Melatonin 3 Mg Tablet) 6 mg PO BEDTIME PRN PRN Reason: Insomnia Ondansetron HCl (Ondansetron Hcl 4 Mg/2 Ml Vial) 4 mg IVPUSH Q8H PRN PRN Reason: Nausea and Vomiting Oxycodone HCl (Oxycodone Hcl Immed Release 5 Mg Tablet) 5 mg PO Q6H PRN PRN Reason: Pain, Severe (Pain Scale 7-10) Sodium Chloride (0.9 % Sodium Chloride Flush 3 Ml Syringe) 3 ml IVFLUSH QSHIFT [facility] Tramadol HCl (Tramadol Hcl 50 Mg Tablet) 50 mg PO Q6H PRN PRN Reason: Pain, Moderate(Pain Scale 4-6) Home Medications ?Medication ?Instructions ?Recorded ?Confirmed ?Last Taken ?Type aspirin 81 mg tablet,delayed 81 mg PO DAILY 09/16/24 0 12/12/24 12/12/24 History release food supplemt, lactose-reduced 1 ea PO DAILY 12/12/24 12/12/24 12/12/24 History (Ensure oral liquid) Physical Exam 2 Vital Signs and Narrative: Vital Signs: Last Vital Signs Temp 98.2 F 12/12/24 20:50 Pulse 77 12/12/24 20:50 Resp 18 12/12/24 20:50 BP 136/67 12/12/24 20:50 Pulse Ox 98 12/12/24 15:10 O2 Del Method Room Air 12/12/24 15:10 BMI result Body Mass Index 22.6 General: AOx3, no acute distress Resp: CTA bilaterally CVS: S1, S2, RRR GI/: +BS, NT, no distention. urinal beside with cranberry colored urine, not clots. Skin: Warm, dry Neuro: Cranial nerves II-XII grossly intact bilaterally. Motor grossly intact bilaterally Extremities: No LE edema Psych: Appropriate affect Const: General: No confusion Orientation/consciousness: No confusion Neuro: General: No confusion Results Labs 12/13/24 00:25 Labs: Laboratory Results - last 24 hr 12/12/24 12/12/24 12/12/24 15:29 16:05 16:37 Urine Color Red A Urine Appearance Cloudy Urine pH 7.0 Ur Specific [place] <= 1.005 Urine Protein 100 (2+) H Urine Glucose (UA) Negative Urine Ketones Negative Urine Blood Large (3+) H Urine Nitrite Negative Ur Leukocyte Esterase Trace H Urine RBC >20 H Urine WBC 0-5 Ur Squamous Epith Cells 3-5 Urine Bacteria None Seen Hyaline Casts 0-2 Stool Occult Blood NEGATIVE Blood Type B Positive Antibody Screen NEGATIVE Crossmatch See Detail Assessment and Plan (1) ABLA (acute blood loss anemia): Status: Acute (2) Gross hematuria: Status: Acute (3) Acute hyponatremia: Status: Acute (4) Metabolic acidosis: Status: Acute (5) Elevated LFTs: Status: Acute Plan Patient is a 79-year-old male with a past medical history significant for mitral valve repair in 07/2024 on aspirin, iron-deficiency anemia, CAD, HTN, HLD, anxiety, CKD3, and history hepatitis-C, who presented to the ED due gross hematuria, melena and dizziness.On arrival the patient's hemoglobin was 6.1, hematocrit 19.2, fecal occult blood test negative. UA with large blood. PSA elevated at 4.89, was 2.78 in February. EKG with normal sinus rhythm. BMP with hyponatremia at 01:33 and bicarb of 18. Creatinine slightly elevated at 1.93, consistent with ÁNGELA on CKD. LFTs also elevated, patient denies any abdominal pain. Hepatitis-C was treated about [address] 1 month ago was negative for nephrolithiasis and liver appeared normal. Prostate mildly enlarged measuring up to 4.9 cm. No inguinal lymphadenopathy. ABLA secondary to gross hematuria - persistent hematuria since traumatic catheterization in 08/22, worsening - UA negative for infection - hemoglobin 6.1, hematocrit 19.2 - PSA elevated at 4.89, was 2.78 03/23 - OBS negative, not true melena, likely dark due to iron supplementation - EKG with NSR - A/P CT 1 month ago without kidney stones or acute abnormalities - given 2 U PRBC in ED, 1 still transfusing - check H+H at 0000 - urology consult - NPO after midnight pending urology consult incase of procedure - reached out to urologist Dr Gonzalez x2, regarding CBI, pending response - follow CBC acute hyponatremia with metabolic acidosis - pt reports poor PO intake and appetite, lyte abnormalities likely due to poor PO intake - na 133, bicarb 18 - give 500ml NS to avoid dilution of blood transfusion - monitor lytes elevated LFTs - hx hep C - recent A/P CT without cirrhosis or biliary abnormalities - pt not having abd pain - likely secondary to anemia and hypoperfusion - check hep panel and hep C viral load - monitor LFTs ÁNGELA on CKD - cr 1.93, was -.89 in 03/23 - give 500ml NS - avoid nephrotoxins - follow cr s/p MV repair - hold ASA due to gross hematuria, resume when appropriate ENOC - continue iron CAD - hold ASA, resume when appropriate HTN - continue amlodipine and losartan HLD - no home meds poor appetite - continue ensure full code VTE prophy: pneumoboots Pt with acute blood loss anemia secondary to gross hematuria, requiring admission for at least 2 midnights stay for blood transfusion and urology consultation. Quality Stroke Does the patient have a stroke diagnosis?: No VTE Prior VTE?: No VTE Risk Level:: Medical - moderate - high VTE Device Contraindication: N/A - Device Ordered VTE Drug Contraindication: Treatment Not Indicated
[2024-12-13] VITALS (12 sets, daily range): BP systolic 103–145; BP diastolic 58–76; PULSE 65–78; RESP 15–20; TEMP 36.6–37; O2SAT 99–100
[2024-12-13 00:37] LABS: Hematocrit 22.6 % (42.0-52.0)
[2024-12-13 00:42] LABS: Hemoglobin 7.5 g/dl (14.0-18.0)
--- NOTE | 2024-12-13 00:45 | PC.NURSE ---
notified Dr. Majano of repeat h/h 7.5/22.6
[2024-12-13] MEDS: 0.9 % Sodium Chloride Flush 3 ML SYRINGE IVFLUSH ×3 (01:40→16:45)
--- NOTE | 2024-12-13 01:50 | PC.NURSE ---
Third unit of blood hung
--- NOTE | 2024-12-13 03:58 | PC.NURSE ---
blood product completed.
[2024-12-13 06:52] LABS: MANUAL DIFF FLAG NO
[2024-12-13 07:02] LABS: Hematocrit 27.9 % (42.0-52.0); Hemoglobin 9.5 g/dl (14.0-18.0); Imm Gran Abs Auto 0.03 X10*3/uL (0.00-0.03); Imm Gran Pct Auto 0.5 % (0.0-0.4); Lymphocytes Absolute Auto 1.0 X10*3/uL (1.2-4.9); Mean Corpuscular HGB Conc 34.1 g/dl (31.0-36.0); Mean Corpuscular Hemoglobin 31.5 pg (27.0-33.0); Mean Corpuscular Volume 92.4 fL (80.0-98.0); NRBC Abs Auto 0.000 X10*3/uL (0.0-0.012); NRBC Pct Auto 0.0 /100WBC (0.0-0.2); Platelet Count 156 X10*3/uL (160-400); Red Blood Count 3.02 X10*6/uL (4.60-5.80); White Blood Count 6.1 X10*3/uL (4.8-10.8)
[2024-12-13 07:18] LABS: Alanine Aminotransferase 52 U/L (0-40); Albumin Level 4.0 g/dL (3.5-5.0); Alkaline Phosphatase 44 U/L (39-117); Anion Gap 14 (12-20); Aspartate Amino Transferase 263 U/L (5-37); Blood Urea Nitrogen 39 mg/dL (9-16); Calcium 9.2 mg/dL (8.4-10.2); Carbon Dioxide 19 mmol/L (22-29); Chloride 113 mmol/L (96-108); Creatinine Clr Calc Pharmacy 30.9; Estimated Glomerular Filt Rate 38; Potassium 4.4 mmol/L (3.3-5.1); Sodium 142 mmol/L (135-145); Total Protein 7.2 g/dL (6.5-8.0)
[2024-12-13 08:30] LABS: HBS Num1 120.82 mIU/mL (0-7.99); HBc Num1 10.96 S/CO (0.00-0.79); HBsAGNum1 0.36 S/CO (0.00-0.99); Hepatitis A Antibody IgM 0.34 Index (0-0.79); Hepatitis B Surface Antigen Negative (Negative); ~HepC Num1 13.06 S/CO (0.00-0.79); ~Hepatitis A Antibody IgM Nonreactive (Nonreactive); ~Hepatitis B Surface Antibody REACTIVE (Nonreactive); ~Hepatitis C Antibody Reactive (Nonreactive)
[2024-12-13] MEDS: Ferrous Sulfate 324 MG TABLET.DR PO (08:46)
--- NOTE | 2024-12-13 08:51 | PC.NURSE ---
This RN assumed care of patient @ 0700 Patient A&O x 3 VSS and up to date, patient on monitor NSR Urinals at bedside containing dark red urine. Patient denies pain Patient NPO at this time Patient awaiting urology consult
[2024-12-13 10:31] LABS: HBc Num2 11.15 S/CO; HBc Num3 11.45 S/CO
--- NOTE | 2024-12-13 11:59 | P.PNIM_ITS ---
Subjective Subjective Date of Service: 12/13/24 Physical Exam 2 Vital Signs: Vital Signs: Last Vital Signs Temp 98.1 F 12/13/24 11:52 Pulse 78 12/13/24 11:52 Resp 17 12/13/24 11:52 BP 145/71 H 12/13/24 11:52 Pulse Ox 100 12/13/24 11:52 O2 Del Method Room Air 12/13/24 11:52 BMI result Body Mass Index 22.6 Objective Data Active Medications Acetaminophen (Acetaminophen 325 Mg Tablet) 650 mg PO Q6H PRN PRN Reason: Pain, Mild 1-3,fever,headache Amlodipine Besylate (Amlodipine Besylate 10 Mg Tablet) 10 mg PO DAILY [facility]; Protocol Last Admin: 12/13/24 08:46 Dose: 10 mg Documented By: SALVADOR Calcium Carbonate (Calcium Carbonate 750 Mg Tab.Chew) 750 mg PO Q4H PRN PRN Reason: Heartburn Docusate Sodium (Docusate Sodium 100 Mg Capsule) 100 mg PO DAILY [facility] Last Admin: 12/13/24 08:46 Dose: 100 mg Documented By: SALVADOR Ferrous Sulfate (Ferrous Sulfate 324 Mg Tablet.Dr) 324 mg PO DAILY [facility] Last Admin: 12/13/24 08:46 Dose: 324 mg Documented By: SALVADOR Losartan Potassium (Losartan Potassium 50 Mg Tablet) 50 mg PO DAILY [facility]; Protocol Last Admin: 12/13/24 08:46 Dose: 50 mg Documented By: SALVADOR Magnesium Hydroxide (Milk Of Magnesia 30 Ml Oral.Susp) 30 ml PO DAILY PRN PRN Reason: Constipation Melatonin (Melatonin 3 Mg Tablet) 6 mg PO BEDTIME PRN PRN Reason: Insomnia Ondansetron HCl (Ondansetron Hcl 4 Mg/2 Ml Vial) 4 mg IVPUSH Q8H PRN PRN Reason: Nausea and Vomiting Oxycodone HCl (Oxycodone Hcl Immed Release 5 Mg Tablet) 5 mg PO Q6H PRN PRN Reason: Pain, Severe (Pain Scale 7-10) Sodium Chloride (0.9 % Sodium Chloride Flush 3 Ml Syringe) 3 ml IVFLUSH QSHIFT [facility] Last Admin: 12/13/24 08:49 Dose: 3 ml Documented By: SALVADOR Tramadol HCl (Tramadol Hcl 50 Mg Tablet) 50 mg PO Q6H PRN PRN Reason: Pain, Moderate(Pain Scale 4-6) Labs 12/13/24 06:23 12/13/24 06:23 Labs: Laboratory Results - last 24 hr 12/12/24 12/12/24 12/12/24 15:29 16:05 16:37 MCV MCH MCHC RDW Plt Count MPV Immature Gran % (Auto) Neut % (Auto) Lymph % (Auto) [place] % (Auto) Eos % (Auto) Baso % (Auto) Lymph # (Auto) [place] # (Auto) Eos # (Auto) Baso # (Auto) Abs Immat Gran (auto) Absolute Neuts (auto) Absolute Nucleated RBC Nucleated RBC % (auto) Anion Gap Estim Creat Clear Calc Estimated GFR Random Glucose Calcium Total Bilirubin Direct Bilirubin AST ALT Alkaline Phosphatase Total Protein Albumin Hold Yellow Top Urine Color Red A Urine Appearance Cloudy Urine pH 7.0 Ur Specific [place] <= 1.005 Urine Protein 100 (2+) H Urine Glucose (UA) Negative Urine Ketones Negative Urine Blood Large (3+) H Urine Nitrite Negative Ur Leukocyte Esterase Trace H Urine RBC >20 H Urine WBC 0-5 Ur Squamous Epith Cells 3-5 Urine Bacteria None Seen Hyaline Casts 0-2 Stool Occult Blood NEGATIVE Hepatitis A IgM Ab Hep Bs Antigen Hep Bs Antibody Hep B Core Total Ab Hep B Core IgM Ab Hepatitis C Ab (EIA) Blood Type B Positive Antibody Screen NEGATIVE Crossmatch See Detail 12/13/24 12/13/24 00:25 06:23 MCV 92.4 D MCH 31.5 MCHC 34.1 RDW 23.5 H Plt Count 156 L MPV TNP Immature Gran % (Auto) 0.5 H Neut % (Auto) 67.9 Lymph % (Auto) 16.7 L [place] % (Auto) 12.6 H Eos % (Auto) 1.6 Baso % (Auto) 0.7 Lymph # (Auto) 1.0 L [place] # (Auto) 0.8 Eos # (Auto) 0.1 Baso # (Auto) 0.0 Abs Immat Gran (auto) 0.03 Absolute Neuts (auto) 4.1 Absolute Nucleated RBC 0.000 Nucleated RBC % (auto) 0.0 Anion Gap 14 Estim Creat Clear Calc 30.9 Estimated GFR 38 Random Glucose 89 Calcium 9.2 Total Bilirubin 2.6 H Direct Bilirubin 0.5 AST 263 H ALT 52 H Alkaline Phosphatase 44 Total Protein 7.2 Albumin 4.0 Hold Yellow Top See Note Urine Color Urine Appearance Urine pH Ur Specific [place] Urine Protein Urine Glucose (UA) Urine Ketones Urine Blood Urine Nitrite Ur Leukocyte Esterase Urine RBC Urine WBC Ur Squamous Epith Cells Urine Bacteria Hyaline Casts Stool Occult Blood Hepatitis A IgM Ab Nonreactive Hep Bs Antigen Negative Hep Bs Antibody REACTIVE Hep B Core Total Ab Reactive Hep B Core IgM Ab Cancelled Hepatitis C Ab (EIA) Reactive H Blood Type Antibody Screen Crossmatch Assessment and Plan (1) Hematuria: Status: Acute Plan 79-year-old male with a past medical history significant for mitral valve repair in 07/2024 on aspirin, iron-deficiency anemia, CAD, HTN, HLD, anxiety, CKD3, and history hepatitis-C, who presented to the ED due gross hematuria, melena and dizziness.On arrival the patient's hemoglobin was 6.1, hematocrit 19.2, fecal occult blood test negative. UA with large blood. PSA elevated at 4.89, was 2.78 in February. EKG with normal sinus rhythm. BMP with hyponatremia at 01:33 and bicarb of 18. Creatinine slightly elevated at 1.93, consistent with ÁNGELA on CKD. LFTs also elevated, patient denies any abdominal pain. Hepatitis-C was treated about [address] 1 month ago was negative for nephrolithiasis and liver appeared normal. Prostate mildly enlarged measuring up to 4.9 cm. No inguinal lymphadenopathy. ABLA secondary to gross hematuria - persistent hematuria since traumatic catheterization in 08/22, worsening - UA negative for infection - hemoglobin 6.1, hematocrit 19.2 - PSA elevated at 4.89, was 2.78 03/23 - OBS negative, not true melena, likely dark due to iron supplementation - EKG with NSR - A/P CT 1 month ago without kidney stones or acute abnormalities - given 2 U PRBC in ED, 1 still transfusing - check H+H at 0000 - urology consult - NPO after midnight pending urology consult in case of procedure - follow CBC acute hyponatremia with metabolic acidosis - pt reports poor PO intake and appetite, lyte abnormalities likely due to poor PO intake - na 133, bicarb 18 - give 500ml NS to avoid dilution of blood transfusion - monitor lytes elevated LFTs - hx hep C - recent A/P CT without cirrhosis or biliary abnormalities - pt not having abd pain - likely secondary to anemia and hypoperfusion - check hep panel and hep C viral load - monitor LFTs ÁNGELA on CKD - cr 1.93, was -.89 in 03/23 - give 500ml NS - avoid nephrotoxins - follow cr s/p MV repair - hold ASA due to gross hematuria, resume when appropriate ENOC - continue iron CAD - hold ASA, resume when appropriate HTN - continue amlodipine and losartan HLD - no home meds poor appetite - continue ensure full code VTE prophy: pneumoboots Pt with acute blood loss anemia secondary to gross hematuria, requiring admission for at least 2 midnights stay for blood transfusion and urology consultation. Quality Stroke Does the patient have a stroke diagnosis?: No VTE Prior VTE?: No VTE Risk Level:: Medical - moderate - high VTE Device Contraindication: N/A - Device Ordered VTE Drug Contraindication: Treatment Not Indicated
--- NOTE | 2024-12-13 12:14 | PM.UROCN ---
History of Present Illness Consult details Consult date: 12/13/24 Narrative: CC: hematuria 79-year-old male Mitral valve repair 08/22 on aspirin Presents to emergency room with gross hematuria and dizziness Underwent laser prostatectomy in 2023 BPH Reports intermittent hematuria started following mitral valve repair in July. This was mentioned to cardiac surgery and Cardiology who adjusted anticoagulation. Time of surgery required catheterization and reports that this had been traumatic. Prior evaluation for UTI has been negative. Mildly elevated creatinine at 1.9 on arrival. WBC 6.1. Imaging - reports CT scan proximally 1 month ago showed no evidence of stones. Oddly enlarged prostate 4.9 cm. Currently is urinating dark blood stained urine. Minimal clots. If unable to empty would require CBI. Will require outpatient cystoscopy Review of Systems Constitutional: Constitutional: Reports as per HPI and Reports no additional constitutional complaints Cardiovascular: Cardiovascular: Reports as per HPI and Reports no additional cardiovascular complaints Respiratory: Respiratory: Reports as per HPI and Reports no additional respiratory complaints Gastrointestinal: Gastrointestinal: Reports as per HPI and Reports no additional gastrointestinal complaints Genitourinary: Genitourinary: Reports as per HPI Musculoskeletal: Musculoskeletal: Reports no additional musculoskeletal complaints and Reports as per HPI Neurologic: Reports system reviewed and no additional complaints, except as documented and Reports as per HPI [facility] Past Medical History Medical History (Updated 12/13/24 @ 01:31 by Chris Pearson MD) Essential hypertension Dermatitis Primary osteoarthritis of knees, bilateral Severe mitral valve regurgitation Mitral valve prolapse Non-rheumatic mitral regurgitation History of hepatitis C Benign essential hypertension Hypertension Overweight (BMI 25.0-29.9) Anxiety Urinary frequency Allergic rhinitis Osteoarthritis of left knee Vitamin D deficiency Pure hypercholesterolemia Impaired fasting glucose White coat syndrome with hypertension Family History Family History Father Hypertension Stroke Mother Medical history unknown Surgical History Surgical History History of mitral valve repair History of colonoscopy History of prostate surgery Social History Social History Housing: House Alcohol intake: never Patient Tobacco Use Status: Former Tobacco user Tobacco use type: Cigarette Years Smoked: 25 years Smoked in Last 30 Days: No e-Cigarette/Vaping Use: Never Used Second Hand Smoke Exposure: Yes Use of substances other than those prescribed or required for medical reasons: No Advance Directives: No Advance Directives Information Provided: No Do you have a plan to hurt others: No Plan Nutrition Risks: Poor intake 0-25% >4 days service: No Current occupational status: retired and disabled Cognitive needs: No Hearing needs: No Vision needs: Yes (Reading Glasses) Meds Allergies Allergy/AdvReac Type Severity Reaction Status Date / Time No Known Allergies (No Known Allergy Verified 12/12/24 23:21 Allergies*) Active Medications: Current Medications Acetaminophen (Acetaminophen 325 Mg Tablet) 650 mg PO Q6H PRN PRN Reason: Pain, Mild 1-3,fever,headache Amlodipine Besylate (Amlodipine Besylate 10 Mg Tablet) 10 mg PO DAILY [facility]; Protocol Last Admin: 12/13/24 08:46 Dose: 10 mg Calcium Carbonate (Calcium Carbonate 750 Mg Tab.Chew) 750 mg PO Q4H PRN PRN Reason: Heartburn Docusate Sodium (Docusate Sodium 100 Mg Capsule) 100 mg PO DAILY [facility] Last Admin: 12/13/24 08:46 Dose: 100 mg Ferrous Sulfate (Ferrous Sulfate 324 Mg Tablet.Dr) 324 mg PO DAILY [facility] Last Admin: 12/13/24 08:46 Dose: 324 mg Losartan Potassium (Losartan Potassium 50 Mg Tablet) 50 mg PO DAILY [facility]; Protocol Last Admin: 12/13/24 08:46 Dose: 50 mg Magnesium Hydroxide (Milk Of Magnesia 30 Ml Oral.Susp) 30 ml PO DAILY PRN PRN Reason: Constipation Melatonin (Melatonin 3 Mg Tablet) 6 mg PO BEDTIME PRN PRN Reason: Insomnia Ondansetron HCl (Ondansetron Hcl 4 Mg/2 Ml Vial) 4 mg IVPUSH Q8H PRN PRN Reason: Nausea and Vomiting Oxycodone HCl (Oxycodone Hcl Immed Release 5 Mg Tablet) 5 mg PO Q6H PRN PRN Reason: Pain, Severe (Pain Scale 7-10) Sodium Chloride (0.9 % Sodium Chloride Flush 3 Ml Syringe) [address] [facility] Last Admin: 12/13/24 08:49 Dose: 3 ml Tramadol HCl (Tramadol Hcl 50 Mg Tablet) 50 mg PO Q6H PRN PRN Reason: Pain, Moderate(Pain Scale 4-6) Home Medications ?Medication ?Instructions ?Recorded ?Confirmed ?Last Taken ?Type aspirin 81 mg tablet,delayed 81 mg PO DAILY 09/16/24 12/12/24 12/12/24 History release food supplemt, lactose-reduced 1 ea PO DAILY 12/12/24 12/12/24 12/12/24 History (Ensure oral liquid) Physical Exam Vital Signs: Vital Signs: Last Vital Signs Temp 98.1 F 12/13/24 11:52 Pulse 78 12/13/24 11:52 Resp 17 12/13/24 11:52 BP 145/71 H 12/13/24 11:52 Pulse Ox 100 12/13/24 11:52 O2 Del Method Room Air 12/13/24 11:52 BMI result Body Mass Index 22.6 Const: General: cooperative, healthy appearing, comfortable and no acute distress Orientation/consciousness: patient oriented x3 HEENT: Face and sinus: Yes normal facial exam Mouth: moist mucous membranes Neck: Neck: Yes normal visual inspection, Yes full ROM and Yes trachea midline Chest: Chest palpation & inspection: normal inspection of the chest Resp: Effort & Inspection: normal respiratory effort, able to speak in complete sentences and no respiratory distress GI: Inspection: Yes normal to inspection Back/Spine/Pelvis: Cervical Spine: normal cervical lordosis Thoracic/Lumbar Spine: thoracic and lumbar spine normal to inspection Skin: General skin exam: no rashes or lesions noted Neuro: General: patient oriented x3, tone normal and moves all extremities Extrem: General: Yes normal to inspection and Yes capillary refill normal Results Labs 12/13/24 06:23 12/13/24 06:23 Labs: Abnormal lab results 12/12/24 12/12/24 12/13/24 Range/Units 15:29 16:37 00:25 RBC (4.60-5.80) X10*6/uL Hgb 7.5 L D (14.0-18.0) g/dl Hct 22.6 L (42.0-52.0) % RDW (11.0-16.0) % Plt Count (160-400) X10*3/uL Immature Gran % (Auto) (0.0-0.4) % Lymph % (Auto) (20-40) % [place] % (Auto) (2-11) % Lymph # (Auto) (1.2-4.9) X10*3/uL Chloride (96-108) mmol/L Carbon Dioxide (22-29) mmol/L BUN (9-16) mg/dL Creatinine (0.5-1.4) mg/dL Total Bilirubin (0.0-1.0) mg/dL AST (5-37) U/L ALT (0-40) U/L Urine Color Red A Urine Protein 100 (2+) H (Neg-Trace) mg/dL Urine Blood Large (3+) H (Negative) Ur Leukocyte Esterase Trace H (Negative) Urine RBC >20 H (0-2) /HPF Hepatitis C Ab (EIA) Reactive H (Nonreactive) Crossmatch See Detail 12/13/24 Range/Units 06:23 RBC 3.02 L D (4.60-5.80) X10*6/uL Hgb 9.5 L D (14.0-18.0) g/dl Hct 27.9 L D (42.0-52.0) % RDW 23.5 H (11.0-16.0) % Plt Count 156 L (160-400) X10*3/uL Immature Gran % (Auto) 0.5 H (0.0-0.4) % Lymph % (Auto) 16.7 L (20-40) % [place] % (Auto) 12.6 H (2-11) % Lymph # (Auto) 1.0 L (1.2-4.9) X10*3/uL Chloride 113 H (96-108) mmol/L Carbon Dioxide 19 L (22-29) mmol/L BUN 39 H (9-16) mg/dL Creatinine 1.74 H (0.5-1.4) mg/dL Total Bilirubin 2.6 H (0.0-1.0) mg/dL AST 263 H (5-37) U/L ALT 52 H (0-40) U/L Urine Color Urine Protein (Neg-Trace) mg/dL Urine Blood (Negative) Ur Leukocyte Esterase (Negative) Urine RBC (0-2) /HPF Hepatitis C Ab (EIA) (Nonreactive) Crossmatch Short CBC 12/13/24 12/13/24 Range/Units 00:25 06:23 WBC 6.1 (4.8-10.8) X10*3/uL Hgb 7.5 L D 9.5 L D (14.0-18.0) g/dl Hct 22.6 L 27.9 L D (42.0-52.0) % Plt Count 156 L (160-400) X10*3/uL BMP 12/13/24 06:23 Sodium 142 Potassium 4.4 Chloride 113 H Carbon Dioxide 19 L BUN 39 H Creatinine 1.74 H Calcium 9.2 Liver Function 12/13/24 12/13/24 Range/Units 00:25 06:23 Total Bilirubin 2.6 H (0.0-1.0) mg/dL Direct Bilirubin 0.5 (0.0-0.5) mg/dL AST 263 H (5-37) U/L ALT 52 H (0-40) U/L Alkaline Phosphatase 44 (39-117) U/L Albumin 4.0 (3.5-5.0) g/dL Urine 12/12/24 Range/Units 16:37 Urine Color Red A Urine Appearance Cloudy Urine pH 7.0 (5.0-9.0) Ur Specific [place] <= 1.005 (1.005-1.025) Urine Protein 100 (2+) H (Neg-Trace) mg/dL Urine Glucose (UA) Negative (Negative) mg/dL All other labs normal. Assessment and Plan (1) Gross hematuria: Status: Acute Plan Hematuria without clots Will require CBI if clot formation Otherwise can be seen for outpatient cystoscopy next week Procedures Date of Service Date of Service: 12/13/24
--- NOTE | 2024-12-13 15:10 | MHC.CM.PN ---
Addendum entered by Jenniffer Whiteside 12/13/24 15:11: Pt also stated he went to outpatient rehab at [facility]. Original Note: IMM given 12/13. Pt self-care, lives alone at home, states he has [employer] services. Pt states his brother is his HCP, copy requested. Pt will arrange his own transport home at discharge. PCP: Dr. Chris Pearson
[2024-12-14 01:38] VITALS: BP 107/60; PULSE 69; RESP 18; TEMP 36.5; O2SAT 99
[2024-12-14 05:17] VITALS: BP 114/66; PULSE 68; RESP 17; O2SAT 98
[2024-12-14 06:23] VITALS: BP 112/61; PULSE 71; RESP 16; O2SAT 99
[2024-12-14 06:30] LABS: MANUAL DIFF FLAG NO
[2024-12-14 06:41] LABS: Hematocrit 29.2 % (42.0-52.0); Hemoglobin 9.8 g/dl (14.0-18.0); Imm Gran Abs Auto 0.02 X10*3/uL (0.00-0.03); Imm Gran Pct Auto 0.3 % (0.0-0.4); Lymphocytes Absolute Auto 1.1 X10*3/uL (1.2-4.9); Mean Corpuscular HGB Conc 33.6 g/dl (31.0-36.0); Mean Corpuscular Hemoglobin 31.7 pg (27.0-33.0); Mean Corpuscular Volume 94.5 fL (80.0-98.0); NRBC Abs Auto 0.000 X10*3/uL (0.0-0.012); NRBC Pct Auto 0.0 /100WBC (0.0-0.2); Platelet Count 163 X10*3/uL (160-400); Red Blood Count 3.09 X10*6/uL (4.60-5.80); White Blood Count 6.7 X10*3/uL (4.8-10.8)
[2024-12-14 06:50] LABS: Alanine Aminotransferase 54 U/L (0-40); Albumin Level 4.1 g/dL (3.5-5.0); Alkaline Phosphatase 48 U/L (39-117); Anion Gap 14 (12-20); Aspartate Amino Transferase 277 U/L (5-37); Blood Urea Nitrogen 37 mg/dL (9-16); Calcium 9.3 mg/dL (8.4-10.2); Carbon Dioxide 19 mmol/L (22-29); Chloride 113 mmol/L (96-108); Creatinine Clr Calc Pharmacy 34.4; Estimated Glomerular Filt Rate 43; Potassium 4.2 mmol/L (3.3-5.1); Sodium 142 mmol/L (135-145); Total Protein 7.2 g/dL (6.5-8.0)
--- NOTE | 2024-12-14 07:31 | PM.DS ---
DS: Providers Provider Date of Service: 12/14/24 Date of admission: 12/12/24 19:23 Date of discharge: 12/14/24 Primary care physician: Chris Pearson MD Consults: 12/12/24 20:23 Consult to Urology Routine Consulting Provider: [facility] Reason for consultation: acute blood loss anemia, gross hematuria Has provider been notified: No DS: Diagnosis Discharge Diagnosis (1) Gross hematuria: Status: Acute (2) Hematuria: Status: Acute DS: Summary Hospital Course Hospital Course: History and physical as per admitting provider. Patient is a 79-year-old male with a past medical history significant for mitral valve repair in 07/2024 on aspirin, iron-deficiency anemia, CAD, HTN, HLD, anxiety, CKD3, and history hepatitis-C, who presented to the ED due gross hematuria, melena and dizziness. The patient reports that since having his mitral valve repair in July he has had intermittent gross hematuria, usually only pink tinged however for the past 2 days has been dark, cranberry colored without any clots. He did go home from his surgery with a Box catheter and reports that he had traumatic placement with multiple failed attempts. He denies any dysuria, frequency or urgency. He reports that he has been treated multiple times for urinary tract infection but has also been told that he did not actually have an infection. He denies any abdominal pain. He also reports melena which started after taking iron. He has been having dyspnea and fatigue for the past few days. On arrival the patient's hemoglobin was 6.1, hematocrit 19.2, fecal occult blood test negative. UA with large blood. PSA elevated at 4.89, was 2.78 in February. EKG with normal sinus rhythm. BMP with hyponatremia at 01:33 and bicarb of 18. Creatinine slightly elevated at 1.93, consistent with ÁNGELA on CKD. LFTs also elevated, patient denies any abdominal pain. Hepatitis-C was treated about [address] 1 month ago was negative for nephrolithiasis and liver appeared normal. Prostate mildly enlarged measuring up to 4.9 cm. No inguinal lymphadenopathy. ABLA secondary to gross hematuria - persistent hematuria since traumatic catheterization in 08/22, no clots and passing urine - UA negative for infection - hemoglobin 6.1, hematocrit 19.2 initially - PSA elevated at 4.89, was 2.78 03/23 - OBS negative, not true melena, likely dark due to iron supplementation - EKG with NSR - A/P CT 1 month ago without kidney stones or acute abnormalities - given 2 U PRBC in ED - urology consult> plan for o/p cystoscopy acute hyponatremia with metabolic acidosis, pt reports poor PO intake and appetite, lyte abnormalities likely due to poor PO intake elevated LFTs. hx hep C, recent A/P CT without cirrhosis or biliary abnormalities ÁNGELA on CKD. Resolved , treated with IV fluids s/p MV repair ENOC continue iron CAD on asa HTN continue amlodipine and losartan HLD no home meds poor appetite continue ensure Time Attestation Discharge Coordination Time (in mins): 40 Quality: Safe Use of Opioids Does Pt have an Active Cancer Diagnosis on the Problem List?: No Quality: Stroke Does the patient have a stroke diagnosis?: No Physical Exam Exam: Exam: Appearing in no acute distress head is normocephalic atraumatic eyes pupils are PERRLA sclera is anicteric mouth throat mucous membranes are intact and moist neck is supple no lymphadenopathy, no JVD noted lung sounds are clear to auscultation heart regular rate rhythm, clear S1, S2 positive bowel sounds, abdomen is soft, nontender neuro patient is alert x3, no focal deficits Vital Signs: Vital Signs: Last Vital Signs Temp 97.7 F 12/14/24 01:38 Pulse 71 12/14/24 06:23 Resp 16 12/14/24 06:23 BP 112/61 12/14/24 06:23 Pulse Ox 99 12/14/24 06:23 O2 Del Method Room Air 12/14/24 06:23 BMI result Body Mass Index 22.6 DS: Data Data Completed and Pending Labs on day of discharge: Laboratory Results - last 24 hr 12/13/24 12/14/24 00:25 06:11 WBC 6.7 RBC 3.09 L Hgb 9.8 L Hct 29.2 L MCV 94.5 MCH 31.7 MCHC 33.6 RDW 24.1 H Plt Count 163 MPV TNP Immature Gran % (Auto) 0.3 Neut % (Auto) 69.2 Lymph % (Auto) 16.5 L [place] % (Auto) 11.0 Eos % (Auto) 2.4 Baso % (Auto) 0.6 Lymph # (Auto) 1.1 L [place] # (Auto) 0.7 Eos # (Auto) 0.2 Baso # (Auto) 0.0 Abs Immat Gran (auto) 0.02 Absolute Neuts (auto) 4.6 Absolute Nucleated RBC 0.000 Nucleated RBC % (auto) 0.0 Sodium 142 Potassium 4.2 Chloride 113 H Carbon Dioxide 19 L Anion Gap 14 BUN 37 H Creatinine 1.56 H Estim Creat Clear Calc 34.4 Estimated GFR 43 Random Glucose 89 Calcium 9.3 Total Bilirubin 3.0 H AST 277 H ALT 54 H Alkaline Phosphatase 48 Total Protein 7.2 Albumin 4.1 Hepatitis A IgM Ab Nonreactive Hep Bs Antigen Negative Hep Bs Antibody REACTIVE Hep B Core Total Ab Reactive Hep B Core IgM Ab Cancelled Hepatitis C Ab (EIA) Reactive H Discharge Plan Discharge Anticipated Discharge Date/Time: 12/14/24 07:27 Patient Disposition: Home, Self-Care Discharge Diagnosis: Acute blood loss anemia Hematuria Referrals: Chris Pearson MD [Primary Care Provider, Internal Medicine] - 1 Week Emir Gonzalez MD [Physician, Urology] - 1 Week Discharge Medications: Continued (DME) blood pressure monitor Kit See Rx Instructions .Route Qty: 1 0RF Rx Instructions: As directed ondansetron 4 mg tablet,disintegrating 4 mg PO Q8H PRN (Reason: nausea and vomiting) 10 Days Qty: 30 1RF Ensure Liquid 1 ea PO DAILY aspirin 81 mg tablet,delayed release (DR/EC) 81 mg PO DAILY losartan 50 mg tablet 50 mg PO DAILY Qty: 90 3RF amlodipine 10 mg tablet 10 mg PO DAILY Qty: 90 3RF ferrous sulfate [Feosol] 325 mg (65 mg iron) tablet 325 mg PO DAILY 90 Days Qty: 90 0RF docusate sodium [Colace] 100 mg capsule 100 mg PO DAILY 90 Days Qty: 90 0RF Discharge Orders: Discharge Order (Routine); Ordered 12/14/24 Ordered By: Ana Cooper Diet: Advance to usual diet Activity on Discharge: As tolerated Stand Alone Forms: Patient Portal Discharge page Print Language: Cypriot Other Ambulatory Orders: Complete Blood Count no Diff (Routine) Timeframe: 2 Days Facility: [facility] - Location: Laboratory Ordered By: Ana Cooper Care Plan Goals: Follow up with Dr. Gonzalez in 1 week for possible cystoscopy Health Concerns: Acute blood loss anemia Hematuria Plan of Treatment: Follow up with primary care provider as needed Take all medications as prescribed Assessment: See discharge summary
[2024-12-14 09:17] VITALS: BP 132/80; PULSE 77; RESP 18; TEMP 36.6; O2SAT 98
[2024-12-16 19:54] LABS: HCV Log PCR <1.18 NOT DETECTED Log IU/mL (NOT DETECTED); HepC Viral Load <15 NOT DETECTED IU/mL (NOT DETECTED)
== END 2024-12-14 08:37 | disposition home or self-care (01) | DRG 696 ==
LOC: HO.ED 16:58 → HO.EDOVER 19:36 → HO.IMC 12-14 07:17 → HO.EDOVER 12-14 08:33
PROVIDERS: Nurse Practitioner Family; Physician Assistant; Admitting Provider Internal Medicine; Emergency Provider Emergency Medicine; PCP Internal Medicine; Visit Provider Nurse Practitioner Acute Care
DX: R31.0 Gross hematuria (principal); D62 Acute posthemorrhagic anemia; E87.1 Hypo-osmolality and hyponatremia; E87.20 Acidosis, unspecified; E78.5 Hyperlipidemia, unspecified; N17.9 Acute kidney failure, unspecified; Z86.19 Personal history of other infectious and parasitic diseases; Z79.82 Long term (current) use of aspirin; Z79.899 Other long term (current) drug therapy
CPT/HCPCS: 36415; 80053; 81001; 82248; 82272; 85014; 85018; 85025; 86704; 86706; 86709; 86803; 86850; 86900; 86901; 86923; 87340; 87522; 93005; 99285; J2470; P9016

== ENCOUNTER → 2024-12-12 15:12 | Outpatient (BNV) | payer OTHER, SELFPAY | PROVIDERS: Admitting Provider Internal Medicine; Emergency Provider Emergency Medicine; PCP Internal Medicine; Visit Provider Internal Medicine Cardiovascular Disease | DX: R53.1 Weakness (principal) | CPT/HCPCS: 93010 ==

== ENCOUNTER → 2024-12-12 19:23 | Outpatient (BNV) | payer OTHER, SELFPAY | PROVIDERS: Admitting Provider Internal Medicine; Emergency Provider Emergency Medicine; PCP Internal Medicine; Visit Provider Urology | DX: R31.0 Gross hematuria (principal) | CPT/HCPCS: 99221 ==

== ENCOUNTER → 2024-12-12 19:23 | Outpatient (BNV) | payer OTHER, SELFPAY | PROVIDERS: Admitting Provider Internal Medicine; Emergency Provider Emergency Medicine; PCP Internal Medicine; Visit Provider Physician Assistant | DX: D62 Acute posthemorrhagic anemia (principal); R31.0 Gross hematuria; E87.1 Hypo-osmolality and hyponatremia; E87.20 Acidosis, unspecified; R79.89 Other specified abnormal findings of blood chemistry | CPT/HCPCS: 99223; 99232 ==

== ENCOUNTER 2024-12-25 13:02 | Outpatient (REF) | payer OTHER, SELFPAY | END 2024-12-25 13:03 | disposition home or self-care (01) | LOC: HO.LAB 13:02 | PROVIDERS: PCP Internal Medicine; Visit Provider Internal Medicine | DX: I34.0 Nonrheumatic mitral (valve) insufficiency (principal); I10 Essential (primary) hypertension; D64.9 Anemia, unspecified; Z79.82 Long term (current) use of aspirin; N32.0 Bladder-neck obstruction; R31.0 Gross hematuria | CPT/HCPCS: 52000; 81003; 87086; 87088; 87186; 99212 ==

== ENCOUNTER 2024-12-25 13:02 | Outpatient (AMB) | payer OTHER, SELFPAY ==
--- NOTE | 2024-12-25 13:10 | A.OFFVIS_ITS ---
Vital Signs 12/25/24 13:11 Height 5 ft 6 in Weight 132 lb 4.438 oz BMI 21.3 BP 140/78 H Blood Pressure Location Lt brachial Position Sitting Pulse 80 Pulse Source Pulse Oximeter Intake Visit Reasons: 3 month f/up Allergies No Known Allergies (No Known Allergies*) Allergy (Verified 12/12/24 23:21) Medication List - Last Reconciled 12/25/24 by Javier Cummings MD amlodipine 10 mg PO DAILY aspirin 81 mg PO DAILY blood pressure monitor As directed ferrous sulfate (Feosol) 325 mg PO DAILY 90 days food supplemt, lactose-reduced (Ensure oral liquid) 1 ea PO DAILY losartan 50 mg PO DAILY tamsulosin 0.4 mg PO BEDTIME HPI Comments Details: Chacho returns for follow-up regarding mitral regurgitation. To recall, he had severe mitral regurgitation from a flail posterior leaflet. Subsequently, he was seen by cardiac surgery and underwent mitral valve repair in july 2024. He is doing cardiac rehabilitation. He states he feels fine. He has got no car diac complaints and denies any clear-cut angina or shortness of breath or anything along those lines. It seems that recently got diagnosed with anemia and not clear why. Per notes, it seems he was actually hospitalized for gross hematuria, question of being related to traumatic Box placement. Hemoglobin as low as 6.1. He got 2 units of packed red blood cells. Subsequently, urology had seen him on eventually was discharged home. Currently, he has got no clear- cut complaints. On review of labs, it seems there was also question of hemolytic anemia but not pursued at that time. [facility] Medical History (Updated 12/25/24 @ 13:33 by Javier Cummings MD) Anemia Elevated LFTs Essential hypertension Dermatitis Primary osteoarthritis of knees, bilateral Severe mitral valve regurgitation Mitral valve prolapse Non-rheumatic mitral regurgitation History of hepatitis C Benign essential hypertension Hypertension Overweight (BMI 25.0-29.9) Anxiety Urinary frequency Allergic rhinitis Osteoarthritis of left knee Vitamin D deficiency Pure hypercholesterolemia Impaired fasting glucose White coat syndrome with hypertension Surgical History History of mitral valve repair History of colonoscopy History of prostate surgery Family History Father Hypertension Stroke Mother Medical history unknown Social History Housing: House Alcohol intake: never Patient Tobacco Use Status: Former Tobacco user Tobacco use type: Cigarette Years Smoked: 25 years e-Cigarette/Vaping Use: Never Used Second Hand Smoke Exposure: Yes service: No Current occupational status: retired and disabled Cognitive needs: No Hearing needs: No Vision needs: Yes (Reading Glasses) Review of Systems Const Denies weakness ENT Denies dizziness Card Denies chest pain, Denies chest pain with activity, Denies syncope, Denies rapid heart rate, Denies pedal edema, Denies edema, Denies leg edema, Denies lightheadedness, Denies palpitations, Denies dyspnea, Denies dyspnea on exertion and Denies orthopnea Resp Denies cough, Denies dyspnea and Denies dyspnea on exertion GI Denies hematochezia and Denies change in stool character Musc Denies abnormal gait, Denies muscle cramps, Denies muscle weakness, Denies numbness, Denies radiating pain into limb and Denies tingling Neuro Denies abnormal gait, Denies dizziness, Denies syncope, Denies numbness, Denies tingling and Denies weakness Endo Denies palpitations Physical Exam Vital Signs: Last Vital Signs Pulse 80 12/25/24 13:11 BP 140/78 H 12/25/24 13:11 BMI result Body Mass Index 21.3 Const General: comfortable and no acute distress Orientation/consciousness: patient oriented x3 HEENT Other: Unremarkable Head: Yes normal to inspection Neck Neck: Yes normal visual inspection Chest Chest palpation & inspection: normal inspection of the chest Resp Auscultation: clear to auscultation bilaterally Cardio Palpation: normal PMI Heart sounds: S1 normal heart sound present, S2 normal heart sound present, no gallops, Murmur heart sound present systolic III/ and at the apex and no rubs GI Palpation (GI): Soft to palpation Back/Spine/Pelvis Other: unremarkable Skin General skin exam: no rashes or lesions noted Neuro General: patient oriented x3 Extrem General: Yes normal to inspection Psych Mental Status: mental status grossly normal Assessment & Plan Assessment & Plan (1) Non-rheumatic mitral regurgitation: Code(s): I34.0 - Nonrheumatic mitral (valve) insufficiency Category: Medical Plan: Status post mitral valve repair-07/2024. Cardiac catheterization shows normal coronaries. In the postoperative echocardiogram, there is glxi-[id number] mitral regurgitation status post repair. Preserved LVEF at 62%. Continue in fact endocarditis prophylaxis per protocol. Aspirin 81 mg daily. Continue cardiac rehabilitation. (2) Benign essential hypertension: Code(s): I10 - Essential (primary) hypertension Category: Medical Plan: Continue amlodipine/losartan. (3) Anemia: Code(s): D64.9 - Anemia, unspecified Category: Medical Qualifiers: Anemia type: unspecified type Qualified Code(s): D64.9 - Anemia, unspecified Plan: Unclear if it is all from blood loss from hematuria versus hemolytic anemia. Needs further workup. Discussed with Dr. Ansari, referral made. Plan Discussion NotesI discussed with the patient the need for a referral to a dining room hostess to evaluate his anemia, specifically hemolytic anemia, and the potential need for further blood tests to determine the cause. We also reviewed his current medications for hypertension, including losartan and amlodipine, and the importance of continuing these medications. The patient was advised to monitor his blood pressure at home and to continue follow-up with his urologist. Patient was informed and verbally consented to the use of an ambient scribe for clinic note documentation during this visit. Orders: Orders CA echo transthoracic complete 3 Months I34.0 - Nonrheumatic mitral (valve) insufficiency Referrals Hematology & Oncology Referral D64.9 - Anemia, unspecified Patient Instructions: - Follow up with the dining room hostess for further evaluation of anemia. - Continue taking losartan and amlodipine as prescribed for hypertension. - Monitor blood pressure at home regularly. - Continue follow-up with the urologist. Coding Level of Care Code Est Pt Level 4 (02776) Complex EM visit Add On G2211 Diagnoses Non-rheumatic mitral regurgitation I34.0 Benign essential hypertension I10 Anemia D64.9 Anemia type: unspecified type
[2024-12-25 13:11] VITALS: BP 140/78; PULSE 80; BMI 21.3
--- OUTSIDE RECORDS SUMMARY | 2024-12-25 13:41 | XMS_ITS | Encounter Summary ---
Author Organization [facility] Address [address] [place] [address] Phone Care Team Providers Care Undertaker Assistant Name Role Phone Unavailable Primary Care Provider Unavailabl e Encounter Details Date Type Department Care Team (Late st Contact Info) Description 09/14/2022 Documentation Only [facility] [address] [facility] [address] [place] [address] Deepti Vela MA Social History [...]
--- OUTSIDE RECORDS SUMMARY | 2024-12-25 13:41 | XMS_ITS | Clinical Summary ---
Author Organization [facility] Address [address] [place] [id number] Care Team Providers Care Crm Consultant Name Role Phone Unavailable Primary Care Provider Unavailabl e Allergies No known active allergies Medications D3-1000 25 MCG (1000 UT) capsule Take 1,000 Units by mouth 1 (one) time each day 06/25/2022 Active amLODIPine (NORVASC) 10 MG tablet Take 10 mg by mouth 1 (one) time each day 07/16/2022 Active multivitamin-iro s-bjgcgczm-nyoqi acid (CENTRUM) chewable tablet Chew 1 tablet [...] patient's age to complete this topic Insurance [place]
--- OUTSIDE RECORDS SUMMARY | 2024-12-25 13:41 | XMS_ITS | Patient Health Record ---
Author Organization [facility] Address [address] [place] [address] Care Team Providers Care Pharmacy Stock Clerk Name Role Phone Jaquelin Pearson MDh Primary Care Provider Joshua Catalan Unavailable [phone] Reason For Referral No Information Medications Medication [...] Problem Status W/U Status Risk Notes Problem [id number] Encounter for screening for malignant neoplasm of colon (Z12.11) Active confirmed Problem 464128894 Chronic hepatitis C without hepatic coma (B18.2) Active confirmed Problem 092738354 Elevated liver enzymes (R74.8) Active confirmed Problem 79029278491484 History of hepatitis C (Z86.19) Active confirmed Problem 15037308 Liver fibrosis (K74.0) Active confirmed Plan Of Treatment Pending Test Test Name Order Date LIVER PROFILE 05/06/2015 LIVER PROFILE 09/29/2015 LIVER PROFILE 06/13/2015 CBC w DIFF 06/13/2015 CBC w DIFF [...] Date [employer] [address] [place] [id number] EMILIE BOOTH Self - patient is the [...]
== END 2024-12-25 13:29 | disposition home or self-care (01) ==
LOC: HO.HCS 13:03
PROVIDERS: PCP Internal Medicine; Visit Provider Internal Medicine
DX: I34.0 Nonrheumatic mitral (valve) insufficiency (principal); I10 Essential (primary) hypertension; D64.9 Anemia, unspecified
CPT/HCPCS: 99214; G2211

== ENCOUNTER 2024-12-25 14:03 | Outpatient (AMB) | payer OTHER, SELFPAY ==
--- NOTE | 2024-12-25 14:05 | A.OFFVIS_ITS ---
Intake Visit Reasons: Cysto (approved by Bettina) Intake Note: Patient is present for cystoscopy Urology Rx:none Blood Thinners:asprin Imaging completed: none Casting Cleaner Required: No Accompanied by: Self / Same As Patient Allergies No Known Allergies (No Known Allergies*) Allergy (Verified 12/25/24 14:06) HPI Comments Details: Chacho is a pleasant male. He is a patient of Dr. Pearson. He is seen for the following urologic conditions - gross hematuria Gross hematuria Upper tract imaging normal Cystoscopy with regrowth and neovascularity of prostate Recommend repeat GreenLight laser procedure Lower urinary tract symptoms Had been longstanding 2020 GreenLight laser [facility] Medical History (Updated 12/25/24 @ 15:01 by Emir Gonzalez MD) Anemia Elevated LFTs Essential hypertension Dermatitis Primary osteoarthritis of knees, bilateral Severe mitral valve regurgitation Mitral valve prolapse Non-rheumatic mitral regurgitation History of hepatitis C Benign essential hypertension Hypertension Overweight (BMI 25.0-29.9) Anxiety Urinary frequency Allergic rhinitis Osteoarthritis of left knee Vitamin D deficiency Pure hypercholesterolemia Impaired fasting glucose White coat syndrome with hypertension Surgical History History of mitral valve repair History of colonoscopy History of prostate surgery Family History Father Hypertension Stroke Mother Medical history unknown Social History Housing: House Alcohol intake: never Patient Tobacco Use Status: Former Tobacco user Tobacco use type: Cigarette Years Smoked: 25 years e-Cigarette/Vaping Use: Never Used Second Hand Smoke Exposure: Yes service: No Current occupational status: retired and disabled Cognitive needs: No Hearing needs: No Vision needs: Yes (Reading Glasses) Review of Systems Const Denies chills and Denies fever(s) Card Reports no additional complaints and Denies syncope Resp Denies cough GI Denies abdominal pain and Denies heartburn Reports as per HPI and Denies change in libido Neuro Denies syncope Psych Denies change in libido Endo Denies change in libido Physical Exam Const General: cooperative, healthy appearing, comfortable and no acute distress Orientation/consciousness: patient oriented x3 HEENT Face and sinus: Yes normal facial exam Mouth: moist mucous membranes Neck Neck: Yes normal visual inspection, Yes full ROM and Yes trachea midline Chest Chest palpation & inspection: normal inspection of the chest Resp Effort & Inspection: normal respiratory effort, able to speak in complete sentences and no respiratory distress GI Inspection: Yes normal to inspection Back/Spine/Pelvis Cervical Spine: normal cervical lordosis Thoracic/Lumbar Spine: thoracic and lumbar spine normal to inspection Skin General skin exam: no rashes or lesions noted Neuro General: patient oriented x3, gait normal, tone normal and moves all extremities Extrem General: Yes normal to inspection and Yes capillary refill normal Office Procedures Cystoscopy Consent Discussed risk and benefit or proposed procedure with the patient. Information consent for procedure given to the patient. Discussed technical aspects, risks, benefits and alternatives in full. Addressed all of the patient's questions and concerns regarding the procedure. The patient demonstrated knowledge and understanding. They wish to proceed with this procedure. Preparation The patient was prepped in the usual manner. A grassroots organizer was present and in the room. Genitalia was prepped with betadine solution in a sterile manner. Lidocaine Jelly 2% was placed into the urethra and 16Fr flexible Olympus cystoscope was inserted into the meatus after adequate lubrication. Procedure Cystoscopy performed using a disposable Urovue digital 16 [place] Island[place] cystoscope. Meatus circumcised Urethra anterior and posterior urethra normal Prostatic Urethra lateral left lobe regrowth with neovascularity Bladder examination with retroflexion of cystoscope Bladder Orifices normal shape and position Bladder Capacity Normal Trabeculations grade 1 Cellule Formation None Diverticulum Formation None Mucosal Erythema None Bladder Tumor None [id number]-[id number] DISPOSABLE SCOPE URO-G FLEXIBLE SCOPE Procedure code (CPT) selection complete Office Meds lidocaine HCl 2 % mucosal jelly in applicator Performing Provider: Emir Gonzalez MD Performing Location: [facility] Administered by: Delroy Ramos LPN on 12/25/24 14:32 Dose Route Admin Location Dispensed Lot Number Expiration Date ND Pail Tester 10 mL intra-urethral 10 mL nitrofurantoin monohydrate/macrocrystals 100 mg capsule Performing Provider: Emir Gonzalez MD Performing Location: [facility] Administered by: Delroy Ramos LPN on 12/25/24 14:32 Dose Route Admin Location Dispensed Lot Number Expiration Date ND Pail Tester 100 mg PO 1 cap Assessment & Plan Assessment & Plan (1) Gross hematuria: Code(s): R31.0 - Gross hematuria Category: Medical (2) Bladder outlet obstruction: Code(s): N32.0 - Bladder-neck obstruction Category: Medical Plan We discussed the nature of the decision and reasonable options for performing a prostate intervention. Interventions include TURP, GreenLight laser enucleation of the prostate, GreenLight laser ablation of the prostate, transurethral incision of the prostate, and I-Tend prostate procedure. Options such as medical therapy were discussed. The relative uncertainties and benefits related to each alternate procedure were adequately discussed. General surgical risks including, but not limited to, pain, bleeding, infection, myocardial infarction, pulmonary embolus, deep vein thrombosis and cerebrovascular accident which may result in further hospitalization were discussed. Full disclosure of the procedure as well as all major risks, benefits and complications were discussed including but not limited to damage to the urethra or bladder neck, recurrent BPH, retrograde ejaculation, bladder infection, urge, de matt frequency, incomplete emptying, dysuria, remote chance of erectile dysfunction, epididymitis, and meatal stenosis. The success rate of the procedure was discussed. Success of the procedure in the short-term does not necessarily guarantee that long-term success will be maintained. Suitable follow up will need to be maintained. The patient showed understanding of discussion. An opportunity was provided for questions to be answered and wishes to proceed with the following procedure. - GreenLight laser prostatectomy Orders: Orders AMB Cystoscopy Today R31.0 - Gross hematuria, R35.0 - Frequency of micturition, R80.9 - Proteinuria, unspecified Patient Instructions: This note is constructed using voice recognition software. While every effort has been made to ensure accuracy rubber washer errors may have been included. Imaging studies, laboratory and physical exam results were discussed and reviewed in detail. No major barriers to patient understanding were identified. An opportunity to ask questions regarding the treatment plan was provided. All questions were answered. The patient expressed understanding and agreement with the above treatment plan. The patient is aware they should contact our office by phone for worsening of their current condition or the appearance of new urologic symptoms. Compliance is encouraged with any medications and followup testing that is ordered. It is a privilege to participate in the urologic care of your patient. If you have any questions or concerns regarding treatment for the above conditions, or other urologic issues, please do not hesitate to contact me. The office telephone contact is [phone]. Sincerely, Dr Emir Gonzalez MD, [facility] - Urology Compassionate Specialist Care for the Genitourinary System Coding Level of Care Code Est Pt Level 4 (65334) Complex EM visit Add On G2211 Diagnoses Gross hematuria R31.0 Bladder outlet obstruction N32.0 CPT Codes Cystoscopy - CPT: [id number]-[id number] ([id number])
== END 2024-12-25 15:02 | disposition home or self-care (01) ==
LOC: HO.HUSH 14:03
PROVIDERS: PCP Internal Medicine; Visit Provider Urology
DX: R31.0 Gross hematuria (principal); N32.0 Bladder-neck obstruction; R80.9 Proteinuria, unspecified; N39.0 Urinary tract infection, site not specified; R35.0 Frequency of micturition
CPT/HCPCS: 52000; 99214

== ENCOUNTER 2025-01-08 07:50 | Outpatient (REF) | payer OTHER, SELFPAY ==
--- OUTSIDE RECORDS SUMMARY | 2025-01-08 07:53 | XMS_ITS | Encounter Summary ---
Author Organization [facility] Address [address] [place] [address] Phone Care Team Providers Care Senior Research Engineer Name Role Phone Unavailable Primary Care Provider Unavailabl e Encounter Details Date Type Department Care Team (Late st Contact Info) Description 09/14/2022 Documentation Only [facility] [address] [facility] [address] [place] [address] Deepti Vela MA Social History [...]
--- OUTSIDE RECORDS SUMMARY | 2025-01-08 07:53 | XMS_ITS | Patient Health Record ---
Author Organization [facility] Address [address] [place] [address] Care Team Providers Care Plastics Patternmaker Name Role Phone Jaquelin Pearson MDh Primary Care Provider Joshua Catalan Unavailable [phone] Reason For Referral No Information Medications Medication [...] Problem Status W/U Status Risk Notes Problem [id number] Encounter for screening for malignant neoplasm of colon (Z12.11) Active confirmed Problem 615818272 Chronic hepatitis C without hepatic coma (B18.2) Active confirmed Problem 833290382 Elevated liver enzymes (R74.8) Active confirmed Problem 00769381731730 History of hepatitis C (Z86.19) Active confirmed Problem 60015502 Liver fibrosis (K74.0) Active confirmed Plan Of [...] Date [employer] [address] [place] [phone] EMILIE BOOTH Self - patient is the [...] alcohol abuse--abstinent > 10 y ears Denies MS,DM,CVA,Lung disease,renal dise ase Previous substance abuse with abstinence for over 20 years BPH Surgical History Surgery Date(Month/Year) hand surgery
--- OUTSIDE RECORDS SUMMARY | 2025-01-08 07:53 | XMS_ITS | Clinical Summary ---
Author Organization [facility] Address [address] [place] [address] Care Team Providers Care Machine Maintenance Mechanic Name Role Phone Unavailable Primary Care Provider Unavailabl e Allergies No known active allergies Medications D3-1000 25 MCG (1000 UT) capsule Take 1,000 Units by mouth 1 (one) time each day 06/25/2022 Active amLODIPine (NORVASC) 10 MG tablet Take 10 mg by mouth 1 (one) time each day 07/16/2022 Active multivitamin-iro l-dyrsscsd-ejdhf acid (CENTRUM) chewable tablet Chew 1 tablet [...] patient's age to complete this topic Insurance [employer]
[2025-01-08 08:55] LABS: Mean Corpuscular HGB Conc 32.1 g/dl (31.0-36.0); Mean Corpuscular Hemoglobin 31.7 pg (27.0-33.0); Mean Corpuscular Volume 98.5 fL (80.0-98.0); NRBC Abs Auto 0.000 X10*3/uL (0.0-0.012); NRBC Pct Auto 0.0 /100WBC (0.0-0.2); Platelet Count 195 X10*3/uL (160-400); Red Blood Count 1.99 X10*6/uL (4.60-5.80); White Blood Count 6.5 X10*3/uL (4.8-10.8)
[2025-01-08 09:05] LABS: Appearance Urine Cloudy; Glucose Urine UA Negative (Negative); PH 5.5 (5.0-9.0); Specific Gravity - Urine 1.020 (1.005-1.025); UMIC TRIGGER UACC YES
[2025-01-08 09:06] LABS: Hematocrit 19.6 % (42.0-52.0); Hemoglobin 6.3 g/dl (14.0-18.0)
[2025-01-08 09:10] LABS: Alanine Aminotransferase 50 U/L (0-40); Albumin Level 4.3 g/dL (3.5-5.0); Alkaline Phosphatase 47 U/L (39-117); Anion Gap 16 (12-20); Aspartate Amino Transferase 214 U/L (5-37); Blood Urea Nitrogen 35 mg/dL (9-16); Calcium 9.2 mg/dL (8.4-10.2); Carbon Dioxide 17 mmol/L (22-29); Chloride 110 mmol/L (96-108); Estimated Glomerular Filt Rate 36; Potassium 4.4 mmol/L (3.3-5.1); Sodium 139 mmol/L (135-145); Total Protein 7.7 g/dL (6.5-8.0)
[2025-01-08 09:44] LABS: Basophils Abs Manual 0.1 X10*3/uL (0.0-0.2); Basophils Percent Manual 1 % (0-2); Eosinophils Absolute Manual 0.1 X10*3/uL (0.0-0.4); Eosinophils Percent Manual 1 % (0-4); Lymphocytes Absolute Manual 1.4 X10*3/uL (1.2-4.9); Lymphocytes Percent Manual 21 % (20-40); Monocytes Absolute Manual 0.3 X10*3/uL (0.1-1.2); Monocytes Percent Manual 5 % (2-11); Neutrophils Percent Manual 72 % (45-73)
[2025-01-08 09:45] LABS: Band Neutrophils Percent 0 % (3-5); Neutrophils Absolute Manual 4.7 X10*3/uL (2.0-8.3)
[2025-01-08 09:46] LABS: Macrocytosis 1+ (5-14) /OIF; RBC Morphology NOTED; Schistocytes 3+ (>5) /OIF
== END 2025-01-08 07:51 | disposition home or self-care (01) ==
LOC: HO.LAB 07:50
PROVIDERS: PCP Internal Medicine; Visit Provider Internal Medicine
DX: I10 Essential (primary) hypertension (principal); R80.9 Proteinuria, unspecified; D64.9 Anemia, unspecified; R30.0 Dysuria; N17.9 Acute kidney failure, unspecified
CPT/HCPCS: 36415; 80053; 81001; 81003; 85007; 85025; 85027

== ENCOUNTER 2025-01-08 14:35 | Inpatient (IN) | payer OTHER, SELFPAY ==
[2025-01-08] VITALS (11 sets, daily range): BP systolic 120–150; BP diastolic 59–74; PULSE 70–80; RESP 10–18; TEMP 36.5–36.9; O2SAT 96–100; BMI 22.4
--- NOTE | ~2025-01-08 | CT_ITS ---
EXAMINATION: CT ABDOMEN AND PELVIS WITHOUT CONTRAST CLINICAL INFORMATION: Anemia, hematuria. COMPARISON: 03/13/2025 TECHNIQUE: Multidetector volumetric imaging was performed from the superior aspect of the liver through the pubic symphysis. Sagittal and coronal reformatted images were obtained on the technologist's workstation. This CT examination was performed using dose optimization techniques as appropriate, variously including the following: *Automated exposure control *Adjustment of mA and/or kV according to patient size (this includes techniques or standardized protocols for targeted exams where dose is matched to indication/reason for exam; i.e. extremities or head) *Use of iterative reconstruction technique. DLP: 385 mGy centimeter. FINDINGS: Inadequate evaluation of the intra-abdominal solid organs and vascular structures due to lack of IV contrast LUNG BASES: No gross acute airspace disease. LIVER, GALLBLADDER, AND BILIARY TREE: Liver measures 14 cm. Subtle nodular surface. Multifocal less than 1 cm hypodensities in the parenchyma. Gallbladder is nondistended. No pericholecystic fluid collection or gallbladder wall thickening. No intrahepatic or extrahepatic biliary ductal dilatation. PANCREAS: No peripancreatic fluid collection. No main pancreatic ductal dilatation. SPLEEN: 10 cm. Accessory spleens. ADRENAL GLANDS: Soft tissue fullness both adrenal glands without discrete nodular lesion. KIDNEYS AND URETERS: No hydronephrosis. No nephrolithiasis. Less than 1 cm hypodensities in the right kidney. No dilatation of the uterus. BLADDER: Fluid-filled nearly collapsed. GASTROINTESTINAL TRACT: #7 diverticula throughout the large intestine mostly in the left hemicolon. Abundant stool. No intestinal obstruction pattern. Appendix is normal. No pneumatosis intestinalis. No gross intestinal wall thickening. Small hiatal hernia. No gross ascites. No pneumoperitoneum. ABDOMINAL WALL: Small fat-containing umbilical hernia. LYMPH NODES: No mesenteric or retroperitoneal lymphadenopathy. VASCULAR: Calcified plaques in the mitral valve, abdominal aorta wall. No gross aneurysm in the abdominal aorta. PELVIC VISCERA: Prostate gland measures 5 cm slightly prominent with mild extrinsic compression deformity upon the urinary bladder floor. OSSEOUS STRUCTURES: Multilevel thoracolumbar spondylosis. No acute fracture. No gross listhesis. Degenerative changes in the sacroiliac joints, symphysis pubis and coxofemoral joints. CT/CT abdomen pelvis wo IV con IMPRESSION: No hydronephrosis or nephrolithiasis. 5 cm prominent prostate gland concerning benign prostate hyperplasia in the correct clinical settings. Diverticular disease. Subcentimeter hypodense liver lesions not fully evaluated.. Concerning hepatocellular dysfunction in the correct clinical settings. Multilevel thoracolumbar spondylosis. Fleischner guidelines were followed. Electronically signed by: Michael Haskins MD 01/09/2025 07:41 AM EDT
--- NOTE | 2025-01-08 14:47 | ED.GENADULT ---
[facility] - General Adult General Chief complaint: Recheck/Abnormal Lab/Rx Stated complaint: blood transfusion Time Seen by Provider: 01/08/25 15:51 Source: patient Mode of arrival: ambulatory Limitations: no limitations History of Present Illness ED Provider: Dr. Soria HPI narrative: 79-year-old male history of hypertension, hematuria, acute kidney injury, hyperlipidemia presents to ER today for evaluation of fatigue exertional shortness of breath. Feeling weaker than usual. Patient's stated that he had at patient's lab work performed which shows a hemoglobin of 6.1. He stated for the past 2 months he has been having hematuria. He did have a workup performed by Urology which did not show any signs of bladder mass on cystoscopy. He is not currently on any blood thinner at this time. Patient is here his frustration that he does not know the source of hematuria. He was recently admitted for symptomatic anemia as well secondary to this issue. Related Data Home Medications ?Medication ?Instructions ?Recorded ?Confirmed aspirin 81 mg tablet,delayed 81 mg PO DAILY 09/16/24 01/08/25 release docusate sodium 100 mg capsule 100 mg PO DAILY constipation 01/08/25 01/08/25 metoprolol tartrate 25 mg tablet 50 mg PO BID 01/08/25 01/08/25 Previous Rx's ?Medication ?Instructions ?Recorded blood pressure monitor #1 ea 10/21/24 amlodipine 10 mg tablet 10 mg PO DAILY #90 tabs 10/30/24 losartan 50 mg tablet 50 mg PO DAILY #90 tabs 10/30/24 ferrous sulfate 325 mg (65 mg 325 mg PO DAILY 90 days #90 tabs 11/14/24 iron) tablet (Feosol) Allergies Allergy/AdvReac Type Severity Reaction Status Date / Time No Known Allergies (No Known Allergy Verified 01/08/25 14:49 Allergies*) Review of Systems Review of Systems: Pertinent review of systems as mentioned in HPI. All other system otherwise negative. [facility] Past Medical History [facility] Narrative: Medical history as mentioned in [facility] Medical History (Updated 01/08/25 @ 22:52 by Kathryn Soria DO) Anemia Elevated LFTs Essential hypertension Dermatitis Primary osteoarthritis of knees, bilateral Severe mitral valve regurgitation Mitral valve prolapse Non-rheumatic mitral regurgitation History of hepatitis C Benign essential hypertension Hypertension Overweight (BMI 25.0-29.9) Anxiety Urinary frequency Allergic rhinitis Osteoarthritis of left knee Vitamin D deficiency Pure hypercholesterolemia Impaired fasting glucose White coat syndrome with hypertension Surgical History History of mitral valve repair History of colonoscopy History of prostate surgery Family History Family History Father Hypertension Stroke Mother Medical history unknown Social History Social History Housing: House Alcohol intake: never Patient Tobacco Use Status: Former Tobacco user Tobacco use type: Cigarette Years Smoked: 25 years Smoked in Last 30 Days: No e-Cigarette/Vaping Use: Never Used Second Hand Smoke Exposure: Yes Use of substances other than those prescribed or required for medical reasons: No Advance Directives: No Advance Directives Information Provided: Yes Nutrition Risks: No Nutritional Risk service: No Current occupational status: retired and disabled Cognitive needs: No Hearing needs: No Vision needs: Yes (Reading Glasses) Physical Exam ED Exam Exam: General: Pleasant, no distress, interacting appropriately Head: Normacephalic, atraumatic ENT: oral mucosa moist, neck supple, no tracheal deviation Cardiovascular: regular rate, regular rhythm, no murmurs, rubbing, gallops Respiratory: CTAB, no wheeze, rales, rhonchi Gastrointestinal: Soft, non distended, non tender, non guarding : On rectal exam there was no dark tarry stool identified, guaiac is negative Neurological: Awake and alert, no facial droop noted Skin: Warm and dry Psychiatric: Appropriate mood and thoughts Vital Signs: Vital Signs - 24 hr 01/08/25 14:46 01/08/25 17:33 01/08/25 17:47 Temperature 97.8 F 97.7 F 98.2 F Pulse Rate 78 76 80 Respiratory Rate 16 17 16 Blood Pressure 150/69 H 133/69 124/59 L Pulse Oximetry 100 Oxygen Delivery Method Room Air 01/08/25 18:10 Temperature 98.1 F Pulse Rate 76 Respiratory Rate 14 Blood Pressure 129/68 Pulse Oximetry 96 Oxygen Delivery Method Room Air BMI result Body Mass Index 22.4 Course Course Course Narrative: This is a Rapid Medical Examination (RME) performed by Mirian Yates PA-C in triage. Full HPI, ROS, assessment and treatment plan per primary provider in the Main ED. Hx: 79 yo M hx of anemia, CKD, HTN, HLD, anxiety, prior hep C states it was treated, s/p MV repair with annular ring in July of [address] [facility] [address] Day, on aspirin here w/ abnormal labs from blood draw this morning. was told he had low h&h (6.3/19.6). recently seen here for same requiring blood transfusion. reports this has been occurring for 5 mos. reports weakness, loss of appetite, nausea. was told he needed to follow up with a blood specialist . Plan: repeat labs, type and screen Medications Administered Generic Name Dose Route Start Last Admin Trade Name Freq PRN Reason Stop Dose Admin Lactated Ringer's 1,000 mls @ 100 mls/hr 01/08/25 19:30 01/08/25 20:26 Lr IVCONT 100 mls/hr .Q10H SUE Administration Medical Decision Making Medical Decision Making [facility] Narrative: 79-year-old male presented hospital today for symptomatic anemia secondary to hematuria for past 2 months. Lab work were obtained the patient. He does have hemoglobin of 5.4, no leukocytosis, patient's chemistry does shows a creatinine of 1.88. This appears to be elevated from his previous lab work on 12/14/2024 at 1.56. Patient calcium level is appropriate, patient does have elevated total bilirubin, patient's UA does shows large blood trach leuk esterase however no bacteria. Patient's guaiac test is negative for any signs of blood. I discussed the case with the hospitalist. They will like to obtain a CT abdomen and pelvis to further assess the source of his hematuria and anemia at this time. CT abdomen and pelvis has been ordered for the patient. Patient will be admitted to the hospital for symptomatic anemia. Blood transfusion initiated for the patient. We will plan to transfuse 3 units of PRBC. Differential Diagnosis Differential Diagnoses: The differential diagnosis associated with the presentation includes Hematuria, symptomatic anemia, hemorrhagic shock Consult Healthcare Provider Management of the patient was discussed with: Hospitalist Lab Data MDM Lab Attestation statement: I reviewed the patient's lab results. 01/08/25 15:21 01/08/25 15:21 Labs: Lab Results 01/08/25 01/08/25 Range/Units 15:21 19:04 WBC 6.1 (4.8-10.8) X10*3/uL RBC 1.67 L (4.60-5.80) X10*6/uL Hgb 5.4 L* (14.0-18.0) g/dl Hct 16.4 L* (42.0-52.0) % MCV 98.2 H (80.0-98.0) fL MCH 32.3 (27.0-33.0) pg MCHC 32.9 (31.0-36.0) g/dl RDW 22.5 H (11.0-16.0) % Plt Count 160 (160-400) X10*3/uL MPV Not Reportable Immature Gran % (Auto) Cancelled Neut % (Auto) Cancelled Lymph % (Auto) Cancelled [place] % (Auto) Cancelled Eos % (Auto) Cancelled Baso % (Auto) Cancelled Lymph # (Auto) Cancelled [place] # (Auto) Cancelled Eos # (Auto) Cancelled Baso # (Auto) Cancelled Abs Immat Gran (auto) Cancelled Absolute Neuts (auto) Cancelled Absolute Nucleated RBC 0.000 (0.0-0.012) X10*3/uL Nucleated RBC % (auto) 0.0 (0.0-0.2) /100WBC Neutrophils % (Manual) 79 H (45-73) % Band Neutrophils % 0 L (3-5) % Lymphocytes % (Manual) 13 L (20-40) % Monocytes % (Manual) 7 (2-11) % Eosinophils % (Manual) 1 (0-4) % Abs Neuts (Manual) 4.8 (2.0-8.3) X10*3/uL Lymphocytes # (Manual) 0.8 L (1.2-4.9) X10*3/uL Monocytes # (Manual) 0.4 (0.1-1.2) X10*3/uL Eosinophils # (Manual) 0.1 (0.0-0.4) X10*3/uL Platelet Estimate NORMAL (NORMAL) Plt Morphology Comment NORMAL RBC Morphology NOTED Schistocytes 3+ (>5) /OIF Sodium 137 (135-145) mmol/L Potassium 4.1 (3.3-5.1) mmol/L Chloride 111 H (96-108) mmol/L Carbon Dioxide 19 L (22-29) mmol/L Anion Gap 11 L (12-20) BUN 36 H (9-16) mg/dL Creatinine 1.88 H (0.5-1.4) mg/dL Estim Creat Clear Calc 28.4 Estimated GFR 35 Random Glucose 106 (60-115) mg/dL Calcium 8.7 (8.4-10.2) mg/dL Magnesium 2.1 (1.6-2.6) mg/dL Total Bilirubin 1.8 H (0.0-1.0) mg/dL AST 215 H (5-37) U/L ALT 49 H (0-40) U/L Alkaline Phosphatase 40 (39-117) U/L Total Protein 7.2 (6.5-8.0) g/dL Albumin 4.0 (3.5-5.0) g/dL Urine Color Red A Urine Appearance Clear Urine pH 5.5 (5.0-9.0) Ur Specific [place] 1.010 (1.005-1.025) Urine Protein 100 (2+) H (Neg-Trace) mg/dL Urine Glucose (UA) Negative (Negative) mg/dL Urine Ketones Negative (Negative) mg/dL Urine Blood Large (3+) H (Negative) Urine Nitrite Negative (Negative) Ur Leukocyte Esterase Trace H (Negative) Urine RBC 6-10 H (0-2) /HPF Urine WBC 0-5 (0-5) /HPF Ur Squamous Epith Cells 0-2 (0-2) /HPF Urine Bacteria None Seen (None Seen) Hyaline Casts 0-2 (0-2) /LPF Blood Type B Positive Antibody Screen NEGATIVE Crossmatch See Detail External Record Review External record reviewed: Inpatient record and Prior outpatient labs Chronic Conditions hematuria, anemia Critical Care Time Critical Care Time Critical Care Time: Yes Total Critical Care Time: 40 Attestation: Time is exclusive of separately billable procedures. Time includes: direct patient care, patient reassessment, coordination of patient care, interpretation of data (laboratory data, pulse oximetry, arterial blood gases and chest xrays), review of patient's medical records, medical consultation and documentation of patient care. Procedures excluded from critical care time: central intravenous line placement and electrocardiography. Discharge Plan Discharge Clinical Impression: Symptomatic anemia, Hematuria Patient Disposition: Admitted As Inpatient
[2025-01-08 15:34] LABS: NRBC Abs Auto 0.000 X10*3/uL (0.0-0.012); NRBC Pct Auto 0.0 /100WBC (0.0-0.2)
[2025-01-08 15:45] LABS: Alanine Aminotransferase 49 U/L (0-40); Albumin Level 4.0 g/dL (3.5-5.0); Alkaline Phosphatase 40 U/L (39-117); Anion Gap 11 (12-20); Aspartate Amino Transferase 215 U/L (5-37); Blood Urea Nitrogen 36 mg/dL (9-16); Calcium 8.7 mg/dL (8.4-10.2); Carbon Dioxide 19 mmol/L (22-29); Chloride 111 mmol/L (96-108); Creatinine Clr Calc Pharmacy 28.4; Estimated Glomerular Filt Rate 35; Magnesium 2.1 mg/dL (1.6-2.6); Potassium 4.1 mmol/L (3.3-5.1); Sodium 137 mmol/L (135-145); Total Protein 7.2 g/dL (6.5-8.0)
[2025-01-08 15:48] LABS: Mean Corpuscular Volume 98.2 fL (80.0-98.0); Red Blood Count 1.67 X10*6/uL (4.60-5.80)
[2025-01-08 15:50] LABS: Mean Corpuscular HGB Conc 32.9 g/dl (31.0-36.0); Mean Corpuscular Hemoglobin 32.3 pg (27.0-33.0); Platelet Count 160 X10*3/uL (160-400); White Blood Count 6.1 X10*3/uL (4.8-10.8)
[2025-01-08 15:51] LABS: PLT ABN DIST 1
[2025-01-08 15:53] LABS: Hematocrit 16.4 % (42.0-52.0); Hemoglobin 5.4 g/dl (14.0-18.0)
[2025-01-08 16:20] LABS: Eosinophils Absolute Manual 0.1 X10*3/uL (0.0-0.4); Eosinophils Percent Manual 1 % (0-4); Lymphocytes Absolute Manual 0.8 X10*3/uL (1.2-4.9); Lymphocytes Percent Manual 13 % (20-40); Monocytes Absolute Manual 0.4 X10*3/uL (0.1-1.2); Monocytes Percent Manual 7 % (2-11); Neutrophils Percent Manual 79 % (45-73)
[2025-01-08 16:22] LABS: RBC Morphology NOTED; Schistocytes 3+ (>5) /OIF
[2025-01-08 16:23] LABS: Band Neutrophils Percent 0 % (3-5); Neutrophils Absolute Manual 4.8 X10*3/uL (2.0-8.3)
--- OUTSIDE RECORDS SUMMARY | 2025-01-08 18:37 | XMS_ITS | Encounter Summary ---
Author Organization [facility] Address [address] [place] [address] Phone Care Team Providers Care Drama Director Name Role Phone Unavailable Primary Care Provider Unavailabl e Encounter Details Date Type Department Care Team (Late st Contact Info) Description 09/14/2022 Documentation Only [facility] [address] [facility] [address] [place] [address] Deepti Vela MA Social History [...]
--- OUTSIDE RECORDS SUMMARY | 2025-01-08 18:37 | XMS_ITS | Clinical Summary ---
Author Organization [facility] Facility Address [address] [place] [id number] Care Team Providers Care Sheet Metal Assembler And Riveter Name Role Phone Unavailable Primary Care Provider Unavailabl e Allergies No known active allergies Medications D3-1000 25 MCG (1000 UT) capsule Take 1,000 Units by mouth 1 (one) time each day 06/25/2022 Active amLODIPine (NORVASC) 10 MG tablet Take 10 mg by mouth 1 (one) time each day 07/16/2022 Active multivitamin-iro i-vmxrxwhl-alnlp acid (CENTRUM) chewable tablet Chew 1 tablet [...] patient's age to complete this topic Insurance [employer]fey Mcg[employer]fe[employer]
[2025-01-08 19:17] LABS: Appearance Urine Clear; Glucose Urine UA Negative (Negative); PH 5.5 (5.0-9.0); Specific Gravity - Urine 1.010 (1.005-1.025); UMIC TRIGGER UA YES
--- NOTE | 2025-01-08 20:03 | PM.IMHP ---
History of Present Illness Date of Service: 01/08/25 Chief Complaint: ABNORMAL LABS 79-year-old male with a past medical history of HTN, HLD, anxiety, depression, mitral valve surgery; osteoarthritis, anemia presented to the hospital today with a chief complaint of abnormal labs. Patient mentioned that he had heart valve surgery in July. Since then he has been having problems with his anemia. Has had episodes of a hematuria and is seen by Urology as outpatient status post cystoscopy and mentioned his problems related to his prostate. Mentioned that had recent admission to the hospital for anemia requiring blood transfusion. Also reports having dark-colored stools. Patient denies any vomiting. Denies any chest pain. Denies any fever chills cough or sputum production. Review of other systems is negative except mentioned above ER course: Per ER team, patient's hemoglobin noted to be 5.4. Stool guaiac was negative. CT abdomen pending. Order for 3 units of PRBC. [facility] Medical History (Updated 01/09/25 @ 11:18 by Lynn Ansari MD) Anemia Elevated LFTs Essential hypertension Dermatitis Primary osteoarthritis of knees, bilateral Severe mitral valve regurgitation Mitral valve prolapse Non-rheumatic mitral regurgitation History of hepatitis C Benign essential hypertension Hypertension Overweight (BMI 25.0-29.9) Anxiety Urinary frequency Allergic rhinitis Osteoarthritis of left knee Vitamin D deficiency Pure hypercholesterolemia Impaired fasting glucose White coat syndrome with hypertension Family History Father Hypertension Stroke Mother Medical history unknown Surgical History (Updated 01/09/25 @ 11:18 by Lynn Ansari MD) History of mitral valve repair History of colonoscopy History of prostate surgery Social History Household Members: None Housing: Apartment Do you presently have visiting nurse or other home services: No Alcohol intake: never Patient Tobacco Use Status: Former Tobacco user Tobacco use type: Cigarette Years Smoked: 25 years e-Cigarette/Vaping Use: Never Used Second Hand Smoke Exposure: Yes service: No Current occupational status: retired and disabled Cognitive needs: No Hearing needs: No Vision needs: Yes (Reading Glasses) Meds Allergies Allergy/AdvReac Type Severity Reaction Status Date / Time No Known Allergies (No Known Allergy Verified 01/08/25 14:49 Allergies*) Active Medications: Current Medications Acetaminophen (Acetaminophen 325 Mg Tablet) 650 mg PO Q6H PRN PRN Reason: Pain, Mild 1-3,fever,headache Calcium Carbonate (Calcium Carbonate 750 Mg Tab.Chew) 750 mg PO Q4H PRN PRN Reason: Heartburn Lactated Ringer's (Lr) 1,000 mls @ 100 mls/hr IVCONT .Q10H SUE Magnesium Hydroxide (Milk Of Magnesia 30 Ml Oral.Susp) 30 ml PO DAILY PRN PRN Reason: Constipation Melatonin (Melatonin 3 Mg Tablet) 6 mg PO BEDTIME PRN PRN Reason: Insomnia Sodium Chloride (0.9 % Sodium Chloride Flush 3 Ml Syringe) 3 ml IVFLUSH QSHIFT SUE Home Medications ?Medication ?Instructions ?Recorded ?Confirmed ?Last Taken ?Type aspirin 81 mg tablet,delayed 81 mg PO DAILY 09/16/24 01/08/25 01/08/25 History release docusate sodium 100 mg capsule 100 mg PO DAILY constipation 01/08/25 01/08/25 01/08/25 History metoprolol tartrate 25 mg tablet 50 mg PO BID 01/08/25 01/08/25 01/08/25 History Physical Exam Vital Signs and Narrative: Vital Signs: Last Vital Signs Temp 98.1 F 01/08/25 18:10 Pulse 76 01/08/25 18:10 Resp 14 01/08/25 18:10 BP 129/68 01/08/25 18:10 Pulse Ox 96 01/08/25 18:10 O2 Del Method Room Air 01/08/25 18:10 BMI result Body Mass Index 22.4 Gen: Appears be in no acute distress HEENT: NCAT, Moist mucosa. Pulmonary: Vesicular breath sounds, fair air entry CVS: Normal S1-S2 Abdomen: BS+, Soft, Nontender Extremities: Warm well perfused Neuro: Alert and awake. Results Labs 01/09/25 05:21 01/09/25 05:21 Labs: Laboratory Results - last 24 hr 01/08/25 01/08/25 15:21 19:04 MCV 98.2 H MCH 32.3 MCHC 32.9 RDW 22.5 H Plt Count 160 MPV Not Reportable Immature Gran % (Auto) Cancelled Neut % (Auto) Cancelled Lymph % (Auto) Cancelled [place] % (Auto) Cancelled Eos % (Auto) Cancelled Baso % (Auto) Cancelled Lymph # (Auto) Cancelled [place] # (Auto) Cancelled Eos # (Auto) Cancelled Baso # (Auto) Cancelled Abs Immat Gran (auto) Cancelled Absolute Neuts (auto) Cancelled Absolute Nucleated RBC 0.000 Nucleated RBC % (auto) 0.0 Neutrophils % (Manual) 79 H Band Neutrophils % 0 L Lymphocytes % (Manual) 13 L Monocytes % (Manual) 7 Eosinophils % (Manual) 1 Abs Neuts (Manual) 4.8 Lymphocytes # (Manual) 0.8 L Monocytes # (Manual) 0.4 Eosinophils # (Manual) 0.1 Platelet Estimate NORMAL Plt Morphology Comment NORMAL RBC Morphology NOTED Schistocytes 3+ (>5) Anion Gap 11 L Estim Creat Clear Calc 28.4 Estimated GFR 35 Random Glucose 106 Calcium 8.7 Magnesium 2.1 Total Bilirubin 1.8 H AST 215 H ALT 49 H Alkaline Phosphatase 40 Total Protein 7.2 Albumin 4.0 Urine Color Red A Urine Appearance Clear Urine pH 5.5 Ur Specific [place] 1.010 Urine Protein 100 (2+) H Urine Glucose (UA) Negative Urine Ketones Negative Urine Blood Large (3+) H Urine Nitrite Negative Ur Leukocyte Esterase Trace H Urine RBC 6-10 H Urine WBC 0-5 Ur Squamous Epith Cells 0-2 Urine Bacteria None Seen Hyaline Casts 0-2 Blood Type B Positive Antibody Screen NEGATIVE Crossmatch See Detail Assessment and Plan (1) Anemia: Qualifiers: Anemia type: unspecified type Qualified Code(s): D64.9 - Anemia, unspecified Status: Chronic Plan [age]-year-old male with a past medical history of HTN, HLD, anxiety, depression, mitral valve surgery; osteoarthritis, anemia presented to the hospital today with a chief complaint of abnormal labs. Noted to have anemia. Acute on chronic anemia: Patient had recent admission to the hospital for anemia requiring blood transfusion. Initially presumed to be secondary to hematuria. Currently stool guaiac negative CT abdomen pelvis pending to rule out any retroperitoneal abuse. Patient being order for blood transfusion -planned for 3 units. Follow up CBC post transfusion Hematology consult Hematuria: Patient reports having hematuria, still. Reports intermittently dark colored urine and pinkish urine followed by watchguard. Has had cystoscopy as outpatient Urology follow-up History of mitral valve surgery: Patient on aspirin. To be resumed eventually Hypertension: Blood pressure on the low normal side. Hold home amlodipine, metoprolol, losartan for now. DVT prophylaxis: SCD boots Code status: Full code Quality Stroke Does the patient have a stroke diagnosis?: No VTE Prior VTE?: No VTE Risk Level:: Medical - moderate - high VTE Device Contraindication: N/A - Device Ordered VTE Drug Contraindication: Treatment Not Indicated
--- NOTE | 2025-01-08 20:15 | PC.NURSE ---
assumed care of pt, 1st unit of RBC running as it should. Pt denies pain, frustrated with unknown cause of blood loss. respirations even and unlabored
[2025-01-08] MEDS: Lactated Ringers 1,000 ML 100 ML IVCONT (20:26)
--- NOTE | 2025-01-08 20:30 | PC.NURSE ---
started a second IV line in R AC. pt tolerated well. provider at bedside, bedside stool occult done and sent to lab.
[2025-01-08 20:48] LABS: OBS Int Ctl Valid YES; OBS1 NEGATIVE (NEGATIVE)
--- NOTE | 2025-01-08 21:07 | PC.NURSE ---
initiated 2nd unit of blood, pt stable, VS WNL, no complaints of headache, nausea or pain.
--- NOTE | 2025-01-08 21:54 | PHA.MEDREC ---
Addendum entered by Tony An PharmD 01/08/25 21:57: reviewed Original Note: Pharmacy Consult ? Medication Reconciliation Pharmacy has completed the medication reconciliation. Patient was able to confirm his medications. Patient states she stopped taking Tamsulosin 0.4 mg over a month ago. Patient had all his morning medications today.
--- NOTE | 2025-01-08 23:25 | PC.NURSE ---
pt eating turkey sandwich (low sodium diet order), pt fluids and RBC running per MAR.
[2025-01-09] VITALS (14 sets, daily range): BP systolic 107–141; BP diastolic 57–67; PULSE 61–79; RESP 12–20; TEMP 36.1–37.1; O2SAT 98–100; BMI 22.7
--- NOTE | 2025-01-09 00:20 | MHC.EDTECH ---
This tech took over care of pt at 2300,rounds and vitals completed, pt appears comfortable,pt is resting quietly,call lobato in reach
--- NOTE | 2025-01-09 00:24 | PC.NURSE ---
3rd unit of RBCs initiated.
--- NOTE | 2025-01-09 03:54 | PC.NURSE ---
4th unit of blood initiated.
[2025-01-09 05:44] LABS: MANUAL DIFF FLAG NO
[2025-01-09 05:48] LABS: Hematocrit 28.4 % (42.0-52.0); Hemoglobin 9.5 g/dl (14.0-18.0); Imm Gran Abs Auto 0.03 X10*3/uL (0.00-0.03); Imm Gran Pct Auto 0.5 % (0.0-0.4); Lymphocytes Absolute Auto 0.9 X10*3/uL (1.2-4.9); Mean Corpuscular HGB Conc 33.5 g/dl (31.0-36.0); Mean Corpuscular Hemoglobin 30.8 pg (27.0-33.0); Mean Corpuscular Volume 92.2 fL (80.0-98.0); NRBC Abs Auto 0.000 X10*3/uL (0.0-0.012); NRBC Pct Auto 0.0 /100WBC (0.0-0.2); Platelet Count 141 X10*3/uL (160-400); Red Blood Count 3.08 X10*6/uL (4.60-5.80); White Blood Count 5.5 X10*3/uL (4.8-10.8)
--- NOTE | 2025-01-09 05:53 | PC.NURSE ---
LR from 2025 still running at 100mL/ hr.
[2025-01-09 06:05] LABS: Alanine Aminotransferase 43 U/L (0-40); Albumin Level 3.8 g/dL (3.5-5.0); Alkaline Phosphatase 42 U/L (39-117); Anion Gap 11 (12-20); Aspartate Amino Transferase 204 U/L (5-37); Blood Urea Nitrogen 30 mg/dL (9-16); Calcium 8.8 mg/dL (8.4-10.2); Carbon Dioxide 18 mmol/L (22-29); Chloride 117 mmol/L (96-108); Creatinine Clr Calc Pharmacy 34.7; Estimated Glomerular Filt Rate 44; Iron 184 mcg/dL (45-160); Percent Iron Saturation 78 % (15-50); Potassium 4.3 mmol/L (3.3-5.1); Sodium 142 mmol/L (135-145); Total Iron Binding Capacity 237 mcg/dL (228-428); Total Protein 6.7 g/dL (6.5-8.0); Unsaturated Iron Binding 53 ug/dL
[2025-01-09] MEDS: Lactated Ringers 1,000 ML 100 ML IVCONT ×2 (06:33→17:28)
[2025-01-09 06:43] LABS: Folate 9.6 ng/mL (> or = 4.0); Vitamin B12 1111 pg/mL (200-900)
--- NOTE | 2025-01-09 07:16 | PM.EVENT ---
Chart reviewed, full consult to follow. 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 Work up for TTP/HUS and PNH submitted.
--- NOTE | 2025-01-09 07:20 | P.PNIM_ITS ---
Subjective Subjective Date of Service: 01/09/25 Interval History: f/u on recurrent hematuria, acute blood loss anemia renal failure, elevated bilirubin, schistocyte in blood elevated LDH, low platlets, low haptoglobin roca Physical Exam 2 Exam: Exam: General: AO X 3, no acute distress Resp: CTA bilateral CVS: S1,S2,RRR GI: +BS, NT, no distention Skin: No rash Neuro: motor grossly intact Psych: appropriate affect Vital Signs: Vital Signs: Last Vital Signs Temp 98.3 F 01/09/25 06:41 Pulse 72 01/09/25 06:41 Resp 16 01/09/25 06:41 BP 119/64 01/09/25 06:41 Pulse Ox 99 01/09/25 05:50 O2 Del Method Room Air 01/09/25 05:50 BMI result Body Mass Index 22.4 Objective Data Active Medications Acetaminophen (Acetaminophen 325 Mg Tablet) 650 mg PO Q6H PRN PRN Reason: Pain, Mild 1-3,fever,headache Calcium Carbonate (Calcium Carbonate 750 Mg Tab.Chew) 750 mg PO Q4H PRN PRN Reason: Heartburn Lactated Ringer's (Lr) 1,000 mls @ 100 mls/hr IVCONT .Q10H [facility] Last Admin: 01/09/25 06:33 Dose: 100 mls/hr Documented By: MARCELLUS Magnesium Hydroxide (Milk Of Magnesia 30 Ml Oral.Susp) 30 ml PO DAILY PRN PRN Reason: Constipation Melatonin (Melatonin 3 Mg Tablet) 6 mg PO BEDTIME PRN PRN Reason: Insomnia Sodium Chloride (0.9 % Sodium Chloride Flush 3 Ml Syringe) 3 ml IVFLUSH QSHIFT [facility] Last Admin: 01/09/25 00:38 Dose: Not Given Documented By: MARCELLUS Non-Admin Reason: IV Running Labs 01/09/25 05:21 01/09/25 05:21 Labs: Laboratory Results - last 24 hr 01/08/25 01/08/25 01/08/25 15:21 19:04 19:39 MCV 98.2 H MCH 32.3 MCHC 32.9 RDW 22.5 H Plt Count 160 MPV Not Reportable Immature Gran % (Auto) Cancelled Neut % (Auto) Cancelled Lymph % (Auto) Cancelled [place] % (Auto) Cancelled Eos % (Auto) Cancelled Baso % (Auto) Cancelled Lymph # (Auto) Cancelled [place] # (Auto) Cancelled Eos # (Auto) Cancelled Baso # (Auto) Cancelled Abs Immat Gran (auto) Cancelled Absolute Neuts (auto) Cancelled Absolute Nucleated RBC 0.000 Nucleated RBC % (auto) 0.0 Neutrophils % (Manual) 79 H Band Neutrophils % 0 L Lymphocytes % (Manual) 13 L Monocytes % (Manual) 7 Eosinophils % (Manual) 1 Abs Neuts (Manual) 4.8 Lymphocytes # (Manual) 0.8 L Monocytes # (Manual) 0.4 Eosinophils # (Manual) 0.1 Platelet Estimate NORMAL Plt Morphology Comment NORMAL RBC Morphology NOTED Schistocytes 3+ (>5) Anion Gap 11 L Estim Creat Clear Calc 28.4 Estimated GFR 35 Random Glucose 106 Calcium 8.7 Magnesium 2.1 Iron TIBC % Saturation Unsat Iron Binding Total Bilirubin 1.8 H AST 215 H ALT 49 H Alkaline Phosphatase 40 Total Protein 7.2 Albumin 4.0 Vitamin B12 Folate Urine Color Red A Urine Appearance Clear Urine pH 5.5 Ur Specific [place] 1.010 Urine Protein 100 (2+) H Urine Glucose (UA) Negative Urine Ketones Negative Urine Blood Large (3+) H Urine Nitrite Negative Ur Leukocyte Esterase Trace H Urine RBC 6-10 H Urine WBC 0-5 Ur Squamous Epith Cells 0-2 Urine Bacteria None Seen Hyaline Casts 0-2 Gastric Occult Blood Cancelled Stool Occult Blood NEGATIVE Blood Type B Positive Antibody Screen NEGATIVE Crossmatch See Detail 01/09/25 05:21 MCV 92.2 D MCH 30.8 MCHC 33.5 RDW 21.2 H Plt Count 141 L MPV TNP Immature Gran % (Auto) 0.5 H Neut % (Auto) 67.4 Lymph % (Auto) 16.1 L [place] % (Auto) 12.7 H Eos % (Auto) 2.4 Baso % (Auto) 0.9 Lymph # (Auto) 0.9 L [place] # (Auto) 0.7 Eos # (Auto) 0.1 Baso # (Auto) 0.1 Abs Immat Gran (auto) 0.03 Absolute Neuts (auto) 3.7 Absolute Nucleated RBC 0.000 Nucleated RBC % (auto) 0.0 Neutrophils % (Manual) Band Neutrophils % Lymphocytes % (Manual) Monocytes % (Manual) Eosinophils % (Manual) Abs Neuts (Manual) Lymphocytes # (Manual) Monocytes # (Manual) Eosinophils # (Manual) Platelet Estimate Plt Morphology Comment RBC Morphology Schistocytes Anion Gap 11 L Estim Creat Clear Calc 34.7 Estimated GFR 44 Random Glucose 86 Calcium 8.8 Magnesium Iron 184 H TIBC 237 % Saturation 78 H Unsat Iron Binding 53 Total Bilirubin 2.7 H AST 204 H ALT 43 H Alkaline Phosphatase 42 Total Protein 6.7 Albumin 3.8 Vitamin B12 1111 H Folate 9.6 Urine Color Urine Appearance Urine pH Ur Specific [place] Urine Protein Urine Glucose (UA) Urine Ketones Urine Blood Urine Nitrite Ur Leukocyte Esterase Urine RBC Urine WBC Ur Squamous Epith Cells Urine Bacteria Hyaline Casts Gastric Occult Blood Stool Occult Blood Blood Type Antibody Screen Crossmatch Assessment and Plan (1) Hematuria: Status: Acute (2) Anemia: Status: Chronic (3) Symptomatic anemia: Status: Acute Plan [age]-year-old male with a past medical history of HTN, HLD, anxiety, depression, mitral valve surgery; osteoarthritis, anemia presented to the hospital today with a chief complaint of abnormal labs, recent admission for hematuria, he's still reporting hematuria and weak and found to have Hgb of 5--He had cystoscopy at Urology office 12/25 with no specific finding as cause for hematuria which has been ongoing since October. He presented with with hematuria and weakness. He presented with hemoglobin of 5.4, Creatine of 1.8 baseline is < 1, further testing revealed positive schistocytes, elevated Bilirubin of 2.7, elevated LFTs, LDH is 2085, Haptoglobin is less than 8, has hematuria. His mental status is intact. He has been evaluated by Hematology with provisional diagnosis of HUS and recommending Plasmapharesis not available at [facility] and therefore attempting to transferd to [facility] Acute blood loss anemia on chronic anemia since Juy Recurrent Hematuria Thrombocytopenia Schistocytes Hyperbilirubinemia LDH > 2000 Low Haptoglobin <8 INR 1 No blood in stool CT of abd and pelvis: No hydronephrosis or nephrolithiasis. 5 cm prominent prostate gland concerning benign prostate hyperplasia in the correct clinical settings. Diverticular disease. Subcentimeter hypodense liver lesions not fully evaluated.. Concerning hepatocellular dysfunction in the correct clinical settings. Multilevel thoracolumbar spondylosis. -Transfused 3 unit of RBC Hgb now 9.5 -Likely HUS, hematology recommends Plasmapheresis, to be transfered, call made to [facility] History of mitral valve surgery: Patient on aspirin. 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
[2025-01-09 09:22] LABS: Reticulocytes Absolute 0.209 X10*6/uL (0.026-0.095)
[2025-01-09] MEDS: Ferrous Sulfate 324 MG TABLET.DR PO (09:24)
[2025-01-09 09:27] LABS: Fibrinogen 470 MG/DL (259-690); INTERNATIONAL NORM RATIO 1.0 (0.9-1.1); Prothrombin Time 10.9 SEC (10.9-12.4)
[2025-01-09 09:29] LABS: Partial Thromboplastin Time 24.2 SEC (26.7-34.1)
--- NOTE | 2025-01-09 09:51 | MHC.CM.PN ---
IMM 01/09/25, Pt. lives alone, he has [employer] services of 2-3 hrs a day, every day. PCP confirmed: Dr. Jordan, HCP discussed, pt. will complete form and it will be added to chart. He does not have VNA services or use DME. Pt. is able to arrange transport home at [place], DCP: home, resume [employer] services, CM to follow for [place] needs.
--- NOTE | 2025-01-09 10:50 | P.CNHO_ITS ---
Subjective - Subjective Chief complaint: Anemia Patient: new to practice Consult date: 01/09/25 Primary Care Provider: Chris Pearson MD Service Or Work Dispatcher Utilized?: No - Bulgarian Speaking HPI - Consult Narrative Reason for consult: Worsening anemia Narrative: Chacho Barnard is a 79 year old male who has been having progressively worsening anemia in renal function since October 2024. He underwent mitral valve repair in July 2024. He says ever since then he has been experiencing loss of appetite, metallic taste in his mouth, nausea as well as weight loss. He says he is always cold and has chills. He denies any headache or mental status changes. He lives alone. After his surgery he was started on baby aspirin. He states that his blood pressure was running high in for a few weeks he had doubled up on amlodipine and some other blood pressure medication. He had a few episodes of blood in his stools. He was seen by Urology. He has had surgery for BPH some years ago. No hematochezia or melena. He was briefly on antibiotics for presumed UTI but taken off as his urine cultures were negative. Review of Systems - Constitutional Reports as per HPI, Reports fatigue, Reports lack of energy, Reports malaise, Reports poor appetite, Reports weakness, Reports weight loss - Cardiovascular Reports no additional cardiovascular complaints - Respiratory Reports no additional respiratory complaints - Gastrointestinal Reports no additional gastrointestinal complaints [facility] Medical History: Medical History (Last Updated 12/13/24 @ 01:31 by Chris Pearson MD) Allergic rhinitis Anemia Anxiety Benign essential hypertension Dermatitis Elevated LFTs Essential hypertension History of hepatitis C Hypertension Impaired fasting glucose Mitral valve prolapse Non-rheumatic mitral regurgitation Osteoarthritis of left knee Overweight (BMI 25.0-29.9) Primary osteoarthritis of knees, bilateral Pure hypercholesterolemia Severe mitral valve regurgitation Urinary frequency Vitamin D deficiency White coat syndrome with hypertension Family History: Family History (Last Reviewed 12/12/24 @ 11:19 by EBRNICE Van) Father Hypertension Stroke Mother Medical history unknown Surgical History: Surgical History (Last Reviewed 12/12/24 @ 11:19 by BERNICE Van) History of colonoscopy History of mitral valve repair History of prostate surgery Social History: Social History (Last Reviewed 12/12/24 @ 11:19 by BERNICE Van) Living Situation History: Household Members: None Housing: Apartment Do you presently have visiting nurse or other home services: No Tobacco History: Patient Tobacco Use Status: Former Tobacco user Tobacco use type: Cigarette Years Smoked: 25 years e-Cigarette/Vaping Use: Never Used Second Hand Smoke Exposure: Yes Occupation Assessmet: service: No Current occupational status: retired Current occupational status: disabled Home Medications and Allergies Current Medications: Current Medications Acetaminophen (Acetaminophen 325 Mg Tablet) 650 mg PO Q6H PRN PRN Reason: Pain, Mild 1-3,fever,headache Amlodipine Besylate (Amlodipine Besylate 10 Mg Tablet) 10 mg PO DAILY [facility]; Protocol Last Admin: 01/09/25 09:24 Dose: 10 mg Calcium Carbonate (Calcium Carbonate 750 Mg Tab.Chew) 750 mg PO Q4H PRN PRN Reason: Heartburn Docusate Sodium (Docusate Sodium 100 Mg Capsule) 100 mg PO DAILY [facility] Last Admin: 01/09/25 09:19 Dose: Not Given Ferrous Sulfate (Ferrous Sulfate 324 Mg Tablet.Dr) 324 mg PO DAILY [facility] Last Admin: 01/09/25 09:24 Dose: 324 mg Lactated Ringer's (Lr) 1,000 mls @ 100 mls/hr IVCONT .Q10H [facility] Last Admin: 01/09/25 06:33 Dose: 100 mls/hr Magnesium Hydroxide (Milk Of Magnesia 30 Ml Oral.Susp) 30 ml PO DAILY PRN PRN Reason: Constipation Melatonin (Melatonin 3 Mg Tablet) 6 mg PO BEDTIME PRN PRN Reason: Insomnia Metoprolol Tartrate (Metoprolol Tartrate 50 Mg Tablet) 50 mg PO BID [facility]; Protocol Last Admin: 01/09/25 09:25 Dose: 50 mg Sodium Chloride (0.9 % Sodium Chloride Flush 3 Ml Syringe) 3 ml IVFLUSH QSHIFT [facility] Last Admin: 01/09/25 07:56 Dose: Not Given Home Medications ?Medication ?Instructions ?Recorded ?Confirmed ?Type aspirin 81 mg tablet,delayed 81 mg PO DAILY 09/16/24 01/08/25 History release docusate sodium 100 mg capsule 100 mg PO DAILY constipation 01/08/25 History metoprolol tartrate 25 mg tablet 50 mg PO BID 01/08/25 01/08/25 History Allergies Allergy/AdvReac Type Severity Reaction Status Date / Time No Known Allergies (No Known Allergy Verified 01/08/25 14:49 Allergies*) Physical Exam Vital signs: Vital Signs Temp 97.6 F 01/09/25 08:19 Pulse 79 01/09/25 08:19 Resp 18 01/09/25 08:19 BP 141/67 H 01/09/25 08:19 Pulse Ox 100 01/09/25 08:19 O2 Del Method Room Air 01/09/25 08:19 Intake & Output 01/08/25 01/09/25 01/09/25 18:59 06:59 18:59 Intake Total 0 / 2400 2400 / 2400 Output Total 250 / 250 Balance 0 / 2150 2150 / 2150 Urine Output (Average ml/kg/hr) 0.34 0.34 Intake: Intake (Blood Product) Amount 0 / 1400 1400 / 1400 Red Blood Cells (E0336) Unit 350 / 350 [id number] Red Blood Cells (E0336) Unit 350 / 350 [id number] Red Blood Cells (E0336) Unit 350 / 350 [id number] Red Blood Cells (E0336) Unit 0 / 350 350 / 350 [id number] Intake, IV Amount 1000 / 1000 Lactated Ringers 1,000 ml @ 100 1000 / 1000 mls/hr IVCONT .Q10H [facility] Rx#: [id number] Output: Output, Urine Amount 250 / 250 Other: Urine Urinal Urine Color Tea Last Bowel Movement 01/09/25 Weight 61.2 kg 62 kg Weight 62 kg - Constitutional Present: mild distress, chronically ill appearing - Routine HEENT Exam Head: Present: normal inspection Eye: Present: EOMI, PERRL - Routine Neck Exam Present: supple. Absent: lymphadenopathy - Routine Respiratory Exam Present: CTAB. Absent: wheezes - Routine Cardiovascular Exam Cardiovascular: Present: RRR, S1, S2 - Routine Abdominal Exam Present: soft - Routine Extremities Exam Present: normal inspection. Absent: pedal edema - Routine Skin Exam Present: intact Hem/Onc Consult Result - Labs CBC & Chem 7: 01/09/25 05:21 01/09/25 05:21 Labs: Short CBC 01/08/25 01/09/25 Range/Units 15:21 05:21 WBC 6.1 5.5 (4.8-10.8) X10*3/uL Hgb 5.4 L* 9.5 L D (14.0-18.0) g/dl Hct 16.4 L* 28.4 L D (42.0-52.0) % Plt Count 160 141 L (160-400) X10*3/uL BMP 01/08/25 01/09/25 15:21 05:21 Sodium 137 142 Potassium 4.1 4.3 Chloride 111 H 117 H Carbon Dioxide 19 L 18 L BUN 36 H 30 H Creatinine 1.88 H 1.54 H Calcium 8.7 8.8 Liver Function 01/08/25 01/09/25 Range/Units 15:21 05:21 Total Bilirubin 1.8 H 2.7 H (0.0-1.0) mg/dL AST 215 H 204 H (5-37) U/L ALT 49 H 43 H (0-40) U/L Alkaline Phosphatase 40 42 (39-117) U/L Albumin 4.0 3.8 (3.5-5.0) g/dL Urine 01/08/25 Range/Units 19:04 Urine Color Red A Urine Appearance Clear Urine pH 5.5 (5.0-9.0) Ur Specific [place] 1.010 (1.005-1.025) Urine Protein 100 (2+) H (Neg-Trace) mg/dL Urine Glucose (UA) Negative (Negative) mg/dL Assessment and Plan Patient Active problem list reviewed?: Yes (1) Anemia Status: Chronic Assessment and plan: 1. This is a 79-year-old male with past medical history of BPH, mitral valve repair in July 2024 presenting with worsening anemia and renal function since October 2024. He presented with hemoglobin of 5.4 gram/dL without evidence of any acute blood loss. In February 2024 his hemoglobin was 14.2 gram/dL. In October 2024 this dropped to 8.2 gram/dL. His creatinine which was normal at 0.89 mg/dL in February 2024 increased to 1.45 in October 2024. Peripheral smear shows 3+ schistocytes. He has hyperbilirubinemia. Additional blood work submitted today shows LDH over 2000, haptoglobin less than 8, Arleen test negative. Iron studies are elevated TSAT of 78%, vitamin B12 over a 1000 and folate 9.6. He has mild thrombocytopenia. Coagulation studies showed no evidence of DIC. ADAMTS 13 enzyme level pending. I have also submitted blood flow cytometry for paroxysmal nocturnal hemoglobinuria, however this is unlikely. 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 He had mitral valve repair but does not have a prosthetic mitral valve. He has treated chronic hep C, his viral load was not detected in November 2024. Patient is experiencing diarrhea today. Submit stool for shiga toxin. Submit complement studies. Nephrology consultation. Thank you. - Time Spent With Patient Time Spent with Patient (in minutes): 30
[2025-01-09] MEDS: 0.9 % Sodium Chloride Flush 3 ML SYRINGE IVFLUSH (17:28)
[2025-01-10] VITALS (7 sets, daily range): BP systolic 109–134; BP diastolic 58–70; PULSE 62–80; RESP 18–20; TEMP 36.6–37.5; O2SAT 97–100
[2025-01-10] MEDS: Lactated Ringers 1,000 ML 100 ML IVCONT ×2 (03:17→14:34)
--- NOTE | 2025-01-10 03:43 | PC.NURSE ---
Pt's urine noted to be pale brown/tea colored. Pt denies pain or dysuria.
[2025-01-10 06:56] LABS: Hematocrit 29.0 % (42.0-52.0); Hemoglobin 9.7 g/dl (14.0-18.0); Mean Corpuscular HGB Conc 33.4 g/dl (31.0-36.0); Mean Corpuscular Hemoglobin 31.1 pg (27.0-33.0); Mean Corpuscular Volume 92.9 fL (80.0-98.0); NRBC Abs Auto 0.000 X10*3/uL (0.0-0.012); NRBC Pct Auto 0.0 /100WBC (0.0-0.2); Platelet Count 133 X10*3/uL (160-400); Red Blood Count 3.12 X10*6/uL (4.60-5.80); White Blood Count 5.6 X10*3/uL (4.8-10.8)
[2025-01-10 07:01] LABS: Anion Gap 11 (12-20); Blood Urea Nitrogen 29 mg/dL (9-16); Calcium 8.6 mg/dL (8.4-10.2); Carbon Dioxide 19 mmol/L (22-29); Chloride 117 mmol/L (96-108); Creatinine Clr Calc Pharmacy 34.7; Estimated Glomerular Filt Rate 44; Potassium 4.0 mmol/L (3.3-5.1); Sodium 143 mmol/L (135-145)
[2025-01-10] MEDS: Ferrous Sulfate 324 MG TABLET.DR PO (09:18)
[2025-01-10] MEDS: 0.9 % Sodium Chloride Flush 3 ML SYRINGE IVFLUSH ×2 (09:24→20:05)
--- NOTE | 2025-01-10 11:14 | P.PNIM_ITS ---
Subjective Subjective Date of Service: 01/10/25 Interval History: f/u on recurrent hematuria, acute blood loss anemia renal failure, elevated bilirubin, schistocyte in blood elevated LDH, low platlets, low haptoglobin H/H is stable. Plat stable, renal functionis getter better Physical Exam 2 Exam: Exam: General: AO X 3, no acute distress Resp: CTA bilateral CVS: S1,S2,RRR GI: +BS, NT, no distention Skin: No rash Neuro: motor grossly intact Psych: appropriate affect Vital Signs: Vital Signs: Last Vital Signs Temp 97.9 F 01/10/25 07:44 Pulse 64 01/10/25 07:44 Resp 18 01/10/25 07:44 BP 126/62 01/10/25 09:17 Pulse Ox 99 01/10/25 07:44 O2 Del Method Room Air 01/10/25 07:44 BMI result Body Mass Index 22.7 Objective Data Active Medications Acetaminophen (Acetaminophen 325 Mg Tablet) 650 mg PO Q6H PRN PRN Reason: Pain, Mild 1-3,fever,headache Amlodipine Besylate (Amlodipine Besylate 10 Mg Tablet) 10 mg PO DAILY [facility]; Protocol Last Admin: 01/10/25 09:17 Dose: 10 mg Documented By: YEFRI Calcium Carbonate (Calcium Carbonate 750 Mg Tab.Chew) 750 mg PO Q4H PRN PRN Reason: Heartburn Docusate Sodium (Docusate Sodium 100 Mg Capsule) 100 mg PO DAILY [facility] Last Admin: 01/10/25 09:21 Dose: Not Given Documented By: YEFRI Non-Admin Reason: pt reports diarrhea yesterday and does not wa Ferrous Sulfate (Ferrous Sulfate 324 Mg Tablet.Dr) 324 mg PO DAILY [facility] Last Admin: 01/10/25 09:18 Dose: 324 mg Documented By: YEFRI Lactated Ringer's (Lr) 1,000 mls @ 100 mls/hr IVCONT .Q10H [facility] Last Admin: 01/10/25 03:17 Dose: 100 mls/hr Documented By: CLARISSA Magnesium Hydroxide (Milk Of Magnesia 30 Ml Oral.Susp) 30 ml PO DAILY PRN PRN Reason: Constipation Melatonin (Melatonin 3 Mg Tablet) 6 mg PO BEDTIME PRN PRN Reason: Insomnia Metoprolol Tartrate (Metoprolol Tartrate 50 Mg Tablet) 50 mg PO BID [facility]; Protocol Last Admin: 01/10/25 09:19 Dose: Not Given Documented By: YEFRI Non-Admin Reason: Patient Refused Comments: pt states he hasn't taken this med in over a year because it was too much with his other meds. Rifampin (Rifampin 300 Mg Capsule) 600 mg PO BID [facility] Sodium Chloride (0.9 % Sodium Chloride Flush 3 Ml Syringe) 3 ml IVFLUSH QSHIFT [facility] Last Admin: 01/10/25 09:24 Dose: 3 ml Documented By: YEFRI Labs 01/11/25 06:14 01/11/25 06:14 Labs: Laboratory Results - last 24 hr 01/10/25 05:46 MCV 92.9 MCH 31.1 MCHC 33.4 RDW 21.4 H Plt Count 133 L MPV TNP Absolute Nucleated RBC 0.000 Nucleated RBC % (auto) 0.0 Anion Gap 11 L Estim Creat Clear Calc 34.7 Estimated GFR 44 Random Glucose 79 Calcium 8.6 Assessment and Plan (1) Hematuria: Status: Acute (2) Anemia: Status: Chronic (3) Symptomatic anemia: Status: Acute Plan [age]-year-old male with a past medical history of HTN, HLD, anxiety, depression, mitral valve surgery; osteoarthritis, anemia presented to the hospital today with a chief complaint of abnormal labs, recent admission for hematuria, he's still reporting hematuria and weak and found to have Hgb of 5--He had cystoscopy at Urology office 12/25 with no specific finding as cause for hematuria which has been ongoing since October. He presented with with hematuria and weakness. He presented with hemoglobin of 5.4, Creatine of 1.8 baseline is < 1, further testing revealed positive schistocytes, elevated Bilirubin of 2.7, elevated LFTs, LDH is 2085, Haptoglobin is less than 8, has hematuria. His mental status is intact. He has been evaluated by Hematology with provisional diagnosis of HUS and recommending Plasmapharesis not available at [facility] [place] [facility] and therefore attempting to transferd to [facility] [place] Acute blood loss anemia on chronic anemia since Juy Recurrent Hematuria Thrombocytopenia Schistocytes Hyperbilirubinemia LDH > 2000 Low Haptoglobin <8 INR 1 No blood in stool CT of abd and pelvis: No hydronephrosis or nephrolithiasis. 5 cm prominent prostate gland concerning benign prostate hyperplasia in the correct clinical settings. Diverticular disease. Subcentimeter hypodense liver lesions not fully evaluated.. Concerning hepatocellular dysfunction in the correct clinical settings. Multilevel thoracolumbar spondylosis. 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 Will likely be started on eculizumab will need Cipro prophyalaxis and meningococal vaccine History of mitral valve surgery: Patient on aspirin. 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
[2025-01-10 13:34] LABS: E. coli EAEC Not Detected (Not Detect.); E. coli EPEC Not Detected (Not Detect.); E. coli ETEC Not Detected (Not Detect.); E. coli STEC Not Detected (Not Detect.); Shigella sp./EIEC Not Detected (Not Detect.)
--- NOTE | 2025-01-10 13:36 | PM.CNNEP ---
History of Present Illness Reason for Consult Consult date: 01/10/25 Chief Complaint Chief complaint: Anemia History of Present Illness Narrative: 79-year-old gentleman with past medical history of hypertension, hyperlipidemia, mitral valve replacement in July 2024, anxiety depression has been having episodic hematuria for the past 2 months each epsiode lasting about 7-10 days, his upper urinary tract imaging was normal, Cystoscopy showed regrowth and neovascularity of prostate so ??? underwent repeat GreenLight laser procedure. He has been feeling weak and fatigued for which he got some labs which showed severe anemia with hemoglobin 6.1 so was referred to the ED. He also complains of loss of appetite nausea and weight loss. He denies any diaarhea, he was constipated until yesterday, no cough, no hemoptysis, no joint pain except for knee joint pain, no fever. His creatinine was normal 0.89 mg/dL in February 2024 increased to 1.45 in October 2024 and has been staying around that number since then. Urinalysis showed 2+ protein, 3+blood with 6-10 RBCs. Labs in the hospital concerning for hemolytic anemia with hemoglobin of 6.3 upon admission, LDH 2084, haptoglobin <8, and peripheral smear shows 3+ schistocytes, hyperbilirubinemia, negative curt test, D-dimer negative all together concerning for atypical HUS Review of Systems Constitutional: Reports anorexia, Reports body ache(s), Denies chills and Denies daytime sleepiness Eyes: Denies exophthalmos and Denies change in vision Reports Normal hearing present and Denies bleeding gums Cardiovascular: Denies chest pain, Denies chest pain with activity, Denies Epigastric Pain and Denies diaphoresis Respiratory: Denies chest congestion, Denies cough and Denies hemoptysis Gastrointestinal: Denies abdominal pain, Denies belching, Denies hematochezia and Reports change in stool character Genitourinary: Denies hematospermia, Denies change in libido and Reports hematuria Musculoskeletal: Denies back pain and Reports myalgias Reports Normal hearing present Psychiatric: Denies change in libido Endocrine: Denies change in libido [facility] Past Medical History Medical History (Updated 01/10/25 @ 15:35 by Shawn Watts MD) Anemia Elevated LFTs Essential hypertension Dermatitis Primary osteoarthritis of knees, bilateral Severe mitral valve regurgitation Mitral valve prolapse Non-rheumatic mitral regurgitation History of hepatitis C Benign essential hypertension Hypertension Overweight (BMI 25.0-29.9) Anxiety Urinary frequency Allergic rhinitis Osteoarthritis of left knee Vitamin D deficiency Pure hypercholesterolemia Impaired fasting glucose White coat syndrome with hypertension Family History Family History Father Hypertension Stroke Mother Medical history unknown Surgical History Surgical History (Updated 01/09/25 @ 11:18 by Lynn Ansari MD) History of mitral valve repair History of colonoscopy History of prostate surgery Social History Social History Household Members: None Housing: Apartment Do you presently have visiting nurse or other home services: No Alcohol intake: never Patient Tobacco Use Status: Former Tobacco user Tobacco use type: Cigarette Years Smoked: 25 years e-Cigarette/Vaping Use: Never Used Second Hand Smoke Exposure: Yes service: No Current occupational status: retired and disabled Cognitive needs: No Hearing needs: No Vision needs: Yes (Reading Glasses) Meds Allergies Allergy/AdvReac Type Severity Reaction Status Date / Time No Known Allergies (No Known Allergy Verified 01/08/25 14:49 Allergies*) Active Medications: Current Medications Acetaminophen (Acetaminophen 325 Mg Tablet) 650 mg PO Q6H PRN PRN Reason: Pain, Mild 1-3,fever,headache Amlodipine Besylate (Amlodipine Besylate 10 Mg Tablet) 10 mg PO DAILY REPLACED BY [facility]; Protocol Last Admin: 01/10/25 09:17 Dose: 10 mg Calcium Carbonate (Calcium Carbonate 750 Mg Tab.Chew) 750 mg PO Q4H PRN PRN Reason: Heartburn Docusate Sodium (Docusate Sodium 100 Mg Capsule) 100 mg PO DAILY REPLACED BY [facility] Last Admin: 01/10/25 09:21 Dose: Not Given Ferrous Sulfate (Ferrous Sulfate 324 Mg Tablet.Dr) 324 mg PO DAILY REPLACED BY [facility] Last Admin: 01/10/25 09:18 Dose: 324 mg Lactated Ringer's (Lr) 1,000 mls @ 100 mls/hr IVCONT .Q10H REPLACED BY [facility] Last Admin: 01/10/25 03:17 Dose: 100 mls/hr Magnesium Hydroxide (Milk Of Magnesia 30 Ml Oral.Susp) 30 ml PO DAILY PRN PRN Reason: Constipation Melatonin (Melatonin 3 Mg Tablet) 6 mg PO BEDTIME PRN PRN Reason: Insomnia Metoprolol Tartrate (Metoprolol Tartrate 50 Mg Tablet) 50 mg PO BID REPLACED BY [facility]; Protocol Last Admin: 01/10/25 09:19 Dose: Not Given Rifampin (Rifampin 300 Mg Capsule) 600 mg PO BID REPLACED BY [facility] Sodium Chloride (0.9 % Sodium Chloride Flush 3 Ml Syringe) 3 ml IVFLUSH QSHIFT REPLACED BY [facility] Last Admin: 01/10/25 09:24 Dose: 3 ml Home Medications ?Medication ?Instructions ?Recorded ?Confirmed ?Last Taken ?Type aspirin 81 mg tablet,delayed 81 mg PO DAILY 09/16/24 01/08/25 01/08/25 History release docusate sodium 100 mg capsule 100 mg PO DAILY constipation 01/08/25 01/08/25 01/08/25 History metoprolol tartrate 25 mg tablet 50 mg PO BID 01/08/25 01/08/25 01/08/25 History Physical Exam Vital Signs: Last Vital Signs Temp 97.8 F 01/10/25 12:00 Pulse 67 01/10/25 12:00 Resp 18 01/10/25 12:00 BP 134/70 01/10/25 12:00 Pulse Ox 99 01/10/25 12:00 O2 Del Method Room Air 01/10/25 12:00 BMI result Body Mass Index 22.7 General: Elderly male in mild acute distress, chronically ill appearing and tired appearing Nutritional Appearance: well nourished and overweight Eyes: appearance normal, both eyes and all related structures; Alignment and Position: alignment normal and position normal Neck: No lymphadenopathy, no thyromegaly Resp: bilateral air entry equal, no added sounds present Cardio: Regular rate, regular rhythm; Heart sounds: S1 normal heart sound present and S2 normal heart sound present GI: soft, nontender, no guarding, no hepatosplenomegaly : bladder normal to inspection, bladder normal to palpation, no renal angle tenderness Skin: no rashes or lesions noted and elasticity normal Neuro: oriented to person, oriented to place, oriented to time and moves all extremities Neuro Cranial nerves: Yes Normal hearing present Results Lab Results 01/10/25 05:46 01/10/25 05:46 Lab results: Chemistry 01/08/25 01/09/25 01/10/25 15:21 05:21 05:46 Sodium 137 142 143 Potassium 4.1 4.3 4.0 Carbon Dioxide 19 L 18 L 19 L BUN 36 H 30 H 29 H Creatinine 1.88 H 1.54 H 1.55 H Calcium 8.7 8.8 8.6 Hematology 01/08/25 01/09/25 01/10/25 15:21 05:21 05:46 WBC 6.1 5.5 5.6 Hgb 5.4 L* 9.5 L D 9.7 L Plt Count 160 141 L 133 L Urinalysis 01/08/25 19:04 Urine Color Red A Urine Appearance Clear Urine pH 5.5 Ur Specific [place] 1.010 Urine Protein 100 (2+) H Urine Glucose (UA) Negative Urine Ketones Negative Urine Blood Large (3+) H Urine Nitrite Negative Ur Leukocyte Esterase Trace H Urine RBC 6-10 H Urine WBC 0-5 Ur Squamous Epith Cells 0-2 Hyaline Casts 0-2 Assessment and Plan (1) ÁNGELA (acute kidney injury): Status: Inactive (2) Proteinuria: Qualifiers: Proteinuria type: unspecified Qualified Code(s): R80.9 - Proteinuria, unspecified Status: Acute (3) Hematuria: Qualifiers: Hematuria type: gross Qualified Code(s): R31.0 - Gross hematuria Status: Acute (4) Anemia: Qualifiers: Anemia type: unspecified type Qualified Code(s): D64.9 - Anemia, unspecified Status: Chronic (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 Urinalysis showed 2+ protein, 3+blood with 6-10 RBCs. Labs in the hospital concerning for hemolytic anemia with hemoglobin of 6.3 upon admission, thrombocytopenia, LDH 5, haptoglobin <8, and peripheral smear shows 3+ schistocytes, hyperbilirubinemia, negative curt test, D-dimer negative all together concerning for atypical HUS. Hepatitis C positive but viral load negative. Plan: Will order ADAMTS 13 level to rule out TTP. will get C3 , C4 and CH450 complement levels will get stool PCR to look for shiga toxin as he has diarrhea will get JOHN, ANCA and HIV will get a renal biopsy for evidence of TMA anterior look for chronicity, he also has recurrent episodes of hematuria with cystoscopy normal. Although plasma pheresis is a bridge for eculizumab, we do not do plasmapheresis here and it is inferior to Eculizumab which is the definitive treatment. We will start the patient on eculizumab which is the gold standard for treatment. Explained both the patient and his daughter Julia about the etiology of the disease, pathophysiology, course of illness, and what is monoclonal antibody, potential side effects of eculizumab including varioud bacterial infections. nausea. voimting, headaaches and also the course of treatment. They agreed to proceed with the treatment. We will start the patient on eculizumab 900mg IV weekly for 4 weeks, first dose to be given in hospital rest of the dosage on outpatient basis, followed by 1200 mg IV every other week on week 5 and 7. We will give the patient meningococcal vaccination both ACW and B prior to the infusion and start on rifampin prophylaxis for 2 weeks. Procedures Date of Service Date of Service: 01/10/25
--- NOTE | 2025-01-10 13:42 | P.CNUR_ITS ---
History of Present Illness Consult details Consult date: 01/10/25 Narrative: CC: Hematuria 79-year-old male. Presented through emergency room with shortness of breath and reduced hematocrit. Prior evaluation last month for hematuria Outpatient cystoscopy performed. Has neovascularity with regrowth of prostate tissue. Recommendation for GreenLight laser prostatectomy. Had mitral valve repair in July Low platelets amongst other blood dyscrasias Highly unlikely for laboratory results to occurs a result of hematuria Follow heme Onc recommendation Review of Systems 2 Constitutional: Constitutional: Reports as per HPI and Reports no additional constitutional complaints Cardiovascular: Cardiovascular: Reports as per HPI and Reports no additional cardiovascular complaints Respiratory: Respiratory: Reports as per HPI and Reports no additional respiratory complaints Gastrointestinal: Gastrointestinal: Reports as per HPI and Reports no additional gastrointestinal complaints Genitourinary: Genitourinary: Reports as per HPI Musculoskeletal: Musculoskeletal: Reports no additional musculoskeletal complaints and Reports as per HPI Neurologic: Reports system reviewed and no additional complaints, except as documented and Reports as per HPI PMFSH Past Medical History Medical History (Updated 01/09/25 @ 11:18 by Lynn Ansari MD) Anemia Elevated LFTs Essential hypertension Dermatitis Primary osteoarthritis of knees, bilateral Severe mitral valve regurgitation Mitral valve prolapse Non-rheumatic mitral regurgitation History of hepatitis C Benign essential hypertension Hypertension Overweight (BMI 25.0-29.9) Anxiety Urinary frequency Allergic rhinitis Osteoarthritis of left knee Vitamin D deficiency Pure hypercholesterolemia Impaired fasting glucose White coat syndrome with hypertension Family History Family History Father Hypertension Stroke Mother Medical history unknown Surgical History Surgical History (Updated 01/09/25 @ 11:18 by Lynn Ansari MD) History of mitral valve repair History of colonoscopy History of prostate surgery Social History Social History Household Members: None Housing: Apartment Do you presently have visiting nurse or other home services: No Alcohol intake: never Patient Tobacco Use Status: Former Tobacco user Tobacco use type: Cigarette Years Smoked: 25 years e-Cigarette/Vaping Use: Never Used Second Hand Smoke Exposure: Yes service: No Current occupational status: retired and disabled Cognitive needs: No Hearing needs: No Vision needs: Yes (Reading Glasses) Meds Allergies Allergy/AdvReac Type Severity Reaction Status Date / Time No Known Allergies (No Known Allergy Verified 01/08/25 14:49 Allergies*) Active Medications: Current Medications Acetaminophen (Acetaminophen 325 Mg Tablet) 650 mg PO Q6H PRN PRN Reason: Pain, Mild 1-3,fever,headache Amlodipine Besylate (Amlodipine Besylate 10 Mg Tablet) 10 mg PO DAILY [facility]; Protocol Last Admin: 01/10/25 09:17 Dose: 10 mg Calcium Carbonate (Calcium Carbonate 750 Mg Tab.Chew) 750 mg PO Q4H PRN PRN Reason: Heartburn Docusate Sodium (Docusate Sodium 100 Mg Capsule) 100 mg PO DAILY [facility] Last Admin: 01/10/25 09:21 Dose: Not Given Ferrous Sulfate (Ferrous Sulfate 324 Mg Tablet.Dr) 324 mg PO DAILY [facility] Last Admin: 01/10/25 09:18 Dose: 324 mg Lactated Ringer's (Lr) 1,000 mls @ 100 mls/hr IVCONT .Q10H [facility] Last Admin: 01/10/25 03:17 Dose: 100 mls/hr Magnesium Hydroxide (Milk Of Magnesia 30 Ml Oral.Susp) 30 ml PO DAILY PRN PRN Reason: Constipation Melatonin (Melatonin 3 Mg Tablet) 6 mg PO BEDTIME PRN PRN Reason: Insomnia Metoprolol Tartrate (Metoprolol Tartrate 50 Mg Tablet) 50 mg PO BID [facility]; Protocol Last Admin: 01/10/25 09:19 Dose: Not Given Rifampin (Rifampin 300 Mg Capsule) 600 mg PO BID [facility] Last Admin: 01/10/25 13:32 Dose: 600 mg Sodium Chloride (0.9 % Sodium Chloride Flush 3 Ml Syringe) 3 ml IVFLUSH QSHIFT [facility] Last Admin: 01/10/25 09:24 Dose: 3 ml Home Medications ?Medication ?Instructions ?Recorded ?Confirmed ?Last Taken ?Type aspirin 81 mg tablet,delayed 81 mg PO DAILY 09/16/24 0 01/08/25 01/08/25 History release docusate sodium 100 mg capsule 100 mg PO DAILY constip ation 01/08/25 01/08/25 01/08/25 History metoprolol tartrate 25 mg tablet 50 mg PO BID 01/08/25 01/08/25 01/08/25 History Physical Exam 2 Vital Signs: Vital Signs: Last Vital Signs Temp 97.8 F 01/10/25 12:00 Pulse 67 01/10/25 12:00 Resp 18 01/10/25 12:00 BP 134/70 01/10/25 12:00 Pulse Ox 99 01/10/25 12:00 O2 Del Method Room Air 01/10/25 12:00 BMI result Body Mass Index 22.7 Const: General: cooperative, healthy appearing, comfortable and no acute distress Orientation/consciousness: patient oriented x3 HEENT: Face and sinus: Yes normal facial exam Mouth: moist mucous membranes Neck: Neck: Yes normal visual inspection, Yes full ROM and Yes trachea midline Chest: Chest palpation & inspection: normal inspection of the chest Resp: Effort & Inspection: normal respiratory effort, able to speak in complete sentences and no respiratory distress GI: Inspection: Yes normal to inspection Back/Spine/Pelvis: Cervical Spine: normal cervical lordosis Thoracic/Lumbar Spine: thoracic and lumbar spine normal to inspection Skin: General skin exam: no rashes or lesions noted Neuro: General: patient oriented x3, tone normal and moves all extremities Extrem: General: Yes normal to inspection and Yes capillary refill normal Results Labs 01/10/25 05:46 01/10/25 05:46 Labs: Abnormal lab results 01/10/25 Range/Units 05:46 RBC 3.12 L (4.60-5.80) X10*6/uL Hgb 9.7 L (14.0-18.0) g/dl Hct 29.0 L (42.0-52.0) % RDW 21.4 H (11.0-16.0) % Plt Count 133 L (160-400) X10*3/uL Chloride 117 H (96-108) mmol/L Carbon Dioxide 19 L (22-29) mmol/L Anion Gap 11 L (12-20) BUN 29 H (9-16) mg/dL Creatinine 1.55 H (0.5-1.4) mg/dL Short CBC 01/10/25 Range/Units 05:46 WBC 5.6 (4.8-10.8) X10*3/uL Hgb 9.7 L (14.0-18.0) g/dl Hct 29.0 L (42.0-52.0) % Plt Count 133 L (160-400) X10*3/uL BMP 01/10/25 05:46 Sodium 143 Potassium 4.0 Chloride 117 H Carbon Dioxide 19 L BUN 29 H Creatinine 1.55 H Calcium 8.6 Urine 01/08/25 Range/Units 19:04 Urine Color Red A Urine Appearance Clear Urine pH 5.5 (5.0-9.0) Ur Specific [place] 1.010 (1.005-1.025) Urine Protein 100 (2+) H (Neg-Trace) mg/dL Urine Glucose (UA) Negative (Negative) mg/dL All other labs normal. Assessment and Plan (1) Hematuria: Qualifiers: Hematuria type: gross Qualified Code(s): R31.0 - Gross hematuria Status: Acute (2) Bladder outlet obstruction: Status: Acute Plan Continue towards planned prostate procedure Procedures Date of Service Date of Service: 01/10/25
[2025-01-10 15:44] LABS: Microalbum/Creatinine Ratio Ur 300.8 ug/mg cr (<30); Total Protein Urine Random 22 mg/dL (<12)
[2025-01-10] MEDS: [UNRECOGNIZED DRUG - OTHER] IV (18:54)
[2025-01-10] MEDS: SODIUM CHLORIDE IV (18:54)
--- NOTE | 2025-01-10 21:04 | PC.NURSE ---
pt concerned for change in medication both missing his Losartan and being given Metoprolol. Discussed with patient plan to discuss with MD and pt perseverating despite multiple conversations. Pt also resistant to any medication changes and needed several conversations with pt, Pt's brother, and pt's daughter re Menengicoccal vaccines, rifampin, and Solaris. Dr. Glass, Dr. Watts both down to discuss with patient/family. Pt finally stated understanding and acceptance of plan. He was able to teachback indications for medication, risks both of taking and declining the medication and future plan. He was tentative with teachback and will need reinforcement. Solaris hung with Pt tolerating well.
[2025-01-11] VITALS (8 sets, daily range): BP systolic 103–117; BP diastolic 55–62; PULSE 61–69; RESP 18; TEMP 36.6–37.8; O2SAT 96–99
[2025-01-11 06:54] LABS: Hematocrit 28.1 % (42.0-52.0); Hemoglobin 9.6 g/dl (14.0-18.0); Mean Corpuscular HGB Conc 34.2 g/dl (31.0-36.0); Mean Corpuscular Hemoglobin 31.7 pg (27.0-33.0); Mean Corpuscular Volume 92.7 fL (80.0-98.0); NRBC Abs Auto 0.000 X10*3/uL (0.0-0.012); NRBC Pct Auto 0.0 /100WBC (0.0-0.2); Platelet Count 114 X10*3/uL (160-400); Red Blood Count 3.03 X10*6/uL (4.60-5.80); White Blood Count 7.9 X10*3/uL (4.8-10.8)
[2025-01-11 07:01] LABS: Anion Gap 12 (12-20); Blood Urea Nitrogen 24 mg/dL (9-16); Calcium 8.4 mg/dL (8.4-10.2); Carbon Dioxide 18 mmol/L (22-29); Chloride 113 mmol/L (96-108); Creatinine Clr Calc Pharmacy 46.7; Estimated Glomerular Filt Rate > 60; Potassium 3.5 mmol/L (3.3-5.1); Sodium 139 mmol/L (135-145)
--- NOTE | 2025-01-11 07:33 | P.PNIM_ITS ---
Subjective Subjective Date of Service: 01/11/25 Interval History: f/u on recurrent hematuria, acute blood loss anemia renal failure, elevated bilirubin, schistocyte in blood elevated LDH, low platlets, low haptoglobin -->HUS diagnosis Starting on yesterday renal function is now normal There is persistent hematuria but dark blood urine Overall feels better Physical Exam 2 Exam: Exam: General: AO X 3, no acute distress Resp: CTA bilateral CVS: S1,S2,RRR GI: +BS, NT, no distention Skin: No rash Neuro: motor grossly intact Psych: appropriate affect Vital Signs: Vital Signs: Last Vital Signs Temp 100.1 F 01/11/25 03:51 Pulse 65 01/11/25 03:51 Resp 18 01/11/25 03:51 BP 117/59 L 01/11/25 03:51 Pulse Ox 99 01/11/25 03:51 O2 Del Method Room Air 01/11/25 03:51 BMI result Body Mass Index 22.7 Objective Data Active Medications Acetaminophen (Acetaminophen 325 Mg Tablet) 650 mg PO Q6H PRN PRN Reason: Pain, Mild 1-3,fever,headache Amlodipine Besylate (Amlodipine Besylate 10 Mg Tablet) 10 mg PO DAILY [facility]; Protocol Last Admin: 01/10/25 09:17 Dose: 10 mg Documented By: YEFRI Calcium Carbonate (Calcium Carbonate 750 Mg Tab.Chew) 750 mg PO Q4H PRN PRN Reason: Heartburn Diphenhydramine HCl (Diphenhydramine Hcl 50 Mg/Ml Vial) 25 mg IVPUSH ONCE PRN PRN Reason: HYPERSENSITIVITY TO SOLIRIS Docusate Sodium (Docusate Sodium 100 Mg Capsule) 100 mg PO DAILY [facility] Last Admin: 01/10/25 09:21 Dose: Not Given Documented By: YEFRI Non-Admin Reason: pt reports diarrhea yesterday and does not wa Epinephrine (Epinephrine 1 Mg/Ml Vial) 0.3 mg IM ONCE PRN PRN Reason: HYPERSENSITIVITY TO SOLIRIS Famotidine (Famotidine/Pf 20 Mg/2 Ml Vial) 20 mg IVPUSH ONCE PRN PRN Reason: HYPERSENSITIVITY TO SOLIRIS Ferrous Sulfate (Ferrous Sulfate 324 Mg Tablet.) 324 mg PO DAILY [facility] Last Admin: 01/10/25 09:18 Dose: 324 mg Documented By: HO.ARMSTRH Magnesium Hydroxide (Milk Of Magnesia 30 Ml Oral.Susp) 30 ml PO DAILY PRN PRN Reason: Constipation Melatonin (Melatonin 3 Mg Tablet) 6 mg PO BEDTIME PRN PRN Reason: Insomnia Metoprolol Tartrate (Metoprolol Tartrate 50 Mg Tablet) 50 mg PO BID [facility]; Protocol Last Admin: 01/10/25 20:03 Dose: 50 mg Documented By: CLARISSA Rifampin (Rifampin 300 Mg Capsule) 600 mg PO BID [facility] Last Admin: 01/10/25 20:03 Dose: 600 mg Documented By: CLARISSA Sodium Chloride (0.9 % Sodium Chloride Flush 3 Ml Syringe) 3 ml IVFLUSH QSHIFT [facility] Last Admin: 01/10/25 20:05 Dose: 3 ml Documented By: CLARISSA Labs 01/11/25 06:14 01/11/25 06:14 Labs: Laboratory Results - last 24 hr 01/10/25 01/10/25 01/11/25 10:30 15:27 06:14 MCV 92.7 MCH 31.7 MCHC 34.2 RDW 20.3 H Plt Count 114 L MPV TNP Absolute Nucleated RBC 0.000 Nucleated RBC % (auto) 0.0 Anion Gap 12 Estim Creat Clear Calc 46.7 Estimated GFR > 60 Random Glucose 91 Calcium 8.4 U Random Total Protein 22 H Urine Creatinine 25.93 Urine Microalbumin 78.0 Microalb/Creat Ratio 300.8 H Stl C. cayetanensis PCR Not Detected Stool Rotavirus A PCR Not Detected Stl Adenov F 40/41 PCR Not Detected Stool Astrovirus (PCR) Not Detected Stool Campylobacter PCR Not Detected Stool Cryptosporidium PCR Not Detected Stl Sh Tox Pr E STEC PCR Not Detected Stool E coli O157 PCR Not applicable Stl Enterotoxigenic E PCR Not Detected Stool EPEC (PCR) Not Detected Stool EAEC (PCR) Not Detected Stl E. histolytica PCR Not Detected Stool Giardia Lamblia PCR Not Detected Stl P. shigelloides PCR Not Detected Stool Salmonella PCR Not Detected Stool Sapovirus (PCR) Not Detected Stl Shigella/EIEC PCR Not Detected St Y.enterocolitica PCR Not Detected Stool Vibrio (PCR) Not Detected Stl Vibrio cholerae PCR Not Detected Stl Norovirus GI/GII PCR Not Detected Assessment and Plan (1) Hematuria: Status: Acute (2) Anemia: Status: Chronic (3) Symptomatic anemia: Status: Acute Plan [age]-year-old male with a past medical history of HTN, HLD, anxiety, depression, mitral valve surgery; osteoarthritis, anemia presented to the hospital today with a chief complaint of abnormal labs, recent admission for hematuria, he's still reporting hematuria and weak and found to have Hgb of 5--He had cystoscopy at Urology office 12/25 with no specific finding as cause for hematuria which has been ongoing since October. He presented with with hematuria and weakness. He presented with hemoglobin of 5.4, Creatine of 1.8 baseline is < 1, further testing revealed positive schistocytes, elevated Bilirubin of 2.7, elevated LFTs, LDH is 2085, Haptoglobin is less than 8, has hematuria. His mental status is intact. He has been evaluated by Hematology with provisional diagnosis of HUS and recommending [place] [facility] [place] [facility] [place] blood loss anemia on chronic anemia since Juy Recurrent Hematuria Thrombocytopenia Schistocytes Hyperbilirubinemia LDH > 2000 Low Haptoglobin <8 INR 1 No blood in stool CT of abd and pelvis: No hydronephrosis or nephrolithiasis. 5 cm prominent prostate gland concerning benign prostate hyperplasia in the correct clinical settings. Diverticular disease. Subcentimeter hypodense liver lesions not fully evaluated.. Concerning hepatocellular dysfunction in the correct clinical settings. Multilevel thoracolumbar spondylosis. 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 -Started on eculizumab on 01/10 -Got meningococal vaccine on 01/10 -GI panel is negative History of mitral valve surgery: Patient on aspirin. To be resumed eventually ÁNGELA d/t HUS above, monitor Nephro consult, Creatine is now 1. 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
[2025-01-11] MEDS: Ferrous Sulfate 324 MG TABLET.DR PO (11:19)
[2025-01-11] MEDS: 0.9 % Sodium Chloride Flush 3 ML SYRINGE IVFLUSH ×2 (11:20→21:51)
[2025-01-11 13:24] LABS: Reticulocytes Absolute 0.198 X10*6/uL (0.026-0.095)
--- NOTE | 2025-01-11 13:57 | PM.HEMONCPN ---
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 He underwent mitral valve repair in July 2024. He says ever since then he has been experiencing loss of appetite, metallic taste in his mouth, nausea as well as weight loss. He says he is always cold and has chills. He denies any headache or mental status changes. He lives alone. After his surgery he was started on baby aspirin. He states that his blood pressure was running high in for a few weeks he had doubled up on amlodipine and some other blood pressure medication. He had a few episodes of blood in his stools. He was seen by Urology. He has had surgery for BPH some years ago. No hematochezia or melena. He was briefly on antibiotics for presumed UTI but taken off as his urine cultures were negative. He is doing better today although reports intermittent hematuria. Review of Systems - Neurologic Reports no additional neurologic complaints, Reports as per HPI, Reports hearing normal, Reports weakness PMFSH Medical History: Medical History (Last Updated 12/13/24 @ 01:31 by Chris Pearson MD) Allergic rhinitis Anemia Anxiety Benign essential hypertension Dermatitis Elevated LFTs Essential hypertension History of hepatitis C Hypertension Impaired fasting glucose Mitral valve prolapse Non-rheumatic mitral regurgitation Osteoarthritis of left knee Overweight (BMI 25.0-29.9) Primary osteoarthritis of knees, bilateral Pure hypercholesterolemia Severe mitral valve regurgitation Urinary frequency Vitamin D deficiency White coat syndrome with hypertension Family History: Family History (Last Reviewed 12/12/24 @ 11:19 by BERNICE Van) Father Hypertension Stroke Mother Medical history unknown Surgical History: Surgical History (Last Reviewed 12/12/24 @ 11:19 by BERNICE Van) History of colonoscopy History of mitral valve repair History of prostate surgery Social History: Social History (Last Reviewed 12/12/24 @ 11:19 by BERNICE Van) Living Situation History: Household Members: None Housing: Apartment Do you presently have visiting nurse or other home services: No Tobacco History: Patient Tobacco Use Status: Former Tobacco user Tobacco use type: Cigarette Years Smoked: 25 years e-Cigarette/Vaping Use: Never Used Second Hand Smoke Exposure: Yes Occupation Assessmet: service: No Current occupational status: retired Current occupational status: disabled Home Medications and Allergies Current Medications: Current Medications Acetaminophen (Acetaminophen 325 Mg Tablet) 650 mg PO Q6H PRN PRN Reason: Pain, Mild 1-3,fever,headache Amlodipine Besylate (Amlodipine Besylate 10 Mg Tablet) 10 mg PO DAILY [facility]; Protocol On Hold: 01/11/25 13:00 Last Admin: 01/11/25 11:18 Dose: 10 mg Calcium Carbonate (Calcium Carbonate 750 Mg Tab.Chew) 750 mg PO Q4H PRN PRN Reason: Heartburn Diphenhydramine HCl (Diphenhydramine Hcl 50 Mg/Ml Vial) 25 mg IVPUSH ONCE PRN PRN Reason: HYPERSENSITIVITY TO SOLIRIS Docusate Sodium (Docusate Sodium 100 Mg Capsule) 100 mg PO DAILY [facility] Last Admin: 01/11/25 11:20 Dose: Not Given Epinephrine (Epinephrine 1 Mg/Ml Vial) 0.3 mg IM ONCE PRN PRN Reason: HYPERSENSITIVITY TO SOLIRIS Famotidine (Famotidine/Pf 20 Mg/2 Ml Vial) 20 mg IVPUSH ONCE PRN PRN Reason: HYPERSENSITIVITY TO SOLIRIS Ferrous Sulfate (Ferrous Sulfate 324 Mg Tablet.Dr) 324 mg PO DAILY [facility] Last Admin: 01/11/25 11:19 Dose: 324 mg Magnesium Hydroxide (Milk Of Magnesia 30 Ml Oral.Susp) 30 ml PO DAILY PRN PRN Reason: Constipation Melatonin (Melatonin 3 Mg Tablet) 6 mg PO BEDTIME PRN PRN Reason: Insomnia Metoprolol Tartrate (Metoprolol Tartrate 50 Mg Tablet) 50 mg PO BID [facility]; Protocol Last Admin: 01/11/25 11:17 Dose: 50 mg Rifampin (Rifampin 300 Mg Capsule) 600 mg PO BID [facility] Last Admin: 01/11/25 11:18 Dose: 600 mg Sodium Chloride (0.9 % Sodium Chloride Flush 3 Ml Syringe) 3 ml IVFLUSH QSHIFT [facility] Last Admin: 01/11/25 11:20 Dose: 3 ml Home Medications ?Medication ?Instructions ?Recorded ?Confirmed ?Type aspirin 81 mg tablet,delayed 81 mg PO DAILY 09/16/24 01/08/25 History release docusate sodium 100 mg capsule 100 mg PO DAILY constipation 01/08/25 01/08/25 History metoprolol tartrate 25 mg tablet 50 mg PO BID 01/08/25 01/08/25 History Allergies Allergy/AdvReac Type Severity Reaction Status Date / Time No Known Allergies (No Known Allergy Verified 01/08/25 14:49 Allergies*) Exam Vital signs: Vital Signs Temp 98.1 F 01/11/25 12:00 Pulse 61 01/11/25 12:00 Resp 18 01/11/25 12:00 BP 106/55 L 01/11/25 12:00 Pulse Ox 99 01/11/25 12:00 O2 Del Method Room Air 01/11/25 12:00 Intake & Output 01/10/25 01/11/25 01/11/25 18:59 06:59 18:59 Intake Total 1880 / 3940 2060 / 3940 Output Total 800 / 3275 2475 / 3275 Balance 1080 / 665 -415 / 665 Urine Output (Average ml/kg/hr) 1.08 3.33 Intake: Intake, Oral Amount 880 / 1760 880 / 1760 Intake, IV Amount 1000 / 2180 1180 / 2180 Patient Own Medication 900 each 180 / 180 In 0.9 % Sodium Chloride 180 ml @ 308.571 mls/hr IV ONCE ONE Rx#:[id number] Lactated Ringers 1,000 ml @ 100 1000 / 2000 1000 / 2000 mls/hr IVCONT .Q10H SUE Rx#: [id number] Output: Output, Urine Amount 800 / 3275 2475 / 3275 Other: Meal Refused No No NPO No No Breakfast % Eaten 100% Lunch % Eaten 75% Dinner % Eaten 25% Eating (Feeding) Ability Independent Independent Number of Bowel Movements 0 Urine Urinal Urinal Urine Color [place] Last Bowel Movement 01/10/25 Weight 62 kg BMI result Body Mass Index 22.7 - Constitutional Present: mild distress, chronically ill appearing - Routine HEENT Exam Head: Present: normal inspection - Routine Respiratory Exam Present: CTAB. Absent: wheezes - Routine Cardiovascular Exam Cardiovascular: Present: RRR, S1, S2 - Routine Abdominal Exam Present: soft - Routine Extremities Exam Present: normal inspection. Absent: pedal edema - Routine Skin Exam Present: intact Data - Labs CBC & Chem 7: 01/11/25 06:14 01/11/25 06:14 Labs: Laboratory Last Values WBC 7.9 X10*3/uL (4.8-10.8) 01/11/25 06:14 RBC 3.03 X10*6/uL (4.60-5.80) L 01/11/25 06:14 Hgb 9.6 g/dl (14.0-18.0) L 01/11/25 06:14 Hct 28.1 % (42.0-52.0) L 01/11/25 06:14 MCV 92.7 fL (80.0-98.0) 01/11/25 06:14 MCH 31.7 pg (27.0-33.0) 01/11/25 06:14 MCHC 34.2 g/dl (31.0-36.0) 01/11/25 06:14 RDW 20.3 % (11.0-16.0) H 01/11/25 06:14 Plt Count 114 X10*3/uL (160-400) L 01/11/25 06:14 MPV TNP 01/11/25 06:14 Immature Gran % (Auto) 0.5 % (0.0-0.4) H 01/09/25 05:21 Neut % (Auto) 67.4 % (45-73) 01/09/25 05:21 Lymph % (Auto) 16.1 % (20-40) L 01/09/25 05:21 [place] % (Auto) 12.7 % (2-11) H 01/09/25 05:21 Eos % (Auto) 2.4 % (0-4) 01/09/25 05:21 Baso % (Auto) 0.9 % (0-2) 01/09/25 05:21 Lymph # (Auto) 0.9 X10*3/uL (1.2-4.9) L 01/09/25 05:21 [place] # (Auto) 0.7 X10*3/uL (0.1-1.2) 01/09/25 05:21 Eos # (Auto) 0.1 X10*3/uL (0.0-0.4) 01/09/25 05:21 Baso # (Auto) 0.1 X10*3/uL (0.0-0.2) 01/09/25 05:21 Abs Immat Gran (auto) 0.03 X10*3/uL (0.00-0.03) 01/09/25 05:21 Absolute Neuts (auto) 3.7 x10*3/uL (2.0-8.3) 01/09/25 05:21 Absolute Nucleated RBC 0.000 X10*3/uL (0.0-0.012) 01/11/25 06:14 Nucleated RBC % (auto) 0.0 /100WBC (0.0-0.2) 01/11/25 06:14 Neutrophils % (Manual) 79 % (45-73) H 01/08/25 15:21 Band Neutrophils % 0 % (3-5) L 01/08/25 15:21 Lymphocytes % (Manual) 13 % (20-40) L 01/08/25 15:21 Monocytes % (Manual) 7 % (2-11) 01/08/25 15:21 Eosinophils % (Manual) 1 % (0-4) 01/08/25 15:21 Abs Neuts (Manual) 4.8 X10*3/uL (2.0-8.3) 01/08/25 15:21 Lymphocytes # (Manual) 0.8 X10*3/uL (1.2-4.9) L 01/08/25 15:21 Monocytes # (Manual) 0.4 X10*3/uL (0.1-1.2) 01/08/25 15:21 Eosinophils # (Manual) 0.1 X10*3/uL (0.0-0.4) 01/08/25 15:21 Platelet Estimate NORMAL (NORMAL) 01/08/25 15:21 Plt Morphology Comment NORMAL 01/08/25 15:21 RBC Morphology NOTED 01/08/25 15:21 Schistocytes 3+ (>5) /OIF 01/08/25 15:21 Absolute Retic 0.198 X10*6/uL (0.026-0.095) H 01/11/25 13:14 Percent Retic 6.5 % (0.5-1.8) H 01/11/25 13:14 Immature Retic Fraction 15.6 % (2.3-13.4) H 01/11/25 13:14 Retic Hgb Equivalent 36.0 pg (30.0-35.0) H 01/11/25 13:14 PT 10.9 SEC (10.9-12.4) 01/09/25 08:54 INR 1.0 (0.9-1.1) 01/09/25 08:54 APTT 24.2 SEC (26.7-34.1) L 01/09/25 08:54 Fibrinogen 470 MG/DL (259-690) 01/09/25 08:54 Sodium 139 mmol/L (135-145) 01/11/25 06:14 Potassium 3.5 mmol/L (3.3-5.1) 01/11/25 06:14 Chloride 113 mmol/L (96-108) H 01/11/25 06:14 Carbon Dioxide 18 mmol/L (22-29) L 01/11/25 06:14 Anion Gap 12 (12-20) 01/11/25 06:14 BUN 24 mg/dL (9-16) H 01/11/25 06:14 Creatinine 1.15 mg/dL (0.5-1.4) 01/11/25 06:14 Estim Creat Clear Calc 46.7 01/11/25 06:14 Estimated GFR > 60 01/11/25 06:14 Random Glucose 91 mg/dL (60-115) 01/11/25 06:14 Haptoglobin < 8 mg/dL (40-268) L 01/09/25 08:54 Calcium 8.4 mg/dL (8.4-10.2) 01/11/25 06:14 Magnesium 2.1 mg/dL (1.6-2.6) 01/08/25 15:21 Iron 184 mcg/dL (45-160) H 01/09/25 05:21 TIBC 237 mcg/dL (228-428) 01/09/25 05:21 % Saturation 78 % (15-50) H 01/09/25 05:21 Unsat Iron Binding 53 ug/dL 01/09/25 05:21 Total Bilirubin 2.7 mg/dL (0.0-1.0) H 01/09/25 05:21 AST 204 U/L (5-37) H 01/09/25 05:21 ALT 43 U/L (0-40) H 01/09/25 05:21 Alkaline Phosphatase 42 U/L (39-117) 01/09/25 05:21 Lactate Dehydrogenase 1760 U/L (118-273) H 01/11/25 13:14 Total Protein 6.7 g/dL (6.5-8.0) 01/09/25 05:21 Albumin 3.8 g/dL (3.5-5.0) 01/09/25 05:21 Vitamin B12 1111 pg/mL (200-900) H 01/09/25 05:21 Folate 9.6 ng/mL (> or = 4.0) 01/09/25 05:21 Urine Color Red A 01/08/25 19:04 Urine Appearance Clear 01/08/25 19:04 Urine pH 5.5 (5.0-9.0) 01/08/25 19:04 Ur Specific [place] 1.010 (1.005-1.025) 01/08/25 19:04 Urine Protein 100 (2+) mg/dL (Neg-Trace) H 01/08/25 19:04 Urine Glucose (UA) Negative mg/dL (Negative) 01/08/25 19:04 Urine Ketones Negative mg/dL (Negative) 01/08/25 19:04 Urine Blood Large (3+) (Negative) H 01/08/25 19:04 Urine Nitrite Negative (Negative) 01/08/25 19:04 Ur Leukocyte Esterase Trace (Negative) H 01/08/25 19:04 Urine RBC 6-10 /HPF (0-2) H 01/08/25 19:04 Urine WBC 0-5 /HPF (0-5) 01/08/25 19:04 Ur Squamous Epith Cells 0-2 /HPF (0-2) 01/08/25 19:04 Urine Bacteria None Seen (None Seen) 01/08/25 19:04 Hyaline Casts 0-2 /LPF (0-2) 01/08/25 19:04 U Random Total Protein 22 mg/dL (<12) H 01/10/25 15:27 Urine Creatinine 25.93 mg/dL 01/10/25 15:27 Urine Microalbumin 78.0 mg/L 01/10/25 15:27 Microalb/Creat Ratio 300.8 ug/mg cr (<30) H 01/10/25 15:27 Gastric Occult Blood Cancelled 01/08/25 19:39 Stool Occult Blood NEGATIVE (NEGATIVE) 01/08/25 19:39 Stl C. cayetanensis PCR Not Detected (Not Detect.) 01/10/25 10:30 Stool Rotavirus A PCR Not Detected (Not Detect.) 01/10/25 10:30 Stl Adenov F 40/41 PCR Not Detected (Not Detect.) 01/10/25 10:30 Stool Astrovirus (PCR) Not Detected (Not Detect.) 01/10/25 10:30 Stool Campylobacter PCR Not Detected (Not Detect.) 01/10/25 10:30 Stool Cryptosporidium PCR Not Detected (Not Detect.) 01/10/25 10:30 Stl Sh Tox Pr E STEC PCR Not Detected (Not Detect.) 01/10/25 10:30 Stool E coli O157 PCR Not applicable (Not Detect.) 01/10/25 10:30 Stl Enterotoxigenic E PCR Not Detected (Not Detect.) 01/10/25 10:30 Stool EPEC (PCR) Not Detected (Not Detect.) 01/10/25 10:30 Stool EAEC (PCR) Not Detected (Not Detect.) 01/10/25 10:30 Stl E. histolytica PCR Not Detected (Not Detect.) 01/10/25 10:30 Stool Giardia Lamblia PCR Not Detected (Not Detect.) 01/10/25 10:30 Stl P. shigelloides PCR Not Detected (Not Detect.) 01/10/25 10:30 Stool Salmonella PCR Not Detected (Not Detect.) 01/10/25 10:30 Stool Sapovirus (PCR) Not Detected (Not Detect.) 01/10/25 10:30 Stl Shigella/EIEC PCR Not Detected (Not Detect.) 01/10/25 10:30 St Y.enterocolitica PCR Not Detected (Not Detect.) 01/10/25 10:30 Stool Vibrio (PCR) Not Detected (Not Detect.) 01/10/25 10:30 Stl Vibrio cholerae PCR Not Detected (Not Detect.) 01/10/25 10:30 Stl Norovirus GI/GII PCR Not Detected (Not Detect.) 01/10/25 10:30 Blood Type B Positive 01/08/25 15:21 Antibody Screen NEGATIVE 01/08/25 15:21 RAMYA, Polyspecific NEGATIVE 01/08/25 15:21 Positive RAMYA Work-up TNP 01/08/25 15:21 Crossmatch See Detail 01/08/25 15:21 - Imaging Radiologist's impression: ITS Impressions Abdomen/Pelvis CT 01/09/25 06:24 IMPRESSION: No hydronephrosis or nephrolithiasis. 5 cm prominent prostate gland concerning benign prostate hyperplasia in the correct clinical settings. Diverticular disease. Subcentimeter hypodense liver lesions not fully evaluated.. Concerning hepatocellular dysfunction in the correct clinical settings. Multilevel thoracolumbar spondylosis. Fleischner guidelines were followed. Electronically signed by: Michael Haskins MD 01/09/2025 07:41 AM EDT RP Assessment and Plan Patient Active problem list reviewed?: Yes (1) Anemia Status: Chronic Assessment and plan: 1. This is a 79-year-old male with past medical history of BPH, mitral valve repair in July 2024 presenting with worsening anemia and renal function since October 2024. He presented with hemoglobin of 5.4 gram/dL without evidence of any acute blood loss. In February 2024 his hemoglobin was 14.2 gram/dL. In October 2024 this dropped to 8.2 gram/dL. His creatinine which was normal at 0.89 mg/dL in February 2024 increased to 1.45 in October 2024. Peripheral smear shows 3+ schistocytes. He has hyperbilirubinemia. Additional blood work submitted today shows LDH over 2000, haptoglobin less than 8, Arleen test negative. Iron studies are elevated TSAT of 78%, vitamin B12 over a 1000 and folate 9.6. He has mild thrombocytopenia. Coagulation studies showed no evidence of DIC. ADAMTS 13 enzyme level pending. I have also submitted blood flow cytometry for paroxysmal nocturnal hemoglobinuria, however this is unlikely. Complement levels have been ordered. Kidney biopsy is being planned. 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 He received 1st dose of eculizumab. LDH is coming down and his serum creatinine has improved significantly. He has received meningococcus vaccine and is on antibiotic prophylaxis. - Time Spent With Patient Time Spent with Patient (in minutes): 15
[2025-01-12 03:33] VITALS: BP 101/57; PULSE 67; RESP 18; TEMP 36.6; O2SAT 96
[2025-01-12 06:34] LABS: INTERNATIONAL NORM RATIO 1.0 (0.9-1.1); Prothrombin Time 11.9 SEC (10.9-12.4)
[2025-01-12 06:48] LABS: Alanine Aminotransferase 31 U/L (0-40); Albumin Level 3.5 g/dL (3.5-5.0); Alkaline Phosphatase 47 U/L (39-117); Anion Gap 12 (12-20); Aspartate Amino Transferase 126 U/L (5-37); Blood Urea Nitrogen 24 mg/dL (9-16); Calcium 8.5 mg/dL (8.4-10.2); Carbon Dioxide 20 mmol/L (22-29); Chloride 112 mmol/L (96-108); Creatinine Clr Calc Pharmacy 42.0; Estimated Glomerular Filt Rate 54; Potassium 3.6 mmol/L (3.3-5.1); Sodium 140 mmol/L (135-145); Total Protein 6.4 g/dL (6.5-8.0)
[2025-01-12 06:54] LABS: Hematocrit 28.9 % (42.0-52.0); Hemoglobin 9.7 g/dl (14.0-18.0); Mean Corpuscular HGB Conc 33.6 g/dl (31.0-36.0); Mean Corpuscular Hemoglobin 31.8 pg (27.0-33.0); Mean Corpuscular Volume 94.8 fL (80.0-98.0); NRBC Abs Auto 0.000 X10*3/uL (0.0-0.012); NRBC Pct Auto 0.0 /100WBC (0.0-0.2); Platelet Count 100 X10*3/uL (160-400); Red Blood Count 3.05 X10*6/uL (4.60-5.80); White Blood Count 6.4 X10*3/uL (4.8-10.8)
[2025-01-12 07:56] VITALS: BP 145/69; PULSE 64; RESP 16; TEMP 36.2; O2SAT 99
[2025-01-12] MEDS: Ferrous Sulfate 324 MG TABLET.DR PO (08:13)
[2025-01-12] MEDS: 0.9 % Sodium Chloride Flush 3 ML SYRINGE IVFLUSH (08:14)
--- NOTE | 2025-01-12 09:35 | P.PNNP_ITS ---
Subjective Subjective Date of Service: 01/12/25 Interval history: Here with ÁNGELA, hematuria, acute anemia, elevated bilirubin, +schiscocytes, elevated LDH, low plts, low haptoglobin. patient was started on eculizumab on 01/10 for presumptive HUS renal funciton has improved, hematuria improving as well Patient reports he feels well at bedside. Denies complaints/concerns. Physical Exam 2 Vital Signs: Vital Signs: Last Vital Signs Temp 97.1 F 01/12/25 11:30 Pulse 59 01/12/25 11:30 Resp 16 01/12/25 11:30 BP 129/65 01/12/25 11:30 Pulse Ox 99 01/12/25 11:30 O2 Del Method Room Air 01/12/25 11:30 BMI result Body Mass Index 22.7 Const: General: no acute distress, alert and awake Resp: Effort & Inspection: normal respiratory effort and able to speak in complete sentences Auscultation: clear to auscultation bilaterally Cardio: Rate: regular rate Rhythm: regular rhythm Heart sounds: S1 normal heart sound present and S2 normal heart sound present GI: Palpation (GI): Soft to palpation and nontender : General: Yes no CVA tenderness Back/Spine/Pelvis: Back: no CVA tenderness Skin: Rashes: no rashes Extrem: General: No edema Objective Data Labs 01/12/25 06:20 01/12/25 06:19 Labs: Laboratory Results - last 24 hr 01/11/25 01/12/25 01/12/25 13:14 06:19 06:20 WBC 6.4 RBC 3.05 L Hgb 9.7 L Hct 28.9 L MCV 94.8 MCH 31.8 MCHC 33.6 RDW 20.0 H Plt Count 100 L MPV Not Reportable Absolute Nucleated RBC 0.000 Nucleated RBC % (auto) 0.0 Absolute Retic 0.198 H Percent Retic 6.5 H Immature Retic Fraction 15.6 H Retic Hgb Equivalent 36.0 H PT 11.9 INR 1.0 Sodium 140 Potassium 3.6 Chloride 112 H Carbon Dioxide 20 L Anion Gap 12 BUN 24 H Creatinine 1.28 Estim Creat Clear Calc 42.0 Estimated GFR 54 Random Glucose 90 Haptoglobin < 8 L Calcium 8.5 Total Bilirubin 5.1 H Direct Bilirubin 1.3 H AST 126 H ALT 31 Alkaline Phosphatase 47 Lactate Dehydrogenase 1760 H Total Protein 6.4 L Albumin 3.5 Procedures Date of Service Date of Service: 01/12/25 Assessment & Plan Assessment and plan (1) ÁNGELA (acute kidney injury): Status: Inactive (2) Hematuria: Status: Acute Plan patient with ÁNGELA possible HUS given lwo haptoglobin, elevated bilirubin, low platelet count and anemia, positive schistocytes in blood. pateint started on eculizumab on 01/10 for management, creatinine now improving *discussed with Dr Presley- patient needs inpatient renal biopsy prior to discharge to confirm HUS diagnosis, need confirmation to continue outpatient treatment and ensure appropriate. Renal biopsy ordered on 01/10 was d/c'd- re- ordered biopsy. avoid nephrotoxins daily renal function and electrolyte studies I&O monitoring, regular blood pressure checks continue supportive care Discussed with Dr Presley. Time Spent With Patient Time: Total time managing care of this patient today ____ minutes. Progress Note: Quality Stroke Does the patient have a stroke diagnosis?: No
--- NOTE | 2025-01-12 10:42 | P.PNIM_ITS ---
Subjective Subjective Date of Service: 01/12/25 Interval History: f/u on recurrent hematuria, acute blood loss anemia renal failure, elevated bilirubin, schistocyte in blood elevated LDH, low platlets, low haptoglobin -->HUS diagnosis Starting on eculizumab on 01/10 renal function is now normal hematuria is better Overall feels better Physical Exam 2 Exam: Exam: General: AO X 3, no acute distress Resp: CTA bilateral CVS: S1,S2,RRR GI: +BS, NT, no distention Skin: No rash Neuro: motor grossly intact Psych: appropriate affect Vital Signs: Vital Signs: Last Vital Signs Temp 97.1 F 01/12/25 07:56 Pulse 64 01/12/25 07:56 Resp 16 01/12/25 07:56 BP 145/69 H 01/12/25 07:56 Pulse Ox 99 01/12/25 07:56 O2 Del Method Room Air 01/12/25 07:56 BMI result Body Mass Index 22.7 Objective Data Active Medications Acetaminophen (Acetaminophen 325 Mg Tablet) 650 mg PO Q6H PRN PRN Reason: Pain, Mild 1-3,fever,headache Amlodipine Besylate (Amlodipine Besylate 10 Mg Tablet) 10 mg PO DAILY ON [facility] OF [facility]; Protocol On Hold: 01/11/25 13:00 Last Admin: 01/11/25 11:18 Dose: 10 mg Documented By: YEFRI Calcium Carbonate (Calcium Carbonate 750 Mg Tab.Chew) 750 mg PO Q4H PRN PRN Reason: Heartburn Diphenhydramine HCl (Diphenhydramine Hcl 50 Mg/Ml Vial) 25 mg IVPUSH ONCE PRN PRN Reason: HYPERSENSITIVITY TO SOLIRIS Docusate Sodium (Docusate Sodium 100 Mg Capsule) 100 mg PO DAILY ON [facility] OF [facility] Last Admin: 01/12/25 08:19 Dose: Not Given Documented By: MARIELENA Non-Admin Reason: Patient Refused Epinephrine (Epinephrine 1 Mg/Ml Vial) 0.3 mg IM ONCE PRN PRN Reason: HYPERSENSITIVITY TO SOLIRIS Famotidine (Famotidine/Pf 20 Mg/2 Ml Vial) 20 mg IVPUSH ONCE PRN PRN Reason: HYPERSENSITIVITY TO SOLIRIS Ferrous Sulfate (Ferrous Sulfate 324 Mg Tablet.Dr) 324 mg PO DAILY ON [facility] OF [facility] Last Admin: 01/12/25 08:13 Dose: 324 mg Documented By: MARIELENA Magnesium Hydroxide (Milk Of Magnesia 30 Ml Oral.Susp) 30 ml PO DAILY PRN PRN Reason: Constipation Melatonin (Melatonin 3 Mg Tablet) 6 mg PO BEDTIME PRN PRN Reason: Insomnia Metoprolol Tartrate (Metoprolol Tartrate 50 Mg Tablet) 50 mg PO BID ON [facility] OF [facility]; Protocol Last Admin: 01/12/25 08:13 Dose: 50 mg Documented By: MARIELENA Rifampin (Rifampin 300 Mg Capsule) 600 mg PO BID ON [facility] OF [facility] Last Admin: 01/12/25 08:14 Dose: 600 mg Documented By: MARIELENA Sodium Chloride (0.9 % Sodium Chloride Flush 3 Ml Syringe) 3 ml IVFLUSH QSHIFT ON LICENSE OF [facility] Last Admin: 01/12/25 08:14 Dose: 3 ml Documented By: MARIELENA Labs 01/12/25 06:20 01/12/25 06:19 Labs: Laboratory Results - last 24 hr 01/11/25 01/12/25 01/12/25 13:14 06:19 06:20 MCV 94.8 MCH 31.8 MCHC 33.6 RDW 20.0 H Plt Count 100 L MPV Not Reportable Absolute Nucleated RBC 0.000 Nucleated RBC % (auto) 0.0 Absolute Retic 0.198 H Percent Retic 6.5 H Immature Retic Fraction 15.6 H Retic Hgb Equivalent 36.0 H PT 11.9 INR 1.0 Anion Gap 12 Estim Creat Clear Calc 42.0 Estimated GFR 54 Random Glucose 90 Haptoglobin < 8 L Calcium 8.5 Total Bilirubin 5.1 H Direct Bilirubin 1.3 H AST 126 H ALT 31 Alkaline Phosphatase 47 Lactate Dehydrogenase 1760 H Total Protein 6.4 L Albumin 3.5 Assessment and Plan (1) Hematuria: Status: Acute (2) Anemia: Status: Chronic (3) Symptomatic anemia: Status: Acute Plan [age]-year-old male with a past medical history of HTN, HLD, anxiety, depression, mitral valve surgery; osteoarthritis, anemia presented to the hospital today with a chief complaint of abnormal labs, recent admission for hematuria, he's still reporting hematuria and weak and found to have Hgb of 5--He had cystoscopy at Urology office 12/25 with no specific finding as cause for hematuria which has been ongoing since October. He presented with with hematuria and weakness. He presented with hemoglobin of 5.4, Creatine of 1.8 baseline is < 1, further testing revealed positive schistocytes, elevated Bilirubin of 2.7, elevated LFTs, LDH is 2085, Haptoglobin is less than 8, has hematuria. His mental status is intact. He has been evaluated by Hematology with provisional diagnosis of HUS and recommending Plasmapharesis not available [place] [facility] and therefore attempting to transferd to [facility] Acute blood loss anemia on chronic anemia since October--Working diagnosis of HUS Recurrent Hematuria Thrombocytopenia Schistocytes on peripheral smear Hyperbilirubinemia LDH > 2000 Low Haptoglobin <8 INR 1 No blood in stool CT of abd and pelvis: No hydronephrosis or nephrolithiasis. 5 cm prominent prostate gland concerning benign prostate hyperplasia in the correct clinical settings. Diverticular disease. Subcentimeter hypodense liver lesions not fully evaluated.. Concerning hepatocellular dysfunction in the correct clinical settings. Multilevel thoracolumbar spondylosis. 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 -Started on eculizumab on 01/10 -Got meningococal vaccine on 01/10 -GI panel is negative -Need Kidney Biopsy to confirm diagnosis--Nephrology wants it done as inpatient History of mitral valve surgery: Patient on aspirin. To be resumed eventually ÁNGELA d/t HUS above, monitor Nephro consult, Creatine is now 1. 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
[2025-01-12 11:30] VITALS: BP 129/65; PULSE 59; RESP 16; TEMP 36.2; O2SAT 99
[2025-01-12 15:16] VITALS: BP 139/68; PULSE 59; RESP 16; TEMP 36.1; O2SAT 100
--- NOTE | 2025-01-12 18:22 | PC.NURSE ---
Extensive teaching given to Pt and Brother regarding but not limited to, new medications, continued medications, symptoms worsening, scheduling appointments including kidney biopsy. Pt and brother state they understand DC paperwork.
[2025-01-12 20:14] LABS: Proteinase 3 PR3 Antibodies <1.0 AI
--- NOTE | 2025-01-12 21:10 | P.DS_ITS ---
DS: Providers Provider Date of Service: 01/12/25 Date of admission: 01/08/25 19:28 Date of discharge: 01/12/25 Primary care physician: Crhis Pearson MD Consults: 01/08/25 19:28 Consult to Hematology / Oncology Routine Consulting Provider: [facility] Oncology/Hematology Reason for consultation: anemia Consult to Urology Routine Consulting Provider: [facility] Reason for consultation: hematuria 01/10/25 07:46 Consult to Nephrology Stat Consulting Provider: [facility] Reason for consultation: HUS DS: Diagnosis Discharge Diagnosis (1) ÁNGELA (acute kidney injury): Status: Inactive (2) Hematuria: Status: Acute DS: Summary Hospital Course Hospital Course: admitting hpi Chief Complaint: ABNORMAL LABS 79-year-old male with a past medical history of HTN, HLD, anxiety, depression, mitral valve surgery; osteoarthritis, anemia presented to the hospital today with a chief complaint of abnormal labs. Patient mentioned that he had heart valve surgery in July. Since then he has been having problems with his anemia. Has had episodes of a hematuria and is seen by Urology as outpatient status post cystoscopy and mentioned his problems related to his prostate. Mentioned that had recent admission to the hospital for anemia requiring blood transfusion. Also reports having dark-colored stools. Patient denies any vomiting. Denies any chest pain. Denies any fever chills cough or sputum production. Review of other systems is negative except mentioned above ER course: Per ER team, patient's hemoglobin noted to be 5.4. Stool guaiac was negative. CT abdomen pending. Order for 3 units of PRBC. Hospital course: A 79-year-old male with a history of hypertension, hyperlipidemia, anxiety, depression, mitral valve surgery, osteoarthritis, anemia, and prior hepatitis C (viral load undetectable) presented with recurrent hematuria, weakness, and severe anemia (Hgb 5.4). He had a prior cystoscopy (12/25) showing no clear cause for hematuria, ongoing since October. Initial labs revealed hemolysis: schistocytes, hyperbilirubinemia (2.7), elevated LDH (2085), very low haptoglobin (<8), thrombocytopenia, and creatinine 1.8 (baseline <1). CT abdomen/pelvis showed diverticular disease, subcentimeter hypodense liver lesions, 5 cm prostate (BPH), and no hydronephrosis or nephrolithiasis. He was transfused 3 units PRBC with hemoglobin improving to 9?10. 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 He was started on eculizumab (01/10) with improvement in creatinine (1.5 ? 1.2). He also received meningococcal vaccination and prophylactic antibiotics (rifampin ? to be switched to ciprofloxacin). Stool panel was negative; JOHN and complement studies are pending. Outpatient kidney biopsy is planned for diagnostic confirmation. History of mitral valve surgery: Patient on aspirin. To be resumed eventually AK attributed to HUS above, monitor Nephro consult, Creatine is now 1. 15 from .5 Elevated LFTs--related HUS, monotor Time Attestation Discharge Coordination Time (in mins): 45 Quality: Safe Use of Opioids Does Pt have an Active Cancer Diagnosis on the Problem List?: No Quality: Stroke Does the patient have a stroke diagnosis?: No Physical Exam Vital Signs: Vital Signs: Last Vital Signs Temp 97.0 F 01/12/25 15:16 Pulse 59 01/12/25 15:16 Resp 16 01/12/25 15:16 BP 139/68 01/12/25 15:16 Pulse Ox 100 01/12/25 15:16 O2 Del Method Room Air 01/12/25 15:16 BMI result Body Mass Index 22.7 DS: Data Data Completed and Pending Completed studies during hospitalization [Text1]: Procedures Transfusion of Nonautologous Red Blood Cells into Peripheral Vein, Percutaneous Approach (12/12/24) Labs on day of discharge: Laboratory Results - last 24 hr 01/09/25 01/11/25 01/12/25 08:54 06:14 06:19 WBC RBC Hgb Hct MCV MCH MCHC RDW Plt Count MPV Absolute Nucleated RBC Nucleated RBC % (auto) PT 11.9 INR 1.0 [id number] Activity Intrp 0.66 L Sodium 140 Potassium 3.6 Chloride 112 H Carbon Dioxide 20 L Anion Gap 12 BUN 24 H Creatinine 1.28 Estim Creat Clear Calc 42.0 Estimated GFR 54 Random Glucose 90 Calcium 8.5 Total Bilirubin 5.1 H Direct Bilirubin 1.3 H AST 126 H ALT 31 Alkaline Phosphatase 47 Total Protein 6.4 L Albumin 3.5 Proteinase 3 (PR3) Ab <1.0 Myeloperoxidase Ab <1.0 01/12/25 06:20 WBC 6.4 RBC 3.05 L Hgb 9.7 L Hct 28.9 L MCV 94.8 MCH 31.8 MCHC 33.6 RDW 20.0 H Plt Count 100 L MPV Not Reportable Absolute Nucleated RBC 0.000 Nucleated RBC % (auto) 0.0 PT INR [id number] Activity Intrp Sodium Potassium Chloride Carbon Dioxide Anion Gap BUN Creatinine Estim Creat Clear Calc Estimated GFR Random Glucose Calcium Total Bilirubin Direct Bilirubin AST ALT Alkaline Phosphatase Total Protein Albumin Proteinase 3 (PR3) Ab Myeloperoxidase Ab Discharge Plan Discharge Anticipated Discharge Date/Time: 01/12/25 16:20 Patient Disposition: Home, Self-Care Discharge Diagnosis: Kidney failure, HUS, proteinuria Referrals: Chris Pearson MD [Primary Care Provider, Internal Medicine] - 1 Week Chong Presley MD [Physician, Nephrology] - 1 Week Lynn Ansari MD [Physician, Hematology & Oncology] - 01/14/25 2:30 pm Discharge Medications: New ciprofloxacin HCl [Cipro] 500 mg tablet 500 mg PO BID Qty: 14 0RF metoprolol tartrate 50 mg Tablet 50 mg PO BID 90 Days Qty: 180 0RF Protocol: Hold for SBP/HR < HOLD for SBP < : 90 HOLD for HR < : 60 Continued docusate sodium 100 mg capsule 100 mg PO DAILY amlodipine 10 mg tablet 10 mg PO DAILY Qty: 90 3RF ferrous sulfate [Feosol] 325 mg (65 mg iron) tablet 325 mg PO DAILY 90 Days Qty: 90 0RF Discontinued metoprolol tartrate 25 mg tablet 50 mg PO BID aspirin 81 mg tablet,delayed release (DR/EC) 81 mg PO DAILY losartan 50 mg tablet 50 mg PO DAILY Qty: 90 3RF No Action (DME) blood pressure monitor Kit See Rx Instructions .Route Qty: 1 0RF Rx Instructions: As directed Discharge Orders: Discharge Order (Routine); Ordered 01/12/25 Ordered By: Carl Glass Activity on Discharge: As tolerated Stand Alone Forms: Patient Portal Discharge page Print Language: Guatemalan Care Plan Goals: recovery from kidney failure, blood in urine, HUS Health Concerns: HUS, kidney failure, blood in urine, proteinuria Plan of Treatment: you will need kidney biopsy, to be arranged on outpatient basis Follow up with Hematology Clinic on 01/14 at 2:[address] Ansari's office Take Ciprofloxin to prevent infection Stop taking Asprin and Losartan Assessment: see above Patient Instructions: Ciprofloxacin (By mouth) (Cipro) Discharge Date/Time: 01/12/25 18:22
[2025-01-13 12:18] LABS: Anti Nuclear Antibody Screen NEGATIVE (NEGATIVE)
[2025-01-15 17:28] LABS: PNH Clinical Information NOT PROVIDED; PNH Number of Markers 8; PNH Specimen Type PERIPHERAL BLOOD; PNH Viability 78 %
== END 2025-01-12 18:22 | disposition home or self-care (01) | DRG 812 ==
LOC: HO.ED 15:51 → HO.EDOVER 19:42 → HO.IMC 01-09 07:19 → HO.S3 01-09 20:29
PROVIDERS: Internal Medicine; Internal Medicine Critical Care Medicine; Physician Assistant Medical; Admitting Provider Hospitalist; Emergency Provider Student in an Organized Health Care Education/Training Program; PCP Internal Medicine; Visit Provider Internal Medicine
DX: D59.30 Hemolytic-uremic syndrome, unspecified (principal); N17.9 Acute kidney failure, unspecified; E87.20 Acidosis, unspecified; N13.8 Other obstructive and reflux uropathy; D69.6 Thrombocytopenia, unspecified; E87.8 Other disorders of electrolyte and fluid balance, not elsewhere classified; K76.9 Liver disease, unspecified; E78.5 Hyperlipidemia, unspecified; N40.1 Benign prostatic hyperplasia with lower urinary tract symptoms; I10 Essential (primary) hypertension; Z86.19 Personal history of other infectious and parasitic diseases; D62 Acute posthemorrhagic anemia; Z87.891 Personal history of nicotine dependence; Z79.899 Other long term (current) drug therapy
CPT/HCPCS: 36415; 74176; 80048; 80053; 80076; 81001; 82043; 82271; 82272; 82570; 82607; 82746; 83010; 83540; 83615; 83735; 84156; 85007; 85025; 85027; 85045; 85335; 85384; 85397; 85610; 85730; 86021; 86038; 86160; 86162; 86850; 86880; 86900; 86901; 86923; 87507; 88184; 88185; 90621; 90734; 99285; J1299; J7120; P9016

== ENCOUNTER 2025-01-08 19:28 | Outpatient (BNV) | payer OTHER, SELFPAY | END 2025-01-09 06:00 | PROVIDERS: Admitting Provider Hospitalist; Emergency Provider Student in an Organized Health Care Education/Training Program; PCP Internal Medicine; Visit Provider Radiology Diagnostic Radiology | DX: N40.0 Benign prostatic hyperplasia without lower urinary tract symptoms (principal) | CPT/HCPCS: 74176 ==

== ENCOUNTER → 2025-01-08 19:28 | Outpatient (BNV) | payer OTHER, SELFPAY | PROVIDERS: Admitting Provider Hospitalist; Emergency Provider Student in an Organized Health Care Education/Training Program; PCP Internal Medicine; Visit Provider Urology | DX: R31.0 Gross hematuria (principal); N32.0 Bladder-neck obstruction | CPT/HCPCS: 99222 ==

== ENCOUNTER → 2025-01-08 19:28 | Outpatient (BNV) | payer OTHER, SELFPAY | PROVIDERS: Admitting Provider Hospitalist; Emergency Provider Student in an Organized Health Care Education/Training Program; PCP Internal Medicine; Visit Provider Internal Medicine | DX: D64.9 Anemia, unspecified (principal) | CPT/HCPCS: 99222; 99232 ==

== ENCOUNTER → 2025-01-08 19:28 | Outpatient (BNV) | payer OTHER, SELFPAY | PROVIDERS: Admitting Provider Hospitalist; Emergency Provider Student in an Organized Health Care Education/Training Program; PCP Internal Medicine; Visit Provider Internal Medicine | DX: R31.9 Hematuria, unspecified (principal); D64.9 Anemia, unspecified | CPT/HCPCS: 99499 ==

== ENCOUNTER → 2025-01-08 19:28 | Outpatient (BNV) | payer OTHER, SELFPAY | PROVIDERS: Admitting Provider Hospitalist; Emergency Provider Student in an Organized Health Care Education/Training Program; PCP Internal Medicine; Visit Provider Internal Medicine Critical Care Medicine | DX: N17.9 Acute kidney failure, unspecified (principal); R80.9 Proteinuria, unspecified; R31.0 Gross hematuria; D64.9 Anemia, unspecified; D59.39 Other hemolytic-uremic syndrome | CPT/HCPCS: 99223 ==

== ENCOUNTER → 2025-01-08 19:28 | Outpatient (BNV) | payer OTHER, SELFPAY | PROVIDERS: Admitting Provider Hospitalist; Emergency Provider Student in an Organized Health Care Education/Training Program; PCP Internal Medicine; Visit Provider Nurse Practitioner Family | DX: N17.9 Acute kidney failure, unspecified (principal); R31.0 Gross hematuria | CPT/HCPCS: 99232 ==

== ENCOUNTER 2025-01-15 08:49 | Day surgery (SDC) | payer OTHER, SELFPAY ==
--- OUTSIDE RECORDS SUMMARY | 2025-01-13 10:48 | XMS_ITS | Encounter Summary ---
Author Organization [facility] Address [address] [place] [address] Phone Care Team Providers Care Park Superintendent Name Role Phone Unavailable Primary Care Provider Unavailabl e Encounter Details Date Type Department Care Team (Late st Contact Info) Description 09/14/2022 Documentation Only [facility] [address] [facility] [address] [place] [address] Deepti Vela MA Social History [...]
--- OUTSIDE RECORDS SUMMARY | 2025-01-13 10:48 | XMS_ITS | Patient Health Record ---
Author Organization [facility] Address [address] [place] [address] Care Team Providers Care Pnp Name Role Phone Jaquelin Pearson MDh Primary Care Provider Joshua Catalan Unavailable [phone] Reason For Referral No Information Medications Medication [...] Problem Status W/U Status Risk Notes Problem 441129234 Encounter for screening for malignant neoplasm of colon (Z12.11) Active confirmed Problem 718300155 Chronic hepatitis C without hepatic coma (B18.2) Active confirmed Problem 219255107 Elevated liver enzymes (R74.8) Active confirmed Problem [id number] History of hepatitis C (Z86.19) Active confirmed Problem 11445465 Liver fibrosis (K74.0) Active confirmed Plan Of Treatment Pending Test Test Name Order Date LIVER PROFILE 05/06/2015 LIVER PROFILE 09/29/2015 LIVER PROFILE 06/13/2015 CBC w DIFF 06/13/2015 CBC w DIFF 05/06/2015 ALPHA-FETOPROTEIN,TUMOR MARKER 9 ALPHA-FETOPROTEIN,TUMOR MARKER 6 HEPATITIS C VIRAL LOAD 06/13/2015 HEPATITIS C VIRAL LOAD 09/29/2015 HEPATITIS C VIRAL LOAD 05/06/2015 Future Test Test Name Order Date COLONOSCOPY 07/30/2018 Insurance Providers Payer Name Payer Address Payer Phone Subscriber Number Group Number Insured Name Patient Relationship to Insured Coverage Start Date Coverage End Date [employer] [address] [place] [phone] [id number] EMILIE BOOTH Self - patient is the [...] alcohol abuse--abstinent > 10 y ears Denies [place],DM,CVA,Lung disease,renal dise ase Previous substance abuse with abstinence for over 20 years BPH Surgical History Surgery Date(Month/Year) hand surgery
--- OUTSIDE RECORDS SUMMARY | 2025-01-13 10:48 | XMS_ITS | Clinical Summary ---
Author Organization [facility] Address [address] [place] [id number] Care Team Providers Care Cotton Farmer Name Role Phone Unavailable Primary Care Provider Unavailabl e Allergies No known active allergies Medications D3-1000 25 MCG (1000 UT) capsule Take 1,000 Units by mouth 1 (one) time each day 06/25/2022 Active amLODIPine (NORVASC) 10 MG tablet Take 10 mg by mouth 1 (one) time each day 07/16/2022 Active multivitamin-iro n-hqinvuoh-loeea acid (CENTRUM) chewable tablet Chew 1 tablet [...] patient's age to complete this topic Insurance [place]
[2025-01-15] VITALS (13 sets, daily range): BP systolic 136–151; BP diastolic 66–83; PULSE 56–64; RESP 16–22; TEMP 36.3–37.1; O2SAT 98–100; BMI 22.3
--- NOTE | ~2025-01-15 | CT_ITS ---
PROCEDURE: CT GUIDED BIOPSY, KIDNEY CLINICAL INFORMATION: Acute kidney failure. COMPARISON: None available. TECHNIQUE: Following explaining CT fluoroscopy guided kidney biopsy procedure, benefits and risk, a written consent was obtained. Patient was placed prone on fluoroscopy table and preliminary CT imaging was obtained. An optimal axial plane was selected and markers placed along the posterior abdomen overlying the kidney. Repeat imaging was performed and optimal lead marker was selected and marked on the skin. The site marked was cleaned and draped with 2% chlorhexidine solution. 1% lidocaine was administered at puncture site. Through a small skin incision an 18-gauge guide needle was advanced from the skin into the lower pole right kidney cortex under CT fluoroscopy. Coaxially a 3 pass lower pole right kidney cortex was obtained. The sample collected on a Ryan with saline was sent to lab for further evaluation. Postprocedure repeat CT imaging was obtained. Sterile dressing applied at the puncture site. No immediate bleeding or complications seen. This CT examination was performed using dose optimization techniques as appropriate, variously including the following: *Automated exposure control *Adjustment of mA and/or kV according to patient size (this includes techniques or standardized protocols for targeted exams where dose is matched to indication/reason for exam; i.e. extremities or head) *Use of iterative reconstruction technique FINDINGS: On preliminary CT imaging visualized liver, spleen, pancreas, adrenal glands unremarkable. No radiopaque gallstones or radiopaque renal calculi seen. There is moderate constipation. CT fluoroscopy guided core biopsy lower pole right kidney cortex was performed x 3. Post biopsy CT scan revealed no evidence of significant hematoma. CT/CT biopsy renal RT IMPRESSION: Successful CT fluoroscopy guided right renal biopsy of lower pole was performed. Electronically signed by: Curly Rich MD 01/16/2025 07:20 AM EDT
== END 2025-01-15 13:34 | disposition home or self-care (01) ==
PROVIDERS: Radiology Diagnostic Radiology; PCP Internal Medicine; Visit Provider Nurse Practitioner Family
DX: N17.9 Acute kidney failure, unspecified (principal); D59.30 Hemolytic-uremic syndrome, unspecified; D62 Acute posthemorrhagic anemia; N02.9 Recurrent and persistent hematuria with unspecified morphologic changes; E80.7 Disorder of bilirubin metabolism, unspecified; R79.89 Other specified abnormal findings of blood chemistry; D69.6 Thrombocytopenia, unspecified; I10 Essential (primary) hypertension; E78.5 Hyperlipidemia, unspecified; K59.00 Constipation, unspecified; F32.A Depression, unspecified; F41.9 Anxiety disorder, unspecified; Z79.82 Long term (current) use of aspirin; Z98.890 Other specified postprocedural states; Z87.891 Personal history of nicotine dependence
CPT/HCPCS: 50200; 77012; 88300; 88305; 88313; 88346; 88348; 88350; 99152; J2003; J2250; J3010

== ENCOUNTER → 2025-01-15 10:39 | Outpatient (BNV) | payer OTHER, SELFPAY | PROVIDERS: PCP Internal Medicine; Visit Provider Radiology Diagnostic Radiology | DX: N17.9 Acute kidney failure, unspecified (principal) | CPT/HCPCS: 50200; 77012 ==

== ENCOUNTER → 2025-01-16 10:00 | Outpatient (BNV) | payer OTHER, SELFPAY | PROVIDERS: PCP Internal Medicine; Visit Provider Nurse Practitioner Family | DX: D59.39 Other hemolytic-uremic syndrome (principal) | CPT/HCPCS: 99213 ==

== ENCOUNTER 2025-01-22 13:40 | Outpatient (AMB) | payer OTHER, SELFPAY ==
--- NOTE | 2025-01-22 13:46 | HO.NEPHOV ---
Vital Signs 01/22/25 13:47 01/22/25 15:03 Height 5 ft 5 in Weight 133 lb BMI 22.1 BP 142/68 H 132/70 Blood Pressure Location Rt brachial Rt brachial Position Sitting Sitting Pulse 70 Pulse Source Pulse Oximeter Pulse Oximetry (%) 100 Oxygen Delivery Method Room Air Intake Visit Re[place] [facility] , confirmed Accompanied by: Brother Allergies No Known Allergies (No Known Allergies*) Allergy (Verified 01/14/25 14:57) Medication List - Last Reconciled 01/22/25 by Chong Presley MD amlodipine 10 mg PO DAILY blood pressure monitor As directed ciprofloxacin HCl 500 mg PO DAILY ciprofloxacin HCl (Cipro) 500 mg PO BID docusate sodium 100 mg PO DAILY PRN ferrous sulfate (Feosol) 325 mg PO DAILY 90 days metoprolol tartrate 50 mg See Protocol PO BID 90 days HPI Comments Details: - The patient is a 79-year-old male presented with hematuria and post-surgical recovery following heart valve surgery. During recent hospitalization years found to have ÁNGELA, hematuria, acute anemia, elevated bilirubin, +schiscocytes, elevated LDH, low plts, low haptoglobin. patient was started on eculizumab on 01/10 for presumptive HUS Next dose of eculizumab is scheduled for tomorrow He underwent a kidney biopsy on 01/12/2025. Results are not available yet I called [facility] and results are pending - Hematuria: Intermittent since heart valve surgery on August 05. - Elevated Vitamin B12 levels: Supplementation paused due to high levels. [facility] Medical History (Updated 01/22/25 @ 13:55 by Chong Presley MD) Anemia Elevated LFTs Essential hypertension Dermatitis Primary osteoarthritis of knees, bilateral Severe mitral valve regurgitation Mitral valve prolapse Non-rheumatic mitral regurgitation History of hepatitis C Benign essential hypertension Hypertension Overweight (BMI 25.0-29.9) Anxiety Urinary frequency Allergic rhinitis Osteoarthritis of left knee Vitamin D deficiency Pure hypercholesterolemia Impaired fasting glucose White coat syndrome with hypertension Surgical History (Updated 01/22/25 @ 13:48 by BERNICE Barahona) Heart valve replaced (~07/2024) History of mitral valve repair History of colonoscopy History of prostate surgery Family History Father Hypertension Stroke Mother Medical history unknown Social History Household Members: None Housing: Apartment Do you presently have visiting nurse or other home services: No Alcohol intake: never Patient Tobacco Use Status: Former Tobacco user Tobacco use type: Cigarette Years Smoked: 25 years e-Cigarette/Vaping Use: Never Used Second Hand Smoke Exposure: Yes service: No Current occupational status: retired and disabled Cognitive needs: No Hearing needs: No Vision needs: Yes (Reading Glasses) Review of Systems Const Denies fever(s) and Denies weight loss Card Denies chest pain Resp Denies cough and Denies hemoptysis GI Denies abdominal pain, Denies diarrhea and Denies nausea Musc Denies back pain Neuro Denies focal weakness Physical Exam Vital Signs: Last Vital Signs Pulse 70 01/22/25 13:47 BP 142/68 H 01/22/25 13:47 Pulse Ox 100 01/22/25 13:47 Oxygen Delivery Method Room Air 01/22/25 13:47 BMI result Body Mass Index 22.1 Comfortable Neck supple no JVD. Lungs entry equal no rales. Heart S1-S2 heard no gallop or rub. Abdomen soft nontender. Neuro alert awake oriented. No asterixis. Extremities no edema. Results Reviewed Nephrology Results: Hgb, (14.0-18.0) 9.6 g/dl L 01/14/25 WBC, (4.8-10.8) 5.1 X10*3/uL 01/14/25 Plt Count, (160-400) 110 X10*3/uL L 01/14/25 Sodium, (135-145) 140 mmol/L 01/14/25 Potassium, (3.3-5.1) 3.9 mmol/L 01/14/25 Chloride, (96-108) 112 mmol/L H 01/14/25 Carbon Dioxide, (22-29) 20 mmol/L L 01/14/25 BUN, (9-16) 28 mg/dL H 01/14/25 Creatinine, (0.5-1.4) 1.40 mg/dL 01/14/25 Calcium, (8.4-10.2) 9.0 mg/dL 01/14/25 Urine Protein, (Neg-Trace) 100 (2+) mg/dL H 01/08/25 Urine Creatinine 25.93 mg/dL 01/10/25 Assessment & Plan Assessment & Plan (1) ÁNGELA (acute kidney injury): Code(s): N17.9 - Acute kidney failure, unspecified Category: Medical Plan 79-year-old man with ÁNGELA and status post cardiac surgery. During hospitalization he was found to have severe anemia with thrombocytopenia and schistocytes. He was seen by my associate Dr. Watts and started on eculizumab for atypical HUS Status post kidney biopsy on 01/12/2025. Results are pending. He is scheduled for next dose of eculizumab back tomorrow. Renal function is improving. Plan Check renal panel and CBC today. Await biopsy results Ordered complement C3-C4 and cryoglobulins given the history of hepatitis-C infection. Return to clinic in 2 weeks Orders: Orders Basic Metabolic Panel Today N00.9 - Acute nephritic syndrome with unspecified morphologic changes Complete Blood Count Auto Diff Today N00.9 - Acute nephritic syndrome with unspecified morphologic changes Creatinine Urine Today N00.9 - Acute nephritic syndrome with unspecified morphologic changes Total Protein Urine Random Today N00.9 - Acute nephritic syndrome with unspecified morphologic changes Complement C3 Today N00.9 - Acute nephritic syndrome with unspecified morphologic changes UA and rflx microscopic Today N00.9 - Acute nephritic syndrome with unspecified morphologic changes Complement C4 Today N00.9 - Acute nephritic syndrome with unspecified morphologic changes Cryoglobulin Today N00.9 - Acute nephritic syndrome with unspecified morphologic changes Coding Level of Care Code Est Pt Level 4 (81475) Diagnoses ÁNGELA (acute kidney injury) N17.9
[2025-01-22 13:47] VITALS: BP 142/68; PULSE 70; O2SAT 100; BMI 22.1
[2025-01-22 15:03] VITALS: BP 132/70
--- OUTSIDE RECORDS SUMMARY | 2025-01-22 18:12 | XMS_ITS | Patient Health Record ---
Author Organization [facility] Address [address] [place] [address] Care Team Providers Care Process Technician Name Role Phone Jaquelin Pearson MDh Primary Care Provider Joshua Catalan Unavailable [phone] Reason For Referral No Information Medications Medication [...] Problem Status W/U Status Risk Notes Problem 785249703 Encounter for screening for malignant neoplasm of colon (Z12.11) Active confirmed Problem 887229721 Chronic hepatitis C without hepatic coma (B18.2) Active confirmed Problem 777726906 Elevated liver enzymes (R74.8) Active confirmed Problem [id number] History of hepatitis C (Z86.19) Active confirmed Problem 83832865 Liver fibrosis (K74.0) Active confirmed Plan Of [...] Date [employer] [address] [place] [phone] [id number] EMILIE BOOTH Self - patient is the [...] alcohol abuse--abstinent > 10 y ears Denies [place],DM,CVA,Lung disease,renal dise ase Previous substance abuse with abstinence for over 20 years BPH Surgical History Surgery Date(Month/Year) hand surgery
== END 2025-01-22 14:04 | disposition home or self-care (01) ==
LOC: HO.HKA 13:41
PROVIDERS: PCP Internal Medicine; Visit Provider Internal Medicine Hypertension Specialist
DX: N17.9 Acute kidney failure, unspecified (principal)
CPT/HCPCS: 99214

== ENCOUNTER → 2025-01-22 13:40 | Outpatient (BNVA) | payer OTHER, SELFPAY | PROVIDERS: PCP Internal Medicine; Visit Provider Internal Medicine Hypertension Specialist | DX: N00.9 Acute nephritic syndrome with unspecified morphologic changes (principal); N17.9 Acute kidney failure, unspecified | CPT/HCPCS: 99212 ==

== ENCOUNTER 2025-01-23 10:06 | Outpatient (REF) | payer OTHER, SELFPAY ==
[2025-01-23 10:58] LABS: Appearance Urine Cloudy; Glucose Urine UA Negative (Negative); PH 6.0 (5.0-9.0); Specific Gravity - Urine 1.015 (1.005-1.025); UMIC TRIGGER UA YES
[2025-01-23 11:06] LABS: Total Protein Urine Random 78 mg/dL (<12)
--- OUTSIDE RECORDS SUMMARY | 2025-01-23 11:20 | XMS_ITS | Encounter Summary ---
Author Organization [facility] Address [address] [place] [address] Phone Care Team Providers Care Talk Show Host Name Role Phone Unavailable Primary Care Provider Unavailabl e Encounter Details Date Type Department Care Team (Late st Contact Info) Description 09/14/2022 Documentation Only [facility] [address] [facility] [address] [place] [address] Deepti Vela MA Social History [...]
--- OUTSIDE RECORDS SUMMARY | 2025-01-23 11:20 | XMS_ITS | Clinical Summary ---
Author Organization [facility] Address [address] [place] [address] Care Team Providers Care Reimbursement Spec Name Role Phone Unavailable Primary Care Provider Unavailabl e Allergies No known active allergies Medications D3-1000 25 MCG (1000 UT) capsule Take 1,000 Units by mouth 1 (one) time each day 06/25/2022 Active amLODIPine (NORVASC) 10 MG tablet Take 10 mg by mouth 1 (one) time each day 07/16/2022 Active multivitamin-iro t-[place]-zlfhn acid (CENTRUM) chewable tablet Chew 1 tablet [...] patient's age to complete this topic Insurance [place]
--- OUTSIDE RECORDS SUMMARY | 2025-01-23 11:20 | XMS_ITS | Patient Health Record ---
Author Organization [facility] Address [address] [place] [address] Care Team Providers Care Blocking Machine Tender Name Role Phone Jaquelin Pearson MDh Primary Care Provider Joshua Catalan Unavailable [phone] Reason For Referral No Information Medications Medication [...] Problem Status W/U Status Risk Notes Problem [id number] Encounter for screening for malignant neoplasm of colon (Z12.11) Active confirmed Problem 771540767 Chronic hepatitis C without hepatic coma (B18.2) Active confirmed Problem 024557208 Elevated liver enzymes (R74.8) Active confirmed Problem 49552631929955 History of hepatitis C (Z86.19) Active confirmed Problem 47433592 Liver fibrosis (K74.0) Active confirmed Plan Of [...] Date [employer] [address] [place] [phone] [id number] EMILIE BOOTH Self - patient is the [...] alcohol abuse--abstinent > 10 y ears Denies [place],DM,CVA,Lung disease,renal dise ase Previous substance abuse with abstinence for over 20 years BPH Surgical History Surgery Date(Month/Year) hand surgery
[2025-01-29 17:08] LABS: Cryoglobulin, Qual Negative (Negative)
== END 2025-01-23 10:07 | disposition home or self-care (01) ==
LOC: HO.LAB 10:06
PROVIDERS: PCP Internal Medicine; Visit Provider Internal Medicine Hypertension Specialist
DX: N00.9 Acute nephritic syndrome with unspecified morphologic changes (principal)
CPT/HCPCS: 36415; 81001; 82570; 82595; 84156; 85025; 86160

== ENCOUNTER 2025-01-29 08:45 | Outpatient (AMB) | payer OTHER, SELFPAY ==
[2025-01-29 08:52] VITALS: BP 130/78; PULSE 64; O2SAT 99; BMI 21.7
--- NOTE | 2025-01-29 08:52 | A.OFFPC_ITS ---
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: No Accompanied by: Self / Same As Patient Allergies No Known Allergies (No Known Allergies*) Allergy (Verified 01/29/25 09:08) Medication List - Last Reconciled 01/29/25 by Chris Pearson MD amlodipine 10 mg PO DAILY blood pressure monitor As directed docusate sodium 100 mg PO DAILY PRN eculizumab 900 mg (90 mL) IV QWEEK 4 doses ferrous sulfate (Feosol) 325 mg PO DAILY 90 days finasteride 5 mg PO DAILY 90 days metoprolol tartrate 50 mg See Protocol PO BID 90 days Tobacco use date assessed: 01/29/25 Fall risk assessment: No Falls in past year Last assessed Fall Risk: 01/29/25 Dental Screening Dental Screen Date: 01/29/25 Did you have a dental visit in the last 12 months?: Yes Did you have a dental problem in the last 6 months where you did not have access to dental care?: No Was dental information given to patient?: Patient has dentist HPI [facility] 01/12 anemia/ÁNGELA HPI Details Patient comes in today for TCM He was recently diagnosed with atypical HUS - was going through repeated bouts of severe anemia requiring blood transfusions every few weeks for the past couple of months During his most recent admission last month, labs revealed (+) findings of hemolysis including schistocytes, LDH at 2085, haptoglobin < 8, thrombocytopenia and indirect hyperbilirubinemia He was started on Soliris infusions and will be getting his next dose (4th dose) tomorrow He has received his meningococcal vaccination and currently remains on prophylactic Abx (Cipro) and is aware that he is to call for medical advice/attention if he starts experiencing any common symptoms of infection States that he currently feels okay and denies any fever or sore throat or any recent/current symptoms of cough/congestion He denies any headaches or dizziness Denies any chest pains, no SOB No nausea/vomiting, no abdominal pain No change in bowel habits noted Needs a couple of his Rx refilled TCM TCM Information Date of Discharge 01/12/25 Discharged From [facility] Interactive Contact Date (Reference documentation from this date) 01/14/25 [facility] Medical History (Updated 01/29/25 @ 09:31 by Chris Pearson MD) Atypical hemolytic uremic syndrome Anemia Elevated LFTs Essential hypertension Dermatitis Primary osteoarthritis of knees, bilateral Severe mitral valve regurgitation Mitral valve prolapse Non-rheumatic mitral regurgitation History of hepatitis C Benign essential hypertension Hypertension Overweight (BMI 25.0-29.9) Anxiety Urinary frequency Allergic rhinitis Osteoarthritis of left knee Vitamin D deficiency Pure hypercholesterolemia Impaired fasting glucose White coat syndrome with hypertension Surgical History Heart valve replaced (~07/2024) History of mitral valve repair History of colonoscopy History of prostate surgery Family History Father Hypertension Stroke Mother Medical history unknown Social History Household Members: None Housing: Apartment Do you presently have visiting nurse or other home services: No Alcohol intake: never Patient Tobacco Use Status: Former Tobacco user Tobacco use type: Cigarette Years Smoked: 25 years e-Cigarette/Vaping Use: Never Used Second Hand Smoke Exposure: Yes service: No Current occupational status: retired and disabled Cognitive needs: No Hearing needs: No Vision needs: Yes (Reading Glasses) Questionnaire PHQ-9 Over the last 2 weeks, how often have you been bothered by any of the following problems? Depression Screening Interpretation: Positive Depression Screening Follow-up: Follow-up Visit Requested Depression Screening Done: Yes Source: Developed by Drs. Joshua Wren, Marga Juarez, Wilbert Diaz and colleagues, with an educational nathalie from [employer]. Thrive Questionnaire Date Thrive assessed: 12/12/24 I am a: Patient What is your living situation today?: I have a steady place to live Within the past 12 months, did the food you bought not last and you didn't have the money to get more?: Never true Within the past 12 months, did you worry whether your food would run out before you got money to buy more?: Never true Do you have trouble paying for medicines?: No Do you have trouble getting transportation to medical appointments?: No Do you have trouble paying your heating and electricity bill?: No Do you have trouble taking care of your child, family member or friend?: No Do you have trouble with day-to-day activities such as bathing, preparing meals, shopping, managing finances, etc.?: No Are you currently unemployed and looking for a job?: No Are you interested in more education?: No Please select the resources that you would like help with: None Currently or been in a relationship where the following occur: No concerns reported THRIVE Score: 0 AUDIT C Alcohol Use Questionnaire (AUDIT-C) 1. How often do you have a drink containing alcohol?: Never 3. How often do you have six or more drinks on one occasion?: Never Total Score: 0 Score Reviewed/Action Taken: Yes OBEY-7 AMB Questionnaire OBEY-7 Date OBEY - 7 assessed: 12/12/24 Source: Developed by Drs. Joshua Wren, Marga Juarez, Wilbert Diaz and colleagues, with an educational nathalie from [employer]. Review of Systems Const Denies chills, Reports fatigue, Denies fever(s) and Denies headache(s) ENT Denies dysphagia, Denies dizziness, Denies otalgia, Denies headache(s), Denies neck pain, Denies odynophagia and Denies sore throat Card Denies chest pain, Denies rapid heart rate, Denies irregular heart rhythm, Denies palpitations and Reports dyspnea on exertion (mild) Resp Denies chest congestion, Denies cough and Reports dyspnea on exertion (mild) GI Denies abdominal pain, Denies hematochezia, Denies constipation, Denies dysphagia, Denies heartburn, Denies diarrhea, Denies nausea, Denies odynophagia and Denies vomiting Denies hematuria, Denies difficulty urinating, Denies dysuria, Reports nocturia and Reports urinary frequency (mostly at night) Musc Denies back pain, Denies arthralgias and Denies neck pain Skin/Breast Denies rash Neuro Denies dizziness, Denies headache(s) and Denies paresthesias Psych Reports anxiety Endo Reports fatigue and Denies palpitations Physical exam (Primary Care) Vital Signs: Last Vital Signs Pulse 64 01/29/25 08:52 BP 130/78 01/29/25 08:52 Pulse Ox 99 01/29/25 08:52 Oxygen Delivery Method Room Air 01/29/25 08:52 BMI result Body Mass Index 21.7 Tobacco/Smoking Status: Tobacco use Status Tobacco use date assessed 01/29/25 01/29/25 08:55 Patient Tobacco Use Status Former Tobacco user 01/29/25 08:55 Tobacco use type Cigarette 01/29/25 08:55 e-Cigarette/Vaping Use Never Used 01/29/25 08:55 Depression Screening Interpretation: Positive Depression Screening Follow-up: Follow-up Visit Requested Thrive Assessment: Date of Thrive Assessment Date Thrive assessed 12/12/24 01/29/25 08:55 Currently or been in a relationship where the following occur: No concerns reported Const General: no acute distress and alert HENMT Throat: Yes posterior oropharynx normal and Yes tonsils normal (no TP congestion noted) Neck Neck: Yes supple and No lymphadenopathy Thyroid: Thyroid normal Resp Auscultation: clear to auscultation bilaterally, no rales and no wheezes Cardio Rate: regular rate Rhythm: regular rhythm Heart sounds: Clicking heart sound present (mid-systolic) and Murmur heart sound present systolic late, III/ and at the apex GI Palpation (GI): Soft to palpation and nontender Auscultation: normal bowel sounds General: Yes no CVA tenderness Back/Spine/Pelvis Back: no CVA tenderness Thoracic/Lumbar Spine: No lumbar spinal tenderness Skin Rashes: no rashes Extrem General: Yes no clubbing, cyanosis or edema Right lower extremity: knee Details: tenderness (mild) and normal ROM; no swelling and no crepitus Left lower extremity: knee Details: tenderness (mild) and normal ROM; no swelling Coding Level of Care Code TCM Mod MDM <= 14 Days Diagnoses Atypical hemolytic uremic syndrome D59.39 Anemia D64.9 Anemia type: unspecified type ÁNGELA (acute kidney injury) N17.9 Essential hypertension I10 Constipation, unspecified constipation type K59.00 Constipation type: unspecified constipation type Assessment & Plan Assessment & Plan (1) Atypical hemolytic uremic syndrome: Code(s): D59.39 - Other hemolytic-uremic syndrome Category: Medical Plan: Continue Eculizumab 900 mg IV Q week - he will be getting his 4th dose tomorrow Continue prophylactic Abx with Cipro 500 mg QD Follow up with hematology and nephrology as scheduled (2) Anemia: Code(s): D64.9 - Anemia, unspecified Category: Medical Qualifiers: Anemia type: unspecified type Qualified Code(s): D64.9 - Anemia, unspecified Plan: His most recent H/H was at 8.5/26.5 last week on 01/23/2025 He is advised that his anemia should gradually improve with his current Tx Continue Ferrous sulfate 325 mg QD Patient states that he will be getting his CBC rechecked again when he goes in for his weekly Soliris infusion Follow up with hematology as scheduled (3) ÁNGELA (acute kidney injury): Code(s): N17.9 - Acute kidney failure, unspecified Category: Medical Plan: His renal function has significantly declined over the past few months but it appears to have stabilized and is now gradually improving with Tx of his HUS Follow up with nephrology as scheduled (4) Essential hypertension: Code(s): I10 - Essential (primary) hypertension Category: Medical Plan: Reinforced low sodium diet - goal is systolic BP of at least 120 to 130 mm or less Continue Amlodipine 10 mg QD (Rx refilled) and Metoprolol 50 mg BID; Losartan 50 mg QD was discontinued a few weeks ago due to his declining renal function then Patient is reminded to continue monitoring his blood pressure regularly (5) Constipation: Code(s): K59.00 - Constipation, unspecified Category: Medical Qualifiers: Constipation type: unspecified constipation type Qualified Code(s): K59.00 - Constipation, unspecified Plan: His abdominal and pelvic CT done in the ER a couple of months ago revealed findings of moderate colonic stool burden, most pronounced within the ascending colon Reinforced increased oral fluids and dietary fiber intake Continue Colace 100 mg QD Plan To return as scheduled in March 2025 for his annual physical examination Medications: New eculizumab administer wks 1-4 of therapy; over 35 min 900 mg (90 mL) IV QWEEK 4 doses Changed From ciprofloxacin HCl (Cipro) 500 mg PO BID 14 tabs 0RF To ciprofloxacin HCl (Cipro) 500 mg PO DAILY 30 tabs 0RF Refilled amlodipine 10 mg PO DAILY 90 tabs 3RF Discontinued ciprofloxacin HCl Discontinued Reason: Patient Completed Course 500 mg PO DAILY 7 tabs 0RF ciprofloxacin HCl (Cipro) Discontinued Reason: Patient Completed Course 500 mg PO BID 14 tabs 0RF
--- OUTSIDE RECORDS SUMMARY | 2025-01-29 09:14 | XMS_ITS | Clinical Summary ---
Author Organization [facility] Facility Address [address] [place] [id number] Care Team Providers Care Part Time Name Role Phone Unavailable Primary Care Provider Unavailabl e Allergies No known active allergies Medications D3-1000 25 MCG (1000 UT) capsule Take 1,000 Units by mouth 1 (one) time each day 06/25/2022 Active amLODIPine (NORVASC) 10 MG tablet Take 10 mg by mouth 1 (one) time each day 07/16/2022 Active multivitamin-iro e-ykketixl-odbys acid (CENTRUM) chewable tablet Chew 1 tablet [...] patient's age to complete this topic Insurance [employer]
--- OUTSIDE RECORDS SUMMARY | 2025-01-29 09:15 | XMS_ITS | Encounter Summary ---
Author Organization [facility] Address [address] [place] [address] Phone Care Team Providers Care Director Of Campus Recreation Name Role Phone Unavailable Primary Care Provider Unavailabl e Encounter Details Date Type Department Care Team (Late st Contact Info) Description 09/14/2022 Documentation Only [facility] [address] [place] [address] Deepti Vela MA Social History [...]
--- OUTSIDE RECORDS SUMMARY | 2025-01-29 09:15 | XMS_ITS | Patient Health Record ---
Author Organization [facility] Address [address] [place] [id number] Care Team Providers Care Instructional Design Manager Name Role Phone Chris Pearson MD Primary Care Provider Joshua Catalan Unavailable [phone] Reason For Referral No Information Medications Medication [...] Problem Status W/U Status Risk Notes Problem [id number] Encounter for screening for malignant neoplasm of colon (Z12.11) Active confirmed Problem 131461776 Chronic hepatitis C without hepatic coma (B18.2) Active confirmed Problem 863802309 Elevated liver enzymes (R74.8) Active confirmed Problem [id number] History of hepatitis C (Z86.19) Active confirmed Problem 82652713 Liver fibrosis (K74.0) Active confirmed Plan Of [...] Date [employer] [address] [place] [phone] [id number] EMILIE BOOTH Self - patient is the [...]
== END 2025-01-29 09:21 | disposition home or self-care (01) ==
LOC: HO.HMCH 08:46
PROVIDERS: PCP Internal Medicine; Visit Provider Internal Medicine
DX: D59.39 Other hemolytic-uremic syndrome (principal); D64.9 Anemia, unspecified; N17.9 Acute kidney failure, unspecified; I10 Essential (primary) hypertension; K59.00 Constipation, unspecified

== ENCOUNTER → 2025-01-29 08:45 | Outpatient (BNVA) | payer OTHER, SELFPAY | PROVIDERS: PCP Internal Medicine; Visit Provider Internal Medicine | DX: I10 Essential (primary) hypertension (principal); D59.39 Other hemolytic-uremic syndrome; D64.9 Anemia, unspecified; N17.9 Acute kidney failure, unspecified; K59.00 Constipation, unspecified | CPT/HCPCS: 99212 ==

== ENCOUNTER 2025-02-04 11:52 | Day surgery (SDC) | payer OTHER, SELFPAY ==
--- OUTSIDE RECORDS SUMMARY | 2025-02-03 09:35 | XMS_ITS | Clinical Summary ---
Author Organization [facility] Facility Address [address] [place] [address] Care Team Providers Care Funeral Arranger Name Role Phone Unavailable Primary Care Provider Unavailabl e Allergies No known active allergies Medications D3-1000 25 MCG (1000 UT) capsule Take 1,000 Units by mouth 1 (one) time each day 06/25/2022 Active amLODIPine (NORVASC) 10 MG tablet Take 10 mg by mouth 1 (one) time each day 07/16/2022 Active multivitamin-iro y-gsjshiem-mggze acid (CENTRUM) chewable tablet Chew 1 tablet [...] patient's age to complete this topic Insurance [place]
--- OUTSIDE RECORDS SUMMARY | 2025-02-03 09:35 | XMS_ITS | Patient Health Record ---
Author Organization [facility] Address [address] [place] [id number] Care Team Providers Care Leak Hunter Name Role Phone Jaquelin Pearson MDh Primary Care Provider Joshua Catalan Unavailable [phone] Reason For Referral No Information Medications Medication [...] Problem Status W/U Status Risk Notes Problem [id number] Encounter for screening for malignant neoplasm of colon (Z12.11) Active confirmed Problem 812143153 Chronic hepatitis C without hepatic coma (B18.2) Active confirmed Problem 765523095 Elevated liver enzymes (R74.8) Active confirmed Problem [id number] History of hepatitis C (Z86.19) Active confirmed Problem 02270065 Liver fibrosis (K74.0) Active confirmed Plan Of [...] Date [employer] [address] [place] [phone] [id number] EMILIE BOOTH Self - patient is the [...]
--- OUTSIDE RECORDS SUMMARY | 2025-02-03 09:35 | XMS_ITS | Encounter Summary ---
Author Organization [facility] Address [address] [place] [address] Phone Care Team Providers Care Information Consultant Name Role Phone Unavailable Primary Care Provider Unavailabl e Encounter Details Date Type Department Care Team (Late st Contact Info) Description 09/14/2022 Documentation Only [facility] [address] [facility] [address] [place] [address] Deepti Vela MA Social History [...]
--- NOTE | 2025-02-03 11:15 | MHC.HEMONC ---
Per Dr. Ansari, nurse canceled the Soliris infusion for Chacho Barnard for Sunday, she says the drug isn't working, he's having a bone marrow tomorrow and she's going to re-assess. Nurse notified pt by phone that his upcoming appts for Soliris are being cancelled, and he will be contacted by Dr. Ansari to make the next plan for his treatment once she examines his bone marrow biopsy results. Nurse also cancelled all upcoming vaccine appts for pt, notified chemopharmacistShila. In order to ensure that pt does not require another transfusion this week, nurse entered t/o lab orders for Dr. Ansari under [facility] account to have CBC, T+S drawn during his bone marrow appt tomorrow, confirmed earl/ Jj from special procedures that blood would be drawn.
[2025-02-04] VITALS (12 sets, daily range): BP systolic 113–151; BP diastolic 60–75; PULSE 57–63; RESP 11–22; TEMP 36.5–36.6; O2SAT 98–100; BMI 21.6
--- NOTE | ~2025-02-04 | CT_ITS ---
History: Anemia PROCEDURES: 1. Limited preprocedure CT of the pelvis. Permanent images saved in PACS. 2. 11 g bone marrow core biopsy of the left posterior iliac spine 3. 11 g bone marrow aspirate of the left posterior iliac spine CLINICIANS: Shashi Austin NP Preprocedural imaging reviewed with Jean Pierre Herrera MD MEDICATIONS: -Versed, Fentanyl , and lidocaine 1% SQ -Antibiotics: None -For additional details, please see nursing flowsheet. COMPLICATIONS: None ESTIMATED BLOOD LOSS: < 5 ml CONTRAST: None SPECIMENS: 11 g core placed in formalin. Bone marrow aspirate placed in EDTA and sodium heparin tubes MODERATE SEDATION TIME: 30 min PROCEDURE NOTE: The procedure, risks, benefits, and alternatives were carefully explained to the patient and written informed consent was obtained. The patient was placed prone on the CT table. A timeout was performed. A limited CT of the pelvis was performed to localize posterior iliac spine and choose appropriate needle entry and trajectory. The patient was prepped and draped in usual sterile fashion. The skin, subcutaneous tissues, and periosteum were anesthetized with lidocaine. Under CT guidance, an 11-gauge bone marrow biopsy needle was advanced into the posterior iliac spine, with the tip positioned slightly cephalad. A bone marrow aspirate was performed. The specimen was placed in the provided EDTA and sodium heparin tubes. Next, the 11-gauge bone marrow biopsy needle was then advanced into the posterior iliac spine, under CT guidance, with the tip positioned slightly caudal. An 11-gauge core biopsy of the bone marrow was performed, needle removed and the specimen was placed in formalin. A dry dressing was applied and secured with Tegaderm. There were no immediate complications. The patient was stable after the procedure and was transferred to the post anesthesia care unit. The procedure was done under moderate sedation with a dedicated nurse for monitoring of vital signs. CT/CT biopsy asp core bone marrow Impression: CT-guided bone marrow biopsy and aspirate This procedure was performed by Shashi Austin NP and supervised by Jean Pierre Herrera MD. Electronically signed by: Jean Pierre Herrera MD 02/05/2025 05:53 PM EDT Workstation: [id number]
[2025-02-04 12:57] LABS: MANUAL DIFF FLAG NO
[2025-02-04 13:01] LABS: Hematocrit 30.8 % (42.0-52.0); Hemoglobin 9.7 g/dl (14.0-18.0); Imm Gran Abs Auto 0.03 X10*3/uL (0.00-0.03); Imm Gran Pct Auto 0.5 % (0.0-0.4); Lymphocytes Absolute Auto 1.4 X10*3/uL (1.2-4.9); Mean Corpuscular HGB Conc 31.5 g/dl (31.0-36.0); Mean Corpuscular Hemoglobin 31.5 pg (27.0-33.0); Mean Corpuscular Volume 100.0 fL (80.0-98.0); NRBC Abs Auto 0.000 X10*3/uL (0.0-0.012); NRBC Pct Auto 0.0 /100WBC (0.0-0.2); Platelet Count 144 X10*3/uL (160-400); Red Blood Count 3.08 X10*6/uL (4.60-5.80); White Blood Count 6.2 X10*3/uL (4.8-10.8)
[2025-02-04 13:15] LABS: INTERNATIONAL NORM RATIO 0.9 (0.9-1.1); Prothrombin Time 10.8 SEC (10.9-12.4)
--- NOTE | 2025-02-04 13:41 | PC.NURSE ---
denies blood thinnners. states been off of them for two weeks
[2025-02-08 22:08] LABS: Glucose-6-Phosphate Dehydrogen 17.7 U/g Hgb (7.0-20.5)
== END 2025-02-04 16:49 | disposition home or self-care (01) ==
PROVIDERS: Radiology Diagnostic Radiology; PCP Internal Medicine; Visit Provider Internal Medicine
DX: D59.4 Other nonautoimmune hemolytic anemias (principal); D69.6 Thrombocytopenia, unspecified; R31.9 Hematuria, unspecified; N28.9 Disorder of kidney and ureter, unspecified; R53.1 Weakness; R53.83 Other fatigue; R79.89 Other specified abnormal findings of blood chemistry; Q98 Other sex chromosome abnormalities, male phenotype, not elsewhere classified; I10 Essential (primary) hypertension; E78.00 Pure hypercholesterolemia, unspecified; R73.01 Impaired fasting glucose; E55.9 Vitamin D deficiency, unspecified; F41.9 Anxiety disorder, unspecified; Z86.19 Personal history of other infectious and parasitic diseases; Z95.2 Presence of prosthetic heart valve; Z79.620 Long term (current) use of immunosuppressive biologic; Z98.890 Other specified postprocedural states; Z87.891 Personal history of nicotine dependence
CPT/HCPCS: 36415; 38222; 77012; 82955; 85025; 85610; 86850; 86900; 86901; 88184; 88185; 88237; 88264; 88305; 88311; 88313; 99152; J2003; J2250; J3010

== ENCOUNTER → 2025-02-04 13:02 | Outpatient (BNV) | payer OTHER, SELFPAY | PROVIDERS: PCP Internal Medicine | DX: D64.9 Anemia, unspecified (principal) | CPT/HCPCS: 38222; 88291 ==

== ENCOUNTER 2025-02-19 14:59 | Outpatient (AMB) | payer OTHER, SELFPAY ==
[2025-02-19 15:31] VITALS: BP 100/82; PULSE 62; BMI 21.9
--- NOTE | 2025-02-19 15:31 | A.OFFVIS_ITS ---
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 To recall, he had severe mitral regurgitation from a flail posterior leaflet. Subsequently, he was seen by cardiac surgery and underwent mitral valve repair in july 2024. In the last few months, he has been having issues with hematuria, anemia, thrombocytopenia and has been diagnosed with hemolytic anemia. He has undergone a detailed workup through hematology and has been referred back to us to evaluate if valve repair is the etiology for the anemia. Patient himself is quite frustrated with all the medical appointments and testing extra. He is not happy about undergoing more testing. No overt cardiac symptoms. He is still quite anemic and the most recent hemoglobin from yesterday 7.6. PFSH Medical History Atypical hemolytic uremic syndrome Anemia Elevated LFTs Essential hypertension Dermatitis Primary osteoarthritis of knees, bilateral Severe mitral valve regurgitation Mitral valve prolapse Non-rheumatic mitral regurgitation History of hepatitis C Benign essential hypertension Hypertension Overweight (BMI 25.0-29.9) Anxiety Urinary frequency Allergic rhinitis Osteoarthritis of left knee Vitamin D deficiency Pure hypercholesterolemia Impaired fasting glucose White coat syndrome with hypertension Surgical History Hx of tonsillectomy Heart valve replaced (~07/2024) History of mitral valve repair History of colonoscopy History of prostate surgery Family History Father Hypertension Stroke Mother Medical history unknown Social History Household Members: None Housing: Apartment Do you presently have visiting nurse or other home services: No Alcohol intake: never Patient Tobacco Use Status: Former Tobacco user Tobacco use type: Cigarette Years Smoked: 25 years e-Cigarette/Vaping Use: Never Used Second Hand Smoke Exposure: Yes service: No Current occupational status: retired and disabled Cognitive needs: No Hearing needs: No Vision needs: Yes (Reading Glasses) Review of Systems Const Denies chills, Denies fatigue, Denies fever(s), Denies frequent falls, Denies weakness, Denies weight gain and Denies weight loss ENT Denies dizziness Card Denies chest pain, Denies leg edema, Denies lightheadedness, Denies palpitations, Denies dyspnea and Denies dyspnea on exertion Resp Denies cough, Denies dyspnea and Denies dyspnea on exertion GI Denies hematochezia Musc Denies abnormal gait, Denies muscle weakness, Denies numbness, Denies radiating pain into limb and Denies tingling Neuro Denies abnormal gait, Denies dizziness, Denies frequent falls, Denies numbness, Denies tingling and Denies weakness Endo Denies fatigue and Denies palpitations Physical Exam Vital Signs: Last Vital Signs Pulse 62 02/19/25 15:31 BP 100/82 02/19/25 15:31 BMI result Body Mass Index 21.9 Const General: comfortable and no acute distress Orientation/consciousness: patient oriented x3 HEENT Other: Unremarkable Head: Yes normal to inspection Neck Neck: Yes normal visual inspection Chest Chest palpation & inspection: normal inspection of the chest Resp Auscultation: clear to auscultation bilaterally Cardio Palpation: normal PMI Heart sounds: S1 normal heart sound present, S2 normal heart sound present, no gallops, Murmur heart sound present systolic III/ and at the apex and no rubs GI Palpation (GI): Soft to palpation Back/Spine/Pelvis Other: unremarkable Skin General skin exam: no rashes or lesions noted Neuro General: patient oriented x3 Extrem General: Yes normal to inspection Psych Mental Status: mental status grossly normal Assessment & Plan Assessment & Plan (1) Non-rheumatic mitral regurgitation: Code(s): I34.0 - Nonrheumatic mitral (valve) insufficiency Category: Medical Plan: Status post mitral valve repair-07/2024. Cardiac catheterization shows normal coronaries. In the postoperative echocardiogram, there is [id number] mitral regurgitation status post repair. Preserved LVEF at 62%. On auscultation, he does have a prominent apical murmur and hence he needs an urgent echocardiogram to re-evaluate MR, especially considering the ongoing hemolytic anemia. He likely needs a JEROD as well but when I discussed about this today he was reluctant to proceed. He is frustrated with so many appointments. We can start with a transthoracic study and then I can hopefully convince him to get a JEROD. Also sent a message Dr. Day from cardiac surgery for follow-up. (2) Benign essential hypertension: Code(s): I10 - Essential (primary) hypertension Category: Medical Plan: On amlodipine. Stable. Plan Total time spent including review of data, counseling, documentation, coordination of care-47 minutes. Orders: Orders CA echo transthoracic complete Today I34.0 - Nonrheumatic mitral (valve) insufficiency Coding Level of Care Code Est Pt Level 4 (29174) Complex EM visit Add On G2211 Diagnoses Non-rheumatic mitral regurgitation I34.0 Benign essential hypertension I10
--- OUTSIDE RECORDS SUMMARY | 2025-02-19 18:52 | XMS_ITS | Clinical Summary ---
Author Organization [facility] Facility Address [address] [place] [id number] Care Team Providers Care Shield Installer Name Role Phone Unavailable Primary Care Provider Unavailabl e Allergies No known active allergies Medications D3-1000 25 MCG (1000 UT) capsule Take 1,000 Units by mouth 1 (one) time each day 06/25/2022 Active amLODIPine (NORVASC) 10 MG tablet Take 10 mg by mouth 1 (one) time each day 07/16/2022 Active multivitamin-iro g-fbzsynlw-icfyv acid (CENTRUM) chewable tablet Chew 1 tablet [...] patient's age to complete this topic Insurance Reading Reading
--- OUTSIDE RECORDS SUMMARY | 2025-02-19 18:52 | XMS_ITS | Encounter Summary ---
Author Organization [facility] Address [address] [place] [address] Phone Care Team Providers Care Water Server Name Role Phone Unavailable Primary Care Provider Unavailabl e Encounter Details Date Type Department Care Team (Late st Contact Info) Description 09/14/2022 Documentation Only [facility] [address] [facility] [address] [place] [address] Deepti Vela MA Social History [...]
--- OUTSIDE RECORDS SUMMARY | 2025-02-19 18:52 | XMS_ITS | Patient Health Record ---
Author Organization [facility] Address [address] [place] [id number] Care Team Providers Care Hide And Skin Fleshing Machine Operator Name Role Phone Chris Pearson MD Primary Care Provider Joshua Catalan Unavailable [phone] Reason For Referral No Information Medications Medication SIG (Take, Route, Frequency, Duration) Notes Start Date End Date Status Multivitamin Adults - as directed Orally Active Atenolol 50 MG 1 tablet Orally Once a day Active Vitamin D-[address] 1000 UNIT TAKE 1 TABLET BY MOUTH EVERY DAY Oral; Duration: 90 Active Tamsulosin HCl 0.4 MG TAKE ONE CAPSULE B Y MOUTH AT BEDTIME Oral; Duration: 90 Active Immunizations Vaccine Route Administration Date Status Comme nts Influenza Unknown 12/29/2017 Administered Problems Problem Type SNOMED Code ICD Code Onset Dates Problem Status W/U Status Risk Notes Problem Screening for malignant neoplasm of colon (848753793) Encounter for screening for malignant neoplasm of colon (Z12.11) Active confirmed Problem Chronic hepatitis C (448325250) Chronic hepatitis C without hepatic coma (B18.2) Active confirmed Problem Elevated liver enzymes level (945351621) Elevated liver enzymes (R74.8) Active confirmed Problem History of hepatitis C (7666148985372 1) History of hepatitis C (Z86.19) Active confirmed Problem Hepatic fibrosis (disorder) (21693445) Liver fibrosis (K74.0) Active confirmed Plan Of [...] Date [employer] 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
== END 2025-02-19 15:50 | disposition home or self-care (01) ==
LOC: HO.HCS 15:00
PROVIDERS: PCP Internal Medicine; Visit Provider Internal Medicine
DX: I34.0 Nonrheumatic mitral (valve) insufficiency (principal); I10 Essential (primary) hypertension
CPT/HCPCS: 99214; G2211

== ENCOUNTER → 2025-02-19 14:59 | Outpatient (BNVA) | payer OTHER, SELFPAY | PROVIDERS: PCP Internal Medicine; Visit Provider Internal Medicine | DX: I10 Essential (primary) hypertension (principal); I34.0 Nonrheumatic mitral (valve) insufficiency | CPT/HCPCS: 99212 ==

== ENCOUNTER → 2025-02-23 13:39 | Outpatient (REF) | payer OTHER, SELFPAY ==
--- NOTE | 2025-02-23 13:44 | CA_ITS ---
Transthoracic Echocardiogram Patient (Last, First, Middle): Chacho Barnard M Gender: M Date of : 1945 Age: 79 Procedure Date: 02/23/2025 Procedure Type: Transthoracic Echocardiogram Location: OP Height: 165.1 cm Weight: 60.33 kg BSA: 1.66 m2 Heart Rate: bpm BP: 118 / 60 mmHg End Finder Twisting Department: Referring MD: Javier Cummings MD Symptoms: I34.0 - Nonrheumatic mitral (valve) insufficiency Study Quality: Good ECG Rhythm: Sinus Conclusions: - The left ventricular systolic function is normal. The calculated ejection fraction is 60% by biplane method. - s/p mitral valve repair. - There is mild to moderate mitral valve regurgitation. - Additionally, there is a small regurgitant para-valvular jet seen at the base of the posterior leaflet. Potential source of hemolytic anemia. Findings Left Ventricle Normal left ventricular cavity size. There is normal left ventricular wall thickness. The left ventricular systolic function is normal. The calculated ejection fraction is 60% by biplane method. There is no evidence of regional wall motion abnormalities. Diastolic function is indeterminate on the basis of available data. Right Ventricle Normal right ventricular cavity size and systolic function. Atria The left atrium is severely dilated. The right atrium is normal in size. Aortic Valve There is a normal trileaflet aortic valve. There is no aortic valve stenosis. There is trace (trivial) aortic valve regurgitation. Mitral Valve There is mild to moderate mitral valve regurgitation. The mitral regurgitation jet is directed anteriorly. There is no mitral valve stenosis. s/p mitral valve repair. Additionally, there is a small regurgitant para valvular jet seen at the base of the posterior leaflet. Pulmonic Valve There is trace pulmonic valve regurgitation. Tricuspid Valve There is mild tricuspid valve regurgitation. There is no evidence of pulmonary hypertension. Great Vessels The asc aorta is normal in size. Venous The inferior vena cava is normal in size and collapses greater than 50% with inspiration. Pericardium/Pleural There is no evidence of pericardial effusion. Prior Study Comparison No significant change compared to prior study dated: 10/21/2024. Recommendations, Care & Conclusions Recommend a JEROD. Measurements 2D Linear Measurements IVSd: 1.00 0.6-0.9/0.6-1.0 cm LVIDd: 5.35 3.9-5.3/4.2-5.9 cm LVIDd Index: 3.22 2.4-3.2/2.2-3.1 cm/m2 LVIDs: 3.14 2.0-3.6 cm LVPWd: 1.00 0.7-1.1 cm Ao Root: 3.50 2.1-3.5 cm LA Diam: 4.90 2.7-3.8/3.0-4.0 cm LAIDs Index: 2.95 1.5-2.3 cm/m2 LV Mass: 253.36 67-162/88-224 g LV Mass Index: 152.62 43-95/49-115 g/m2 LVOT Diam: 2.20 3.0+(-)1.3 cm 2D Systolic Function EF 4C: 62.50 >55% EF 2C: 59.40 >55% EF BiP: 59.80 >55% Mitral Valve MV Pk E: 1.08 MV PK A: 1.26 MV Decel Time: 294.00 E/A: 0.90 E'Lateral: 11.00 E'Medial: 5.55 E/E' Med: 19.50 E/E' Lat: 9.80 PHT: 86.00 MVA PHT: 2.[address] [place]: 3.68 Aortic Valve AoV Pk Vernon: 1.79 AoV Mn Vernon: 1.14 AoV VTI: 0.41 AoV Pk Grad: 13.00 Aov Mn Grad: 6.00 HERRERA Cont.VTI: 2.45 LVOT LVOT Pk Vernon: 1.09 LVOT Mn Vernon: 0.66 LVOT VTI: 0.26 LVOT Pk Grad: 5.00 LVOT Mn Grad: 2.00 LVOT Diam: 2.20 LVOT Area: 3.80 Diastolic Function MV Pk E: 1.08 MV Pk A: 1.26 E/A: 0.90 E'Medial: 5.55 E/E' Med: 19.50 E' Laterial: 11.00 E/E' Lat: 9.80 Right Ventricle TAPSE (mm): 22.00 TVS' Vernon: 11.00 Tricuspid Valve TR Pk Vernon: 2.33 TR Pk Grad: 22.00 RA Press: 3.00 RVSP: 25.00 Great Vessels Aorta Ao Root-2D: 3.50 2.0-3.7 cm Ao Asc: 3.40 2.1-3.4 cm Pulmonary Valve PV Pk Vernon: 1.26 Peak PV Grad: 6.00 Updated in Other Vendor System with Status of Final Javier Cummings MD electronically signed on 02/24/2025 3:08:51 PM with status of Final
--- OUTSIDE RECORDS SUMMARY | 2025-02-23 17:20 | XMS_ITS | Patient Health Record ---
Author Organization [facility] Address [address] [place] [address] Care Team Providers Care Hide Sorter Name Role Phone Chris Pearson MD Primary Care Provider Joshua Catalan Unavailable [phone] Reason For Referral No Information Medications Medication [...] Problem Screening for malignant neoplasm of colon (031553057) Encounter for screening for malignant neoplasm of colon (Z12.11) Active confirmed Problem Chronic hepatitis C (641350251) Chronic hepatitis C without hepatic coma (B18.2) Active confirmed Problem Elevated liver enzymes level (108572612) Elevated liver enzymes (R74.8) Active confirmed Problem History of hepatitis C (5775733097637 1) History of hepatitis C (Z86.19) Active confirmed Problem Hepatic fibrosis (disorder) (28195393) Liver fibrosis (K74.0) Active confirmed Plan Of [...] Date [employer] [address] [place] [id number] EMILIE BOOTH Self - patient is the [...] alcohol abuse--abstinent > 10 y ears Denies [place],DM,CVA,Lung disease,renal dise ase Previous substance abuse with abstinence for over 20 years BPH Surgical History Surgery Date(Month/Year) hand surgery
--- OUTSIDE RECORDS SUMMARY | 2025-02-23 17:20 | XMS_ITS | Clinical Summary ---
Author Organization [facility] Facility Address [address] [place] [address] Care Team Providers Care Track Machine Operator Repairer Name Role Phone Unavailable Primary Care Provider Unavailabl e Allergies No known active allergies Medications D3-1000 25 MCG (1000 UT) capsule Take 1,000 Units by mouth 1 (one) time each day 06/25/2022 Active amLODIPine (NORVASC) 10 MG tablet Take 10 mg by mouth 1 (one) time each day 07/16/2022 Active multivitamin-iro e-hgsfoski-xnply acid (CENTRUM) chewable tablet Chew 1 tablet [...] patient's age to complete this topic Insurance [employer]
--- OUTSIDE RECORDS SUMMARY | 2025-02-23 17:20 | XMS_ITS | Encounter Summary ---
Author Organization [facility] Address [address] [place] [address] Phone Care Team Providers Care Licensed Occupational Therapist Name Role Phone Unavailable Primary Care Provider Unavailabl e Encounter Details Date Type Department Care Team (Late st Contact Info) Description 09/14/2022 Documentation Only [facility] [address] [facility] [address] [place] [address] Deepti Vela MA Social History [...]
== END ==
LOC: HO.CARD 13:39
PROVIDERS: Visit Provider Internal Medicine
DX: I34.0 Nonrheumatic mitral (valve) insufficiency (principal)
CPT/HCPCS: 93306

== ENCOUNTER → 2025-02-23 13:44 | Outpatient (BNV) | payer OTHER, SELFPAY | PROVIDERS: Visit Provider Internal Medicine | DX: I34.0 Nonrheumatic mitral (valve) insufficiency (principal); I34.89 Other nonrheumatic mitral valve disorders; I51.7 Cardiomegaly | CPT/HCPCS: 93306 ==